=== PATIENT | male | born 1950 | race Caucasian/White ===

== ENCOUNTER 2017-06-21 10:57 | Inpatient (IN) | payer BC, OTHER ==
[2017-05-23 14:23] VITALS: BMI 37.0
--- NOTE | 2017-05-23 15:21 | PAT Medication Instructions ---
Service Date May 23, 2017. Current Home Medication List Acetaminophen Tab (Tylenol), 650 MG PO PRN Atorvastatin (Lipitor), 20 MG PO SatPM Carvedilol (Coreg), 3.125 MG PO BID Coenzyme Q10 (Ubidecarenone) (Coq10), 100 MG PO QPM Doxazosin Mesylate (Cardura), 4 MG PO QAM Escitalopram Oxalate (Lexapro), 20 MG PO QAM Famotidine (Pepcid), 20 MG PO BID Gabapentin (Neurontin), 600 MG PO BID Glyburide-Metformin (Glucovance 5/500 Mg), 1 TAB PO BID Levothyroxine Sodium (Synthroid), 50 MCG PO QAM Liraglutide (Victoza), 1 DOSE INJ QAM Lisinopril (Zestril), 2.5 MG PO QPM Fcshsciukng-Lznnm-Kgawsqdpr Bl (Uribel), 1 CAP PO BID Multivitamin (Multivitamin), 0.5 TAB PO BID Orphenadrine Citrate (Norflex), 100 MG PO BID Oxycodone/Acetaminophen 5MG/325MG (Percocet 5MG/325MG), 1 TABLET PO Q4H PRN for Pain Probiotic Product (Probiotic), 1 TAB PO BID Sitagliptin Phosphate (Januvia), 100 MG PO QAM Trazodone Hcl (Trazodone), 100 MG PO QPM Warfarin Sod (Jantoven), 0.5-1 TAB PO QAM [Vitron C], 1 TAB PO QAM Medication Instructions For Your Scheduled Surgery - Instructions per primary physician: Warfarin Sod (Jantoven), 0.5-1 TAB PO QAM - Hold the following medications 2 weeks prior to surgery: Coenzyme Q10 (Ubidecarenone) (Coq10), 100 MG PO QPM - Hold the following medications 48 hours prior to surgery: Glyburide-Metformin (Glucovance 5/500 Mg), 1 TAB PO BID - Hold the following medications 24 hours prior to surgery: Lisinopril (Zestril), 2.5 MG PO QPM - Hold the following medications the morning of surgery: [Vitron C], 1 TAB PO QAM Multivitamin (Multivitamin), 0.5 TAB PO BID Orphenadrine Citrate (Norflex), 100 MG PO BID Qbrwvfrpojz-Stwld-Tqedwglgx Bl (Uribel), 1 CAP PO BID Sitagliptin Phosphate (Januvia), 100 MG PO QAM Probiotic Product (Probiotic), 1 TAB PO BID - Take the following medications the morning of surgery with a sip of water OTHERWISE NOTHING TO EAT OR DRINK AFTER MIDNIGHT: Famotidine (Pepcid), 20 MG PO BID Gabapentin (Neurontin), 600 MG PO BID Doxazosin Mesylate (Cardura), 4 MG PO QAM Escitalopram Oxalate (Lexapro), 20 MG PO QAM Levothyroxine Sodium (Synthroid), 50 MCG PO QAM Liraglutide (Victoza), 1 DOSE INJ QAM Oxycodone/Acetaminophen 5MG/325MG (Percocet 5MG/325MG), 1 TABLET PO Q4H PRN for Pain (may take if needed up to 4 hours prior to surgery) Carvedilol (Coreg), 3.125 MG PO BID Acetaminophen Tab (Tylenol), 650 MG PO PRN (may take if needed up to 4 hours prior to surgery) - Take the following medications as scheduled the night before surgery: Trazodone Hcl (Trazodone), 100 MG PO QPM Multivitamin (Multivitamin), 0.5 TAB PO BID Orphenadrine Citrate (Norflex), 100 MG PO BID Famotidine (Pepcid), 20 MG PO BID Gabapentin (Neurontin), 600 MG PO BID Rwiljcnozqs-Dcgih-Wuxeiodxi Bl (Uribel), 1 CAP PO BID Probiotic Product (Probiotic), 1 TAB PO BID Oxycodone/Acetaminophen 5MG/325MG (Percocet 5MG/325MG), 1 TABLET PO Q4H PRN for Pain Carvedilol (Coreg), 3.125 MG PO BID Atorvastatin (Lipitor), 20 MG PO MON WED FRIPM Acetaminophen Tab (Tylenol), 650 MG PO PRN If you have any questions please call us at [phone] or [phone] or [phone]
--- NOTE | 2017-05-23 16:14 | DIAGNOSTIC IMAGING REPORT ---
CHEST 2 VIEWS ROUTINE CLINICAL HISTORY: 67 years-old Male presenting with preoperative assessment. TECHNIQUE: PA and lateral views of the chest were obtained. COMPARISON: None. FINDINGS: Median sternotomy wires and mediastinal surgical clip noted. Breakage of the penultimate wire noted. Cardiac silhouette normal in size. Coronary artery calcification versus coronary stent noted. Suggestion of pleural thickening along the right lateral hemithorax, which is asymmetric to the left. Lungs and pleural spaces otherwise clear. Degenerative changes of the thoracic spine. Upper abdomen normal. IMPRESSION: 1. Right pleural thickening suggested. This could represent asymmetric prominent extrapleural fat, loculated fluid, or pleural thickening. Otherwise no acute cardiopulmonary disease. Electronically signed by: Philippe Andrade M.D. 05/23/2017 4:13 PM Dictated Date/Time: 05/23/2017 4:11 PM
[2017-05-23 16:26] LABS: BASO % 0.4 %; BASO ABS # 0.03 K/uL (0-0.2); EOS % 1.7 %; EOS ABS # 0.13 K/uL (0-0.5); HEMOGLOBIN 12.7 g/dL (14.0-18.0); IG# 0.03 K/uL (0.00-0.02); LYMPH % 27.7 %; LYMPH ABS # 2.16 K/uL (1.2-3.4); MEAN CELL VOLUME 93.3 fL (80-100); MEAN CORPUSCULAR HEMOGLOBIN 30.4 pg (25-34); MEAN CORPUSCULAR HGB CONC 32.6 g/dl (32-36); MEAN PLATELET VOLUME 9.8 fL (7.4-10.4); MONO % 11.3 %; MONO ABS # 0.88 K/uL (0.11-0.59); NEUT % 58.5 %; NEUT ABS # 4.57 K/uL (1.4-6.5); PLATELET COUNT 177 K/uL (130-400); RED CELL DISTRIBUTION WIDTH SD 47.5 fL (36.4-46.3)
[2017-05-23 16:35] LABS: CALCIUM 8.6 mg/dl (8.5-10.1); CREATININE 0.93 mg/dl (0.60-1.40); POTASSIUM 4.1 mmol/L (3.5-5.1)
[~2017-06-21] VITALS: Ht 180.3 cm; Wt 121.0 kg
[2017-06-21] VITALS (8 sets, daily range): BP systolic 108–140; BP diastolic 67–83; PULSE 72–93; TEMP 36.2–36.7; O2SAT 93–96; Ht 180.3 cm; Wt 121.0 kg
[~2017-06-21 10:57] MED LIST: ACET325T96 PO; ATOR-22 PO; CARV3.122 PO; CEFAZOLIN 3000MG IV PUSH 15 ML IV SCH; COEN100C7 PO; DOXA4TAB2 PO; ESCI1TAB10 PO; FAMO20TA11 PO; GABA-113 PO; GLYB5TAB3 PO; LACTATED RINGER'S 1000ML 1,000 ML IV SCH; LEVO50TA PO; LIRA18IN INJ; LISI-789 PO; METH118C PO; MISCCAP80 PO; MULT-506 PO; ORPH100T PO; OXYC-57 PO; SITA100T3 PO; TRAZ50TA35 PO; VITRON C PO; WARF7.5T4 PO
[2017-06-21] MEDS ORDERED: WARF7.5T4 PO ×2 (11:25→11:28)
[2017-06-21 11:48] LABS: INR 1.1 (0.9-1.1); PTT PATIENT 23.4 SECONDS (21.0-31.0)
[2017-06-21] MEDS ORDERED: POLY335019 PO (12:04)
[2017-06-21] MEDS ORDERED: ONDANSETRON INJ 2 MG/ML 2 ML VIAL IV PRN ×3 (12:30→17:30)
[2017-06-21] MEDS ORDERED: FENTANYL CITRATE INJ 50 MCG/1 ML 2 ML VIAL IV PRN ×2 (12:30→17:30)
[2017-06-21] MEDS ORDERED: ATROPINE SULFATE 0.1 MG/ML 5ML SYR IV PRN ×2 (12:30→17:30)
[2017-06-21] MEDS ORDERED: EpHEDrine SULFATE INJ 50 MG/ML AMP IV PRN ×2 (12:30→17:30)
[2017-06-21] MEDS ORDERED: HYDROmorphone INJ 1 MG/ML SYR IV PRN (12:30)
--- NOTE | 2017-06-21 14:01 | History & Physical Bridge Note ---
H&P Re-Evaluation Bridge Note: I have examined the patient, reviewed the History & Physical and in the interval since the performance of the History & Physical I have noted the following changes of clinical significance: No changes noted
--- NOTE | 2017-06-21 14:02 | History and Physical ---
History & Physical Date Jun 21, 2017. Chief Complaint Back and leg pain History of Present Illness The patient is a 67 year old male with complaints of chronic back leg pain and weakness Additional History Hepatic Disease: No Endocrine Disorder: No Kidney Disease: No Hypertension: Yes Heart Disease: No Bleeding Tendencies: No Infectious Diseases: No Allergies Coded Allergies: No Known Allergies (Verified , 06/21/17) Home Medications Scheduled Acetaminophen Tab (Tylenol), 650 MG PO PRN Atorvastatin (Lipitor), 20 MG PO Sat Carvedilol (Coreg), 3.125 MG PO BID Coenzyme Q10 (Ubidecarenone) (Coq10), 100 MG PO QPM Doxazosin Mesylate (Cardura), 4 MG PO QAM Escitalopram Oxalate (Lexapro), 20 MG PO QAM Famotidine (Pepcid), 20 MG PO BID Gabapentin (Neurontin), 600 MG PO BID Glyburide-Metformin (Glucovance 5/500 Mg), 1 TAB PO BID Levothyroxine Sodium (Synthroid), 50 MCG PO QAM Liraglutide (Victoza), 1 DOSE INJ QAM Lisinopril (Zestril), 2.5 MG PO QPM Egcdpijbduf-Pibix-Rixmastlj Bl (Uribel), 1 CAP PO BID Multivitamin (Multivitamin), 0.5 TAB PO BID Orphenadrine Citrate (Norflex), 100 MG PO BID Probiotic Product (Probiotic), 1 TAB PO BID Sitagliptin Phosphate (Januvia), 100 MG PO QAM Trazodone Hcl (Trazodone), 100 MG PO QPM Warfarin Sod (Jantoven), 7.5 MG PO 4XWK Warfarin Sod (Jantoven), 3.75 MG PO 3XWK Scheduled PRN Oxycodone/Acetaminophen 5MG/325MG (Percocet 5MG/325MG), 1 TABLET PO Q4H PRN for Pain Polyethylene Glycol 3350 (Miralax), 17 GM PO Q2D PRN for Constipation Physical Examination Skin: warm/dry, no rash Eyes: normal inspection, EOMI, sclerae normal ENT: normal ENT inspection, pharynx normal Head: normocephalic, atraumatic Neck: supple, no adenopathy, trachea midline Respiratory/Chest: lungs clear, normal breath sounds, no respiratory distress Cardiovascular: regular rate, rhythm, no edema, no murmur Abdomen / GI: normal bowel sounds, non tender Back: normal inspection Extremities: normal inspection, normal range of motion Neurologic/Psych: no motor/sensory deficits, alert, normal reflexes, oriented x 3 Diagnosis Thoracic spinal stenosis T10 11 Plan of Treatment T10-T11 decompression fusion
[2017-06-21] MEDS ORDERED: BACITRACIN 50000 UNIT VIAL ONE (14:27)
[2017-06-21] MEDS ORDERED: BUPIVACAINE/EPINEPHRINE 0.5% MPF 1:200,000 30 ML VIAL ONE (14:27)
[2017-06-21] MEDS ORDERED: MIDAZOLAM HCL 1 MG/ML 2ML VIAL ONE (14:28)
[2017-06-21] MEDS ORDERED: FENTANYL CITRATE INJ 50 MCG/1 ML 2 ML VIAL ONE ×4 (14:28→16:34)
[2017-06-21] MEDS ORDERED: PROPOFOL IV EMULSION 10 MG/ML 20 ML VIAL IV ONE (15:41)
[2017-06-21] MEDS ORDERED: LIDOCAINE HCL 2% 2 ML VIAL (20MG/ML) ONE (15:41)
[2017-06-21] MEDS ORDERED: EpHEDrine SULFATE 50MG/5ML SYR ONE (15:41)
[2017-06-21] MEDS ORDERED: PHENYLEPHRINE 100MCG/ML 5ML SYR ONE (15:41)
[2017-06-21] MEDS ORDERED: GLYCOPYRROLATE INJ 0.2 MG/ML VIAL ONE ×2 (15:41→16:22)
[2017-06-21] MEDS ORDERED: DEXAMETHASONE SOD INJ 4 MG/ML VIAL ONE (15:41)
[2017-06-21] MEDS ORDERED: ONDANSETRON INJ 2 MG/ML 2 ML VIAL ONE (15:41)
[2017-06-21] MEDS ORDERED: DURASEAL DURAL SEALANT 5ML TOP ONE (16:19)
[2017-06-21] MEDS ORDERED: ROCURONIUM BROMIDE 10 MG/ML 5 ML VIAL IV ONE (16:21)
[2017-06-21] MEDS ORDERED: NEOSTIGMINE METHYLSULFATE 1 MG/ML 10ML VIAL ONE (16:22)
--- NOTE | 2017-06-21 16:27 | [facility] Operative Report ---
Operative Report Operative Date Jun 21, 2017. Pre-Operative Diagnosis Thoracic spinal stenosis T10 11 Post-Operative Diagnosis Thoracic spinal stenosis T10 11 Procedure(s) Performed #1 decompression T10 11. #2 posterior spinal fusion T10-T11. #3 posterior instrumentation T10-T11. Number for placement of locally harvested morcellized autograft in the posterolateral gutters. #5 history and physical sponge combined with Master graft in the posterior lateral gutters. Surgeon Dr. Yepez Mold Filling Operator Surgeon(s) Ba Cook PA-C Findings Severe spinal stenosis Description of Procedure Patient was met with preoperatively case discussed all questions addressed. After informed consent obtained patient was taken to the operative suite underwent intubation placed in a prone position on the Jose Armando table on top of the Xavier frame. All bony prominences well-padded I suspected to ensure no external pressure placed upon the period this point the femoral interspinous prepped and draped in normal sterile fashion. With assistance of fluoroscopy identified the T10 11 region. Sharp dissection of the assistance of Bovie cautery was performed and then exposing the T 1011 lamina. I then performed a complete laminectomy of T10 addressing severe facet hypertrophy and stenosis. After this was complete pedicle screws were placed in T10 and T11 bilaterally in the processes vince locked into position. The lateral processes and remaining facets were burred to subcortical bleeding bone and infuse sponge sponge past graft and locally harvested morcellized autograft placed in the posterior gutters. I did place a small one 2 mL of DuraSeal over the thinner areas of the dura that was decompressed. Then placed a 15 round MARIANA drain. Incision was then closed 1 Vicryl fascia 2-0 Vicryl substantially 4-0 Monocryl for fossa closure Steri-Strips dressing patient was making stable condition. Please note medical record was present at the entire procedure involvement patient positioning complex portions of the surgery and possible closure. I attest to the content of the Intraoperative Record and any orders documented therein. Any exceptions are noted below.
[2017-06-21] MEDS ORDERED: PROMETHAZINE HCL INJ 12.5 MG in SODIUM CHLORIDE 0.9% 50ML 50 ML IV PRN (16:30)
[2017-06-21] MEDS ORDERED: FAMOTIDINE 20 MG TAB PO PRN (16:30)
[2017-06-21] MEDS ORDERED: ALUMINUM/MAGNESIUM SUSP 30 ML UDC PO PRN (16:30)
[2017-06-21] MEDS ORDERED: ACETAMINOPHEN IV 100 ML IV PRN (16:30)
[2017-06-21] MEDS ORDERED: DC PCA PRN (16:30)
[2017-06-21] MEDS ORDERED: BISACODYL 10 MG SUPP PR PRN (16:30)
[2017-06-21] MEDS ORDERED: LORAZEPAM 0.5 MG TAB PO PRN (16:30)
[2017-06-21] MEDS ORDERED: hydrOXYzine HCL 25 MG TAB PO PRN (16:30)
[2017-06-21] MEDS ORDERED: MAGNESIUM HYDROXIDE SUSP 30 ML UDC PO PRN (16:30)
[2017-06-21] MEDS ORDERED: NALOXONE HCL 0.4 MG/1 ML VIAL/CARP IV PRN ×2 (16:30→17:00)
[2017-06-21] MEDS ORDERED: METOCLOPRAMIDE HCL INJ 5 MG/ML 2 ML VIAL IV PRN (16:30)
[2017-06-21] MEDS ORDERED: DO NOT ADMINISTER PNEUMOCOCCAL VACCINE PRN (16:30)
[2017-06-21] MEDS ORDERED: ACETAMINOPHEN 500 MG TAB PO PRN (16:30)
[2017-06-21] MEDS ORDERED: SOD PHOSPHATE/SOD BIPHOSPHATE ENEMA 132 ML BTL PR PRN (16:30)
[2017-06-21] MEDS ORDERED: DO NOT ADMINISTER FLU VACCINE PRN (16:30)
[2017-06-21] MEDS ORDERED: LORAZEPAM INJ 0.5 MG in SYRINGE 0.75 ML IV PRN (16:30)
--- NOTE | 2017-06-21 16:36 | DIAGNOSTIC IMAGING REPORT ---
INTRAOPERATIVE RADIOGRAPHS CLINICAL HISTORY: T10-T11 spinal fusion. Fluoroscopy time: 18 seconds. FINDINGS: 2 spot fluoroscopic images of the lower thoracic spine are obtained. There has been laminectomy and posterior fusion, reportedly at T10-T11. Interpedicular screws are present at both levels. The orthopedic hardware appears intact. IMPRESSION: Intraoperative images from T10 -T11 spinal fusion as above. Electronically signed by: Roger Trotter M.D. 06/21/2017 4:35 PM Dictated Date/Time: 06/21/2017 4:34 PM
[2017-06-21] MEDS ORDERED: SODIUM CHLORIDE 0.9% 1000ML 1,000 ML IV SCH ×2 (16:59→18:15)
[2017-06-21] MEDS ORDERED: HYDROmorphone HCL 0.5MG/ML 50 ML CASSETTE IV PRN (17:00)
[2017-06-21] MEDS ORDERED: HYDROmorphone HCL 0.5MG/ML 50 ML CASSETTE ONE (17:03)
--- NOTE | 2017-06-21 17:20 | Anesthesiology Progress Note ---
Anesthesia Post Op Note Date & Time Jun 21, 2017 at 17:20 Vital Signs Pain Intensity: 3 Vital Signs Past 12 Hours Date Time Temp Pulse Resp B/P (MAP) Pulse Ox O2 Delivery O2 Flow Rate FiO2 06/21/17 17:05 85 16 128/83 96 Oxymask 10 06/21/17 16:55 84 16 135/92 99 Oxymask 10 06/21/17 16:45 36. 91 16 155/89 95 Oxymask 10 06/21/17 11:40 36.4 74 18 140/83 94 Room Air Notes Mental Status: alert / awake / arousable, participated in evaluation Pt Amnestic to Procedure: Yes Nausea / Vomiting: adequately controlled Pain: adequately controlled Airway Patency, RR, SpO2: stable & adequate BP & HR: stable & adequate Hydration State: stable & adequate Anesthetic Complications: no major complications apparent
[2017-06-21] MEDS ORDERED: LABETALOL HCL IV 5 MG/ML 20ML IV PRN (17:30)
[2017-06-21] MEDS ORDERED: HYDROmorphone INJ 0.5 MG/0.5 ML SYR IV PRN (17:30)
[2017-06-21] MEDS ORDERED: MEPERIDINE HCL 25 MG/ML CARP IV PRN (17:30)
[2017-06-21] MEDS ORDERED: GLUCOSE 10 TABS/TUBE PO PRN (19:30)
[2017-06-21] MEDS ORDERED: DEXTROSE 50% 50 ML SYR IV PRN (19:30)
[2017-06-21] MEDS ORDERED: GLUCAGON FOR INJ 1 MG VIAL SQ PRN (19:30)
[2017-06-21] MEDS ORDERED: GLUCOSE 40% GEL 15 GM TUBE PO PRN (19:30)
[2017-06-21] MEDS: DEXAMETHASONE INJ 6 MG in SYRINGE 0 ML IV SCH (20:43)
[2017-06-21] MEDS ORDERED: LISINOPRIL 2.5 MG TAB PO SCH (21:00)
[2017-06-21] MEDS ORDERED: INSULIN ASPART 100 UNITS/ML 3 ML PEN SC SCH (21:00)
[2017-06-21 21:04] LABS: BASO % 0.1 %; BASO ABS # 0.01 K/uL (0-0.2); EOS % 0.2 %; EOS ABS # 0.02 K/uL (0-0.5); HEMATOCRIT 37.6 % (42-52); HEMOGLOBIN 12.4 g/dL (14.0-18.0); IG# 0.06 K/uL (0.00-0.02); LYMPH % 9.7 %; MEAN CELL VOLUME 92.4 fL (80-100); MEAN CORPUSCULAR HEMOGLOBIN 30.5 pg (25-34); MEAN PLATELET VOLUME 9.6 fL (7.4-10.4); MONO % 2.4 %; NEUT % 86.9 %; NEUT ABS # 7.14 K/uL (1.4-6.5); PLATELET COUNT 148 K/uL (130-400); RED CELL DISTRIBUTION WIDTH CV 13.3 % (11.5-14.5); RED CELL DISTRIBUTION WIDTH SD 44.8 fL (36.4-46.3); WHITE BLOOD COUNT 8.23 K/uL (4.8-10.8)
[2017-06-21 21:25] LABS: ALBUMIN 3.3 gm/dl (3.4-5.0); CALCIUM 8.5 mg/dl (8.5-10.1); POTASSIUM 4.2 mmol/L (3.5-5.1)
[2017-06-21 21:28] LABS: TOTAL PROTEIN 7.1 gm/dl (6.4-8.2)
[2017-06-21] MEDS ORDERED: INSULIN GLARGINE SOLOSTAR 100 UNITS/ML 3 ML PEN SC ONE (21:48)
[2017-06-21] MEDS: ORPHENADRINE CITRATE 100 MG TABCR PO SCH (21:58)
[2017-06-21] MEDS: GABAPENTIN 600 MG TAB PO SCH (21:58)
[2017-06-21] MEDS: CARVEDILOL 3.125 MG TAB PO SCH (21:58)
[2017-06-21] MEDS: TRAZODONE HCL 100 MG TAB PO SCH (21:59)
[2017-06-21] MEDS: FAMOTIDINE 20 MG TAB PO SCH (21:59)
[2017-06-21] MEDS: DOCUSATE SODIUM/SENNA 50/8.6MG TAB PO SCH (22:00)
[2017-06-21] MEDS ORDERED: OPTIRAY 320 IV PRN (22:00)
[2017-06-21] MEDS ORDERED: CEFAZOLIN IV 3,000 MG in DEXTROSE 5% 50ML 50 ML IV SCH (22:00)
[2017-06-21] MEDS: MULTIVITAMIN TAB PO SCH (22:35)
[2017-06-21] MEDS: CEFAZOLIN IV 3,000 MG in SYRINGE 0 ML IV SCH (22:35)
--- NOTE | 2017-06-21 22:37 | DIAGNOSTIC IMAGING REPORT ---
ABDOMEN AND PELVIS CT WITH IV CONTRAST CT DOSE: 1444.25 mGy.cm HISTORY: Acute left sided abdominal pain L abd pain TECHNIQUE: Multiaxial CT images of the abdomen and pelvis were performed following the use of intravenous contrast. A dose lowering technique was utilized adhering to the principles of ALARA. COMPARISON STUDY: Fluoroscopic images 06/21/2017. FINDINGS: Linear subsegmental consolidative opacities of the lung bases suggest areas of atelectasis/scarring. There is no pneumatosis or pneumoperitoneum identified. The imaged inferior cardiac chambers are unremarkable. Low attenuating 7 mm lesion of the posterior right hepatic lobe is too small to characterize and may reflect a hepatic cyst. Layering gallstones are seen within the gallbladder neck without CT evidence of acute cholecystitis. No intrahepatic biliary ductal dilation. Spleen, and adrenal glands are within normal limits. There are a few punctate calcifications of the pancreatic head. Mild nonspecific perinephric stranding noted bilaterally. 6 mm low attenuating lesion of the lateral aspect interpolar left kidney suggests renal cyst. No renal calculi or hydronephrosis. Ureters are unremarkable. Suggested TURP defect of the prostate. Small bilateral fat filled hernias. Moderate atherosclerosis of the aorta. Mildly prominent iliac chain lymph nodes are seen bilaterally measuring up to 7 mm. Duodenum is mildly dilated measuring up to 3.2 cm. This is likely incidental as remainder of the small bowel is normal in caliber without evidence of obstruction. Minimal colonic diverticulosis without evidence of acute diverticulitis. Moderate stool volume throughout the colon is noted. The appendix appears normal. Postoperative changes of the ventral abdominal wall with mild stranding of the subcutaneous tissues of the anterior abdomen. The bones appear to be intact. Prior posterior decompression with posterior vince screw fusion noted at the T10-T11 interspace. There is a large posterior disc osteophyte complex noted at this level. Deep tissue air and soft tissue swelling is noted about this distribution, likely expected postoperative findings. Drainage catheter is also noted within this region. No drainable fluid collections. IMPRESSION: 1. Postoperative findings from recent decompression with posterior interbody vince and screw fusion at T10-T11. Surgical drain is in place along with mild soft tissue swelling and deep tissue air, likely expected postoperative changes. No drainable fluid collections. 2. Cholelithiasis without CT evidence of acute cholecystitis. 3. No acute intra-abdominal or intrapelvic abnormality identified. 4. Minimal colonic diverticulosis without acute diverticulitis. 5. Additional findings as above. Electronically signed by: Daniel Herrera M.D. 06/21/2017 10:36 PM Dictated Date/Time: 06/21/2017 10:24 PM
[2017-06-22] VITALS (7 sets, daily range): BP systolic 106–157; BP diastolic 62–84; PULSE 60–78; TEMP 36.4–36.6; O2SAT 90–96
[2017-06-22] MEDS ORDERED: ACETAMINOPHEN 500 MG TAB PO PRN (00:30)
[2017-06-22] MEDS ORDERED: SODIUM CHLORIDE 0.9% 1000ML 1,000 ML IV ONE ×3 (01:15→20:45)
--- NOTE | 2017-06-22 03:07 | INTERNAL MEDICINE CONSULTATION ---
DATE OF CONSULTATION: 06/21/2017 PRIMARY CARE DOCTOR: Dr. Jones. Patient seen on the request of Dr. Yepez for medical management. HISTORY OF PRESENT ILLNESS: History obtained from patient and records. 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 Patient underwent thoracic spine surgery today. Postop no chest pain, no shortness of breath. Complaining of some achy left lower quadrant pain, has not passed gas. Good bowel movement the day before. No fever, no chills, no nausea, no vomiting. MEDICAL HISTORY: As above. SURGERIES: He has had colostomy/reversal, back surgery, knee surgery, appendectomy, nasal surgery, CABG. HOME MEDICATIONS: Include orphenadrine, MiraLax, probiotic, Januvia, trazodone, Coumadin, Victoza, lisinopril, methenamine, multivitamins, Percocet, Lexapro, Pepcid, glyburide, Neurontin, Synthroid, Lipitor, Tylenol, Coreg, Cardura, aspirin. ALLERGIES: No known drug allergies. FAMILY HISTORY: There is a family history of heart disease and blood clots. PERSONAL AND SOCIAL HISTORY: Nonsmoker, no chronic intake of alcoholic beverages. 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 REVIEW OF SYSTEMS: As per HPI. All 10 systems reviewed. All other ROS negative. PHYSICAL EXAMINATION: VITAL SIGNS: Blood pressure was noted to be 128/67, pulse rate 88, RR 18, temperature 36.7, sats 92 on 4 liters. GENERAL: Noted to be obese, comfortable, pleasant, no respiratory distress, eating dinner. SKIN: Pallor. Warm, HEENT : Pale palpebrae conjunctiva. No ptosis. Dry mucosa. NECK: Short neck. No tenderness. CHEST: Clear to auscultation. No tenderness. Healed sternal scar. HEART: Regular rate and rhythm. No murmur. ABDOMEN: Minimal left lower quadrant tenderness, some distention. EXTREMITIES: Minimal LE edema, no tenderness. No gross deformities. NEUROLOGIC: Coherent. No gross focality. LABORATORY DATA: Hemoglobin was noted to be 12.4, hematocrit 37.6, white cells 8.23, platelets noted to be 148. Sodium 136, potassium 4.2, chloride 102, CO2 26, BUN 13, creatinine 1, glucose was noted to be 277, AST 88, ALT 125, lipase 124. ASSESSMENT: 1. Thoracic spinal stenosis status post surgery Tolerable postop pain 2. LLQ abdominal pain rule out urinary tract infection. Hx recurrent UTIs on suppressive therapy. Patient not septic. 3. Hypertension, stable. 4. Coronary artery disease, status post coronary artery bypass grafting/ hx PVD. 5. Recurrent deep venous thrombosis on anticoagulation Coumadin held prior to procedure. 6. Chronic anemia, hemoglobin at baseline. 7. DM type 2 on oral meds, blood sugars elevated postoperatively secondary to perioperative steroids. Unknown control at home. 8. hx Guillain Luong syndrome as per records 9. abn LFTS possibly from fatty liver disease RECOMMENDATIONS: Follow UA. Resume home ASA and Coumadin for secondary CAD/recurrent clot prevention respectively once bleeding risk is deemed to be minimal and negligible. Basal insulin, ISS BG 140-180. Check hemoglobin A1c. DVT prophylaxis, SCDs as per Orthopedics orders on admission while pharmacologic anticoagulation on hold. Thank you very much for consultation. Dr. Valles will follow patient's progress. [facility]
[2017-06-22] MEDS: DEXAMETHASONE INJ 6 MG in SYRINGE 0 ML IV SCH ×2 (03:47→13:18)
[2017-06-22] MEDS ORDERED: HYDROmorphone INJ 1 MG/ML SYR IV PRN (06:00)
[2017-06-22] MEDS: [UNRECOGNIZED DRUG - REMARK] SCH ×4 (06:00→22:26)
[2017-06-22] MEDS ORDERED: HYDROmorphone INJ 0.5 MG/0.5 ML SYR IV PRN (06:00)
[2017-06-22 06:09] LABS: BASO % 0.1 %; BASO ABS # 0.01 K/uL (0-0.2); HEMOGLOBIN 12.5 g/dL (14.0-18.0); IG# 0.06 K/uL (0.00-0.02); LYMPH ABS # 0.97 K/uL (1.2-3.4); MEAN CELL VOLUME 92.2 fL (80-100); MEAN CORPUSCULAR HEMOGLOBIN 30.3 pg (25-34); MEAN CORPUSCULAR HGB CONC 32.9 g/dl (32-36); MEAN PLATELET VOLUME 9.6 fL (7.4-10.4); MONO % 2.8 %; MONO ABS # 0.39 K/uL (0.11-0.59); NEUT % 89.7 %; NEUT ABS # 12.33 K/uL (1.4-6.5); PLATELET COUNT 169 K/uL (130-400); RED CELL DISTRIBUTION WIDTH CV 13.3 % (11.5-14.5); RED CELL DISTRIBUTION WIDTH SD 44.9 fL (36.4-46.3); WHITE BLOOD COUNT 13.76 K/uL (4.8-10.8)
[2017-06-22] MEDS: LEVOTHYROXINE 50 MCG TAB PO SCH (06:14)
[2017-06-22] MEDS: CEFAZOLIN IV 3,000 MG in SYRINGE 0 ML IV SCH (06:15)
[2017-06-22 06:28] LABS: INR 1.1 (0.9-1.1)
[2017-06-22 06:39] LABS: ALBUMIN 3.4 gm/dl (3.4-5.0); CALCIUM 8.9 mg/dl (8.5-10.1); CREATININE 1.11 mg/dl (0.60-1.40); POTASSIUM 4.7 mmol/L (3.5-5.1)
[2017-06-22 06:42] LABS: TOTAL PROTEIN 7.3 gm/dl (6.4-8.2)
[2017-06-22] MEDS ORDERED: INSULIN GLARGINE SOLOSTAR 100 UNITS/ML 3 ML PEN SC ONE ×2 (07:35→19:35)
[2017-06-22] MEDS ORDERED: INSULIN ASPART 100 UNITS/ML 3 ML PEN SC ONE (07:35)
[2017-06-22 08:26] LABS: HEMOGLOBIN A1C 6.7 % (4.5-5.6)
[2017-06-22] MEDS ORDERED: SITAGLIPTIN 100 MG TAB PO SCH (09:00)
[2017-06-22] MEDS: ESCITALOPRAM OXALATE 20 MG TAB PO SCH (09:10)
[2017-06-22] MEDS: MULTIVITAMIN TAB PO SCH ×2 (09:10→20:54)
[2017-06-22] MEDS: FAMOTIDINE 20 MG TAB PO SCH ×2 (09:10→20:54)
[2017-06-22] MEDS: GABAPENTIN 600 MG TAB PO SCH ×2 (09:11→20:53)
[2017-06-22] MEDS: LISINOPRIL 2.5 MG TAB PO SCH (09:11)
[2017-06-22] MEDS: DOXAZosin MESYLATE TAB 4 MG TAB PO SCH (09:11)
[2017-06-22] MEDS: LACTOBACILLUS ACIDOPHILUS (FLORANEX) TAB PO SCH ×2 (09:12→18:36)
[2017-06-22] MEDS: CARVEDILOL 3.125 MG TAB PO SCH ×2 (09:12→20:54)
[2017-06-22] MEDS ORDERED: KETOROLAC TROMETHAMINE 15 MG/ML VIAL IV. PRN (10:15)
[2017-06-22] MEDS ORDERED: RXC5 PO (10:15)
--- NOTE | 2017-06-22 10:16 | Discharge Instructions ---
Discharge Instructions Date of Service Jun 22, 2017. Admission Reason for Admission: Spinal Stenosis Discharge Discharge Diagnosis / Problem: thoracic stenosis Discharge Goals Goal(s): Improve function Activity Recommendations Activity Limitations: per Instructions/Follow-up section . Instructions / Follow-Up Instructions / Follow-Up ACTIVITY RECOMMENDATIONS: SELF CARE INSTRUCTIONS AFTER THORACIC/LUMBAR FUSIONS 1. You may walk to your tolerance. It is good exercise for your legs and back. Expect some back and intermittent leg aches and pains. 2. You may perform "counter-top" level activities (make a sandwich, rose with a project, etc.). 3. No bending or lifting of more than 10 pounds or back twisting of any nature (roll like a log when turning in bed). 4. You may ride in a car for 20-30 minutes at a time. No driving until after your first visit with your doctor. 5. Frequent changes of position and restricting sitting to 30 minutes at a time will help limit the amount of back spasms and stiffness you may experience. 6. You may discontinue the use of ambulatory aids (cane, crutches, etc.) once your strength and confidence allow. 7. You may scales inspector the shower and let water strike your incision when you arrive home at least once daily. Do not take a tub bath, sit in a hot tub or go into a swimming pool until after your first recheck in the office. SPECIAL CARE INSTRUCTIONS: VERY IMPORTANT TO READ AND REVIEW A. Your surgical incision has been closed with a cosmetic suture under the skin that will dissolve in about 6 weeks. In 14 days, you can use a pair of clean scissors and cut the suture that is left outside of the skin at the ends of your incision. 1. The small skin tapes can be removed 7 days after surgery if they have not fallen off by that point. 2. You may keep the wound open to air as much as possible to promote healing after post-op day number 5 unless told otherwise by your doctor. 3. If you think the wound looks like it is becoming infected (redness or worsening drainage) and/or you are experiencing fever, chill or worsening back pain and muscle spasms, contact the office so that we may evaluate you as soon as possible. B. Complications are uncommon, but please contact us if you have any signs or symptoms of: 1. wound infection (fever higher than 102.5 degrees F, redness, separation of wound, drainage, or increasing pain from the incision) 2. blood clots in legs (pain, swelling, redness and warmth in legs) 3. urinary tract infection (fever higher than 102.5 degrees F, burning upon urination or increased frequency of urination) 4. nerve problems (inability to walk on your toes or heels, numbness, loss of bowel or bladder control) 5. any other symptoms that concern you C. Please call the office at if you have any concerns or questions about your operation or recovery. D. No smoking! Smoking drastically decreases the chance of a solid fusion. E. Do not take any anti-inflammatory medications (Indocin, Advil, Motrin, Aspirin, Naprosyn, etc.) as these may inhibit the chance of a solid fusion. Tylenol is okay to take for pain. MANAGING PAIN AFTER SPINAL SURGERY 1. Narcotic medication is intended for short-term use and will be provided for surgical pain. Surgical pain usually lasts for a period of 4-6 weeks. Narcotic medication includes Percocet, Vicodin, Darvocet, Tylenol #3 or Lortab. 2. Longer-term pain is more appropriately treated with non-narcotic medication such as Tylenol ES. 3. Muscle spasm is not appropriately treated with narcotics. Muscle relaxers such as Soma, Flexeril or Skelaxin can be used along with Tylenol ES. 4. Remember that we all live with some "aches and pains". This is not unusual or uncommon after an injury or as we get older. a. Back pain is expected and may include muscle spasms for 4 to 6 weeks after surgery. The pain should gradually improve. If the pain worsens for no apparent reason, please contact the office. b. Intermittent leg pain may also be experienced and should not be concerned about unless it worsens for no apparent reason. If so, please contact the office. 5. We will provide appropriate medication within the normal guidelines of their prescribed use. We will also be very cautious and aware of potential abuse and extended duration of patients' medication needs. a. Pain medications are for your comfort and to assist with sleep and rest so that the tissue can heal. They are not provided in order to return to normal activity and should not be used through the day. To do so or worsening pain at night can result from ongoing tissue damage and development of tolerance to the prescribed medicine. 6. Please allow 2-3 days to process refills. Prescriptions will not be mailed but must be picked up at the office. FOLLOW UP VISIT: Keep your scheduled follow-up appointment. Any questions, please call the office at . Current Hospital Diet Patient's current hospital diet: Diabetes Type 2 Diet Discharge Diet Recommended Diet: Regular Diet Procedures Procedures Performed: #1 decompression T10 11. #2 posterior spinal fusion T10-T11. #3 posterior instrumentation T10-T11. Number for placement of locally harvested morcellized autograft in the posterolateral gutters. #5 history and physical sponge combined with Master graft in the posterior lateral gutters. Pending Studies Studies pending at discharge: no Laboratory Results Hemoglobin A1c Test 06/22/17 05:54 Range/Units Estimated Average Glucose 146 mg/dl Hemoglobin A1c 6.7 H 4.5-5.6 % Medical Emergencies . Who to Call and When: Medical Emergencies: If at any time you feel your situation is an emergency, please call 911 immediately. . Non-Emergent Contact Non-Emergency issues call your: Primary Care Provider . "Provider Documentation" section prepared by Ramiro Yepez. . VTE Core Measure Inpt VTE Proph given/why not?: Celso Riley, LY's
[2017-06-22] MEDS: ORPHENADRINE CITRATE 100 MG TABCR PO SCH ×2 (10:19→20:53)
--- NOTE | 2017-06-22 10:24 | Progress Note ---
Progress Note Date of Service Jun 22, 2017. Progress Note Patient's back pain is well-controlled. No leg symptoms. Vital signs stable. Exam is good strength testing. Assessment status post thoracic decompression fusion. Plan this time we will initiate physical therapy anticipate discharge home Saturday or Saturday.
[2017-06-22] MEDS: OXYCODONE HCL IR 5 MG TAB (IMMEDIATE RELEASE) PO PRN (12:56)
[2017-06-22] MEDS: INSULIN ASPART 100 UNITS/ML 3 ML PEN SC SCH ×3 (13:22→20:48)
[2017-06-22] MEDS ORDERED: INSULIN HUMAN REGULAR PER UNIT 10 UNITS in SYRINGE 0 ML IV STA (17:55)
[2017-06-22] MEDS ORDERED: INSULIN HUMAN REGULAR PER UNIT 10 UNITS in SYRINGE 9.9 ML IV SCH (18:30)
[2017-06-22 20:35] LABS: CALCIUM 8.8 mg/dl (8.5-10.1); CREATININE 1.11 mg/dl (0.60-1.40); POTASSIUM 4.7 mmol/L (3.5-5.1)
[2017-06-22] MEDS ORDERED: INSULIN GLARGINE SOLOSTAR 100 UNITS/ML 3 ML PEN SC SCH (21:00)
[2017-06-22] MEDS: DOCUSATE SODIUM/SENNA 50/8.6MG TAB PO SCH (21:59)
[2017-06-22] MEDS: TRAZODONE HCL 100 MG TAB PO SCH (21:59)
[2017-06-23] MEDS ORDERED: INSULIN GLARGINE SOLOSTAR 100 UNITS/ML 3 ML PEN SC ONE ×2 (01:55→22:00)
[2017-06-23] MEDS ORDERED: INSULIN ASPART 100 UNITS/ML 3 ML PEN SC ONE (02:38)
[2017-06-23] MEDS: LEVOTHYROXINE 50 MCG TAB PO SCH (05:31)
[2017-06-23] MEDS: POLYETHYLENE (MIRALAX) 17 GM PACK PO SCH ×4 (05:31→23:21)
[2017-06-23 06:33] LABS: CALCIUM 8.6 mg/dl (8.5-10.1); POTASSIUM 4.9 mmol/L (3.5-5.1)
[2017-06-23 07:16] VITALS: BP 130/72; PULSE 50; TEMP 36.6; O2SAT 92
--- NOTE | 2017-06-23 07:41 | Progress Note ---
Subjective Date of Service: Jun 22, 2017. Subjective Pt evaluation today including: conversation w/ patient, physical exam, lab review, review of studies, review of inpatient medication list Note for June 22: Saw/examined the patient in room 324 He's doing well, back pain controlled blood sugars elevated throughout the day Review of Systems Constitutional: No fever, No chills Respiratory: No shortness of breath Cardiac: No chest pain Musculoskeletal: + joint pain (back pain controlle with meds) Heme: No abnormal bleeding/bruising Medications Current Inpatient Medications Medications (Trade) Dose Ordered Sig/Romana Route Start Time Stop Time Status Last Admin Dose Admin Promethazine HCl 12.5 mg/Sodium Chloride 50.5 ml @ 202 mls/hr Q6H PRN IV 06/21/17 16:30 07/21/17 16:29 Ondansetron HCl (Zofran Inj) 4 mg Q6H PRN IV 06/21/17 16:30 07/21/17 16:29 Metoclopramide HCl (Reglan Inj) 10 mg Q6H PRN IV 06/21/17 16:30 07/21/17 16:29 Lorazepam (Ativan Tab) 0.5 mg Q8H PRN PO 06/21/17 16:30 07/21/17 16:29 06/22/17 21:04 0.5 MG Lorazepam 0.5 mg/ Syringe 1 ml @ 1 mls/min Q8H PRN IV 06/21/17 16:30 07/21/17 16:29 Pneumococcal Polysaccharide Vaccine 1 ea PRN PRN N/A 06/21/17 16:30 07/21/17 16:29 Influenza Virus Vacc Triv Types A&B 1 ea PRN PRN N/A 06/21/17 16:30 07/21/17 16:29 Polyethylene (Miralax Powder Packet) 17 gm Q6 PO 06/23/17 06:00 07/23/17 05:59 06/23/17 05:31 17 GM Bisacodyl (Dulcolax Supp) 10 mg DAILY PRN [place] 06/21/17 16:30 07/21/17 16:29 Magnesium Hydroxide (Milk Of Magnesia Susp) 30 ml DAILY PRN PO 06/21/17 16:30 07/21/17 16:29 06/22/17 10:23 30 ML Hydromorphone HCl (Dilaudid Inj) 0.5 mg Q3H PRN IV 06/22/17 06:00 07/06/17 05:59 Oxycodone HCl (Roxicodone Immediate Rel Tab) 5-10mg prn moderate to sev... Q4H PRN PO 06/22/17 06:00 07/06/17 05:59 06/22/17 12:56 10 MG Acetaminophen 100 ml @ 400 mls/hr Q8H PRN IV 06/21/17 16:30 07/21/17 16:29 Naloxone HCl (Narcan Inj) 0.1 mg Q5M PRN IV 06/21/17 16:30 07/21/17 16:29 Senna/Docusate Sodium (Senokot S Tab) 2 tab HS PO 06/21/17 21:00 07/21/17 20:59 06/22/17 21:59 2 TAB Sodium Biphosphate/ Sodium Phosphate (Fleet Enema) 132 ml ONE PRN [place] 06/21/17 16:30 07/21/17 16:29 Hydroxyzine HCl (Vistaril Tab) 25 mg Q8H PRN PO 06/21/17 16:30 07/21/17 16:29 Al Hydroxide/Mg Hydroxide (Maalox Susp) 30 ml Q6H PRN PO 06/21/17 16:30 07/21/17 16:29 Diphenhydramine HCl (Benadryl Cap) 25 mg Q6H PRN PO 06/21/17 16:30 07/21/17 16:29 Carvedilol (Coreg Tab) 3.125 mg BID PO 06/21/17 21:00 07/21/17 20:59 06/22/17 20:54 3.125 MG Doxazosin Mesylate (Cardura Tab) 4 mg QAM PO 06/22/17 09:00 07/22/17 08:59 06/22/17 09:11 4 MG Escitalopram Oxalate (Lexapro Tab) 20 mg QAM PO 06/22/17 09:00 07/22/17 08:59 06/22/17 09:10 20 MG Famotidine (Pepcid Tab) 20 mg BID PO 06/21/17 21:00 07/21/17 20:59 06/22/17 20:54 20 MG Gabapentin (Neurontin Tab) 600 mg BID PO 06/21/17 21:00 07/21/17 20:59 06/22/17 20:53 600 MG Levothyroxine Sodium (Synthroid Tab) 50 mcg DAILYBB PO 06/22/17 06:00 07/22/17 05:59 06/23/17 05:31 50 MCG Orphenadrine Citrate (Norflex Tab) 100 mg BID PO 06/21/17 21:00 07/21/17 20:59 06/22/17 20:53 100 MG Trazodone HCl (Desyrel Tab) 100 mg QPM PO 06/21/17 21:00 07/21/17 20:59 06/22/17 21:59 100 MG Hydromorphone HCl (Dilaudid Inj) 1 mg Q3H PRN IV 06/22/17 06:00 07/06/17 05:59 Atorvastatin Calcium (Lipitor Tab) 20 mg MoWeFr@0900 PO 06/24/17 09:00 07/24/17 08:59 Multivitamins (Multivitamin Tab) 0.5 tab BID PO 06/21/17 21:00 07/21/17 20:59 06/22/17 20:54 0.5 TAB Lactobacillus Acidophilus (Floranex Tab) 4 tab BIDM PO 06/22/17 08:30 07/22/17 08:29 06/22/17 18:36 4 TAB Glucose (Glucose 40% Gel) 15-30 GRAMS 15 GRAMS... UD PRN PO 06/21/17 19:30 07/21/17 19:29 Glucose (Glucose Chew Tab) 4-8 Tablets 4 Tabl... UD PRN PO 06/21/17 19:30 07/21/17 19:29 Dextrose (Dextrose 50% 50ML Syringe) 25-50ML OF 50% DW IV FOR... UD PRN IV 06/21/17 19:30 07/21/17 19:29 Glucagon (Glucagon Inj) 1 mg UD PRN SQ 06/21/17 19:30 07/21/17 19:29 Ioversol (Optiray 320) 111 ml UD PRN IV 06/21/17 22:00 06/25/17 21:59 Acetaminophen (Tylenol Tab) 325 mg Q8H PRN PO 06/22/17 00:30 07/21/17 16:29 Lisinopril (Zestril Tab) 2.5 mg HS PO 06/22/17 21:00 07/22/17 20:59 06/22/17 09:11 2.5 MG Miscellaneous Information (Order Awaiting Action) 1 ea QS N/A 06/22/17 06:00 07/22/17 05:59 Ketorolac Tromethamine (Toradol Inj) 15 mg Q6H PRN IV. 06/22/17 10:15 06/27/17 10:14 06/22/17 21:04 15 MG Sodium Chloride 1,000 ml @ 75 mls/hr [id number] ONCE IV 06/22/17 20:45 06/23/17 10:04 06/22/17 21:03 75 MLS/HR Insulin Glargine (Lantus Solostar Pen) 25 units DAILY SC 06/24/17 09:00 07/22/17 20:59 Insulin Aspart (novoLOG ASPART) SLIDING SCALE If C... ACHS SC 06/23/17 08:00 07/21/17 20:59 Objective Vital Signs Date Time Temp Pulse Resp B/P (MAP) Pulse Ox O2 Delivery O2 Flow Rate FiO2 06/23/17 07:16 36.6 50 16 130/72 (91) 92 CPAP 06/22/17 22:45 36.4 70 18 138/84 (102) 96 Room Air 06/22/17 20:51 60 123/65 (84) 06/22/17 19:15 Room Air 06/22/17 15:19 36.4 65 16 127/70 (89) 90 Room Air 06/22/17 13:14 78 93 06/22/17 11:00 36.6 73 16 124/65 (84) 90 Room Air 06/22/17 07:26 36.5 78 16 157/80 (105) 90 Room Air 06/22/17 07:24 Room Air Physical Exam General Appearance: no apparent distress, + obese Respiratory/Chest: no respiratory distress, no accessory muscle use Cardiovascular: regular rate, rhythm Neurologic/Psychiatric: alert, normal mood/affect Laboratory Results Last 24 Hours Test 06/22/17 07:25 06/22/17 11:43 06/22/17 17:34 06/22/17 19:59 Bedside Glucose 324 mg/dl 290 mg/dl 344 mg/dl Sodium Level 136 mmol/L Potassium Level 4.7 mmol/L Chloride Level 100 mmol/L Carbon Dioxide Level 24 mmol/L Anion Gap 12.0 mmol/L Blood Urea Nitrogen 17 mg/dl Creatinine 1.11 mg/dl Est Creatinine Clear Calc Drug Dose 85.5 ml/min Estimated GFR () 79.2 Estimated GFR (Non- 68.3 BUN/Creatinine Ratio 15.3 Random Glucose 370 mg/dl Calcium Level 8.8 mg/dl Beta-Hydroxybutyric Acid 1.54 mg/dL Test 06/22/17 20:46 06/23/17 01:24 06/23/17 01:36 06/23/17 03:16 Bedside Glucose 331 mg/dl 322 mg/dl 323 mg/dl 306 mg/dl Test 06/23/17 05:14 Sodium Level 136 mmol/L Potassium Level 4.9 mmol/L Chloride Level 104 mmol/L Carbon Dioxide Level 25 mmol/L Anion Gap 7.0 mmol/L Blood Urea Nitrogen 19 mg/dl Creatinine 1.00 mg/dl Est Creatinine Clear Calc Drug Dose 94.9 ml/min Estimated GFR () 89.9 Estimated GFR (Non- 77.5 BUN/Creatinine Ratio 19.4 Random Glucose 298 mg/dl Calcium Level 8.6 mg/dl Assessment and Plan This is a 67 year old male with a PMH of CAD s/p CABG, DM2, HTN, HLD, recurrent UTIs and chronic antibiotic suppression, 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 of DVTs takes Coumadin at home restart when okay with ortho HTN blood pressure stable; continue home medications DVT ppx as per ortho
[2017-06-23] MEDS: [UNRECOGNIZED DRUG - REMARK] SCH ×2 (08:00→10:48)
[2017-06-23] MEDS: LACTOBACILLUS ACIDOPHILUS (FLORANEX) TAB PO SCH ×2 (08:30→18:27)
[2017-06-23] MEDS: OXYCODONE HCL IR 5 MG TAB (IMMEDIATE RELEASE) PO PRN ×2 (08:57→14:04)
[2017-06-23] MEDS: MULTIVITAMIN TAB PO SCH ×2 (09:00→21:17)
[2017-06-23] MEDS ORDERED: INSULIN GLARGINE SOLOSTAR 100 UNITS/ML 3 ML PEN SC SCH (09:00)
[2017-06-23] MEDS: DOXAZosin MESYLATE TAB 4 MG TAB PO SCH (09:03)
[2017-06-23] MEDS: ESCITALOPRAM OXALATE 20 MG TAB PO SCH (09:03)
[2017-06-23] MEDS: INSULIN ASPART 100 UNITS/ML 3 ML PEN SC SCH ×4 (09:06→21:37)
[2017-06-23] MEDS: FAMOTIDINE 20 MG TAB PO SCH ×2 (10:45→21:14)
[2017-06-23] MEDS: GABAPENTIN 600 MG TAB PO SCH ×2 (10:45→21:15)
[2017-06-23] MEDS: CARVEDILOL 3.125 MG TAB PO SCH ×2 (10:45→21:00)
[2017-06-23] MEDS: ORPHENADRINE CITRATE 100 MG TABCR PO SCH ×2 (10:45→21:14)
--- NOTE | 2017-06-23 12:40 | Progress Note ---
Progress Note Date of Service Jun 23, 2017. Progress Note Patient's back pain is controlled. He feels his leg symptoms are improving. He 's having some modest flatus but no bowel movement at this time. On exam he has good strength testing her 70s. He does appear comfortable. This time we' ll continue physical therapy anticipate discharge home tomorrow.
--- NOTE | 2017-06-23 15:33 | Progress Note ---
Subjective Date of Service: Jun 23, 2017. Subjective Pt evaluation today including: conversation w/ patient, physical exam, lab review, review of studies, review of inpatient medication list Saw/examined the patient in room 324 He's doing well ambulating with minimal pain +weak Review of Systems Constitutional: + weakness, No fever, No chills Respiratory: No shortness of breath Cardiac: No chest pain Abdomen: No pain, No nausea, No vomiting, No diarrhea Medications Current Inpatient Medications Medications (Trade) Dose Ordered Sig/Romana Route Start Time Stop Time Status Last Admin Dose Admin Promethazine HCl 12.5 mg/Sodium Chloride 50.5 ml @ 202 mls/hr Q6H PRN IV 06/21/17 16:30 07/21/17 16:29 Ondansetron HCl (Zofran Inj) 4 mg Q6H PRN IV 06/21/17 16:30 07/21/17 16:29 Metoclopramide HCl (Reglan Inj) 10 mg Q6H PRN IV 06/21/17 16:30 07/21/17 16:29 Lorazepam (Ativan Tab) 0.5 mg Q8H PRN PO 06/21/17 16:30 07/21/17 16:29 06/22/17 21:04 0.5 MG Lorazepam 0.5 mg/ Syringe 1 ml @ 1 mls/min Q8H PRN IV 06/21/17 16:30 07/21/17 16:29 Pneumococcal Polysaccharide Vaccine 1 ea PRN PRN N/A 06/21/17 16:30 07/21/17 16:29 Influenza Virus Vacc Triv Types A&B 1 ea PRN PRN N/A 06/21/17 16:30 07/21/17 16:29 Polyethylene (Miralax Powder Packet) 17 gm Q6 PO 06/23/17 06:00 07/23/17 05:59 06/23/17 13:22 17 GM Bisacodyl (Dulcolax Supp) 10 mg DAILY PRN [place] 06/21/17 16:30 07/21/17 16:29 Magnesium Hydroxide (Milk Of Magnesia Susp) 30 ml DAILY PRN PO 06/21/17 16:30 07/21/17 16:29 06/22/17 10:23 30 ML Hydromorphone HCl (Dilaudid Inj) 0.5 mg Q3H PRN IV 06/22/17 06:00 07/06/17 05:59 Oxycodone HCl (Roxicodone Immediate Rel Tab) 5-10mg prn moderate to sev... Q4H PRN PO 06/22/17 06:00 07/06/17 05:59 06/23/17 14:04 10 MG Acetaminophen 100 ml @ 400 mls/hr Q8H PRN IV 06/21/17 16:30 07/21/17 16:29 Naloxone HCl (Narcan Inj) 0.1 mg Q5M PRN IV 06/21/17 16:30 07/21/17 16:29 Senna/Docusate Sodium (Senokot S Tab) 2 tab HS PO 06/21/17 21:00 07/21/17 20:59 06/22/17 21:59 2 TAB Sodium Biphosphate/ Sodium Phosphate (Fleet Enema) 132 ml ONE PRN [place] 06/21/17 16:30 07/21/17 16:29 Hydroxyzine HCl (Vistaril Tab) 25 mg Q8H PRN PO 06/21/17 16:30 07/21/17 16:29 Al Hydroxide/Mg Hydroxide (Maalox Susp) 30 ml Q6H PRN PO 06/21/17 16:30 07/21/17 16:29 Diphenhydramine HCl (Benadryl Cap) 25 mg Q6H PRN PO 06/21/17 16:30 07/21/17 16:29 Carvedilol (Coreg Tab) 3.125 mg BID PO 06/21/17 21:00 07/21/17 20:59 06/23/17 10:45 3.125 MG Doxazosin Mesylate (Cardura Tab) 4 mg QAM PO 06/22/17 09:00 07/22/17 08:59 06/23/17 09:03 4 MG Escitalopram Oxalate (Lexapro Tab) 20 mg QAM PO 06/22/17 09:00 07/22/17 08:59 06/23/17 09:03 20 MG Famotidine (Pepcid Tab) 20 mg BID PO 06/21/17 21:00 07/21/17 20:59 06/23/17 10:45 20 MG Gabapentin (Neurontin Tab) 600 mg BID PO 06/21/17 21:00 07/21/17 20:59 06/23/17 10:45 600 MG Levothyroxine Sodium (Synthroid Tab) 50 mcg DAILYBB PO 06/22/17 06:00 07/22/17 05:59 06/23/17 05:31 50 MCG Orphenadrine Citrate (Norflex Tab) 100 mg BID PO 06/21/17 21:00 07/21/17 20:59 06/23/17 10:45 100 MG Trazodone HCl (Desyrel Tab) 100 mg QPM PO 06/21/17 21:00 07/21/17 20:59 06/22/17 21:59 100 MG Hydromorphone HCl (Dilaudid Inj) 1 mg Q3H PRN IV 06/22/17 06:00 07/06/17 05:59 Atorvastatin Calcium (Lipitor Tab) 20 mg MoWeFr@0900 PO 06/24/17 09:00 07/24/17 08:59 Multivitamins (Multivitamin Tab) 0.5 tab BID PO 06/21/17 21:00 07/21/17 20:59 06/23/17 09:00 0.5 TAB Lactobacillus Acidophilus (Floranex Tab) 4 tab BIDM PO 06/22/17 08:30 07/22/17 08:29 06/23/17 08:30 4 TAB Glucose (Glucose 40% Gel) 15-30 GRAMS 15 GRAMS... UD PRN PO 06/21/17 19:30 07/21/17 19:29 Glucose (Glucose Chew Tab) 4-8 Tablets 4 Tabl... UD PRN PO 06/21/17 19:30 07/21/17 19:29 Dextrose (Dextrose 50% 50ML Syringe) 25-50ML OF 50% DW IV FOR... UD PRN IV 06/21/17 19:30 07/21/17 19:29 Glucagon (Glucagon Inj) 1 mg UD PRN SQ 06/21/17 19:30 07/21/17 19:29 Ioversol (Optiray 320) 111 ml UD PRN IV 06/21/17 22:00 06/25/17 21:59 Acetaminophen (Tylenol Tab) 325 mg Q8H PRN PO 06/22/17 00:30 07/21/17 16:29 Lisinopril (Zestril Tab) 2.5 mg HS PO 06/22/17 21:00 07/22/17 20:59 06/22/17 09:11 2.5 MG Ketorolac Tromethamine (Toradol Inj) 15 mg Q6H PRN IV. 06/22/17 10:15 06/27/17 10:14 06/22/17 21:04 15 MG Insulin Glargine (Lantus Solostar Pen) 25 units DAILY SC 06/24/17 09:00 07/22/17 20:59 Insulin Aspart (novoLOG ASPART) SLIDING SCALE If C... ACHS SC 06/23/17 08:00 07/21/17 20:59 06/23/17 13:26 11 UNITS Methenamine Hippurate (Urex Tab) 1 gm BID PO 06/23/17 21:00 07/23/17 20:59 Objective Vital Signs Date Time Temp Pulse Resp B/P (MAP) Pulse Ox O2 Delivery O2 Flow Rate FiO2 06/23/17 10:21 Room Air 06/23/17 07:16 36.6 50 16 130/72 (91) 92 CPAP 06/22/17 22:45 36.4 70 18 138/84 (102) 96 Room Air 06/22/17 20:51 60 123/65 (84) 06/22/17 19:15 Room Air 06/22/17 15:19 36.4 65 16 127/70 (89) 90 Room Air Physical Exam General Appearance: no apparent distress Respiratory/Chest: no respiratory distress, no accessory muscle use Cardiovascular: regular rate, rhythm, no edema, no murmur Abdomen: normal bowel sounds, non tender, soft Extremities: normal inspection, no pedal edema Neurologic/Psychiatric: no motor/sensory deficits, alert, normal mood/affect Skin: normal color Lymphatic: no adenopathy Laboratory Results Last 24 Hours Test 06/22/17 17:34 06/22/17 19:59 06/22/17 20:46 06/23/17 01:24 Bedside Glucose 344 mg/dl 331 mg/dl 322 mg/dl Sodium Level 136 mmol/L Potassium Level 4.7 mmol/L Chloride Level 100 mmol/L Carbon Dioxide Level 24 mmol/L Anion Gap 12.0 mmol/L Blood Urea Nitrogen 17 mg/dl Creatinine 1.11 mg/dl Est Creatinine Clear Calc Drug Dose 85.5 ml/min Estimated GFR () 79.2 Estimated GFR (Non- 68.3 BUN/Creatinine Ratio 15.3 Random Glucose 370 mg/dl Calcium Level 8.8 mg/dl Beta-Hydroxybutyric Acid 1.54 mg/dL Test 06/23/17 01:36 06/23/17 03:16 06/23/17 05:14 06/23/17 07:58 Bedside Glucose 323 mg/dl 306 mg/dl 279 mg/dl Sodium Level 136 mmol/L Potassium Level 4.9 mmol/L Chloride Level 104 mmol/L Carbon Dioxide Level 25 mmol/L Anion Gap 7.0 mmol/L Blood Urea Nitrogen 19 mg/dl Creatinine 1.00 mg/dl Est Creatinine Clear Calc Drug Dose 94.9 ml/min Estimated GFR () 89.9 Estimated GFR (Non- 77.5 BUN/Creatinine Ratio 19.4 Random Glucose 298 mg/dl Calcium Level 8.6 mg/dl Test 06/23/17 11:55 Bedside Glucose 282 mg/dl Assessment and Plan This is a 67 year old male with a PMH of CAD s/p CABG, DM2, HTN, HLD, recurrent UTIs and chronic antibiotic suppression, 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 of DVTs takes Coumadin at home restart when okay with ortho HTN blood pressure stable; continue home medications DVT ppx as per ortho
[2017-06-23 15:35] VITALS: BP 114/66; PULSE 70; TEMP 36.5; O2SAT 93
[2017-06-23] MEDS ORDERED: INSULIN ASPART 100 UNITS/ML 3 ML PEN SC SCH (17:45)
[2017-06-23] MEDS: METHENAMINE HIPPURATE 1 GM TAB PO SCH (21:14)
[2017-06-23] MEDS: LISINOPRIL 2.5 MG TAB PO SCH (21:14)
[2017-06-23] MEDS: DOCUSATE SODIUM/SENNA 50/8.6MG TAB PO SCH (21:17)
[2017-06-23] MEDS: TRAZODONE HCL 100 MG TAB PO SCH (21:18)
[2017-06-23 21:22] VITALS: BP 119/65; PULSE 53
[2017-06-23] MEDS: INSULIN GLARGINE SOLOSTAR 100 UNITS/ML 3 ML PEN SC SCH (21:38)
[2017-06-23] MEDS ORDERED: SODIUM CHLORIDE 0.9% 1000ML 1,000 ML IV ONE (22:30)
[2017-06-23 23:15] VITALS: BP 147/78; PULSE 51; TEMP 36.4; O2SAT 96
[2017-06-24] MEDS: LEVOTHYROXINE 50 MCG TAB PO SCH (05:37)
[2017-06-24] MEDS: POLYETHYLENE (MIRALAX) 17 GM PACK PO SCH ×2 (05:38→12:00)
[2017-06-24 07:24] VITALS: BP 119/69; PULSE 67; TEMP 36.6; O2SAT 94
--- NOTE | 2017-06-24 07:31 | Anesthesiology Progress Note ---
Anesthesia Post Op Note Date & Time Jun 24, 2017 at 07:31 Vital Signs Pain Intensity: 2.0 Vital Signs Past 12 Hours Date Time Temp Pulse Resp B/P (MAP) Pulse Ox O2 Delivery O2 Flow Rate FiO2 06/24/17 07:24 36.6 67 16 119/69 (86) 94 Room Air 06/23/17 23:25 Room Air BiPAP 06/23/17 23:15 36.4 51 16 147/78 (101) 96 Room Air 06/23/17 21:22 53 119/65 (83) Notes Mental Status: alert / awake / arousable, participated in evaluation Pt Amnestic to Procedure: Yes Nausea / Vomiting: adequately controlled Pain: adequately controlled Airway Patency, RR, SpO2: stable & adequate BP & HR: stable & adequate Hydration State: stable & adequate Anesthetic Complications: no major complications apparent
[2017-06-24 08:06] LABS: CALCIUM 8.6 mg/dl (8.5-10.1); CREATININE 0.85 mg/dl (0.60-1.40); POTASSIUM 4.1 mmol/L (3.5-5.1)
[2017-06-24] MEDS ORDERED: SOD PHOSPHATE/SOD BIPHOSPHATE ENEMA 132 ML BTL PR STA (08:14)
--- NOTE | 2017-06-24 08:35 | Discharge Summary ---
Orthopedic Discharge Summary Admission Date/Reason Jun 21, 2017 at 16:31 Spinal Stenosis. Discharge Date/Disposition Jun 24, 2017 Home Diagnosis Principal Diagnosis: Thoracic spinal stenosis Admission Physical Exam As per Admitting History & Physical. Hospital Course Patient underwent thoracic decompression and fusion tolerated this well was taken to the orthopedic floor postoperatively. Postop day 1 he was up in a mature progressed nicely through postop day #2. Subsequently he was discharged home on postop day #3. Discharge orders and instructions can be found in the chart for further review. Discharge Instructions Please refer to the electronic Patient Visit Report (Discharge Instructions) for additional information.
[2017-06-24] MEDS ORDERED: INSULIN GLARGINE SOLOSTAR 100 UNITS/ML 3 ML PEN SC SCH (09:00)
[2017-06-24] MEDS ORDERED: ATORVASTATIN 20 MG TAB PO SCH (09:00)
[2017-06-24] MEDS: DOXAZosin MESYLATE TAB 4 MG TAB PO SCH (09:18)
[2017-06-24] MEDS: METHENAMINE HIPPURATE 1 GM TAB PO SCH (09:18)
[2017-06-24] MEDS: ORPHENADRINE CITRATE 100 MG TABCR PO SCH (09:18)
[2017-06-24] MEDS: FAMOTIDINE 20 MG TAB PO SCH (09:18)
[2017-06-24] MEDS: CARVEDILOL 3.125 MG TAB PO SCH (09:19)
[2017-06-24] MEDS: LACTOBACILLUS ACIDOPHILUS (FLORANEX) TAB PO SCH (09:19)
[2017-06-24] MEDS: GABAPENTIN 600 MG TAB PO SCH (09:19)
[2017-06-24] MEDS: MULTIVITAMIN TAB PO SCH (09:20)
[2017-06-24] MEDS: ESCITALOPRAM OXALATE 20 MG TAB PO SCH (09:21)
[2017-06-24] MEDS: INSULIN ASPART 100 UNITS/ML 3 ML PEN SC SCH ×2 (09:25→13:43)
[2017-06-24] MEDS: INSULIN GLARGINE SOLOSTAR 100 UNITS/ML 3 ML PEN SC SCH (09:26)
[2017-06-24 11:23] VITALS: BP 119/69; PULSE 67; TEMP 36.6; O2SAT 94
[2017-06-24] MEDS: OXYCODONE HCL IR 5 MG TAB (IMMEDIATE RELEASE) PO PRN (12:22)
--- NOTE | 2017-06-24 13:04 | Progress Note ---
Subjective Date of Service: Jun 24, 2017. Subjective Pt evaluation today including: conversation w/ patient, conversation w/ family , physical exam, lab review, review of studies, review of inpatient medication list Saw/examined the patient in room 324 No problems/issues to note today pain controlled with medications BSGs improving this AM he is ready to go home Review of Systems Abdomen: No pain, No nausea, No vomiting, No diarrhea, No constipation, No GI bleeding Musculoskeletal: + joint pain Male : No dysuria, No urinary frequency, No incontinence, No nocturia more than once/night, No slowing stream, No hematuria Medications Current Inpatient Medications Medications (Trade) Dose Ordered Sig/Romana Route Start Time Stop Time Status Last Admin Dose Admin Promethazine HCl 12.5 mg/Sodium Chloride 50.5 ml @ 202 mls/hr Q6H PRN IV 06/21/17 16:30 07/21/17 16:29 Ondansetron HCl (Zofran Inj) 4 mg Q6H PRN IV 06/21/17 16:30 07/21/17 16:29 Metoclopramide HCl (Reglan Inj) 10 mg Q6H PRN IV 06/21/17 16:30 07/21/17 16:29 Lorazepam (Ativan Tab) 0.5 mg Q8H PRN PO 06/21/17 16:30 07/21/17 16:29 06/22/17 21:04 0.5 MG Lorazepam 0.5 mg/ Syringe 1 ml @ 1 mls/min Q8H PRN IV 06/21/17 16:30 07/21/17 16:29 Pneumococcal Polysaccharide Vaccine 1 ea PRN PRN N/A 06/21/17 16:30 07/21/17 16:29 Influenza Virus Vacc Triv Types A&B 1 ea PRN PRN N/A 06/21/17 16:30 07/21/17 16:29 Polyethylene (Miralax Powder Packet) 17 gm Q6 PO 06/23/17 06:00 07/23/17 05:59 06/24/17 05:38 17 GM Bisacodyl (Dulcolax Supp) 10 mg DAILY PRN [place] 06/21/17 16:30 07/21/17 16:29 Magnesium Hydroxide (Milk Of Magnesia Susp) 30 ml DAILY PRN PO 06/21/17 16:30 07/21/17 16:29 06/22/17 10:23 30 ML Hydromorphone HCl (Dilaudid Inj) 0.5 mg Q3H PRN IV 06/22/17 06:00 07/06/17 05:59 Oxycodone HCl (Roxicodone Immediate Rel Tab) 5-10mg prn moderate to sev... Q4H PRN PO 06/22/17 06:00 07/06/17 05:59 06/24/17 12:22 10 MG Acetaminophen 100 ml @ 400 mls/hr Q8H PRN IV 06/21/17 16:30 07/21/17 16:29 Naloxone HCl (Narcan Inj) 0.1 mg Q5M PRN IV 06/21/17 16:30 07/21/17 16:29 Senna/Docusate Sodium (Senokot S Tab) 2 tab HS PO 06/21/17 21:00 07/21/17 20:59 06/23/17 21:17 2 TAB Sodium Biphosphate/ Sodium Phosphate (Fleet Enema) 132 ml ONE PRN [place] 06/21/17 16:30 07/21/17 16:29 Hydroxyzine HCl (Vistaril Tab) 25 mg Q8H PRN PO 06/21/17 16:30 07/21/17 16:29 Al Hydroxide/Mg Hydroxide (Maalox Susp) 30 ml Q6H PRN PO 06/21/17 16:30 07/21/17 16:29 Diphenhydramine HCl (Benadryl Cap) 25 mg Q6H PRN PO 06/21/17 16:30 07/21/17 16:29 Carvedilol (Coreg Tab) 3.125 mg BID PO 06/21/17 21:00 07/21/17 20:59 06/24/17 09:19 3.125 MG Doxazosin Mesylate (Cardura Tab) 4 mg QAM PO 06/22/17 09:00 07/22/17 08:59 06/24/17 09:18 4 MG Escitalopram Oxalate (Lexapro Tab) 20 mg QAM PO 06/22/17 09:00 07/22/17 08:59 06/24/17 09:21 20 MG Famotidine (Pepcid Tab) 20 mg BID PO 06/21/17 21:00 2/18/18 20:59 06/24/17 09:18 20 MG Gabapentin (Neurontin Tab) 600 mg BID PO 06/21/17 21:00 07/21/17 20:59 06/24/17 09:19 600 MG Levothyroxine Sodium (Synthroid Tab) 50 mcg DAILYBB PO 06/22/17 06:00 07/22/17 05:59 06/24/17 05:37 50 MCG Orphenadrine Citrate (Norflex Tab) 100 mg BID PO 06/21/17 21:00 07/21/17 20:59 06/24/17 09:18 100 MG Trazodone HCl (Desyrel Tab) 100 mg QPM PO 06/21/17 21:00 07/21/17 20:59 06/23/17 21:18 100 MG Hydromorphone HCl (Dilaudid Inj) 1 mg Q3H PRN IV 06/22/17 06:00 07/06/17 05:59 Atorvastatin Calcium (Lipitor Tab) 20 mg MoWeFr@0900 PO 06/24/17 09:00 07/24/17 08:59 06/24/17 09:21 20 MG Multivitamins (Multivitamin Tab) 0.5 tab BID PO 06/21/17 21:00 07/21/17 20:59 06/24/17 09:20 0.5 TAB Lactobacillus Acidophilus (Floranex Tab) 4 tab BIDM PO 06/22/17 08:30 07/22/17 08:29 06/24/17 09:19 4 TAB Glucose (Glucose 40% Gel) 15-30 GRAMS 15 GRAMS... UD PRN PO 06/21/17 19:30 07/21/17 19:29 Glucose (Glucose Chew Tab) 4-8 Tablets 4 Tabl... UD PRN PO 06/21/17 19:30 07/21/17 19:29 Dextrose (Dextrose 50% 50ML Syringe) 25-50ML OF 50% DW IV FOR... UD PRN IV 06/21/17 19:30 07/21/17 19:29 Glucagon (Glucagon Inj) 1 mg UD PRN SQ 06/21/17 19:30 07/21/17 19:29 Ioversol (Optiray 320) 111 ml UD PRN IV 06/21/17 22:00 06/25/17 21:59 Acetaminophen (Tylenol Tab) 325 mg Q8H PRN PO 06/22/17 00:30 07/21/17 16:29 Lisinopril (Zestril Tab) 2.5 mg HS PO 06/22/17 21:00 07/22/17 20:59 06/23/17 21:14 2.5 MG Ketorolac Tromethamine (Toradol Inj) 15 mg Q6H PRN IV. 06/22/17 10:15 06/27/17 10:14 06/22/17 21:04 15 MG Insulin Aspart (novoLOG ASPART) SLIDING SCALE If C... ACHS SC 06/23/17 08:00 07/21/17 20:59 06/24/17 09:25 8 UNITS Methenamine Hippurate (Urex Tab) 1 gm BID PO 06/23/17 21:00 07/23/17 20:59 06/24/17 09:18 1 GM Insulin Glargine (Lantus Solostar Pen) 16 units BID SC 06/23/17 21:00 07/23/17 20:59 06/24/17 09:26 16 UNITS Sodium Chloride 1,000 ml @ 60 mls/hr [id number] ONCE IV 06/23/17 22:30 06/24/17 15:09 06/23/17 23:21 60 MLS/HR Objective Vital Signs Date Time Temp Pulse Resp B/P (MAP) Pulse Ox O2 Delivery O2 Flow Rate FiO2 06/24/17 11:23 36.6 67 16 94 Room Air 06/24/17 08:15 Room Air 06/24/17 07:24 36.6 67 16 119/69 (86) 94 Room Air 06/23/17 23:25 Room Air BiPAP 06/23/17 23:15 36.4 51 16 147/78 (101) 96 Room Air 06/23/17 21:22 53 119/65 (83) 06/23/17 15:35 36.5 70 18 114/66 (82) 93 Room Air 06/23/17 15:17 Room Air Physical Exam General Appearance: no apparent distress Respiratory/Chest: lungs clear, normal breath sounds, no respiratory distress, no accessory muscle use Cardiovascular: regular rate, rhythm, no edema, no murmur Neurologic/Psychiatric: no motor/sensory deficits, alert, normal mood/affect Laboratory Results Last 24 Hours Test 06/23/17 17:09 06/23/17 21:11 06/24/17 07:12 06/24/17 08:21 Bedside Glucose 250 mg/dl 317 mg/dl 160 mg/dl Sodium Level 140 mmol/L Potassium Level 4.1 mmol/L Chloride Level 105 mmol/L Carbon Dioxide Level 30 mmol/L Anion Gap 5.0 mmol/L Blood Urea Nitrogen 18 mg/dl Creatinine 0.85 mg/dl Est Creatinine Clear Calc Drug Dose 111.6 ml/min Estimated GFR () 104.5 Estimated GFR (Non- 90.2 BUN/Creatinine Ratio 21.0 Random Glucose 177 mg/dl Calcium Level 8.6 mg/dl Test 06/24/17 11:51 Bedside Glucose 229 mg/dl Assessment and Plan This is a 67 year old male with a PMH of CAD s/p CABG, DM2, HTN, HLD, recurrent UTIs and chronic antibiotic suppression, 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 presented for thoracic spine decompression/fusion I saw the patient today - he is doing well Plan is to discharge home today with home health UA and urine culture results reviewed with patient and - patient can continue methenamine; outpatient PCP f/u His Ha1c is well controlled as an outpatient and he should go back to his home regimen continue Coumadin on discharge - home health nursing for INR checks Thoracic Decompression/Fusion patient is doing well pain is controlled with medications continue PT/OT further management as per ortho DM2 06/23 tightened sliding scale insulin increase Lantus to 16 units BID 06/22 Ha1c = 6.7%, well controlled on home regimen of Glyburide, Janumet and Victoza received Decadron and steroids gary-operatively blood sugars have been consistently >300 have tried regular insulin 10 units overnight Lantus was increased sliding scale tightened IVFs started Hx. of DVTs takes Coumadin at home restart when okay with ortho HTN blood pressure stable; continue home medications DVT ppx as per ortho
== END 2017-06-24 15:10 | disposition home or self-care (01) | DRG 460 ==
LOC: C.ACU 10:57 → C.3E 16:31 → ENRESERV 17:11
PROVIDERS: ADMIT Orthopaedic Surgery Orthopaedic Surgery of the Spine; ATTEND Orthopaedic Surgery Orthopaedic Surgery of the Spine
PROC: 0RG6071 Fusion of Thoracic Vertebral Joint with Autologous Tissue Substitute, Posterior Approach, Posterior Column, Open Approach (ICD-10-PCS; principal; 2017-06-21 13:15)
DX: M48.04 Spinal stenosis, thoracic region (principal); I11.9 Hypertensive heart disease without heart failure; E11.9 Type 2 diabetes mellitus without complications; I25.10 Atherosclerotic heart disease of native coronary artery without angina pectoris; E78.5 Hyperlipidemia, unspecified; F39 Unspecified mood [affective] disorder; I73.9 Peripheral vascular disease, unspecified; Z79.899 Other long term (current) drug therapy; Z79.01 Long term (current) use of anticoagulants; Z79.84 Long term (current) use of oral hypoglycemic drugs; Z79.2 Long term (current) use of antibiotics; Z86.718 Personal history of other venous thrombosis and embolism; Z95.1 Presence of aortocoronary bypass graft; Z86.73 Personal history of transient ischemic attack (TIA), and cerebral infarction without residual deficits; Z86.69 Personal history of other diseases of the nervous system and sense organs; Z87.440 Personal history of urinary (tract) infections; Z87.19 Personal history of other diseases of the digestive system; Z87.39 Personal history of other diseases of the musculoskeletal system and connective tissue; Z82.49 Family history of ischemic heart disease and other diseases of the circulatory system

== ENCOUNTER 2017-07-01 16:04 | Inpatient (IN) | payer BC, OTHER ==
[~2017-07-01] VITALS: Ht 188 cm; Wt 123.4 kg
[~2017-07-01 16:04] MED LIST changes: +ACET-1693 PO; -ACET325T96 PO; -CEFAZOLIN 3000MG IV PUSH 15 ML IV SCH; -LACTATED RINGER'S 1000ML 1,000 ML IV SCH; +POLY335019 PO; +RXC5 PO; -VITRON C PO
[2017-07-01 16:55] LABS: BASO % 0.4 %; BASO ABS # 0.03 K/uL (0-0.2); EOS % 1.1 %; EOS ABS # 0.09 K/uL (0-0.5); HEMATOCRIT 37.8 % (42-52); HEMOGLOBIN 12.3 g/dL (14.0-18.0); IG# 0.04 K/uL (0.00-0.02); LYMPH % 20.4 %; LYMPH ABS # 1.65 K/uL (1.2-3.4); MEAN CELL VOLUME 92.9 fL (80-100); MEAN CORPUSCULAR HEMOGLOBIN 30.2 pg (25-34); MEAN CORPUSCULAR HGB CONC 32.5 g/dl (32-36); MEAN PLATELET VOLUME 9.4 fL (7.4-10.4); MONO % 9.3 %; MONO ABS # 0.75 K/uL (0.11-0.59); NEUT % 68.3 %; NEUT ABS # 5.53 K/uL (1.4-6.5); PLATELET COUNT 191 K/uL (130-400); RED CELL DISTRIBUTION WIDTH CV 13.3 % (11.5-14.5); RED CELL DISTRIBUTION WIDTH SD 44.9 fL (36.4-46.3); WHITE BLOOD COUNT 8.09 K/uL (4.8-10.8)
[2017-07-01 17:19] LABS: CALCIUM 8.6 mg/dl (8.5-10.1); CREATININE 0.96 mg/dl (0.60-1.40)
[2017-07-01 18:20] LABS: INR 2.4 (0.9-1.1); PTT PATIENT 33.4 SECONDS (21.0-31.0)
[2017-07-01] MEDS ORDERED: GADAVIST IV PRN (20:15)
--- NOTE | 2017-07-01 20:19 | DIAGNOSTIC IMAGING REPORT ---
MRI THE THORACIC SPINE WITHOUT AND WITH GADOLINIUM CLINICAL HISTORY: Recent thoracic spine surgery. Inability to ambulate. Severe pain. Possible spinal hematoma. COMPARISON STUDY: Intraoperative views of the thoracic spine dated 06/21/2017 FINDINGS: Imaging was performed in the sagittal and axial planes before and after the administration of 12 cc of intravenous Gadavist. There are no suspicious areas of marrow replacement. There are postsurgical changes the T10 and T11 levels with pedicle screws. There is a posterior laminectomy defect at the T10-11 level. There is fluid within the posterior soft tissues, consistent with postsurgical change. There is a posterior epidural fluid collection extending from the CT 7 through the T10 level. This measures 7 mm in AP diameter, and results in borderline spinal cord flattening. Given the history this likely represents an epidural hematoma. This report was called to Dr. Shen at 8:18 PM. IMPRESSION: 1. 78 x 11 x 7 mm posterior epidural fluid collection extending from the T7 level to the T10 level. Given the history of recent surgery, this is most consistent with an epidural hematoma. 2. Postlaminectomy and spinal fusion changes at the T10-11 level Electronically signed by: Donnie Gibbs M.D. 07/01/2017 8:18 PM Dictated Date/Time: 07/01/2017 8:06 PM
--- NOTE | 2017-07-01 20:30 | DIAGNOSTIC IMAGING REPORT ---
MRI LUMBAR SPINE COMBINATION CLINICAL HISTORY: Recent spinal surgery. Inability to ambulate. Phalanx. Severe pain. TECHNIQUE: Sagittal and axial T1, T2 and STIR images were obtained. Images were acquired before and after administration of 12 cc of intravenous Gadavist COMPARISON STUDY: 11/19/2011 OBSERVATIONS: The vertebral bodies and posterior elements appear intact. There is no abnormal bony signal present to suggest a marrow replacement process. There are postsurgical changes at the T10-11 level L1-2: There is a mild circumferential disc bulge. There is slight flattening of the anterior thecal sac. There is no significant foraminal narrowing L2-3: There is a minimal circumferential disc bulge. There is no significant spinal or foraminal stenosis L3-4: There is a minimal circumferential disc bulge. There is no significant spinal or foraminal stenosis L4-5: There is a mild circumferential disc bulge. There is facet joint arthropathy. There is slight triangular narrowing of the spinal canal. There is mild right-sided foraminal narrowing and moderate left-sided foraminal narrowing L5-S1: There is a tiny right paracentral disc protrusion. There is no significant spinal stenosis. There is minimal left-sided foraminal narrowing. The conus medullaris and cauda equina appear normal. Postcontrast images reveal no pathologically enhancing masses IMPRESSION: 1. Mild multilevel spondylitic changes. The findings are most severe at the L4-5 level with slight triangular narrowing of the spinal canal, and mild right-sided foraminal narrowing and moderate left-sided foraminal narrowing. Electronically signed by: Donnie Gibbs M.D. 07/01/2017 8:29 PM Dictated Date/Time: 07/01/2017 8:25 PM
[2017-07-01] MEDS ORDERED: PROTHROMBIN COMP CONC- KCENTRA 2,500 UNIT in SYRINGE 0 ML IV STA (20:51)
[2017-07-01] MEDS ORDERED: PHYTONADIONE INJ 10 MG in SODIUM CHLORIDE 0.9% 50ML 50 ML IV ONE (21:00)
[2017-07-01] MEDS ORDERED: PROTHROMBIN COMP CONC- KCENTRA 2,500 UNIT in SYRINGE 0 ML IV ONE (21:10)
--- NOTE | 2017-07-01 21:33 | History and Physical ---
History & Physical Date Jul 01, 2017. Chief Complaint Back pain with bilateral leg weakness History of Present Illness The patient is a 67 year old male with complaints of back pain and bilateral leg weakness. Patient is status post thoracic decompression and fusion June 21. He states late Saturday and Saturday of the past weekend he began experiencing numbness and weakness in the bilateral extremity's. This progressed throughout the day Saturday and he came to the emergency room Saturday afternoon. He has recently undergone an MRI after which I was notified. It demonstrates significant thoracic epidural hematoma extending up to roughly T7. He is on Coumadin and Lovenox. His INR was 2.4. He presents today with his . Again he is unable ambulate secondary to significant lower extremity weakness. Past Medical/Surgical History Medical Problems: (1) Diabetes (2) Hypertension (3) Lumbar stenosis with neurogenic claudication Additional History Hepatic Disease: No Endocrine Disorder: No Kidney Disease: No Hypertension: Yes Heart Disease: No Bleeding Tendencies: No Infectious Diseases: No Allergies Coded Allergies: No Known Allergies (Verified , 06/21/17) Home Medications Scheduled Acetaminophen Tab (Tylenol), 650 MG PO PRN Atorvastatin (Lipitor), 20 MG PO Sat Carvedilol (Coreg), 3.125 MG PO BID Coenzyme Q10 (Ubidecarenone) (Coq10), 100 MG PO QPM Doxazosin Mesylate (Cardura), 4 MG PO QAM Escitalopram Oxalate (Lexapro), 20 MG PO QAM Famotidine (Pepcid), 20 MG PO BID Gabapentin (Neurontin), 600 MG PO BID Glyburide-Metformin (Glucovance 5/500 Mg), 1 TAB PO BID Levothyroxine Sodium (Synthroid), 50 MCG PO QAM Liraglutide (Victoza), 1 DOSE INJ QAM Lisinopril (Zestril), 2.5 MG PO QPM Advkxagotmn-Lxvjn-Mcqblvfhx Bl (Uribel), 1 CAP PO BID Multivitamin (Multivitamin), 0.5 TAB PO BID Orphenadrine Citrate (Norflex), 100 MG PO BID Probiotic Product (Probiotic), 1 TAB PO BID Sitagliptin Phosphate (Januvia), 100 MG PO QAM Trazodone Hcl (Trazodone), 100 MG PO QPM Warfarin Sod (Jantoven), 7.5 MG PO 4XWK Warfarin Sod (Jantoven), 3.75 MG PO 3XWK Scheduled PRN Oxycodone HCl (Oxycodone HCl), 5-10 MG PO Q4H PRN for Moderate - severe pain Oxycodone/Acetaminophen 5MG/325MG (Percocet 5MG/325MG), 1 TABLET PO Q4H PRN for Pain Polyethylene Glycol 3350 (Miralax), 17 GM PO Q2D PRN for Constipation Physical Examination Addiitonal Comments: Patient's incision appears to be healing properly. There is no erythema or drainage. Lower extremity exam however is quite significant nature with sensation appearing to be intact over his significant weakness to hip flexors and quadriceps knee flexors plantarflexion dorsiflexion bilaterally. Deep tendon reflexes are diminished bilaterally. Diagnosis Thoracic epidural hematoma Plan of Treatment Plan long discussion with this patient and his reviewing his MRI findings and clinical presentation. This time I'm recommending an emergent thoracic decompression. We may include laminotomies of T8 and T9. Risks benefits pros cons and alternatives were outlined in detail.
[2017-07-01] MEDS ORDERED: BACITRACIN 50000 UNIT VIAL ONE (21:49)
[2017-07-01] MEDS ORDERED: BUPIVACAINE/EPINEPHRINE 0.5% MPF 1:200,000 30 ML VIAL ONE (21:49)
[2017-07-01] MEDS ORDERED: THROMBIN FOR SOLN 20000 UNIT KIT ONE (21:55)
[2017-07-01] MEDS ORDERED: FENTANYL CITRATE INJ 50 MCG/1 ML 2 ML VIAL ONE (22:02)
[2017-07-01] MEDS ORDERED: FLOSEAL HEMOSTATIC MATRIX 10ML TOP ONE (23:06)
[2017-07-01] MEDS ORDERED: PROPOFOL IV EMULSION 10 MG/ML 20 ML VIAL IV ONE (23:08)
[2017-07-01] MEDS ORDERED: ROCURONIUM BROMIDE 10 MG/ML 5 ML VIAL IV ONE (23:09)
[2017-07-01] MEDS ORDERED: SUCCINYLCHOLINE 100MG/5ML SYR IV ONE (23:09)
[2017-07-01] MEDS ORDERED: DEXAMETHASONE SOD INJ 4 MG/ML VIAL ONE (23:09)
[2017-07-01] MEDS ORDERED: ONDANSETRON INJ 2 MG/ML 2 ML VIAL ONE (23:09)
[2017-07-01] MEDS ORDERED: PHENYLEPHRINE HCL INJ 10 MG/ML VIAL ONE (23:09)
[2017-07-01] MEDS ORDERED: LIDOCAINE HCL 2% 2 ML VIAL (20MG/ML) ONE (23:09)
[2017-07-01] MEDS ORDERED: NEOSTIGMINE METHYLSULFATE 1 MG/ML 10ML VIAL ONE (23:11)
[2017-07-01] MEDS ORDERED: GLYCOPYRROLATE INJ 0.2 MG/ML VIAL ONE (23:11)
--- NOTE | 2017-07-01 23:12 | [facility] Operative Report ---
Operative Report Operative Date Jul 01, 2017. Pre-Operative Diagnosis Thoracic epidural hematoma Post-Operative Diagnosis Thoracic epidural hematoma Procedure(s) Performed #1 decompression laminotomy T7 T8 and T9. #2 evacuation of hematoma T7 to T10. Surgeon Dr. Yepez Early Childhood Educator Aide Surgeon(s) JOLLY Wood Estimated Blood Loss 150 Findings Epidural hematoma Description of Procedure Patient was met with preoperatively case discussed all questions addressed. Patient was then emergently taken to the operative suite underwent intubation and placed in a prone position on the Jose Armando table on top of the Xavier frame. All bony prominences were well-padded eyes inspected to ensure no external pressure placed upon them. This point the thoracic spine was prepped and draped in the normal sterile fashion. Sharp dissection with assistance of Bovie cautery was performed onto an exposing the previous laminotomy site at T10 11 as well as the lamina of T9 and T8 and T10. Then performed a midline decompression laminotomy of T9 T8 T7 to evacuate an epidural hematoma. After this complete several liters of saline were irrigated throughout the incision. 2 15 round MARIANA drains were inserted. The incision was then closed with 1 Vicryl in the fascia 2-0 Vicryl subcutaneously 4-0 Monocryl for final skin closure Steri-Strips sterile dressing was placed. Patient awakened and taken to PACU in a stable condition. Please note Katelyn Denton was present at the entire procedure involved in patient positioning complex portions of the surgery and final skin closure. I attest to the content of the Intraoperative Record and any orders documented therein. Any exceptions are noted below.
[2017-07-01] MEDS ORDERED: LORAZEPAM INJ 0.5 MG in SYRINGE 0 ML IV PRN (23:15)
[2017-07-01] MEDS ORDERED: FAMOTIDINE 20 MG TAB PO PRN (23:15)
[2017-07-01] MEDS ORDERED: SOD PHOSPHATE/SOD BIPHOSPHATE ENEMA 132 ML BTL PR PRN (23:15)
[2017-07-01] MEDS ORDERED: ONDANSETRON INJ 2 MG/ML 2 ML VIAL IV PRN (23:15)
[2017-07-01] MEDS ORDERED: ACETAMINOPHEN IV 100 ML IV PRN (23:15)
[2017-07-01] MEDS ORDERED: CEFAZOLIN IV 3,000 MG in DEXTROSE 5% 50ML 50 ML IV SCH (23:15)
[2017-07-01] MEDS ORDERED: DO NOT ADMINISTER FLU VACCINE PRN (23:15)
[2017-07-01] MEDS ORDERED: PROMETHAZINE HCL INJ 12.5 MG in SODIUM CHLORIDE 0.9% 50ML 50 ML IV PRN (23:15)
[2017-07-01] MEDS ORDERED: hydrOXYzine HCL 25 MG TAB PO PRN (23:15)
[2017-07-01] MEDS ORDERED: METOCLOPRAMIDE HCL INJ 5 MG/ML 2 ML VIAL IV PRN (23:15)
[2017-07-01] MEDS ORDERED: ALUMINUM/MAGNESIUM SUSP 30 ML UDC PO PRN (23:15)
[2017-07-01] MEDS ORDERED: ACETAMINOPHEN 500 MG TAB PO PRN (23:15)
[2017-07-01] MEDS ORDERED: ACETAMINOPHEN 325 MG TAB PO SCH (23:15)
[2017-07-01] MEDS ORDERED: HYDROmorphone INJ 0.5 MG/0.5 ML SYR IV PRN (23:15)
[2017-07-01] MEDS ORDERED: NALOXONE HCL 0.4 MG/1 ML VIAL/CARP IV PRN (23:15)
[2017-07-01] MEDS ORDERED: MAGNESIUM HYDROXIDE SUSP 30 ML UDC PO PRN (23:15)
[2017-07-01] MEDS ORDERED: BISACODYL 10 MG SUPP PR PRN (23:15)
[2017-07-01] MEDS ORDERED: DO NOT ADMINISTER PNEUMOCOCCAL VACCINE PRN (23:15)
[2017-07-01] MEDS ORDERED: OXYCODONE HCL IR 5 MG TAB (IMMEDIATE RELEASE) PO PRN (23:15)
[2017-07-01] MEDS ORDERED: LORAZEPAM 0.5 MG TAB PO PRN (23:15)
[2017-07-01] MEDS ORDERED: ESMOLOL HCL 10 MG/ML 10 ML VIAL ONE (23:30)
--- NOTE | 2017-07-01 23:43 | EMERGENCY ROOM VISIT NOTE ---
History Report prepared by Niko: Jaime Farmer Under the Supervision of: Dr. Pasquale Shen M.D. First contact with patient: 16:14 Stated Complaint: LEG WEAKNESS, UNABLE TO AMBULATE History of Present Illness The patient is a 67 year old male who presents to the Emergency Room with complaints of pain in his lower back that onset this past Saturday, two days prior to arrival. The patient was admitted to the hospital on the by Dr. Yepez for thoracic spine decompression and fusion. He had surgery performed on his T10 and T11 vertebra. The pain in his lower back is new, and he is also experiencing weakness/loss of function of his lower extremities. The patient notes that last night he was unable to move his legs at all. He states that he "could not even move them an inch." At baseline the patient is able to ambulate with a cane. The lower back pain is greater on the right side, and his lower extremity weakness is worse on the left. This morning, the use of his legs seemed to improve slightly but not much. The weakness started Saturday morning. He states he didn't come in yesterday because he wanted to talk to his doctor first. He has a history of urinary urgency and erectile dysfunction. This has been chronic since he had Bacterial Meningitis and Guillain [place] in 1999. During this episode he experienced lower extremity weakness, that resolved spontaneously. He denies any new urinary or bowel movement incontinence since the lower back pain onset. He says he is constipated because of the pain meds he is taking. He denies any saddle anesthesia. The patient also has a history of blood clots and is on Coumadin daily. He is also currently on Lovenox. 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 A total of 10 systems reviewed and were otherwise negative. Past Medical & Surgical Medical Problems: (1) Diabetes (2) Epidural hematoma (3) Hypertension (4) Lumbar stenosis with neurogenic claudication Diabetes Hypertension Family History Hypertension Social History Smoking Status: Never Smoker Marital Status: Housing Status: lives with significant other Current/Historical Medications Scheduled Acetaminophen Tab (Tylenol), 650 MG PO PRN Atorvastatin (Lipitor), 20 MG PO SatPM Carvedilol (Coreg), 3.125 MG PO BID Coenzyme Q10 (Ubidecarenone) (Coq10), 100 MG PO QPM Doxazosin Mesylate (Cardura), 4 MG PO QAM Escitalopram Oxalate (Lexapro), 20 MG PO QAM Famotidine (Pepcid), 20 MG PO BID Gabapentin (Neurontin), 600 MG PO BID Glyburide-Metformin (Glucovance 5/500 Mg), 1 TAB PO BID Levothyroxine Sodium (Synthroid), 50 MCG PO QAM Liraglutide (Victoza), 1 DOSE INJ QAM Lisinopril (Zestril), 2.5 MG PO QPM Wvcxtjbgfrt-Sttak-Iradlqbzh Bl (Uribel), 1 CAP PO BID Multivitamin (Multivitamin), 0.5 TAB PO BID Orphenadrine Citrate (Norflex), 100 MG PO BID Probiotic Product (Probiotic), 1 TAB PO BID Sitagliptin Phosphate (Januvia), 100 MG PO QAM Trazodone Hcl (Trazodone), 100 MG PO QPM Warfarin Sod (Jantoven), 7.5 MG PO 4XWK Warfarin Sod (Jantoven), 3.75 MG PO 3XWK Scheduled PRN Oxycodone HCl (Oxycodone HCl), 5-10 MG PO Q4H PRN for Moderate - severe pain Oxycodone/Acetaminophen 5MG/325MG (Percocet 5MG/325MG), 1 TABLET PO Q4H PRN for Pain Polyethylene Glycol 3350 (Miralax), 17 GM PO Q2D PRN for Constipation Allergies Coded Allergies: No Known Allergies (Verified , 06/21/17) Physical Exam Vital Signs Date Time Temp Pulse Resp B/P (MAP) Pulse Ox O2 Delivery O2 Flow Rate FiO2 07/01/17 21:19 88 16 111/75 93 Room Air 07/01/17 20:59 88 16 105/73 94 Room Air 07/01/17 20:41 90 07/01/17 20:31 86 18 118/63 93 Room Air 07/01/17 17:35 79 18 128/78 94 Room Air 07/01/17 16:42 81 07/01/17 16:25 36.8 73 12 117/79 97 Room Air Physical Exam Constitutional: Vital signs reviewed. Eyes: Pupils are equal round reactive to light. Conjunctiva are noninjected. ENT: Pharynx is clear without erythema or exudate. Mucous membranes are moist. Neck supple without meningeal signs. Respiratory: Clear to auscultation bilaterally. Breath sounds are equal bilaterally. Cardiovascular: Regular rate and rhythm. No rubs or gallops. GI: Soft, nondistended and nontender. Bowel sounds are present. Musculoskeletal: No peripheral edema. No lower extremity tenderness. There is a midline incision to the lower thoracic spine without erythema, discharge, or dehiscence. Integumentary: No cyanosis. Neurological: The patient is awake and alert. Cranial nerves II-XII are intact. Motor strength is 5/5 with flexion and extension at the ankles. 1/5 strength proximally bilaterally in the lower extremities. Unable to assess DTRs. Normal strength in upper extremities. Sensation is intact to light touch all extremities. Normal speech. No pronator drift. Psychiatric: Normal affect. Medical Decision & Procedures ER Provider Diagnostic Interpretation: Radiology results as stated below per my review and the radiologist's interpretation: MRI LUMBAR SPINE COMBINATION CLINICAL HISTORY: Recent spinal surgery. Inability to ambulate. Phalanx. Severe pain. TECHNIQUE: Sagittal and axial T1, T2 and STIR images were obtained. Images were acquired before and after administration of 12 cc of intravenous Gadavist COMPARISON STUDY: 11/19/2011 OBSERVATIONS: The vertebral bodies and posterior elements appear intact. There is no abnormal bony signal present to suggest a marrow replacement process. There are postsurgical changes at the T10-11 level L1-2: There is a mild circumferential disc bulge. There is slight flattening of the anterior thecal sac. There is no significant foraminal narrowing L2-3: There is a minimal circumferential disc bulge. There is no significant spinal or foraminal stenosis L3-4: There is a minimal circumferential disc bulge. There is no significant spinal or foraminal stenosis L4-5: There is a mild circumferential disc bulge. There is facet joint arthropathy. There is slight triangular narrowing of the spinal canal. There is mild right-sided foraminal narrowing and moderate left-sided foraminal narrowing L5-S1: There is a tiny right paracentral disc protrusion. There is no significant spinal stenosis. There is minimal left-sided foraminal narrowing. The conus medullaris and cauda equina appear normal. Postcontrast images reveal no pathologically enhancing masses IMPRESSION: 1. Mild multilevel spondylitic changes. The findings are most severe at the L4-5 level with slight triangular narrowing of the spinal canal, and mild right-sided foraminal narrowing and moderate left-sided foraminal narrowing. Electronically signed by: Donnie Gibbs M.D. 07/01/2017 8:29 PM Dictated Date/Time: 07/01/2017 8:25 PM MRI THE THORACIC SPINE WITHOUT AND WITH GADOLINIUM CLINICAL HISTORY: Recent thoracic spine surgery. Inability to ambulate. Severe pain. Possible spinal hematoma. COMPARISON STUDY: Intraoperative views of the thoracic spine dated 06/21/2017 FINDINGS: Imaging was performed in the sagittal and axial planes before and after the administration of 12 cc of intravenous Gadavist. There are no suspicious areas of marrow replacement. There are postsurgical changes the T10 and T11 levels with pedicle screws. There is a posterior laminectomy defect at the T10-11 level. There is fluid within the posterior soft tissues, consistent with postsurgical change. There is a posterior epidural fluid collection extending from the CT 7 through the T10 level. This measures 7 mm in AP diameter, and results in borderline spinal cord flattening. Given the history this likely represents an epidural hematoma. This report was called to Dr. Shen at 8:18 PM. IMPRESSION: 1. 78 x 11 x 7 mm posterior epidural fluid collection extending from the T7 level to the T10 level. Given the history of recent surgery, this is most consistent with an epidural hematoma. 2. Postlaminectomy and spinal fusion changes at the T10-11 level Electronically signed by: Donnie Gibbs M.D. 07/01/2017 8:18 PM Dictated Date/Time: 07/01/2017 8:06 PM Laboratory Results 07/01/17 16:40 Red Blood Count 4.07, Mean Corpuscular Volume 92.9, Mean Corpuscular Hemoglobin 30.2, Mean Corpuscular Hemoglobin Concent 32.5, Mean Platelet Volume 9.4, Neutrophils (%) (Auto) 68.3, Lymphocytes (%) (Auto) 20.4, Monocytes (%) (Auto) 9.3, Eosinophils (%) (Auto) 1.1, Basophils (%) (Auto) 0.4, Neutrophils # (Auto) 5.53, Lymphocytes # (Auto) 1.65, Monocytes # (Auto) 0.75, Eosinophils # (Auto) 0.09, Basophils # (Auto) 0.03 07/01/17 16:40 Test 07/01/17 16:40 07/01/17 17:42 White Blood Count 8.09 K/uL (4.8-10.8) Red Blood Count 4.07 M/uL (4.7-6.1) Hemoglobin 12.3 g/dL (14.0-18.0) Hematocrit 37.8 % (42-52) Mean Corpuscular Volume 92.9 fL (80-100) Mean Corpuscular Hemoglobin 30.2 pg (25-34) Mean Corpuscular Hemoglobin Concent 32.5 g/dl (32-36) Platelet Count 191 K/uL (130-400) Mean Platelet Volume 9.4 fL (7.4-10.4) Neutrophils (%) (Auto) 68.3 % Lymphocytes (%) (Auto) 20.4 % Monocytes (%) (Auto) 9.3 % Eosinophils (%) (Auto) 1.1 % Basophils (%) (Auto) 0.4 % Neutrophils # (Auto) 5.53 K/uL (1.4-6.5) Lymphocytes # (Auto) 1.65 K/uL (1.2-3.4) Monocytes # (Auto) 0.75 K/uL (0.11-0.59) Eosinophils # (Auto) 0.09 K/uL (0-0.5) Basophils # (Auto) 0.03 K/uL (0-0.2) RDW Standard Deviation 44.9 fL (36.4-46.3) RDW Coefficient of Variation 13.3 % (11.5-14.5) Immature Granulocyte % (Auto) 0.5 % Immature Granulocyte # (Auto) 0.04 K/uL (0.00-0.02) Anion Gap 6.0 mmol/L (3-11) Est Creatinine Clear Calc Drug Dose 104.2 ml/min Estimated GFR () 94.4 Estimated GFR (Non- 81.5 BUN/Creatinine Ratio 13.8 (10-20) Calcium Level 8.6 mg/dl (8.5-10.1) Prothrombin Time 25.1 SECONDS (9.0-12.0) Prothromb Time International Ratio 2.4 (0.9-1.1) Activated Partial Thromboplast Time 33.4 SECONDS (21.0-31.0) Partial Thromboplastin Ratio 1.3 Laboratory results as reviewed by me. Medications Administered Medications (Trade) Dose Ordered Sig/Romana Route Start Time Stop Time Status Last Admin Dose Admin Phytonadione 10 mg/Sodium Chloride 51 ml @ 102 mls/hr ONE ONCE IV 07/01/17 21:00 07/01/17 21:29 DC 07/01/17 21:06 102 MLS/HR Prothrombin Complex Concent (Human) 2500 unit/ Syringe 100 ml @ 10 mls/min NOW ONCE IV 07/01/17 21:10 07/01/17 21:19 DC 07/01/17 21:05 10 MLS/MIN Bupivacaine HCl/ Epinephrine Bitart (Sensorcaine/ Epinephrine 0.5% Mpf 1:200,000) 30 ml STK-MED ONCE .ROUTE 07/01/17 21:49 07/01/17 21:50 DC 07/01/17 22:45 18 ML Bacitracin (Bacitracin Inj) 50,000 units STK-MED ONCE .ROUTE 07/01/17 21:49 07/01/17 21:50 DC 07/01/17 23:00 50,000 UNITS Miscellaneous (Floseal Hemostatic Matrix 10ml) 4 ml ONE ONCE TOP 07/01/17 23:06 07/01/17 23:08 DC 07/01/17 23:06 4 ML ED Course 1617: The patient was evaluated in room C12A. A complete history and physical exam was performed. 1628: I consulted radiology at this time. They recommended a contrast MRI of the back. 2015: Ordered Gadavist 12 mmol IV. 2017: I discussed the case with Dr. Gibbs - Radiology. He informed me that there is a fluid collection in T7-T10. 2033: I discussed the case with Dr. Sarah Eaton/Spine at this time. He stated that he is not currently the correct on-call physician. 2037: I discussed the case with Dr. Salazar -- Uma/Spine she stated that she will contact Dr. Yepez immediately. 2042: I discussed the case with Dr. Marleni Eaton/Spine at this time. He said he will take the patient to the Operating Room immediately. 2046: I discussed the above consult calls with the patient at this time. I informed him on the treatment plan moving forward. He is in agreement. 2051: I spoke with Dr. Mitchell. He suggests 2500 units of Kecentra, 10 units of Vitamin K and holding the Protamine. Medical Decision This is a 67-year-old male who presents with lower extremity weakness. Differential diagnosis includes spinal hematoma, cauda equina syndrome, epidural abscess, vertebral fracture, supratherapeutic INR. I did perform a limited focused review of portions of the patient's old chart on the electronic medical record. The patient was admitted to the hospital on June [address] Yepez who performed thoracic spine surgery for decompression and fusion. I did evaluate the patient as noted above. The patient is presenting with significant motor weakness to his lower extremities. He recently had surgery and is on both Lovenox and Coumadin. He last took Lovenox at 12 PM today 100 mg subcutaneous. I was concerned about an epidural hematoma. IV access was established. I did order and review the patient's blood work as noted in the electronic medical record. His INR is 2.4. Hemoglobin is 12.3. I did order stat MRI of the thoracic and lumbar spine. I did review the images myself as well as the radiology report as described above. The patient does have an epidural hematoma. I did talk to Dr. Yepez of orthopedic spine. He will come in to see the patient and taken immediately to the OR for operative repair. I did also speak to Dr. Wallace and treated the patient with IV Kcentra and IV vitamin K to reverse his Coumadin. She did not feel protamine was indicated. I did discuss the test results with the patient and his . Medication Reconcilliation Current Medication List: was personally reviewed by me Blood Pressure Screening Patient's blood pressure: Normal blood pressure Consults Time Called: 2016 Consulting Physician: Dr. Gibbs - Radiology Returned Call: 2016 I discussed the case with Dr. Gibbs - Radiology. He informed me that there is a fluid collection in T7-T10. Additional Consults: Time Called: 2029 Consulted Physician: Dr. Marleni Eaton/Spine Returned Call: 2042 Additional Comments: I discussed the case with Dr. Marleni - Ortho/Spine at this time. He said he will take the patient to the Operating Room immediately. Time Called: 2048 Consulted Physician: Dr. Mitchell Returned Call: 2051 Additional Comments: I spoke with Dr. Mitchell. He suggests 2500 units of Kcentra, 10 units of Vitamin K and holding the Protamine. Impression Primary Impression: Epidural hematoma Additional Impression: Anticoagulated Critical Care I have personally spent 40 minutes of critical care time in the direct management of this patient. This includes bedside care, interpretation of diagnostic studies, and testing, discussion with consultants, patient, and family members, and other required patient management activities. This 40 minutes is in excess of all separately billable procedures. Scribe Attestation The scribe's documentation has been prepared under my direct and personally reviewed by me in its entirety. I confirm that the note above accurately reflects all work, treatment, procedures, and medical decision making performed by me. Departure Information Dispostion Being Evaluated By Surgeon (Taking directly to OR) Referrals Milan Jones M.D. (PCP) Problem Qualifiers
[2017-07-02] VITALS (10 sets, daily range): BP systolic 110–143; BP diastolic 61–78; PULSE 59–81; TEMP 36.9–37.3; O2SAT 91–97; Ht 188 cm; Wt 123.4 kg
[2017-07-02] MEDS ORDERED: EpHEDrine SULFATE INJ 50 MG/ML AMP IV PRN
[2017-07-02] MEDS ORDERED: FENTANYL CITRATE INJ 50 MCG/1 ML 2 ML VIAL IV PRN
[2017-07-02] MEDS ORDERED: ATROPINE SULFATE 0.1 MG/ML 5ML SYR IV PRN
[2017-07-02] MEDS ORDERED: PROMETHAZINE HCL INJ 6.25 MG in SODIUM CHLORIDE 0.9% 50ML 50 ML IV PRN ×2
[2017-07-02] MEDS ORDERED: ONDANSETRON INJ 2 MG/ML 2 ML VIAL IV PRN
--- NOTE | 2017-07-02 00:29 | Anesthesiology Progress Note ---
Anesthesia Post Op Note Date & Time Jul 02, 2017 at 00:27 Vital Signs Pain Intensity: 0 Vital Signs Past 12 Hours Date Time Temp Pulse Resp B/P (MAP) Pulse Ox O2 Delivery O2 Flow Rate FiO2 07/02/17 00:20 75 18 136/69 99 Oxymask 5 07/02/17 00:10 79 18 125/71 99 Oxymask 5 07/02/17 00:01 80 18 137/84 99 Oxymask 10 07/01/17 23:50 82 18 116/62 96 Oxymask 10 07/01/17 23:40 37.0 76 16 149/110 95 Oxymask 10 07/01/17 21:19 88 16 111/75 93 Room Air 07/01/17 20:59 88 16 105/73 94 Room Air 07/01/17 20:41 90 07/01/17 20:31 86 18 118/63 93 Room Air 07/01/17 17:35 79 18 128/78 94 Room Air 07/01/17 16:42 81 07/01/17 16:25 36.8 73 12 117/79 97 Room Air Notes Mental Status: alert / awake / arousable, participated in evaluation Pt Amnestic to Procedure: Yes Nausea / Vomiting: adequately controlled Pain: adequately controlled Airway Patency, RR, SpO2: stable & adequate BP & HR: stable & adequate Hydration State: stable & adequate Anesthetic Complications: no major complications apparent Patient had frequent ectopy throughout intraoperative and post op course. Appeared to be PACs, but 12 lead ECG was performed in pacu to rule out afib. 12 lead did confirm frequent pacs and patient is asymptomatic. I do not feel that further workup is warranted immediately post op. Regarding neurologic status, it is improved versus preop. The patient is moving both extremities voluntarily. Prior to OR, there was no movement in the LLE and only minimal dorsiflexion of the R foot.
[2017-07-02] MEDS: CEFAZOLIN IV 3,000 MG in SYRINGE 7.5 ML IV SCH ×2 (03:05→10:51)
[2017-07-02] MEDS: SODIUM CHLORIDE 0.9% 1000ML 1,000 ML IV SCH ×3 (03:05→11:53)
[2017-07-02] MEDS ORDERED: OXYCODONE HCL IR 5 MG TAB (IMMEDIATE RELEASE) PO PRN (06:00)
[2017-07-02] MEDS: DEXAMETHASONE INJ 6 MG in SYRINGE 0 ML IV SCH ×3 (06:22→23:02)
[2017-07-02 06:34] LABS: BASO % 0.1 %; BASO ABS # 0.01 K/uL (0-0.2); HEMATOCRIT 34.2 % (42-52); HEMOGLOBIN 11.2 g/dL (14.0-18.0); IG# 0.04 K/uL (0.00-0.02); LYMPH % 6.2 %; LYMPH ABS # 0.63 K/uL (1.2-3.4); MEAN CELL VOLUME 92.7 fL (80-100); MEAN CORPUSCULAR HEMOGLOBIN 30.4 pg (25-34); MEAN CORPUSCULAR HGB CONC 32.7 g/dl (32-36); MEAN PLATELET VOLUME 9.6 fL (7.4-10.4); MONO % 1.5 %; MONO ABS # 0.15 K/uL (0.11-0.59); NEUT % 91.8 %; NEUT ABS # 9.26 K/uL (1.4-6.5); PLATELET COUNT 181 K/uL (130-400); RED CELL DISTRIBUTION WIDTH CV 13.1 % (11.5-14.5); RED CELL DISTRIBUTION WIDTH SD 44.3 fL (36.4-46.3); WHITE BLOOD COUNT 10.09 K/uL (4.8-10.8)
[2017-07-02 07:05] LABS: CALCIUM 8.2 mg/dl (8.5-10.1); CREATININE 1.04 mg/dl (0.60-1.40); POTASSIUM 4.5 mmol/L (3.5-5.1)
--- NOTE | 2017-07-02 08:39 | CONSULTATION REPORT ---
DATE OF CONSULTATION: 07/02/2017 PRIMARY CARE PHYSICIAN: Dr Jones. CONSULT REQUESTED BY: Dr. Ramiro Yepez for medical management following evacuation of thoracic epidural hematoma. HISTORY OF PRESENT COMPLAINT: He is a 67-year-old male with significant past medical history of thoracic and lumbosacral neuritis, history of bacterial meningitis, history of closed fracture of fibula, and also diabetes and hypertension. The patient underwent evacuation of thoracic epidural hematoma by Dr. Yepez this evening. He is status post thoracic decompression and fusion on 06/21/2017. He was experiencing numbness and weakness in the bilateral lower extremities and he was evaluated in the ER last afternoon. MRI was done and it did show significant thoracic epidural hematoma, extending up to T7 level. He underwent evacuation by Dr. Yepez this evening and medical consultation was sought for medical management following that. When asking question after the surgery on the floor, the patient did not have any symptoms, some pain in the back, but no other symptoms reported. No chest pain, shortness breath, or palpitation. No abdominal pain, nausea or vomiting. No numbness or tingling in the lower extremities. PAST MEDICAL HISTORY: Significant for diabetes, hypertension, hyperlipidemia, hypothyroidism, lumbar stenosis with neurogenic claudication, history of bacterial meningitis, and a history of closed fracture of tibia. PAST SURGICAL HISTORY: Significant for right distal tibia and right proximal fibular surgery in 2008, and recent thoracic decompression and fusion on 06/21/2017. FAMILY HISTORY: Nothing significant. No diabetes and/or ischemic heart disease. SOCIAL HISTORY: He is . He does not use any tobacco and/or alcohol. ALLERGIES: NKDA. MEDICATIONS: On the chart Lipitor 20 mg daily, Norflex 100 mg b.i.d., oxycodone 5/325 one tablet p.o. q. 4 hourly p.r.n., warfarin 7.5 as directed, Coenzyme Q10 of 100 mg daily, glyburide-metformin combination 1 tablet b.i.d., Victoza 18 mg as directed, Uribel 1 cap p.o. b.i.d., MiraLax 17 grams as directed, probiotic, Tylenol 325 mg tablet 2 tablets p.o. as directed, Coreg 3.125 mg twice daily, Cardura 4 mg tablet q.a.m., Lexapro 20 mg tablet daily, Pepcid 20 mg b.i.d., Neurontin 300 mg tablet 2 tablets b.i.d., Synthroid 50 mcg daily, lisinopril 2.5 mg daily, multivitamin 1 tablet daily, oxycodone 5 mg q. 4 hourly p.r.n., Januvia 100 mg q.a.m., and trazodone 50 mg tablet 2 tablets q.p.m. REVIEW OF SYSTEMS: Other systemic review unremarkable except those mentioned in the history of present complaint. PHYSICAL EXAMINATION: GENERAL: On examination on the medical floor, he was not having any acute distress. VITAL SIGNS: Temperature 36.9, pulse was 75, blood pressure 116/70, and saturation 97% on 2 liters. HEENT: Unremarkable. NECK: Supple. No JVD and no bruit. CHEST: Clear to auscultate bilaterally. HEART: S1 and S2 regular. ABDOMEN: Soft, benign, and nontender. No organomegaly. Bowel sounds present. EXTREMITIES: Negative for any edema. MUSCULOSKELETAL SYSTEM: No acute arthritis involving any joint. CENTRAL NERVOUS SYSTEM: He is alert, awake, oriented x3. LABORATORY DATA: Noted today. White count was 8.09, H&H 12.3/37.8, and platelet was 191. Sodium 138, potassium pending, chloride 103, carbon dioxide 29, BUN 13, creatinine 0.96, and random glucose 124. INR was 2.4 and PT ratio 1.3. EKG was in sinus rhythm, rate of 73 per minute, normal axis and nonspecific ST-T wave changes. Thoracic spine MRI did show 78 x 11 x 7 mm posterior epidural fluid collection extending from T7 level to the T10 level, post-laminectomy and spinal fusion changes from T10-T11 level. IMPRESSION AND PLAN: 1. Status post thoracic epidural hematoma evacuation. The patient has been doing fine following surgery, does not have any significant symptoms. Management as per ortho. 2. Diabetes. We will put him on sliding scale coverage. Has been on Januvia, we will continue that, but hold off any metformin. 3. Hyperlipidemia. Continue with current medication. 4. Hypertension. Continue with current medication. 5. Hypothyroidism. Continue with replacement therapy. 6. Gastrointestinal prophylaxis with proton pump inhibitor. 7. Deep vein thrombosis prophylaxis as per ortho. 8. Code status. He is a full code. Thank you for this consultation. We will be following with this patient with you during his hospitalization. CHELOD
[2017-07-02] MEDS: LEVOTHYROXINE 50 MCG TAB PO SCH (09:18)
[2017-07-02] MEDS: DOXAZosin MESYLATE TAB 4 MG TAB PO SCH (09:18)
[2017-07-02] MEDS: SITAGLIPTIN 100 MG TAB PO SCH (09:19)
[2017-07-02] MEDS: ESCITALOPRAM OXALATE 20 MG TAB PO SCH (09:19)
[2017-07-02] MEDS: CARVEDILOL 3.125 MG TAB PO SCH ×2 (09:19→21:38)
[2017-07-02] MEDS: GABAPENTIN 600 MG TAB PO SCH ×2 (09:20→21:40)
[2017-07-02] MEDS: MULTIVITAMIN TAB PO SCH ×2 (09:20→21:40)
[2017-07-02] MEDS: FAMOTIDINE 20 MG TAB PO SCH ×2 (09:20→21:39)
[2017-07-02] MEDS: INSULIN ASPART 100 UNITS/ML 3 ML PEN SC SCH ×4 (09:27→21:43)
[2017-07-02] MEDS ORDERED: PHARMACY GLYCEMIC MGMT CONSULT PRN (10:53)
[2017-07-02] MEDS ORDERED: INSULIN HUMAN NPH SC ONE ×2 (11:00→23:00)
[2017-07-02] MEDS ORDERED: INSULIN GLARGINE SOLOSTAR 100 UNITS/ML 3 ML PEN SC ONE (11:00)
[2017-07-02] MEDS ORDERED: INSULIN IV INFUSION PROTOCOL STA (11:08)
[2017-07-02] MEDS ORDERED: SEVERE STRESS LEVEL ONE (11:15)
[2017-07-02] MEDS ORDERED: INSULIN PROTOCOL GOAL RANGE ONE (11:15)
[2017-07-02] MEDS ORDERED: INSULIN HUMAN REGULAR IV BOLUS 4.5 UNIT in SYRINGE 0 ML IV SCH (11:30)
[2017-07-02] MEDS: INSULIN REGULAR 250 UNITS in SODIUM CHLORIDE 0.9% 250ML 250 ML IV SCH ×6 (11:40→16:47)
[2017-07-02] MEDS ORDERED: NURSING VERBAL MED ORDER ONE ×2 (12:00)
[2017-07-02] MEDS ORDERED: INSULIN ASPART 100 UNITS/ML 3 ML PEN SC SCH (13:00)
[2017-07-02] MEDS: DC IV INSULIN INFUSION SCH ×5 (14:00→21:32)
--- NOTE | 2017-07-02 14:29 | Pharmacy Progress Note ---
Glycemic Control Intl Consult Date of Service Jul 02, 2017. Scope Glycemic Pharmacist consulted by Dr Shankar on 07/02/17 for glycemic control and to write orders per [facility] inpatient glycemic control protocol Objective Weight (Kilograms): 123.400 Accuchecks BSG (last 24hrs): Test 07/01/17 16:40 07/02/17 05:58 07/02/17 08:08 07/02/17 10:36 Random Glucose 124 mg/dl (70-99) 289 mg/dl (70-99) Bedside Glucose 289 mg/dl (70-99) 405 mg/dl (70-99) Test 07/02/17 12:44 07/02/17 13:47 Bedside Glucose 298 mg/dl (70-99) 284 mg/dl (70-99) Laboratory Data (last 24hrs) Test 07/01/17 16:40 07/02/17 05:58 Anion Gap 6.0 mmol/L 7.0 mmol/L BUN/Creatinine Ratio 13.8 10.1 Blood Urea Nitrogen 13 mg/dl 11 mg/dl Creatinine 0.96 mg/dl 1.04 mg/dl Potassium Level mmol/L 4.5 mmol/L Sodium Level 138 mmol/L 137 mmol/L White Blood Count 8.09 K/uL 10.09 K/uL Red Blood Count 4.07 M/uL 3.69 M/uL Hemoglobin 12.3 g/dL 11.2 g/dL Hematocrit 37.8 % 34.2 % Mean Corpuscular Volume 92.9 fL 92.7 fL Mean Corpuscular Hemoglobin 30.2 pg 30.4 pg Mean Corpuscular Hemoglobin Concent 32.5 g/dl 32.7 g/dl Platelet Count 191 K/uL 181 K/uL Mean Platelet Volume 9.4 fL 9.6 fL Neutrophils (%) (Auto) 68.3 % 91.8 % Lymphocytes (%) (Auto) 20.4 % 6.2 % Monocytes (%) (Auto) 9.3 % 1.5 % Eosinophils (%) (Auto) 1.1 % 0.0 % Basophils (%) (Auto) 0.4 % 0.1 % Neutrophils # (Auto) 5.53 K/uL 9.26 K/uL Lymphocytes # (Auto) 1.65 K/uL 0.63 K/uL Monocytes # (Auto) 0.75 K/uL 0.15 K/uL Eosinophils # (Auto) 0.09 K/uL 0.00 K/uL Basophils # (Auto) 0.03 K/uL 0.01 K/uL HbA1c 6.7% on 06/22/17 Recent Pertinent Medications Outpatient Anti-diabetic Regimen: * Glyburide/metformin 5/500mg PO BIDM * Januvia 100mg PO daily * Victoza 1.8mg SQ daily The patient is currently receiving: * Basal insulin: None * Correctional Insulin: Novolog Correction per scale ACHS Goal Range: Low 140 mg/dL - High 180 mg/dL Correction Factor: 15 mg/dL/unit * Prandial insulin: Per carb ratio of 1 unit per 4 grams CHO consumed * Oral Agents: Januvia 100mg PO daily Risk Factors for Insulin Resistance: * Steroids * Recent Surgery * Diet Assessment & Plan ASSESSMENT: * 67yo T2DM male with adequate glycemic control as an outpatient on multiple agents now with SEVERE steroid induced hyperglycemia * Pt received dexamethasone 12 mg IV in OR and then dexamethasone 6mg IV Q8hrs x 3 * Pt already received first dose of dexamethasone without long acting insulin coverage which resulted in severe hyperglycemia of 405 mg/dl * Typically ~1 unit/kg insulin needed with this level of high steroid dosing. * Since BSG 405 mg/dl patient will require IV insulin infusion to overcome severe hyperglycemia until SQ insulin doses start to work. * Hyperglycemia post operatively is independently predictive of mortality, infection, and increased length of stay. * Will give weight/stress of 3 dosing and overlap with IV insulin infusion * Will stop IV insulin infusion when BSG <180 mg/dl as this is likely when SQ insulin dosing is taking full effect. PLAN FOR INPATIENT GLYCEMIC CONTROL: * Starting IV insulin infusion per severe stress protocol * Goal Range 140 - 180 mg/dl * Will start IV insulin infusion along with SQ basal bolus insulin regimen below. * To minimize time on the infusion, will stop IV insulin infusion when BSG < 180 mg/dl as this is likely when SQ insulin has taken full effect. Otherwise, will d/c IV insulin infusion at 2300 if it has not stopped prior to this time. * Holding outpatient oral diabetes medications * Basal insulin * NPH 60 units SQ x 1 at the start of the infusion * NPH 25 units SQ x 1 dose with the last dose of dexamethasone at 2300 (this coincides with the stop of the insulin infusion) * Bolus insulin * NovoLog per scale ACHS or Q6hrs while NPO. Additional checks/coverage overnight at 0000 & 0400 * Goal Range: Low 110 mg/dL - High 140 mg/dL * Correction Factor: 15 mg/dL/unit * Nutritional / Prandial insulin per carb ratio of 1 unit per 4 grams CHO consumed * Please note that the plan above was derived based on current level of insulin resistance and hospital stress. These recommendations are appropriate for inpatient admission only. Plan of care upon discharge will need to be reassessed to avoid potential outpatient hypo/hyperglycemia. Thank you.
--- NOTE | 2017-07-02 15:59 | Progress Note ---
Internal Med Progress Note Date of Service: Jul 02, 2017. Provider Documentation: SUBJECTIVE: Seen and examined at bedside Back pain is controlled Passing gas, no BM yet Denies tingling/numbness Also denies chest pain, SOB, dizziness, nausea, abd pain Family at bedside OBJECTIVE: Vital Signs-as noted below Physical Exam: General Appearance:Moderately built and nourished, no apparent distress Head: normocephalic, Atraumatic Eyes: normal inspection, EOMI, PERRL Neck: supple, Trachea midline Respiratory/Chest: Normal breath sounds, CTA Cardiovascular: S1, S2, No murmur Abdomen/GI:Soft, Non tender, Bowel sounds present Extremities/Musculoskelatal:normal inspection, no edema Back:+Drain Neurologic/Psych:AAOX3, LE exam limited secondary to post surgical state Skin: normal color, warm Lab data as noted below. ASSESSMENT & PLAN: S/P thoracic epidural hematoma evacuation and decompression laminotomy T7-T8 and T9 Management as per ortho. Pain control PT/OT DM II: Uncontrolled secondary to Decadron A1C:6.7 Continue ISS, Basal Insulin Continue Junuv Hold metformin for now Appreciate Pharmacy assistance Hyperlipidemia/HTN: Continue current medications Hypothyroidism: Continue levothyroxine TSH: normal DVT Px: as per ortho Code status: full code Disposition: Per Primary Team Vital Signs: Date Time Temp Pulse Resp B/P (MAP) Pulse Ox O2 Delivery O2 Flow Rate FiO2 07/02/17 15:38 36.9 68 16 114/63 (80) 97 Room Air 07/02/17 11:25 37.3 71 18 121/68 (85) 93 Room Air 07/02/17 10:34 Room Air 07/02/17 07:38 37.1 81 16 111/61 (78) 91 Room Air 07/02/17 03:58 37.0 78 18 121/66 (84) 97 Nasal Cannula 2.0 07/02/17 03:00 37.0 81 18 121/71 (88) 96 Nasal Cannula 2.0 07/02/17 02:00 73 18 125/72 (89) 96 Nasal Cannula 2.0 07/02/17 01:30 36.9 75 18 116/70 (85) 97 Nasal Cannula 2.0 07/02/17 01:00 95 Nasal Cannula 2.0 07/02/17 01:00 37.2 78 18 143/78 Nasal Cannula 2.0 07/02/17 00:50 72 16 130/80 96 Nasal Cannula 2 07/02/17 00:40 36.7 79 18 123/78 95 Nasal Cannula 3 07/02/17 00:30 77 18 130/72 95 Room Air 07/02/17 00:20 75 18 136/69 99 Oxymask 5 07/02/17 00:10 79 18 125/71 99 Oxymask 5 07/02/17 00:01 80 18 137/84 99 Oxymask 10 07/01/17 23:50 82 18 116/62 96 Oxymask 10 07/01/17 23:40 37.0 76 16 149/110 95 Oxymask 10 07/01/17 21:19 88 16 111/75 93 Room Air 07/01/17 20:59 88 16 105/73 94 Room Air 07/01/17 20:41 90 07/01/17 20:31 86 18 118/63 93 Room Air 07/01/17 17:35 79 18 128/78 94 Room Air 07/01/17 16:42 81 07/01/17 16:25 36.8 73 12 117/79 97 Room Air Lab Results: Results Past 24 Hours Test 07/01/17 16:40 07/01/17 17:42 07/02/17 05:58 07/02/17 08:08 Range/Units White Blood Count 8.09 10.09 4.8-10.8 K/uL Red Blood Count 4.07 3.69 4.7-6.1 M/uL Hemoglobin 12.3 11.2 14.0-18.0 g/dL Hematocrit 37.8 34.2 42-52 % Mean Corpuscular Volume 92.9 92.7 80-100 fL Mean Corpuscular Hemoglobin 30.2 30.4 25-34 pg Mean Corpuscular Hemoglobin Concent 32.5 32.7 32-36 g/dl Platelet Count 191 181 130-400 K/uL Mean Platelet Volume 9.4 9.6 7.4-10.4 fL Neutrophils (%) (Auto) 68.3 91.8 % Lymphocytes (%) (Auto) 20.4 6.2 % Monocytes (%) (Auto) 9.3 1.5 % Eosinophils (%) (Auto) 1.1 0.0 % Basophils (%) (Auto) 0.4 0.1 % Neutrophils # (Auto) 5.53 9.26 1.4-6.5 K/uL Lymphocytes # (Auto) 1.65 0.63 1.2-3.4 K/uL Monocytes # (Auto) 0.75 0.15 0.11-0.59 K/uL Eosinophils # (Auto) 0.09 0.00 0-0.5 K/uL Basophils # (Auto) 0.03 0.01 0-0.2 K/uL RDW Standard Deviation 44.9 44.3 36.4-46.3 fL RDW Coefficient of Variation 13.3 13.1 11.5-14.5 % Immature Granulocyte % (Auto) 0.5 0.4 % Immature Granulocyte # (Auto) 0.04 0.04 0.00-0.02 K/uL Sodium Level 138 137 136-145 mmol/L Potassium Level 4.5 3.5-5.1 mmol/L Chloride Level 103 104 98-107 mmol/L Carbon Dioxide Level 29 25 21-32 mmol/L Anion Gap 6.0 7.0 3-11 mmol/L Blood Urea Nitrogen 13 11 7-18 mg/dl Creatinine 0.96 1.04 0.60-1.40 mg/dl Est Creatinine Clear Calc Drug Dose 104.2 96.2 ml/min Estimated GFR () 94.4 85.7 Estimated GFR (Non- 81.5 73.9 BUN/Creatinine Ratio 13.8 10.1 10-20 Random Glucose 124 289 70-99 mg/dl Calcium Level 8.6 8.2 8.5-10.1 mg/dl Prothrombin Time 25.1 9.0-12.0 SECONDS Prothromb Time International Ratio 2.4 0.9-1.1 Activated Partial Thromboplast Time 33.4 21.0-31.0 SECONDS Partial Thromboplastin Ratio 1.3 Magnesium Level 2.2 1.8-2.4 mg/dl Thyroid Stimulating Hormone (TSH) 1.470 0.300-4.500 uIu/ml Bedside Glucose 289 70-99 mg/dl Test 07/02/17 10:36 07/02/17 12:44 07/02/17 13:47 Range/Units Bedside Glucose 405 298 284 70-99 mg/dl
--- NOTE | 2017-07-02 16:54 | Progress Note ---
Progress Note Date of Service Jul 02, 2017. Progress Note Patient is status post thoracic decompression for epidural hematoma. This morning his pain is improved. Still significant weakness to the bilateral lower extremities to clinic with hip flexors quadriceps. Vital signs are stable. He has no complaints this time. Assessment status post evacuation of thoracic hematoma with neuro deficits. Plan at this time will continue physical therapy occupational therapy we will consult social media editor for transfer to [facility] when stable.
[2017-07-02] MEDS: LISINOPRIL 2.5 MG TAB PO SCH (21:41)
[2017-07-02] MEDS: TRAZODONE HCL 50 MG TAB PO SCH (21:41)
[2017-07-03] VITALS (8 sets, daily range): BP systolic 114–128; BP diastolic 67–80; PULSE 53–69; TEMP 36.4–37; O2SAT 94–96
[2017-07-03] MEDS: INSULIN ASPART 100 UNITS/ML 3 ML PEN SC SCH ×6 (00:01→21:27)
[2017-07-03] MEDS: LEVOTHYROXINE 50 MCG TAB PO SCH (05:56)
[2017-07-03 06:52] LABS: HEMATOCRIT 32.5 % (42-52); HEMOGLOBIN 10.6 g/dL (14.0-18.0)
[2017-07-03 07:31] LABS: CALCIUM 8.4 mg/dl (8.5-10.1); CREATININE 0.94 mg/dl (0.60-1.40); POTASSIUM 4.4 mmol/L (3.5-5.1)
[2017-07-03] MEDS ORDERED: INSULIN HUMAN NPH SC ONE (07:45)
--- NOTE | 2017-07-03 08:34 | Progress Note ---
Progress Note Date of Service Jul 03, 2017. Progress Note Patient's back pain is controlled. He tolerated therapy reasonably well yesterday. On exam today his quadricep function appears to be markedly improved from yesterday a.m. We'll continue with therapy today. We will hopefully transition to [facility] later this week. I will be requesting that medicine provide us with guidance regarding anti-regulation therapy for the long-term.
[2017-07-03] MEDS: ESCITALOPRAM OXALATE 20 MG TAB PO SCH (09:05)
[2017-07-03] MEDS: DOXAZosin MESYLATE TAB 4 MG TAB PO SCH (09:05)
[2017-07-03] MEDS: GABAPENTIN 600 MG TAB PO SCH ×2 (09:06→21:24)
[2017-07-03] MEDS: MULTIVITAMIN TAB PO SCH ×2 (09:06→21:00)
[2017-07-03] MEDS: SITAGLIPTIN 100 MG TAB PO SCH (09:06)
[2017-07-03] MEDS: FAMOTIDINE 20 MG TAB PO SCH ×2 (09:06→21:25)
[2017-07-03] MEDS: CARVEDILOL 3.125 MG TAB PO SCH ×3 (09:08→21:26)
[2017-07-03] MEDS: POLYETHYLENE (MIRALAX) 17 GM PACK PO SCH (09:09)
--- NOTE | 2017-07-03 09:54 | Clinical Documentation Query ---
WAN Castellon : CLINICAL DOCUMENTATION QUERIES QUERY 1 OF 2 Patient is a 67 year old male admitted for evaluation of back pain and bilateral lower extremity weakness s/p thoracic decompression and fusion on June 21, 2017. MRI demonstrated "significant thoracic epidural hematoma extending up to roughly T7" in the additional setting of Lovenox and Coumadin therapy. He subsequently underwent decompressive laminotomy of T7, T8, an dT9, with evacuation of hematoma spanning T7-T10. As appropriate, consider clarification options as suggested below so as to avoid uncertainty at time of coding and DRG assignment. Thank you. In your clinical opinion is this patient being managed for: ( ) Postprocedural thoracic epidural hematoma, a complication of care ( ) Postprocedural thoracic epidural hematoma due to coagulation defects due to Lovenox and Coumadin therapy ( ) Not Agree ( ) Other explanation of clinical findings (Please Explain) ( ) Unable to determine (Please Define) ( ) Need to Discuss The medical record reflects the following clinical findings, treatment, and risk factors. Clinical Indicators: As above Treatment: As above Risk Factors: As above QUERY 2 OF 2 Consider documentation as suggested below in order to capture the SOI and ROM associated with this important clinical diagnosis. Thank you. In your clinical opinion is this patient being managed for: ( ) Thoracic spinal cord compression ( ) Not Agree ( ) Other explanation of clinical findings (Please Explain) ( ) Unable to determine (Please Define) ( ) Need to Discuss The medical record reflects the following clinical findings, treatment, and risk factors. Clinical Indicators: Bilateral lower extremity pain, weakness Treatment: Decompressive laminotomy, evacuation of hematoma Risk Factors: Surgery, Lovenox, Coumadin Please clarify and document your clinical opinion in the progress notes and discharge summary. Terms such as "probable", "suspected", "likely", "questionable", "possible", or "still to be ruled out" are acceptable. IF IN AGREEMENT, YOU MUST DOCUMENT ABOVE DIAGNOSTIC STATEMENT IN DAILY PROGRESS NOTES AND DISCHARGE SUMMARY. This document is not part of the patient's record. Thank You, Liu Rangel, VICTORIANO [phone]
--- NOTE | 2017-07-03 15:22 | Pharmacy Progress Note ---
Pharmacy Glycemic Short Note 2 Date of Service Jul 03, 2017. OUTPATIENT ANTIDIABETIC REGIMEN: * Glyburide/metformin 5/500mg PO BIDM * Januvia 100mg PO daily * Victoza 1.8mg SQ daily * A1c = 6.7% 06/22/17 ASSESSMENT: * 67yo T2DM with adequate outpatient control - however, patient with SEVERE hyperglycemia post-operatively secondary to stress from surgery and high dose IV dexamethasone. * 07/02/17: Pt with SEVERE hyperglycemia - only correctional/prandial insulin was ordered post operatively (no basal insulin) while outpatient antidiabetic regimen on hold for admission and patient receiving steroids. High dose (weight/ stress = 3) Sq basal bolus insulin regimen initiated along with IV insulin infusion. BSG dropped nicely by dinner time to below 180 mg/dl at which time IV insulin infusion was discontinued. Unfortunately, rebound hyperglycemia occurred once IV insulin infusion was stopped despite aggressive SQ insulin dosing ordered. * Pt received 142 units of SQ insulin + IV insulin infusion * Last dose of Dexamethasone was 07/02 @ 2300, however, hyperglycemic effects can last for up to 48hrs post dxm administration * 07/03/17: Pt with severe hyperglycemia despite aggressive sq insulin dosing ordered. * BSGs 292, 240, 263 * Pt is ordered weight/st = 3 sq basal bolus dosing even though last dose of dxm given last evening. * Unsure of when hyperglycemia will respond - therefore will order a "scale based" Lantus dose to prevent under/over dosage * Maintaining BSG <150 mg/dl is best to prevent complications post-operatively PLAN FOR INPATIENT GLYCEMIC CONTROL: * Hold outpatient oral diabetes medications * OK to continue Januvia since the risk of hypo is low * Basal insulin * NPH 10-30 units SQ BID - dose based on BSG * Bolus insulin * NovoLog per scale ACHS or Q6hrs while NPO * Goal Range: Low 110 mg/dL - High 140 mg/dL * Correction Factor: 10 mg/dL/unit * Nutritional / Prandial insulin per carb ratio of 1 unit per 3 grams CHO consumed
--- NOTE | 2017-07-03 16:43 | Progress Note ---
Internal Med Progress Note Date of Service: Jul 03, 2017. Provider Documentation: SUBJECTIVE: Seen and examined at bedside States back pain is much improved Passing gas, no BM yet Denies chest pain, SOB, dizziness, nausea, abd pain Family at bedside OBJECTIVE: Vital Signs-as noted below Physical Exam: General Appearance:Moderately built and nourished, no apparent distress Head: normocephalic, Atraumatic Eyes: normal inspection, EOMI, PERRL Neck: supple, Trachea midline Respiratory/Chest: Normal breath sounds, CTA Cardiovascular: S1, S2, No murmur Abdomen/GI:Soft, Non tender, Bowel sounds present Extremities/Musculoskelatal:normal inspection, no edema Back:+Drain Neurologic/Psych:AAOX3, LE exam limited secondary to post surgical state Skin: normal color, warm Lab data as noted below. ASSESSMENT & PLAN: S/P thoracic epidural hematoma evacuation and decompression laminotomy T7-T8 and T9 Management as per ortho. Pain control PT/OT Will need rehab placement DM II: Uncontrolled secondary to Steroids A1C:6.7 BG to improve as currently off Decadron Continue Insulin therapy while hospitalized Continue Januvia Hold metformin for now Appreciate Pharmacy assistance Hyperlipidemia/HTN: Continue current medications Hypothyroidism: Continue levothyroxine TSH: normal H/O DVT Warfarin on hold as Post OP DVT Px: SCDs Plan to resume Coumadin when able Code status: full code Disposition: Per Primary Team Vital Signs: Date Time Temp Pulse Resp B/P (MAP) Pulse Ox O2 Delivery O2 Flow Rate FiO2 07/03/17 15:02 37.0 53 16 127/68 (87) 94 Room Air 07/03/17 11:34 36.4 62 18 114/68 (83) 96 Room Air 07/03/17 09:07 69 120/68 (85) 07/03/17 08:04 94 Room Air 07/03/17 07:49 36.9 64 18 124/80 (95) 94 Room Air 07/03/17 07:45 Room Air 07/02/17 23:30 36.9 59 16 110/65 (80) 93 Room Air 07/02/17 23:00 Room Air 07/02/17 21:37 72 126/66 (86) Lab Results: Results Past 24 Hours Test 07/02/17 16:45 07/02/17 17:53 07/02/17 18:48 07/02/17 20:58 Range/Units Bedside Glucose 216 175 237 227 70-99 mg/dl Test 07/02/17 23:56 07/03/17 04:04 07/03/17 06:26 07/03/17 07:57 Range/Units Bedside Glucose 246 292 240 70-99 mg/dl Hemoglobin 10.6 14.0-18.0 g/dL Hematocrit 32.5 42-52 % Sodium Level 138 136-145 mmol/L Potassium Level 4.4 3.5-5.1 mmol/L Chloride Level 106 98-107 mmol/L Carbon Dioxide Level 27 21-32 mmol/L Anion Gap 5.0 3-11 mmol/L Blood Urea Nitrogen 14 7-18 mg/dl Creatinine 0.94 0.60-1.40 mg/dl Est Creatinine Clear Calc Drug Dose 106.5 ml/min Estimated GFR () 96.8 Estimated GFR (Non- 83.6 BUN/Creatinine Ratio 14.6 10-20 Random Glucose 268 70-99 mg/dl Calcium Level 8.4 8.5-10.1 mg/dl Test 07/03/17 11:54 Range/Units Bedside Glucose 263 70-99 mg/dl
[2017-07-03] MEDS: INSULIN HUMAN NPH SC SCH (16:55)
[2017-07-03] MEDS: TRAZODONE HCL 50 MG TAB PO SCH (21:24)
[2017-07-03] MEDS: LISINOPRIL 2.5 MG TAB PO SCH (21:24)
[2017-07-04] MEDS ORDERED: INSULIN ASPART 100 UNITS/ML 3 ML PEN SC SCH (02:00)
[2017-07-04] MEDS: LEVOTHYROXINE 50 MCG TAB PO SCH (05:23)
[2017-07-04 06:10] LABS: HEMATOCRIT 33.4 % (42-52); HEMOGLOBIN 10.7 g/dL (14.0-18.0)
[2017-07-04 06:44] LABS: CALCIUM 8.3 mg/dl (8.5-10.1); CREATININE 0.87 mg/dl (0.60-1.40); INR 1.2 (0.9-1.1); POTASSIUM 4.2 mmol/L (3.5-5.1)
[2017-07-04 07:18] VITALS: BP 109/69; PULSE 56; TEMP 36.4; O2SAT 95
--- NOTE | 2017-07-04 08:12 | Orthopedic Progress Note ---
Orthopedic Progress Note Date of Service Jul 04, 2017. Subjective Post OP Day: 3 Reports: feeling well Additional Notes: Patient denies some numbness in his toes but this seems to be improving. He reports in physical therapy yesterday he did some side shuffling with assistance. MARIANA drain output left shift was 5 mL out of MARIANA #1 and 10 mL of MARIANA # 2. H&H is morning at 10.7 and 33.7 respectively. Objective calves soft nontender, dressing C/D/I, A&O x3, toes mobile Lumbar dressing is clean dry and intact. He is in obvious distress. The nontender bilaterally. Strength is dramatically improved over the past several days. Has a bit of breakaway weakness on the left when compared to right eye including dorsiflexion, quadricep, hamstring. Date Time Temp Pulse Resp B/P (MAP) Pulse Ox O2 Delivery O2 Flow Rate FiO2 07/04/17 07:18 36.4 56 19 109/69 (82) 95 Room Air 07/03/17 23:20 Room Air 07/03/17 23:07 36.5 62 18 128/67 (87) 95 Room Air 07/03/17 21:20 56 07/03/17 16:30 94 Room Air 07/03/17 15:02 37.0 53 16 127/68 (87) 94 Room Air 07/03/17 11:34 36.4 62 18 114/68 (83) 96 Room Air 07/03/17 09:07 69 120/68 (85) Laboratory Results 24 Hours: Test 07/04/17 05:25 Hematocrit 33.4 % Hemoglobin 10.7 g/dL Prothromb Time International Ratio 1.2 Prothrombin Time 12.2 SECONDS Assessment & Plan Assessment: pod 3 thoracic decompression and evacuation of epidural hematoma Plan: We'll continue physical therapy today. Maintain MARIANA drains. He's been accepted to both [facility] in [facility]. Patient will most be discharged to [facility] tomorrow. We are looking for recommendations from the hospitalist service in regards to anticoagulation. ?candidate for an IVC filter. Inhouse Planning DVT Prophylaxis: TEDs, SCDs
[2017-07-04 09:00] VITALS: PULSE 74
[2017-07-04] MEDS: DOXAZosin MESYLATE TAB 4 MG TAB PO SCH (09:09)
[2017-07-04] MEDS: CARVEDILOL 3.125 MG TAB PO SCH ×2 (09:11→20:44)
[2017-07-04] MEDS: GABAPENTIN 600 MG TAB PO SCH ×2 (09:11→20:44)
[2017-07-04] MEDS: ESCITALOPRAM OXALATE 20 MG TAB PO SCH (09:11)
[2017-07-04] MEDS: SITAGLIPTIN 100 MG TAB PO SCH (09:11)
[2017-07-04] MEDS: FAMOTIDINE 20 MG TAB PO SCH ×2 (09:11→20:44)
[2017-07-04] MEDS: MULTIVITAMIN TAB PO SCH ×2 (09:12→20:40)
[2017-07-04] MEDS: POLYETHYLENE (MIRALAX) 17 GM PACK PO SCH (09:13)
[2017-07-04] MEDS: INSULIN ASPART 100 UNITS/ML 3 ML PEN SC SCH ×4 (09:19→21:05)
[2017-07-04] MEDS: INSULIN HUMAN NPH SC SCH ×2 (09:20→21:06)
--- NOTE | 2017-07-04 13:29 | Pharmacy Progress Note ---
Pharmacy Glycemic Short Note 2 Date of Service Jul 04, 2017. OUTPATIENT ANTIDIABETIC REGIMEN: * Glyburide/metformin 5/500mg PO BIDM * Januvia 100mg PO daily * Victoza 1.8mg SQ daily * A1c = 6.7% 06/22/17 ASSESSMENT: * 67yo T2DM with adequate outpatient control - however, patient with SEVERE hyperglycemia post-operatively secondary to stress from surgery and high dose IV dexamethasone. * 07/02/17: Pt with SEVERE hyperglycemia - only correctional/prandial insulin was ordered post operatively (no basal insulin) while outpatient antidiabetic regimen on hold for admission and patient receiving steroids. High dose (weight/ stress = 3) Sq basal bolus insulin regimen initiated along with IV insulin infusion. BSG dropped nicely by dinner time to below 180 mg/dl at which time IV insulin infusion was discontinued. Unfortunately, rebound hyperglycemia occurred once IV insulin infusion was stopped despite aggressive SQ insulin dosing ordered. * Pt received 142 units of SQ insulin + IV insulin infusion * Last dose of Dexamethasone was 07/02 @ 2300, however, hyperglycemic effects can last for up to 48hrs post dxm administration * 07/03/17: Pt with severe hyperglycemia despite aggressive sq insulin dosing ordered. * BSGs 292, 240, 263 * Pt is ordered weight/st = 3 sq basal bolus dosing even though last dose of dxm given last evening. * Unsure of when hyperglycemia will respond - therefore will order a "scale based" Lantus dose to prevent under/over dosage * Maintaining BSG <150 mg/dl is best to prevent complications post-operatively * 07/04/17: BSGs much better controlled today (138-197mg/dl), steroid effects finally wearing off. Will loosen CF and CR slightly to prevent hypoglycemia. PLAN FOR INPATIENT GLYCEMIC CONTROL: * Hold outpatient oral diabetes medications * OK to continue Januvia since the risk of hypo is low * Januvia 100mg po daily * Basal insulin * NPH 10-30 units SQ BID - dose based on BSG * Bolus insulin -LOOSEN * NovoLog per scale ACHS or Q6hrs while NPO * Goal Range: Low 110 mg/dL - High 140 mg/dL * Correction Factor: 12 mg/dL/unit * Nutritional / Prandial insulin per carb ratio of 1 unit per 4 grams CHO consumed
[2017-07-04 15:20] VITALS: BP 123/76; PULSE 60; TEMP 36.5; O2SAT 96
[2017-07-04 16:45] VITALS: O2SAT 96
--- NOTE | 2017-07-04 18:03 | Progress Note ---
Internal Med Progress Note Date of Service: Jul 04, 2017. Provider Documentation: SUBJECTIVE: Seen and examined at bedside States having numbness this morning which later resolved Denies back pain Denies chest pain, SOB, dizziness, nausea, abd pain Family at bedside No other complaints OBJECTIVE: Vital Signs-as noted below Physical Exam: General Appearance:Moderately built and nourished, no apparent distress Head: normocephalic, Atraumatic Eyes: normal inspection, EOMI, PERRL Neck: supple, Trachea midline Respiratory/Chest: Normal breath sounds, CTA Cardiovascular: S1, S2, No murmur Abdomen/GI:Soft, Non tender, Bowel sounds present Extremities/Musculoskelatal:normal inspection, no edema Back:+Drain Neurologic/Psych:AAOX3, LE exam limited secondary to post surgical state Skin: normal color, warm Lab data as noted below. ASSESSMENT & PLAN: S/P thoracic epidural hematoma evacuation and decompression laminotomy T7-T8 and T9 Management as per ortho. Pain control PT/OT Will need rehab placement DM II: Uncontrolled secondary to Steroids A1C:6.7 BG to improve as currently off Decadron Continue Insulin therapy while hospitalized Continue Januvia Hold metformin for now Appreciate Pharmacy assistance Hyperlipidemia/HTN: Continue current medications Hypothyroidism: Continue levothyroxine TSH: normal H/O DVT Warfarin on hold as Post OP Discussed with Patient regarding IVC filter and he doesn't believe he has the need for it Primary team can consider to discuss with Vascular surgery if IVC filter is indicated given Post op complication Patient states having 2 episodes of DVT post OP and never had any bleeding issues other than this admission Advise to resume Coumadin if no contraindications Or Can do a trial of therapeutic Lovenox and then resume Coumadin if no recurrence of bleeding DVT Px: SCDs Plan to resume Coumadin when able Code status: full code Disposition: Per Primary Team Vital Signs: Date Time Temp Pulse Resp B/P (MAP) Pulse Ox O2 Delivery O2 Flow Rate FiO2 07/04/17 16:45 96 Room Air 07/04/17 15:20 36.5 60 16 123/76 (92) 96 Room Air 07/04/17 09:00 74 07/04/17 07:18 36.4 56 19 109/69 (82) 95 Room Air 07/04/17 07:15 Room Air 07/03/17 23:20 Room Air 07/03/17 23:07 36.5 62 18 128/67 (87) 95 Room Air 07/03/17 21:20 56 Lab Results: Results Past 24 Hours Test 07/03/17 20:40 07/03/17 20:43 07/04/17 02:01 07/04/17 05:25 Range/Units Bedside Glucose 249 245 197 70-99 mg/dl Hemoglobin 10.7 14.0-18.0 g/dL Hematocrit 33.4 42-52 % Prothrombin Time 12.2 9.0-12.0 SECONDS Prothromb Time International Ratio 1.2 0.9-1.1 Sodium Level 138 136-145 mmol/L Potassium Level 4.2 3.5-5.1 mmol/L Chloride Level 105 98-107 mmol/L Carbon Dioxide Level 29 21-32 mmol/L Anion Gap 4.0 3-11 mmol/L Blood Urea Nitrogen 20 7-18 mg/dl Creatinine 0.87 0.60-1.40 mg/dl Est Creatinine Clear Calc Drug Dose 115.0 ml/min Estimated GFR () 103.5 Estimated GFR (Non- 89.3 BUN/Creatinine Ratio 23.2 10-20 Random Glucose 155 70-99 mg/dl Calcium Level 8.3 8.5-10.1 mg/dl Test 07/04/17 07:55 07/04/17 11:49 07/04/17 17:24 Range/Units Bedside Glucose 138 147 182 70-99 mg/dl
[2017-07-04 20:42] VITALS: BP 123/66; PULSE 58
[2017-07-04] MEDS: TRAZODONE HCL 50 MG TAB PO SCH (20:44)
[2017-07-04] MEDS: LISINOPRIL 2.5 MG TAB PO SCH (20:45)
[2017-07-04 23:16] VITALS: BP 123/76; PULSE 67; TEMP 36.8; O2SAT 98
[2017-07-05] MEDS: LEVOTHYROXINE 50 MCG TAB PO SCH (05:44)
[2017-07-05 07:01] LABS: HEMATOCRIT 35.5 % (42-52); HEMOGLOBIN 11.6 g/dL (14.0-18.0)
[2017-07-05 07:34] LABS: CALCIUM 8.4 mg/dl (8.5-10.1); CREATININE 0.95 mg/dl (0.60-1.40); POTASSIUM 4.1 mmol/L (3.5-5.1)
[2017-07-05 08:00] VITALS: BP 132/80; PULSE 56; TEMP 36.6; O2SAT 94
[2017-07-05 08:30] VITALS: PULSE 76
[2017-07-05] MEDS: FAMOTIDINE 20 MG TAB PO SCH (08:40)
[2017-07-05] MEDS: GABAPENTIN 600 MG TAB PO SCH (08:40)
[2017-07-05] MEDS: DOXAZosin MESYLATE TAB 4 MG TAB PO SCH (08:41)
[2017-07-05] MEDS: SITAGLIPTIN 100 MG TAB PO SCH (08:41)
[2017-07-05] MEDS: CARVEDILOL 3.125 MG TAB PO SCH (08:42)
[2017-07-05] MEDS: MULTIVITAMIN TAB PO SCH (08:42)
[2017-07-05] MEDS: ESCITALOPRAM OXALATE 20 MG TAB PO SCH (08:44)
[2017-07-05] MEDS: POLYETHYLENE (MIRALAX) 17 GM PACK PO SCH (08:45)
[2017-07-05] MEDS: INSULIN ASPART 100 UNITS/ML 3 ML PEN SC SCH ×2 (08:48→13:07)
[2017-07-05] MEDS: INSULIN HUMAN NPH SC SCH (08:49)
[2017-07-05 09:15] VITALS: O2SAT 94
[2017-07-05] MEDS ORDERED: RXC5 PO (09:49)
--- NOTE | 2017-07-05 09:50 | Discharge Instructions ---
Discharge Instructions Date of Service Jul 05, 2017. Admission Reason for Admission: Epidural Hematoma Discharge Discharge Diagnosis / Problem: thoracic epidural hematoma Discharge Goals Goal(s): Improve function Activity Recommendations Activity Limitations: per Instructions/Follow-up section . Instructions / Follow-Up Instructions / Follow-Up ACTIVITY RECOMMENDATIONS: SELF CARE INSTRUCTIONS AFTER THORACIC/LUMBAR FUSIONS 1. You may walk to your tolerance. It is good exercise for your legs and back. Expect some back and intermittent leg aches and pains. 2. You may perform "counter-top" level activities (make a sandwich, rose with a project, etc.). 3. No bending or lifting of more than 10 pounds or back twisting of any nature (roll like a log when turning in bed). 4. You may ride in a car for 20-30 minutes at a time. No driving until after your first visit with your doctor. 5. Frequent changes of position and restricting sitting to 30 minutes at a time will help limit the amount of back spasms and stiffness you may experience. 6. You may discontinue the use of ambulatory aids (cane, crutches, etc.) once your strength and confidence allow. 7. You may cabin service agent the shower and let water strike your incision when you arrive home at least once daily. Do not take a tub bath, sit in a hot tub or go into a swimming pool until after your first recheck in the office. SPECIAL CARE INSTRUCTIONS: VERY IMPORTANT TO READ AND REVIEW A. Your surgical incision has been closed with a cosmetic suture under the skin that will dissolve in about 6 weeks. In 14 days, you can use a pair of clean scissors and cut the suture that is left outside of the skin at the ends of your incision. 1. The small skin tapes can be removed 7 days after surgery if they have not fallen off by that point. 2. You may keep the wound open to air as much as possible to promote healing after post-op day number 5 unless told otherwise by your doctor. 3. If you think the wound looks like it is becoming infected (redness or worsening drainage) and/or you are experiencing fever, chill or worsening back pain and muscle spasms, contact the office so that we may evaluate you as soon as possible. B. Complications are uncommon, but please contact us if you have any signs or symptoms of: 1. wound infection (fever higher than 102.5 degrees F, redness, separation of wound, drainage, or increasing pain from the incision) 2. blood clots in legs (pain, swelling, redness and warmth in legs) 3. urinary tract infection (fever higher than 102.5 degrees F, burning upon urination or increased frequency of urination) 4. nerve problems (inability to walk on your toes or heels, numbness, loss of bowel or bladder control) 5. any other symptoms that concern you C. Please call the office at if you have any concerns or questions about your operation or recovery. D. No smoking! Smoking drastically decreases the chance of a solid fusion. E. Do not take any anti-inflammatory medications (Indocin, Advil, Motrin, Aspirin, Naprosyn, etc.) as these may inhibit the chance of a solid fusion. Tylenol is okay to take for pain. MANAGING PAIN AFTER SPINAL SURGERY 1. Narcotic medication is intended for short-term use and will be provided for surgical pain. Surgical pain usually lasts for a period of 4-6 weeks. Narcotic medication includes Percocet, Vicodin, Darvocet, Tylenol #3 or Lortab. 2. Longer-term pain is more appropriately treated with non-narcotic medication such as Tylenol ES. 3. Muscle spasm is not appropriately treated with narcotics. Muscle relaxers such as Soma, Flexeril or Skelaxin can be used along with Tylenol ES. 4. Remember that we all live with some "aches and pains". This is not unusual or uncommon after an injury or as we get older. a. Back pain is expected and may include muscle spasms for 4 to 6 weeks after surgery. The pain should gradually improve. If the pain worsens for no apparent reason, please contact the office. b. Intermittent leg pain may also be experienced and should not be concerned about unless it worsens for no apparent reason. If so, please contact the office. 5. We will provide appropriate medication within the normal guidelines of their prescribed use. We will also be very cautious and aware of potential abuse and extended duration of patients' medication needs. a. Pain medications are for your comfort and to assist with sleep and rest so that the tissue can heal. They are not provided in order to return to normal activity and should not be used through the day. To do so or worsening pain at night can result from ongoing tissue damage and development of tolerance to the prescribed medicine. 6. Please allow 2-3 days to process refills. Prescriptions will not be mailed but must be picked up at the office. FOLLOW UP VISIT: Keep your scheduled follow-up appointment. Any questions, please call the office at . Current Hospital Diet Patient's current hospital diet: Diabetes Type 2 Diet Discharge Diet Recommended Diet: Regular Diet Procedures Procedures Performed: T7-T9 Decompression, with evacuation of Thoracic Epidural Hematoma Pending Studies Studies pending at discharge: no Laboratory Results Hemoglobin A1c Test 06/22/17 05:54 Range/Units Estimated Average Glucose 146 mg/dl Hemoglobin A1c 6.7 H 4.5-5.6 % Medical Emergencies . Who to Call and When: Medical Emergencies: If at any time you feel your situation is an emergency, please call 911 immediately. . Non-Emergent Contact Non-Emergency issues call your: Primary Care Provider . "Provider Documentation" section prepared by Ramiro Yepez. . VTE Core Measure Inpt VTE Proph given/why not?: Celso Riley, SCD's
--- NOTE | 2017-07-05 12:13 | Discharge Summary ---
Orthopedic Discharge Summary Admission Date/Reason Jul 01, 2017 at 23:19 Epidural Hematoma. Discharge Date/Disposition Jul 05, 2017 Rehab Diagnosis Principal Diagnosis: Thoracic epidural hematoma Admission Physical Exam As per Admitting History & Physical. Hospital Course Patient underwent emergent thoracic decompression for a hematoma and neurologic decline. This occurred on Saturday evening. Postoperatively he progressed throughout the week with steady improvement of his quadricep function inability to ambulate. MARIANA drains decreased appropriately. Subsequently he was discharged to [facility]. Discharge orders and instructions can been found on the chart for further review. Discharge Instructions Please refer to the electronic Patient Visit Report (Discharge Instructions) for additional information.
[2017-07-05 13:44] VITALS: BP 132/80; PULSE 76; TEMP 36.6; O2SAT 94
--- NOTE | 2017-07-08 10:06 | Discharge Summary ---
Orthopedic Discharge Summary Admission Date/Reason Jul 01, 2017 at 23:19 Epidural Hematoma. Discharge Date/Disposition Jul 05, 2017 Rehab Diagnosis Principal Diagnosis: Thoracic epidural hematoma Procedure(s) Performed posterior thoracic decompression T7-T9, evacuation epidural hematoma Consultations [facility] Medication Reconciliation New Medications: Oxycodone HCl (Oxycodone HCl) 5 Mg Tab 5-10 MG PO Q4H PRN for Moderate - severe pain for 30 Days, #30 TAB Continued Medications: Acetaminophen Tab (Tylenol) 325 Mg Tab 650 MG PO PRN, TAB Atorvastatin (Lipitor) 20 Mg Tab 20 MG PO SatPM, 0 Refills Carvedilol (Coreg) 3.125 Mg Tab 3.125 MG PO BID, TAB Coenzyme Q10 (Ubidecarenone) (Coq10) 100 Mg Cap 100 MG PO QPM Doxazosin Mesylate (Cardura) 4 Mg Tab 4 MG PO QAM, TAB Escitalopram Oxalate (Lexapro) 20 Mg Tab 20 MG PO QAM, 0 Refills Famotidine (Pepcid) 20 Mg Tab 20 MG PO BID, 0 Refills Gabapentin (Neurontin) 300 Mg Cap 600 MG PO BID, CAP Glyburide-Metformin (Glucovance 5/500 Mg) 1 Tab Tab 1 TAB PO BID, TAB Levothyroxine Sodium (Synthroid) 50 Mcg Tab 50 MCG PO QAM, TAB Liraglutide (Victoza) 18 Mg/3 Ml Inj 1 DOSE INJ QAM Lisinopril (Zestril) 2.5 Mg Tab 2.5 MG PO QPM Thstzdxjpda-Kesvn-Ufsqbnfej Bl (Uribel) 1 Cap Cap 1 CAP PO BID for 10 Days, #20 CAP 1 Refill Multivitamin (Multivitamin) Tab 0.5 TAB PO BID, TAB Orphenadrine Citrate (Norflex) 100 Mg Tabcr 100 MG PO BID, 0 Refills Oxycodone HCl (Oxycodone HCl) 5 Mg Tab 5-10 MG PO Q4H PRN for Moderate - severe pain for 30 Days, #60 TAB Oxycodone/Acetaminophen 5MG/325MG (Percocet 5MG/325MG) Tab 1 TABLET PO Q4H PRN for Pain, TAB PAIN Polyethylene Glycol 3350 (Miralax) 1 Pow Pow 17 GM PO Q2D PRN for Constipation, #527 GM Probiotic Product (Probiotic) 1 Cap Cap 1 TAB PO BID Sitagliptin Phosphate (Januvia) 100 Mg Tab 100 MG PO QAM, TAB Trazodone Hcl (Trazodone) 50 Mg Tab 100 MG PO QPM, 0 Refills Warfarin Sod (Jantoven) 7.5 Mg Tab 7.5 MG PO 4XWK, TAB TAKE 7.5MG TABLET TUES, THURS, SAT , SUN Warfarin Sod (Jantoven) 7.5 Mg Tab 3.75 MG PO 3XWK, TAB TAKE 1/2 TABLET - 3.75MG- ON MON, WED, FRI Admission Physical Exam As per Admitting History & Physical. Hospital Course pt regained considerable strength in b/l lower extremities throughout post op course. lab values stable. discharged to rehab Discharge Instructions Please refer to the electronic Patient Visit Report (Discharge Instructions) for additional information.
--- NOTE | 2017-07-11 06:13 | EDITING REQUIRED CODING QUERY ---
CODING QUERY To promote full compliance with coding requirements relating to patient care, provider participation is requested in all cases of outside parts sales uncertainty. Please assist us with the question(s) below: Coding Question(s): It is documented that the patient has an epidural hematoma in the T7-T10 spine. It is also documented that the patient is status post thoracic decompression and fusion on June 21. Is the hematoma a postoperative complication directly resulting from the decompression and fusion? Physician's Response(s): _x__ Epidural hematoma is a postoperative complication ___ Epidural hematoma and postop status are unrelated ___ Other (please specify) Thank you Zehra Mccallum Principal Diagnosis: "_that condition established after study, to be chiefly responsible for occasioning the admission of the patient to the hospital for care." Co-Existing Principal Diagnosis: "_when two or more diagnoses equally meet the criteria for principal diagnosis as determined by the circumstances of admission, diagnostic work up, and/or therapy provided, and the Alphabetic Index, Tabular List, or another coding guideline does not provide sequencing direction, any one of the diagnoses may be sequenced first." "When the physician has documented what appears to be a current diagnosis in the body of the record, but has not included the diagnosis in the final diagnostic statement, the physician should be asked whether the diagnosis should be added." (Source [facility]oding [facility] 2 QTR90. p3-4)
[2017-07-19] MEDS ORDERED: CMD5 PO (15:09)
[2017-07-19] MEDS ORDERED: ACET-1047 PO (15:13)
== END 2017-07-05 14:20 | DRG 29 ==
LOC: EDBD 16:04 → C.EDC 16:08 → C.3E 23:19 → ENRESERV 07-02 00:42
PROVIDERS: ADMIT Orthopaedic Surgery Orthopaedic Surgery of the Spine; ATTEND Orthopaedic Surgery Orthopaedic Surgery of the Spine
PROC: 00CU0ZZ Extirpation of Matter from Spinal Canal, Open Approach (ICD-10-PCS; principal; 2017-07-01 21:37)
DX: S24.103A Unspecified injury at T7-T10 level of thoracic spinal cord, initial encounter (principal); G97.62 Postprocedural hematoma of a nervous system organ or structure following other procedure; Y83.8 Other surgical procedures as the cause of abnormal reaction of the patient, or of later complication, without mention of misadventure at the time of the procedure; Z98.1 Arthrodesis status; I49.1 Atrial premature depolarization; E11.65 Type 2 diabetes mellitus with hyperglycemia; T38.0X5A Adverse effect of glucocorticoids and synthetic analogues, initial encounter; I10 Essential (primary) hypertension; E78.5 Hyperlipidemia, unspecified; E03.9 Hypothyroidism, unspecified; F41.9 Anxiety disorder, unspecified; E66.9 Obesity, unspecified; Z68.34 Body mass index [BMI] 34.0-34.9, adult; Z86.61 Personal history of infections of the central nervous system; Z86.718 Personal history of other venous thrombosis and embolism; Z98.890 Other specified postprocedural states; Z79.01 Long term (current) use of anticoagulants; Z79.84 Long term (current) use of oral hypoglycemic drugs; Z79.899 Other long term (current) drug therapy

== ENCOUNTER 2017-07-09 11:43 | Inpatient (IN) | payer BC, OTHER ==
[~2017-07-09] VITALS: Ht 188 cm; Wt 113.9 kg
[2017-07-09] MEDS ORDERED: ASPIRIN 324 MG CHEW ONE (11:50)
--- NOTE | 2017-07-09 11:54 | EMERGENCY ROOM VISIT NOTE ---
History Report prepared by Niko: Afsaneh Woo Under the Supervision of: Dr. Kal Pugh D.O. First contact with patient: 11:40 Stated Complaint: CARDIAC ASSESSMENT History of Present Illness The patient is a 67 year old male who presents to the Emergency Room with complaints of sudden chest pain beginning this morning. The patient was at PT at [facility] this morning when he started to feel nauseous. He states his vitals were soon taken and his oxygen saturation was 88 on room air. The patient is at [facility] because on June 21 he had surgery for stenosis and a occlusion. He then developed a epidural hematoma which he had surgery on July 01. The patient states he felt relatively well this morning. He notes some shortness of breath but denies any cough or fever. The patient was given an nitroglycerin by EMS which resolved his pain. Presently, he denies any chest pain. The patient has a history of atrial fibrillation, a heart catheterization , and a DVT. The patient was on Lovenox but is currently off of it because of the hematoma. Source of History: patient Onset: this morning Position: chest Quality: other (pain) Timing: other (sudden) Associated Symptoms: + chest pain, + SOB, No fevers, No cough Review of Systems See HPI for pertinent positives & negatives. A total of 10 systems reviewed and were otherwise negative. Past Medical & Surgical Medical Problems: (1) Diabetes (2) Epidural hematoma (3) Hypertension (4) Lumbar stenosis with neurogenic claudication Current/Historical Medications Scheduled Acetaminophen Tab (Tylenol), 650 MG PO PRN Atorvastatin (Lipitor), 20 MG PO SatPM Bisacodyl (Bisacodyl), 1 MG RE DAILY Carvedilol (Coreg), 3.125 MG PO BID Docusate Sodium (Docusate Sodium), 100 MG PO BID Doxazosin Mesylate (Cardura), 4 MG PO QAM Escitalopram Oxalate (Lexapro), 20 MG PO QAM Famotidine (Pepcid), 20 MG PO BID Gabapentin (Neurontin), 600 MG PO BID Glyburide (Micronase), 5 MG PO BIDM Insulin Aspart (Novolog), UNITS SC ACHS Lactobacillus Acidophilus (Lactinex), 1 TAB PO DAILY Levothyroxine Sodium (Synthroid), 50 MCG PO QAM Lisinopril (Zestril), 2.5 MG PO QPM Metformin Hcl (Glucophage), 500 MG PO BIDM Multivitamin (Multivitamin), 0.5 TAB PO BID Sennosides-Docusate Sodium (Docusate Sodium/Senna), 1 TAB PO DAILY Sitagliptin Phosphate (Januvia), 100 MG PO QAM Trazodone Hcl (Trazodone), 100 MG PO QPM Warfarin Sod (Jantoven), 7.5 MG PO 4XWK Warfarin Sod (Jantoven), 3.75 MG PO 3XWK Scheduled PRN Oxycodone HCl (Oxycodone HCl), 5-10 MG PO Q4H PRN for Moderate - severe pain Polyethylene Glycol 3350 (Miralax), 17 GM PO Q2D PRN for Constipation Allergies Coded Allergies: No Known Allergies (Verified , 07/09/17) Physical Exam Vital Signs Date Time Temp Pulse Resp B/P (MAP) Pulse Ox O2 Delivery O2 Flow Rate FiO2 07/09/17 16:18 89 18 104/72 93 Nasal Cannula 2.0 07/09/17 14:40 94 20 109/60 93 Nasal Cannula 2.0 07/09/17 13:45 93 20 110/72 94 Room Air 07/09/17 13:03 94 20 109/90 93 Nasal Cannula 3.0 07/09/17 13:01 93 07/09/17 11:45 95 Nasal Cannula 3.0 07/09/17 11:45 95 Nasal Cannula 3.0 07/09/17 11:45 36.9 106 22 112/69 88 Room Air 07/09/17 11:44 88 Room Air Physical Exam GENERAL: Patient is awake, alert, and in no acute distress. Patient is resting comfortably and is mildly anxious appearing. EYES: The conjunctivae are clear. The pupils are round and reactive. EARS, NOSE, MOUTH AND THROAT: The nose is without any evidence of any deformity. Mucous membranes are moist tongue is midline NECK: The neck is nontender and supple. RESPIRATORY: Normal respiratory effort is noted there is no evidence of wheezing rhonchi or rales CARDIOVASCULAR: Regular rate and rhythm noted there no murmurs rubs or gallops normal S1 normal S2 GASTROINTESTINAL: Mildly distended but soft, no guarding or rigidity. MUSCULOSKELETAL/EXTREMITIES: There is no evidence of gross deformity full range of motion is noted in the hips and shoulders SKIN: Trace pedal edema bilaterally. There is no obvious evidence of any rash. There are no petechiae, pallor or cyanosis noted. NEUROLOGIC: Patient is awake alert and oriented x3 Medical Decision & Procedures ER Provider Diagnostic Interpretation: Radiology results as stated below per my review and radiologist interpretation: (CHEST FOR PE) ANGIO WITH FINDINGS: The thoracic aorta is normal in course and caliber. There are findings of extensive bilateral acute pulmonary emboli. These involve the main central right as well as left pulmonary arterial vessels. There is involvement also of the pulmonary arterial structures of the right and to a lesser extent left lower lobe region. There are findings of a prior median sternotomy. There are no focal infiltrative changes IMPRESSION: 1. Acute extensive bilateral pulmonary emboli. 2. Negative thoracic aorta. 3. Incidental note is made of several small gallstones. The above report was generated using voice recognition software. It may contain grammatical, syntax or spelling errors. Electronically signed by: Vish Bowers M.D. CHEST ONE VIEW PORTABLE FINDINGS: Findings of a prior median sternotomy and thoracolumbar vince stabilization procedure. Diaphragms smooth. Lungs are clear. IMPRESSION: No acute process. The above report was generated using voice recognition software. It may contain grammatical, syntax or spelling errors. Electronically signed by: Vish Bowers M.D. Laboratory Results 07/09/17 12:25 Red Blood Count 4.08, Mean Corpuscular Volume 91.4, Mean Corpuscular Hemoglobin 29.9, Mean Corpuscular Hemoglobin Concent 32.7, Mean Platelet Volume 9.5, Neutrophils (%) (Auto) 69.8, Lymphocytes (%) (Auto) 15.4, Monocytes (%) (Auto) 12.5, Eosinophils (%) (Auto) 1.3, Basophils (%) (Auto) 0.3, Neutrophils # (Auto ) 7.40, Lymphocytes # (Auto) 1.63, Monocytes # (Auto) 1.32, Eosinophils # (Auto ) 0.14, Basophils # (Auto) 0.03 07/09/17 12:25 Test 07/09/17 12:25 07/09/17 13:45 White Blood Count 10.59 K/uL (4.8-10.8) Red Blood Count 4.08 M/uL (4.7-6.1) Hemoglobin 12.2 g/dL (14.0-18.0) Hematocrit 37.3 % (42-52) Mean Corpuscular Volume 91.4 fL (80-100) Mean Corpuscular Hemoglobin 29.9 pg (25-34) Mean Corpuscular Hemoglobin Concent 32.7 g/dl (32-36) Platelet Count 175 K/uL (130-400) Mean Platelet Volume 9.5 fL (7.4-10.4) Neutrophils (%) (Auto) 69.8 % Lymphocytes (%) (Auto) 15.4 % Monocytes (%) (Auto) 12.5 % Eosinophils (%) (Auto) 1.3 % Basophils (%) (Auto) 0.3 % Neutrophils # (Auto) 7.40 K/uL (1.4-6.5) Lymphocytes # (Auto) 1.63 K/uL (1.2-3.4) Monocytes # (Auto) 1.32 K/uL (0.11-0.59) Eosinophils # (Auto) 0.14 K/uL (0-0.5) Basophils # (Auto) 0.03 K/uL (0-0.2) RDW Standard Deviation 44.2 fL (36.4-46.3) RDW Coefficient of Variation 13.4 % (11.5-14.5) Immature Granulocyte % (Auto) 0.7 % Immature Granulocyte # (Auto) 0.07 K/uL (0.00-0.02) Prothrombin Time 12.7 SECONDS (9.0-12.0) Prothromb Time International Ratio 1.2 (0.9-1.1) Activated Partial Thromboplast Time 23.6 SECONDS (21.0-31.0) Partial Thromboplastin Ratio 0.9 Anion Gap 7.0 mmol/L (3-11) Est Creatinine Clear Calc Drug Dose 93.1 ml/min Estimated GFR () 84.7 Estimated GFR (Non- 73.1 BUN/Creatinine Ratio 19.5 (10-20) Calcium Level 8.7 mg/dl (8.5-10.1) Total Bilirubin 0.5 mg/dl (0.2-1) Aspartate Amino Transf (AST/SGOT) 20 U/L (15-37) Alanine Aminotransferase (ALT/SGPT) 43 U/L (12-78) Alkaline Phosphatase 112 U/L (45-117) Total Creatine Kinase 52 U/L (39-308) Creatine Kinase MB 1.6 ng/ml (0.5-3.6) Creatine Kinase MB Ratio 3.1 (0-3.0) Troponin I 0.258 ng/ml (0-0.045) Total Protein 7.6 gm/dl (6.4-8.2) Albumin 3.1 gm/dl (3.4-5.0) Globulin 4.5 gm/dl (2.5-4.0) Albumin/Globulin Ratio 0.7 (0.9-2) Urine Color YELLOW Urine Appearance CLEAR (CLEAR) Urine pH 6.0 (4.5-7.5) Urine Specific Meacham 1.019 (1.000-1.030) Urine Protein NEG (NEG) Urine Glucose (UA) NEG (NEG) Urine Ketones NEG (NEG) Urine Occult Blood NEG (NEG) Urine Nitrite NEG (NEG) Urine Bilirubin NEG (NEG) Urine Urobilinogen NEG (NEG) Urine Leukocyte Esterase MODERATE (NEG) Urine WBC (Auto) >30 /hpf (0-5) Urine RBC (Auto) 0-4 /hpf (0-4) Urine Hyaline Casts (Auto) 10-30 /lpf (0-5) Urine Epithelial Cells (Auto) 5-10 /lpf (0-5) Urine Bacteria (Auto) NEG (NEG) Laboratory results per my review. Medications Administered Medications (Trade) Dose Ordered Sig/Romana Route Start Time Stop Time Status Last Admin Dose Admin Heparin Sodium/ Dextrose (Heparin 25,000 Unit/500ml D5W) 25,000 unit STK-MED ONCE .ROUTE 07/09/17 16:04 07/09/17 16:05 DC 07/09/17 16:18 25,000 UNIT ECG Indication: chest pain Rate (beats per minute): 96 Rhythm: normal sinus Findings: ST depression (Inferior and lateral), no ectopy Comparison ECG Date: 07/02/17 Change: no significant change Change: EKG interpreted by me. ED Course 1144: The patient was evaluated in room B2. A complete history and physical examination were performed. 1205: Dr. Bowers-Radiology called with the patient's test results. 1412: I updated the patient on his test results. 1416: Page out for Dr. Yepez-Surgery. 1528: I discussed the patient's case with Katelyn Pyle PA-C for Dr. Yepez . She said to anticoagulate the patient. 1529: Ordered Heparin Sodium/Dextrose 1 ea. N/A. 1538: I discussed the patient's case with Dr. Lo. The patient will be evaluated for further management. 1604: Ordered Heparin Sodium/Dextrose 54690 unit .ROUTE. Medical Decision Differential diagnosis: Etiologies such as cardiac ischemia, aortic dissection, pulmonary embolism, pneumonia, pneumothorax, musculoskeletal, infections, pericarditis, myocarditis , esophageal rupture, gastrointestinal, as well as others were entertained. Nursing notes reviewed. The patient is a 67-year-old male who presented to the emergency department for an evaluation of chest pain and shortness of breath. The patient had an acute onset of chest discomfort was found have hypoxia. The patient is a history of DVT but his anticoagulation was held recently because he developed an epidural hematoma after his spinal surgery. His anticoagulation was restarted a few days ago but because of his symptoms today he was sent to the emergency department from rehabilitation for further evaluation. The patient had no specific EKG changes were consistent with [place] but was found have signs of bilateral pulmonary emboli on CT the chest. He was started on IV heparin after I discussed his case with the orthopedic spine surgeon. I also discussed his case with the on-call [facility] hospitalist group. They've agreed to evaluate the patient in emergency department for further management and disposition. I discussed the patient's laboratory and radiographic studies with him. Medication Reconcilliation Current Medication List: was personally reviewed by me Blood Pressure Screening Patient's blood pressure: Normal blood pressure Consults Time Called: 1205 Consulting Physician: Dr. Bowers-Radiology Returned Call: 1205 Dr. Bowers-Radiology called with the patient's test results. Additional Consults: Time Called: 1416 Consulted Physician: Katelyn Pyle PA-C for Returned Call: 1528 Additional Comments: I discussed the patient's case with Katelyn Pyle PA-C for Dr. Yepez . She said to anticoagulate the patient. Time Called: 1535 Consulted Physician: Dr. Lo Returned Call: 1538 Additional Comments: I discussed the patient's case with Dr. Lo. The patient will be evaluated for further management. Impression Primary Impression: Chest pain Additional Impressions: Bilateral pulmonary embolism Elevated troponin Hypoxia Critical Care I have personally spent greater than 90 minutes of critical care time in the direct management of this patient. This includes bedside care, interpretation of diagnostic studies, and testing, discussion with consultants, patient, and family members, and other required patient management activities. This 90 minutes is in excess of all separately billable procedures. Scribe Attestation The scribe's documentation has been prepared under my direction and personally reviewed by me in its entirety. I confirm that the note above accurately reflects all work, treatment, procedures, and medical decision making performed by me. Departure Information Dispostion Being Evaluated By Hospitalist Problem Qualifiers Primary Impression: Chest pain Chest pain type: unspecified Qualified Codes: R07.9 - Chest pain, unspecified
[2017-07-09] MEDS ORDERED: GLYB5TAB8 PO (12:08)
[2017-07-09] MEDS ORDERED: DOCU100C31 PO (12:08)
[2017-07-09] MEDS ORDERED: NVLG SC (12:08)
[2017-07-09] MEDS ORDERED: SENN8.6T36 PO (12:08)
[2017-07-09] MEDS ORDERED: GLC/500 PO (12:08)
[2017-07-09] MEDS ORDERED: LCTX PO (12:08)
[2017-07-09] MEDS ORDERED: BISA10SU5 RE (12:08)
--- NOTE | 2017-07-09 12:11 | DIAGNOSTIC IMAGING REPORT ---
CHEST ONE VIEW PORTABLE CLINICAL HISTORY: EVALUATE RESPIRATORY DISTRESS.DYSPNEA COMPARISON STUDY: 05/23/2017 FINDINGS: Findings of a prior median sternotomy and thoracolumbar vince stabilization procedure. Diaphragms smooth. Lungs are clear. IMPRESSION: No acute process. The above report was generated using voice recognition software. It may contain grammatical, syntax or spelling errors. Electronically signed by: Vish Bowers M.D. 07/09/2017 12:09 PM Dictated Date/Time: 07/09/2017 12:09 PM
[2017-07-09 12:46] LABS: BASO % 0.3 %; BASO ABS # 0.03 K/uL (0-0.2); EOS % 1.3 %; EOS ABS # 0.14 K/uL (0-0.5); HEMATOCRIT 37.3 % (42-52); HEMOGLOBIN 12.2 g/dL (14.0-18.0); IG# 0.07 K/uL (0.00-0.02); LYMPH % 15.4 %; LYMPH ABS # 1.63 K/uL (1.2-3.4); MEAN CELL VOLUME 91.4 fL (80-100); MEAN CORPUSCULAR HEMOGLOBIN 29.9 pg (25-34); MEAN CORPUSCULAR HGB CONC 32.7 g/dl (32-36); MEAN PLATELET VOLUME 9.5 fL (7.4-10.4); MONO % 12.5 %; MONO ABS # 1.32 K/uL (0.11-0.59); NEUT % 69.8 %; PLATELET COUNT 175 K/uL (130-400); RED CELL DISTRIBUTION WIDTH CV 13.4 % (11.5-14.5); RED CELL DISTRIBUTION WIDTH SD 44.2 fL (36.4-46.3); WHITE BLOOD COUNT 10.59 K/uL (4.8-10.8)
[2017-07-09 12:57] LABS: INR 1.2 (0.9-1.1); PTT PATIENT 23.6 SECONDS (21.0-31.0)
[2017-07-09 13:04] LABS: ALBUMIN 3.1 gm/dl (3.4-5.0); CALCIUM 8.7 mg/dl (8.5-10.1); CREATININE 1.05 mg/dl (0.60-1.40); POTASSIUM 4.3 mmol/L (3.5-5.1)
[2017-07-09 13:12] LABS: CKMB 1.6 ng/ml (0.5-3.6); TOTAL PROTEIN 7.6 gm/dl (6.4-8.2)
[2017-07-09] MEDS ORDERED: OPTIRAY 320 IV PRN (13:30)
--- NOTE | 2017-07-09 14:23 | DIAGNOSTIC IMAGING REPORT ---
(CHEST FOR PE) ANGIO WITH CT DOSE: 571.99 mGy.cm HISTORY: Chest pain dyspnea TECHNIQUE: Multiaxial CT images of the chest were performed following the intravenous administration of contrast to evaluate the pulmonary arteries. Maximal intensity projection images were also obtained. A dose lowering technique was utilized adhering to the principles of ALARA. COMPARISON STUDY: None. FINDINGS: The thoracic aorta is normal in course and caliber. There are findings of extensive bilateral acute pulmonary emboli. These involve the main central right as well as left pulmonary arterial vessels. There is involvement also of the pulmonary arterial structures of the right and to a lesser extent left lower lobe region. There are findings of a prior median sternotomy. There are no focal infiltrative changes IMPRESSION: 1. Acute extensive bilateral pulmonary emboli. 2. Negative thoracic aorta. 3. Incidental note is made of several small gallstones. The above report was generated using voice recognition software. It may contain grammatical, syntax or spelling errors. Electronically signed by: Vish Bowers M.D. 07/09/2017 2:22 PM Dictated Date/Time: 07/09/2017 2:04 PM
[2017-07-09] MEDS ORDERED: HEPARIN 25000 UNIT/500 ML D5W ONE (16:04)
[2017-07-09] MEDS ORDERED: ACETAMINOPHEN 325 MG TAB PO PRN (17:00)
--- NOTE | 2017-07-09 17:54 | History and Physical ---
History & Physical Date & Time of Service: Jul 09, 2017 at 17:54 . Chief Complaint: chest pain . Primary Care Physician: Milan Jones M.D. . History of Present Illness Source: patient, family, hospital records 67 YO male followed by Dr. Jones in [place]. History of Guillain-Broadalbin syndrome, recurrent DVT's, coronary artery disease, hypertension, DM type 2, and other problems noted below. First DVT associated with Guillain-Broadalbin illness several years ago. Treated with warfarin for 6 months. Recurrent DVT after warfarin was discontinued. Remained on warfarin since then. Brother had DVT associated with lower extremity fracture. Mother of sudden in her 30's, possibly due to PE. Patient reports that he was evaluated for hypercoagulable conditions, but there were no abnormalities identified. Developed back pain and leg weakness due to thoracic spinal stenosis. Scheduled for thoracic decompression / fusion. Warfarin was held for several days prior to the procedure. Thoracic decompression / fusion performed on 06/21/17. Discharged to home on 06/24/17. Resumed warfarin at the time of discharge. Subsequently started on enoxaparin due to subtherapeutic INR. Developed thoracic back pain and worsening lower extremity weakness L > R. Came to ED 07/01/17 and found to have thoracic epidural hematoma. Epidural hematoma evacuated emergently. Lower extremity weakness improved. Transferred to [facility] for rehab on 07/05/17. Warfarin continued to be held. Today patient experienced nausea, mild left parasternal chest pressure, SOB. O2 sats were reportedly 88%. No pain or swelling of legs. Transferred to ED for evaluation. Received [facility] NTG en route with improvement of chest pain. CTA chest demonstrated bilateral pulmonary emboli. Case discussed with Ortho- OK to anticoagulate with heparin. Started on IV heparin without bolus. Comfortable at time of my assessment. . Past Medical/Surgical History Chronic and Resolved Medical Problems: (1) Anemia Status: Chronic (2) Coronary artery disease Status: Chronic (3) Dyslipidemia Status: Chronic (4) Epidural hematoma Status: Resolved (5) History of diverticulitis of colon Status: Chronic (6) History of DVT (deep vein thrombosis) Status: Chronic (7) History of Guillain-Broadalbin syndrome Status: Chronic (8) Hypertension Status: Chronic (9) Hypothyroidism Status: Chronic (10) Sleep apnea Status: Chronic Surgical Problems: (1) Status post appendectomy Status: Chronic (2) Status post coronary artery bypass grafting Status: Chronic (3) Status post evacuation thoracic epidural abscess Permanent Comment: 07/01/17 Status: Chronic (4) Status post exploratory laparotomy Permanent Comment: diverticulitis Status: Chronic (5) Status post thoracic decompression / fusion Permanent Comment: 06/21/17 Status: Chronic . Family History FATHER Hypertension Coronary artery disease MOTHER Sudden , possible PE GRANDMOTHER Diabetes mellitus BROTHER Deep vein thrombosis Social History Smoking Status: Never Smoker Alcohol Use: occasionally Marital Status: Immunizations History of Influenza Vaccine: No History of Tetanus Vaccine?: No History of Pneumococcal: Yes Pneumococcal Date: Nov 07, 2007 History of Hepatitis B Vaccine: No Multi-Drug Resistant Organisms History of MDRO: No Allergies Coded Allergies: No Known Allergies (Verified , 07/09/17) Home Medications Scheduled Acetaminophen Tab (Tylenol), 650 MG PO PRN Atorvastatin (Lipitor), 20 MG PO SatPM Bisacodyl (Bisacodyl), 1 MG RE DAILY Carvedilol (Coreg), 3.125 MG PO BID Docusate Sodium (Docusate Sodium), 100 MG PO BID Doxazosin Mesylate (Cardura), 4 MG PO QAM Escitalopram Oxalate (Lexapro), 20 MG PO QAM Famotidine (Pepcid), 20 MG PO BID Gabapentin (Neurontin), 600 MG PO BID Glyburide (Micronase), 5 MG PO BIDM Insulin Aspart (Novolog), UNITS SC ACHS Lactobacillus Acidophilus (Lactinex), 1 TAB PO DAILY Levothyroxine Sodium (Synthroid), 50 MCG PO QAM Lisinopril (Zestril), 2.5 MG PO QPM Metformin Hcl (Glucophage), 500 MG PO BIDM Multivitamin (Multivitamin), 0.5 TAB PO BID Sennosides-Docusate Sodium (Docusate Sodium/Senna), 1 TAB PO DAILY Sitagliptin Phosphate (Januvia), 100 MG PO QAM Trazodone Hcl (Trazodone), 100 MG PO QPM Scheduled PRN Oxycodone HCl (Oxycodone HCl), 5-10 MG PO Q4H PRN for Moderate - severe pain Polyethylene Glycol 3350 (Miralax), 17 GM PO Q2D PRN for Constipation Review of Systems Constitutional: + sweats, No fever Eyes: No worsening of vision, No diplopia ENT: No nasal symptoms, No sore throat Respiratory: + shortness of breath, No cough, No wheezing Cardiovascular: + chest pain Abdomen: + nausea, + constipation, No pain, No vomiting, No diarrhea, No GI bleeding Musculoskeletal: + problem reported (back pain), No muscle pain, No calf pain Genitourinary - Male: + urinary incontinence, No hematuria, No dysuria Neurologic: + weakness (lower extremites L > R) Endocrine: + problem reported (blood sugars recently high after receiving steroids) Hematologic / Lymphatic: + abnormal bleeding/bruising (recent epidural hematoma ) Integumentary: No rash, No new/changing skin lesions Physical Exam Vital Signs Date Time Temp Pulse Resp B/P (MAP) Pulse Ox O2 Delivery O2 Flow Rate FiO2 07/09/17 17:05 92 07/09/17 16:18 89 18 104/72 93 Nasal Cannula 2.0 07/09/17 14:40 94 20 109/60 93 Nasal Cannula 2.0 07/09/17 13:45 93 20 110/72 94 Room Air 07/09/17 13:03 94 20 109/90 93 Nasal Cannula 3.0 07/09/17 13:01 93 07/09/17 11:45 95 Nasal Cannula 3.0 07/09/17 11:45 95 Nasal Cannula 3.0 07/09/17 11:45 36.9 106 22 112/69 88 Room Air 07/09/17 11:44 88 Room Air General Appearance: no apparent distress, + obese Head: normocephalic, atraumatic Eyes: normal inspection, PERRL, EOMI, sclerae normal ENT: normal ENT inspection, hearing grossly normal, pharynx normal Neck: supple, no adenopathy, thyroid normal, no JVD, trachea midline Respiratory/Chest: lungs clear, no respiratory distress, no accessory muscle use Cardiovascular: regular rate, rhythm, no gallop, no JVD, no murmur, + abnormal peripheral pulses (diminished pedal pulses), + pertinent finding (trace pretibial edema) Abdomen/GI: normal bowel sounds, non tender, soft, no organomegaly, no pulsatile mass Extremities/Musculoskelatal: normal inspection, no calf tenderness, normal capillary refill Neurologic/Psych: steam tunnel feeder II-XII nml as tested (PERRL, EOMI, no facial palsy, no dysarthria), + pertinent finding (mild weakness flexion LLE; plantar reflexes upgoing bilaterally) Skin: normal color, warm/dry, no rash Lymphatic: no adenopathy (cervical) Diagnostics Laboratory Results Results Past 24 Hours Test 07/09/17 12:25 07/09/17 13:45 Range/Units White Blood Count 10.59 4.8-10.8 K/uL Red Blood Count 4.08 4.7-6.1 M/uL Hemoglobin 12.2 14.0-18.0 g/dL Hematocrit 37.3 42-52 % Mean Corpuscular Volume 91.4 80-100 fL Mean Corpuscular Hemoglobin 29.9 25-34 pg Mean Corpuscular Hemoglobin Concent 32.7 32-36 g/dl Platelet Count 175 130-400 K/uL Mean Platelet Volume 9.5 7.4-10.4 fL Neutrophils (%) (Auto) 69.8 % Lymphocytes (%) (Auto) 15.4 % Monocytes (%) (Auto) 12.5 % Eosinophils (%) (Auto) 1.3 % Basophils (%) (Auto) 0.3 % Neutrophils # (Auto) 7.40 1.4-6.5 K/uL Lymphocytes # (Auto) 1.63 1.2-3.4 K/uL Monocytes # (Auto) 1.32 0.11-0.59 K/uL Eosinophils # (Auto) 0.14 0-0.5 K/uL Basophils # (Auto) 0.03 0-0.2 K/uL RDW Standard Deviation 44.2 36.4-46.3 fL RDW Coefficient of Variation 13.4 11.5-14.5 % Immature Granulocyte % (Auto) 0.7 % Immature Granulocyte # (Auto) 0.07 0.00-0.02 K/uL Prothrombin Time 12.7 9.0-12.0 SECONDS Prothromb Time International Ratio 1.2 0.9-1.1 Activated Partial Thromboplast Time 23.6 21.0-31.0 SECONDS Partial Thromboplastin Ratio 0.9 Sodium Level 134 136-145 mmol/L Potassium Level 4.3 3.5-5.1 mmol/L Chloride Level 100 98-107 mmol/L Carbon Dioxide Level 27 21-32 mmol/L Anion Gap 7.0 3-11 mmol/L Blood Urea Nitrogen 20 7-18 mg/dl Creatinine 1.05 0.60-1.40 mg/dl Est Creatinine Clear Calc Drug Dose 93.1 ml/min Estimated GFR () 84.7 Estimated GFR (Non- 73.1 BUN/Creatinine Ratio 19.5 10-20 Random Glucose 215 70-99 mg/dl Calcium Level 8.7 8.5-10.1 mg/dl Total Bilirubin 0.5 0.2-1 mg/dl Aspartate Amino Transf (AST/SGOT) 20 15-37 U/L Alanine Aminotransferase (ALT/SGPT) 43 12-78 U/L Alkaline Phosphatase 112 45-117 U/L Total Creatine Kinase 52 39-308 U/L Creatine Kinase MB 1.6 0.5-3.6 ng/ml Creatine Kinase MB Ratio 3.1 0-3.0 Troponin I 0.258 0-0.045 ng/ml Total Protein 7.6 6.4-8.2 gm/dl Albumin 3.1 3.4-5.0 gm/dl Globulin 4.5 2.5-4.0 gm/dl Albumin/Globulin Ratio 0.7 0.9-2 Urine Color YELLOW Urine Appearance CLEAR CLEAR Urine pH 6.0 4.5-7.5 Urine Specific [place] 1.019 1.000-1.030 Urine Protein NEG NEG Urine Glucose (UA) NEG NEG Urine Ketones NEG NEG Urine Occult Blood NEG NEG Urine Nitrite NEG NEG Urine Bilirubin NEG NEG Urine Urobilinogen NEG NEG Urine Leukocyte Esterase MODERATE NEG Urine WBC (Auto) >30 0-5 /hpf Urine RBC (Auto) 0-4 0-4 /hpf Urine Hyaline Casts (Auto) 10-30 0-5 /lpf Urine Epithelial Cells (Auto) 5-10 0-5 /lpf Urine Bacteria (Auto) NEG NEG Diagnostic Radiology CHEST ONE VIEW PORTABLE FINDINGS: Findings of a prior median sternotomy and thoracolumbar vince stabilization procedure. Diaphragms smooth. Lungs are clear. IMPRESSION: No acute process. The above report was generated using voice recognition software. It may contain grammatical, syntax or spelling errors. Electronically signed by: Vish Bowers M.D. 07/09/2017 12:09 PM Dictated Date/Time: 07/09/2017 12:09 PM (CHEST FOR PE) ANGIO WITH FINDINGS: The thoracic aorta is normal in course and caliber. There are findings of extensive bilateral acute pulmonary emboli. These involve the main central right as well as left pulmonary arterial vessels. There is involvement also of the pulmonary arterial structures of the right and to a lesser extent left lower lobe region. There are findings of a prior median sternotomy. There are no focal infiltrative changes IMPRESSION: 1. Acute extensive bilateral pulmonary emboli. 2. Negative thoracic aorta. 3. Incidental note is made of several small gallstones. The above report was generated using voice recognition software. It may contain grammatical, syntax or spelling errors. Electronically signed by: Vish Bowers M.D. 07/09/2017 2:22 PM Dictated Date/Time: 07/09/2017 2:04 PM . EKG EKG performed at 12:05 reviewed and demonstrated NSR with PAC's at 96 / minute, intraventricular conduction delay, flattened T-waves I, aVL. . Impression Assessment and Plan PULMONARY EMBOLI (present on admission) History of recurrent DVT's on chronic warfarin therapy. Warfarin held for thoracic surgery and resumed postop. Developed epidural hematoma requiring emergent evacuation. Now with bilateral pulmonary emboli. Mild hypoxia. Hemodynamically stable. Serum troponin elevated. Started on IV heparin without bolus in ED after discussion with Ortho. Check echo to assess for RV strain. Check venous duplex lower extremities. May need IVC filter if extensive residual clot burden in lower extremities or any concern of recurrent epidural hematoma or other bleeding complications. Consult Pulmonary Medicine. S/P RECENT THORACIC DECOMPRESSION AND FUSION, S/P RECENT THORACIC EPIDURAL HEMATOMA Neurochecks q 4 hours. Consult Orthopedic Surgery. CORONARY ARTERY DISEASE Chest pain and elevated troponin most likely secondary to pulmonary emboli. Aspirin on hold due to recent epidural hematoma. Continue carvedilol and statin. Check echo to assess for RV strain and wall motion abnormalities. HYPERTENSION Hemodynamically stable. Continue carvedilol, lisinopril, doxazosin. SLEEP APNEA Continue BiPAP. DM TYPE 2 Usually well-controlled. Hgb A1C 6.7 06/22/17. Blood sugars recently elevated while receiving steroids. Random blood sugar in ED was 215. Hold oral agents while acutely ill. BSG's ACHS. Lantus / NovoLog per protocol. HYPOTHYROIDISM Continue levothyroxine. DYSLIPIDEMIA Continue atorvastatin. VTE PROPHYLAXIS Not indicated due to acute pulmonary emboli. DISPOSITION Anticipated return to [facility] for inpatient rehab. Medical follow-up with Dr. Jones. . VTE Prophylaxis VTE Risk Assessment Done? Y/N: Yes Risk Level: High Given or contraindicated: Treatment not indicated
[2017-07-09 18:02] VITALS: BP 113/72; PULSE 90; TEMP 36.8; O2SAT 93
[2017-07-09 18:59] VITALS: BP 104/72; PULSE 90; TEMP 36.8; Ht 188 cm; Wt 113.9 kg
[2017-07-09 20:02] VITALS: BP 115/70; PULSE 96; TEMP 36.9; O2SAT 96
[2017-07-09] MEDS: LISINOPRIL 2.5 MG TAB PO SCH (21:26)
[2017-07-09] MEDS: MULTIVITAMIN TAB PO SCH (21:27)
[2017-07-09] MEDS: TRAZODONE HCL 100 MG TAB PO SCH (21:27)
[2017-07-09] MEDS: CARVEDILOL 3.125 MG TAB PO SCH (21:27)
[2017-07-09] MEDS: DOCUSATE SODIUM 100 MG CAP PO SCH (21:27)
[2017-07-09] MEDS: FAMOTIDINE 20 MG TAB PO SCH (21:28)
[2017-07-09] MEDS: GABAPENTIN 600 MG TAB PO SCH (21:28)
[2017-07-09] MEDS ORDERED: INSULIN ASPART 100 UNITS/ML 3 ML PEN SC ONE (22:15)
[2017-07-09] MEDS ORDERED: INSULIN GLARGINE SOLOSTAR 100 UNITS/ML 3 ML PEN SC ONE (22:15)
[2017-07-09 22:34] LABS: PTT PATIENT 38.8 SECONDS (21.0-31.0)
--- NOTE | 2017-07-09 22:56 | DIAGNOSTIC IMAGING REPORT ---
BILATERAL LOWER EXTREMITY VENOUS DOPPLER HISTORY: Acute pulmonary emboli pulmonary emboli COMPARISON STUDY: CTA of the chest of same day. FINDINGS: RIGHT: Occlusive thrombus involves the popliteal, and posterior tibial veins. The remaining deep veins of the right lower extremity are patent and within normal limits. LEFT: Occlusive deep venous thrombosis involves the common femoral, superficial femoral, popliteal and posterior tibial veins. The remaining deep veins of the left lower extremity are patent and within normal limits. IMPRESSION: Extensive deep venous thrombosis of the bilateral lower extremities as above. Electronically signed by: Daniel Herrera M.D. 07/09/2017 10:55 PM Dictated Date/Time: 07/09/2017 10:52 PM
[2017-07-09] MEDS ORDERED: HEPARIN IV BOLUS 8,000 UNIT in SYRINGE 0 ML IV ONE (23:00)
[2017-07-09] MEDS: HEPARIN 25,000 UNIT/500ML D5W 500 ML IV PRN (23:09)
[2017-07-09 23:43] VITALS: BP 121/75; PULSE 98; TEMP 37.4; O2SAT 96
[2017-07-10] VITALS (10 sets, daily range): BP systolic 101–138; BP diastolic 63–93; PULSE 72–92; TEMP 36.5–37.4; O2SAT 91–99
[2017-07-10 04:54] LABS: HEMATOCRIT 36.2 % (42-52); MEAN CELL VOLUME 90.7 fL (80-100); MEAN CORPUSCULAR HEMOGLOBIN 30.1 pg (25-34); MEAN CORPUSCULAR HGB CONC 33.1 g/dl (32-36); MEAN PLATELET VOLUME 9.6 fL (7.4-10.4); PLATELET COUNT 194 K/uL (130-400); RED CELL DISTRIBUTION WIDTH CV 13.1 % (11.5-14.5); RED CELL DISTRIBUTION WIDTH SD 43.4 fL (36.4-46.3); WHITE BLOOD COUNT 10.37 K/uL (4.8-10.8)
[2017-07-10 05:16] LABS: INR 1.2 (0.9-1.1)
[2017-07-10 05:17] LABS: CALCIUM 8.5 mg/dl (8.5-10.1); CREATININE 1.09 mg/dl (0.60-1.40); POTASSIUM 4.1 mmol/L (3.5-5.1)
[2017-07-10] MEDS: LEVOTHYROXINE 50 MCG TAB PO SCH (05:19)
[2017-07-10 05:28] LABS: PTT PATIENT 109.4 SECONDS (21.0-31.0)
[2017-07-10] MEDS: HEPARIN 25,000 UNIT/500ML D5W 500 ML IV PRN ×2 (06:32→20:26)
[2017-07-10] MEDS: INSULIN ASPART 100 UNITS/ML 3 ML PEN SC SCH ×4 (07:00→20:41)
[2017-07-10] MEDS ORDERED: PERFLUTREN LIPID MICROSPHERE (DEFINITY) IV ONE (08:11)
[2017-07-10] MEDS: LACTOBACILLUS ACIDOPHILUS (FLORANEX) TAB PO SCH (08:13)
[2017-07-10] MEDS: MULTIVITAMIN TAB PO SCH ×2 (08:14→20:35)
[2017-07-10] MEDS: DOXAZosin MESYLATE TAB 4 MG TAB PO SCH (08:14)
[2017-07-10] MEDS: CARVEDILOL 3.125 MG TAB PO SCH ×2 (08:14→20:36)
[2017-07-10] MEDS: ESCITALOPRAM OXALATE 20 MG TAB PO SCH (08:14)
[2017-07-10] MEDS: ATORVASTATIN 20 MG TAB PO SCH (08:15)
[2017-07-10] MEDS: GABAPENTIN 600 MG TAB PO SCH ×2 (08:15→20:35)
[2017-07-10] MEDS: FAMOTIDINE 20 MG TAB PO SCH ×2 (08:15→20:35)
[2017-07-10] MEDS: DOCUSATE SODIUM 100 MG CAP PO SCH ×2 (08:15→20:34)
[2017-07-10] MEDS: INSULIN GLARGINE SOLOSTAR 100 UNITS/ML 3 ML PEN SC SCH ×2 (08:20→20:42)
--- NOTE | 2017-07-10 11:39 | Surgery Consultation ---
Consultation Date of Service Jul 10, 2017. Chief Complaint DVT, PE History of Present Illness The patient is a 67 year old male who has a history of DVT when he had Guillain- [place] syndrome several years ago. He had a spinal decompression on 06/21/17 and d/c on 06/24. Coumadin was held for the surgery. Was started on Lovenox due to subtherapeutic INR. On 07/01 he had a epidural hematoma which was evacuated. Coumadin was held. Came to ED with chest pain and found to have bilateral PE and DVT. Vitals Vital Signs Past 12 Hours Date Time Temp Pulse Resp B/P (MAP) Pulse Ox O2 Delivery O2 Flow Rate FiO2 07/10/17 08:25 37.1 89 20 101/66 (78) 92 Nasal Cannula 2.0 07/10/17 08:00 91 BiPAP 3.0 07/10/17 08:00 87 18 94 Nasal Cannula 2.0 07/10/17 04:00 BiPAP 3.0 07/10/17 03:50 37.4 89 18 108/63 (78) 91 Nasal Cannula 4.0 07/09/17 23:59 Nasal Cannula 3.0 07/09/17 23:43 37.4 98 23 121/75 (90) 96 BiPAP Allergies Coded Allergies: No Known Allergies (Verified , 07/09/17) Home Medications Scheduled Acetaminophen Tab (Tylenol), 650 MG PO PRN Atorvastatin (Lipitor), 20 MG PO Sat FRIPM Bisacodyl (Bisacodyl), 1 MG RE DAILY Carvedilol (Coreg), 3.125 MG PO BID Docusate Sodium (Docusate Sodium), 100 MG PO BID Doxazosin Mesylate (Cardura), 4 MG PO QAM Escitalopram Oxalate (Lexapro), 20 MG PO QAM Famotidine (Pepcid), 20 MG PO BID Gabapentin (Neurontin), 600 MG PO BID Glyburide (Micronase), 5 MG PO BIDM Insulin Aspart (Novolog), UNITS SC ACHS Lactobacillus Acidophilus (Lactinex), 1 TAB PO DAILY Levothyroxine Sodium (Synthroid), 50 MCG PO QAM Lisinopril (Zestril), 2.5 MG PO QPM Metformin Hcl (Glucophage), 500 MG PO BIDM Multivitamin (Multivitamin), 0.5 TAB PO BID Sennosides-Docusate Sodium (Docusate Sodium/Senna), 1 TAB PO DAILY Sitagliptin Phosphate (Januvia), 100 MG PO QAM Trazodone Hcl (Trazodone), 100 MG PO QPM Scheduled PRN Oxycodone HCl (Oxycodone HCl), 5-10 MG PO Q4H PRN for Moderate - severe pain Polyethylene Glycol 3350 (Miralax), 17 GM PO Q2D PRN for Constipation Problem List Medical Problems: (1) Anemia (2) Coronary artery disease (3) Dyslipidemia (4) Epidural hematoma (5) History of diverticulitis of colon (6) History of DVT (deep vein thrombosis) (7) History of Guillain-[place] syndrome (8) Hypertension (9) Hypothyroidism (10) Sleep apnea Surgical Problems: (1) Status post appendectomy (2) Status post coronary artery bypass grafting (3) Status post evacuation thoracic epidural abscess (4) Status post exploratory laparotomy (5) Status post thoracic decompression / fusion Surgical / Medical History Hx Cardiac Surgery: Yes (HEART CATH) Hx Abdominal Surgery: Yes (bowel resection) Hx Cancer Surgery: No Hx Thoracic Surgery: No Hx Orthopedic: Yes (THORACIC SPINE SURGERY) Hx Urinary Tract Surgery: No Family History Coronary artery disease FATHER Deep vein thrombosis BROTHER Diabetes mellitus GRANDMOTHER Hypertension FATHER Sudden , possible PE MOTHER Social History Smoking Status: Former Smoker Hx Tobacco Use In Past Year?: No Hx Alcohol Use - Type & Amnt: No Hx Substance Use -Type & Amnt: No Review of Systems Constitutional: No chills, No diaphoresis, No fever, No malaise, No weakness, No weight gain, No weight loss, No sweats, No fatigue, No problem reported Respiratory: No cough, No cyanosis, No LA, No hemoptysis, No orthopnea, No PND , No short of breath, No sputum production, No stridor, No wheezing, No dyspnea , No problem reported Cardiovascular: + chest pain Gastrointestinal: No abdominal pain, No constipation, No diarrhea, No nausea, No vomiting, No anorexia, No appetite changes, No belching, No flatulence, No food intolerance, No hematemesis, No hemorrhoids, No hematochezia, No stool changes, No heartburn, No indigestion, No dysphagia, No rectal bleeding, No problem reported Genitourinary - Male: No impotence, No penile discharge, No penile itching, No rash, No testicular pain, No testicular swelling, No hematuria, No difficulty urinating, No problem reported Neurologic: No dizziness, No weakness, No headache, No lethargy, No numbness, No paresthesia, No pre-existing deficit, No seizures, No tics, No tingling, No tremors, No vertigo, No memory loss, No LOC, No problem reported Physical Exam Constitutional: General Apperance: heathly-appearing, well-nourished, well-developed Level of Distress: NAD Ambulation: ambulating normally Psychiatric: Mental Status: active & alert, normal mood, normal affect Orientation: oriented except where noted, to time, to place, to person Memory: recent memory normal, remote memory normal Lungs: Auscultation: breath sounds normal Cardiovascular: Heart Auscultation: RRR Peripheral Pulses: Radial Pulse: normal on the left, normal on the right Femoral Pulse: normal on the left, normal on the right Abdomen: Inspection & Palpation: soft, non-distended Musculoskeletal: normal Extremities: Upper Right: no cyanosis, no edema, no varicosities, no palpable cord, no clubbing, no ulcers, no mottling Upper Left: no cyanosis, no edema, no palpable cord, no clubbing, no ulcers , no mottling Lower Right: no cyanosis, no edema, no varicosities, no palpable cord, no clubbing, no ulcers, no mottling Lower Left: no cyanosis, no edema, no varicosities, no palpable cord, no clubbing, no ulcers, no mottling Neurologic: Cranial Nerves: grossly intact Sensation: grossly intact Assessment and Plan Imp: DVT and PE Plan: Due to recent surgeries and difficulty with post op bleeding would recommend a removable filter. Would plan on removing it in 3-4 months. I have discussed the risks options and benefits of the procedure with the patient. The patient understands the risks options and benefits and agrees to the procedure. Thank you very much for letting me participate in the care of this patient.
[2017-07-10 12:50] LABS: PTT PATIENT 72.3 SECONDS (21.0-31.0)
[2017-07-10] MEDS ORDERED: CEFAZOLIN SOD 2000MG/15 ML IV PUSH IV ONE (13:00)
--- NOTE | 2017-07-10 13:04 | Pre Sedation Assessment ---
Pre Sedation Assessment General Date of Sedation: Jul 10, 2017. Vital Signs Past 12 Hours Date Time Temp Pulse Resp B/P (MAP) Pulse Ox O2 Delivery O2 Flow Rate FiO2 07/10/17 12:00 93 Nasal Cannula 2.0 07/10/17 12:00 36.9 92 18 103/69 (80) 92 Nasal Cannula 2.0 07/10/17 08:25 37.1 89 20 101/66 (78) 92 Nasal Cannula 2.0 07/10/17 08:00 91 BiPAP 3.0 07/10/17 08:00 87 18 94 Nasal Cannula 2.0 07/10/17 04:00 BiPAP 3.0 07/10/17 03:50 37.4 89 18 108/63 (78) 91 Nasal Cannula 4.0 Review Cardiovascular: regular rate, rhythm Lungs: lungs clear Pre-Sedation Airway Assessment Smoking Status: Former Smoker Hx of Sleep Apnea: Yes Short Thick Neck: Yes Thyro-mental Distance: > 3 Finger Breadths Oral Cavity: Chipped Teeth Mallampati Classification: Class II ASA Classification: Class III NPO Status Date of Last Intake of Fluids: Jul 10, 2017 Time of Last Intake of Fluids: 0000 Date of Last Intake of Solids: Jul 09, 2017 Time of Last Intake of Solids: 1800 Procedure Planning Contraindications for Sedation: None Current Medications Reviewed: Yes Notes The planned sedation has been discussed with the patient. Informed Consent was obtained. I have identified the patient, determined the appropriateness of sedation and have assessed the patient immediately prior to the procedure. All medicine(s) and interventions are by my order.
[2017-07-10] MEDS ORDERED: FENTANYL CITRATE INJ 50 MCG/1 ML 2 ML VIAL ONE (13:28)
[2017-07-10] MEDS ORDERED: MIDAZOLAM HCL 1 MG/ML 2ML VIAL ONE (13:28)
[2017-07-10] MEDS ORDERED: MIDAZOLAM HCL 1 MG/ML 2ML VIAL IV ONE (13:58)
[2017-07-10] MEDS ORDERED: FENTANYL CITRATE INJ 50 MCG/1 ML 2 ML VIAL IV ONE (13:58)
[2017-07-10] MEDS ORDERED: LIDOCAINE HCL 1% 20 ML VIAL INJ ONE (14:02)
[2017-07-10] MEDS ORDERED: IODIXANOL (VISIPAQUE) 270 MG/ML 50ML IV ONE (14:05)
--- NOTE | 2017-07-10 14:17 | [facility] Post Operative Brief Note ---
Immediate Operative Summary Operative Date Jul 10, 2017. Pre-Operative Diagnosis pulmonary emboli, deep vein thrombosis Post-Operative Diagnosis pulmonary emboli, deep vein thrombosis Procedure(s) Performed Insertion Of Inferior Vena Cava Filter, Right Jugular Approach, Ultrasound Localization Of Right Internal Jugular Vein, Fluoroscopy For Positioning, Moderate Concious Sedation [address] [place] Assistant Merchandise Manager Surgeon(s) Rhina Chauhan MD Estimated Blood Loss 2 ml Findings Consistent with Post-Op Diagnosis Specimens none Drains None Anesthesia Type IV Sedat Cons RN Only Complication(s) none Disposition Accompanied Pt To Recover: no Disposition:
--- NOTE | 2017-07-10 14:40 | Orthopedic Consultation ---
Orthopedic Consultation Date of Consultation: Jul 10, 2017. Attending Physician: James Cody M.D. Reason for Consultation: Status post thoracic decompression History of Present Illness Patient is well-known to me and and underwent a thoracic decompression for epidural hematoma last week. He was doing well and progressing at [facility] but had the onset of shortness of breath yesterday was taken ER was diagnosed with bilateral pulmonary embolism. Overall he feels relatively comfortable. He feels that his leg symptoms and strength is steadily improved throughout his rehabilitation. Past Medical/Surgical History Medical Problems: (1) Anticoagulated Status: Acute (2) Bilateral pulmonary embolism Status: Acute (3) Chest pain Status: Acute (4) Elevated troponin Status: Acute (5) Hypoxia Status: Acute Surgical Problems: (1) Status post evacuation thoracic epidural abscess Permanent Comment: 07/01/17 Status: Chronic (2) Status post thoracic decompression / fusion Permanent Comment: 06/21/17 Status: Chronic Family History Coronary artery disease FATHER Deep vein thrombosis BROTHER Diabetes mellitus GRANDMOTHER Hypertension FATHER Sudden , possible PE MOTHER Social History Smoking Status: Former Smoker Alcohol Use: occasionally Marital Status: Housing Status: lives with significant other Allergies Coded Allergies: No Known Allergies (Verified , 07/09/17) Home Medications Scheduled Acetaminophen Tab (Tylenol), 650 MG PO PRN Atorvastatin (Lipitor), 20 MG PO SatPM Bisacodyl (Bisacodyl), 1 MG RE DAILY Carvedilol (Coreg), 3.125 MG PO BID Docusate Sodium (Docusate Sodium), 100 MG PO BID Doxazosin Mesylate (Cardura), 4 MG PO QAM Escitalopram Oxalate (Lexapro), 20 MG PO QAM Famotidine (Pepcid), 20 MG PO BID Gabapentin (Neurontin), 600 MG PO BID Glyburide (Micronase), 5 MG PO BIDM Insulin Aspart (Novolog), UNITS SC ACHS Lactobacillus Acidophilus (Lactinex), 1 TAB PO DAILY Levothyroxine Sodium (Synthroid), 50 MCG PO QAM Lisinopril (Zestril), 2.5 MG PO QPM Metformin Hcl (Glucophage), 500 MG PO BIDM Multivitamin (Multivitamin), 0.5 TAB PO BID Sennosides-Docusate Sodium (Docusate Sodium/Senna), 1 TAB PO DAILY Sitagliptin Phosphate (Januvia), 100 MG PO QAM Trazodone Hcl (Trazodone), 100 MG PO QPM Scheduled PRN Oxycodone HCl (Oxycodone HCl), 5-10 MG PO Q4H PRN for Moderate - severe pain Polyethylene Glycol 3350 (Miralax), 17 GM PO Q2D PRN for Constipation Current Inpatient Medications Current Inpatient Medications Medications (Trade) Dose Ordered Sig/Romana Route Start Time Stop Time Status Last Admin Dose Admin Ioversol (Optiray 320) 100 ml UD PRN IV 07/09/17 13:30 07/13/17 13:29 Acetaminophen (Tylenol Tab) 650 mg Q4H PRN PO 07/09/17 17:00 08/08/17 16:59 Atorvastatin Calcium (Lipitor Tab) 20 mg MoWeFr@0900 PO 07/10/17 09:00 08/09/17 08:59 07/10/17 08:15 20 MG Carvedilol (Coreg Tab) 3.125 mg BID PO 07/09/17 21:00 08/08/17 20:59 07/10/17 08:14 3.125 MG Docusate Sodium (coLACE CAP) 100 mg BID PO 07/09/17 21:00 08/08/17 20:59 07/09/17 21:27 100 MG Doxazosin Mesylate (Cardura Tab) 4 mg QAM PO 07/10/17 09:00 08/09/17 08:59 07/10/17 08:14 4 MG Escitalopram Oxalate (Lexapro Tab) 20 mg QAM PO 07/10/17 09:00 08/09/17 08:59 07/10/17 08:14 20 MG Famotidine (Pepcid Tab) 20 mg BID PO 07/09/17 21:00 08/08/17 20:59 07/10/17 08:15 20 MG Gabapentin (Neurontin Tab) 600 mg BID PO 07/09/17 21:00 08/08/17 20:59 07/10/17 08:15 600 MG Lactobacillus Acidophilus (Floranex Tab) 1 tab DAILY PO 07/10/17 09:00 08/09/17 08:59 07/10/17 08:13 1 TAB Levothyroxine Sodium (Synthroid Tab) 50 mcg DAILYBB PO 07/10/17 06:00 08/09/17 05:59 Lisinopril (Zestril Tab) 2.5 mg QPM PO 07/09/17 21:00 08/08/17 20:59 07/09/17 21:26 2.5 MG Multivitamins (Multivitamin Tab) 0.5 tab BID PO 07/09/17 21:00 08/08/17 20:59 07/10/17 08:14 0.5 TAB Trazodone HCl (Desyrel Tab) 100 mg QPM PO 07/09/17 21:00 08/08/17 20:59 07/09/17 21:27 100 MG Heparin Sodium/ Dextrose 500 ml @ 39 mls/hr [id number] PRN IV 07/09/17 18:30 08/08/17 18:29 07/10/17 06:32 39 MLS/HR Insulin Glargine (Lantus Solostar Pen) 10 units BID SC 07/10/17 09:00 08/09/17 08:59 07/10/17 08:20 10 UNITS Insulin Aspart (novoLOG ASPART) SLIDING SCALE G... ACHS SC 07/10/17 07:00 08/09/17 06:59 Physical Exam Date Time Temp Pulse Resp B/P (MAP) Pulse Ox O2 Delivery O2 Flow Rate FiO2 07/10/17 14:25 83 18 101/62 96 Nasal Cannula 4 07/10/17 14:20 87 18 106/57 96 Mask 4 07/10/17 14:15 76 18 101/66 96 Mask 4 07/10/17 14:10 78 18 102/72 Mask 4 07/10/17 14:05 Mask 4 07/10/17 14:00 Mask 4 07/10/17 13:55 Mask 4 07/10/17 12:00 93 Nasal Cannula 2.0 07/10/17 12:00 36.9 92 18 103/69 (80) 92 Nasal Cannula 2.0 07/10/17 11:45 36.7 88 20 104/66 (79) 92 2.0 07/10/17 08:25 37.1 89 20 101/66 (78) 92 Nasal Cannula 2.0 07/10/17 08:00 91 BiPAP 3.0 07/10/17 08:00 87 18 94 Nasal Cannula 2.0 07/10/17 04:00 BiPAP 3.0 07/10/17 03:50 37.4 89 18 108/63 (78) 91 Nasal Cannula 4.0 07/09/17 23:59 Nasal Cannula 3.0 07/09/17 23:43 37.4 98 23 121/75 (90) 96 BiPAP 07/09/17 20:02 36.9 96 20 115/70 (85) 96 Nasal Cannula 3.5 07/09/17 20:00 Nasal Cannula 3.0 07/09/17 18:59 36.8 90 18 104/72 Nasal Cannula 3.5 07/09/17 18:07 92 18 104/72 93 07/09/17 18:02 36.8 90 21 113/72 (86) 93 Nasal Cannula 3.5 07/09/17 17:05 92 07/09/17 16:18 89 18 104/72 93 Nasal Cannula 2.0 07/09/17 14:40 94 20 109/60 93 Nasal Cannula 2.0 On exam he is marked improvement of strength to detail testing bilateral x- rays. Certainly compared his exam last week. Sensory is intact. Did not appreciate any significant swelling or erythema in the bilateral lower extremities. Laboratory Results Last 24 Hours Test 07/09/17 20:35 07/09/17 22:01 07/09/17 22:50 07/10/17 04:40 Bedside Glucose 244 mg/dl 253 mg/dl Activated Partial Thromboplast Time 38.8 SECONDS 109.4 SECONDS Partial Thromboplastin Ratio 1.5 4.2 Troponin I 0.253 ng/ml Pro-B-Type Natriuretic Peptide 448 pg/ml White Blood Count 10.37 K/uL Red Blood Count 3.99 M/uL Hemoglobin 12.0 g/dL Hematocrit 36.2 % Mean Corpuscular Volume 90.7 fL Mean Corpuscular Hemoglobin 30.1 pg Mean Corpuscular Hemoglobin Concent 33.1 g/dl RDW Standard Deviation 43.4 fL RDW Coefficient of Variation 13.1 % Platelet Count 194 K/uL Mean Platelet Volume 9.6 fL Prothrombin Time 12.7 SECONDS Prothromb Time International Ratio 1.2 Sodium Level 133 mmol/L Potassium Level 4.1 mmol/L Chloride Level 100 mmol/L Carbon Dioxide Level 29 mmol/L Anion Gap 4.0 mmol/L Blood Urea Nitrogen 18 mg/dl Creatinine 1.09 mg/dl Est Creatinine Clear Calc Drug Dose 87.9 ml/min Estimated GFR () 81.0 Estimated GFR (Non- 69.9 BUN/Creatinine Ratio 16.7 Random Glucose 205 mg/dl Calcium Level 8.5 mg/dl Test 07/10/17 06:45 07/10/17 08:18 07/10/17 11:43 07/10/17 12:13 Bedside Glucose 203 mg/dl 205 mg/dl 210 mg/dl Activated Partial Thromboplast Time 72.3 SECONDS Partial Thromboplastin Ratio 2.8 Test 07/10/17 12:31 Bedside Glucose 198 mg/dl Assessment & Plan Assessment status post evacuation of thoracic hematoma. Plan at this time it is safe to anticoagulate him. He is scheduled for a filter placement today. I recommend transfer to [facility] once stable.
--- NOTE | 2017-07-10 14:52 | DIAGNOSTIC IMAGING REPORT ---
DATE OF PROCEDURE: 07/10/2017 PREOPERATIVE DIAGNOSES: Pulmonary embolism and deep vein thrombosis. POSTOPERATIVE DIAGNOSES: Pulmonary embolism and deep vein thrombosis. PROCEDURE: Ultrasound guided IJ access, insertion of inferior vena cava filter, fluoroscopy for positioning, moderate conscious sedation for 17 minutes. SURGEON: Dr. Félix Reno. PROGRAM AIDE GROUP WORK: Dr. Rhina Chauhan. ESTIMATED BLOOD LOSS: 2 mL ANESTHESIA: Sedation plus local. SPECIMEN: None. COMPLICATIONS: None. INDICATIONS: Mr. James Balderas is a 67-year-old gentleman with history of Guillain-Springfield syndrome, recurrent DVT, PE, coronary artery disease, hypertension, type 2 diabetes, whose anticoagulation was held for thoracic surgery. He unfortunately developed an epidural hematoma requiring emergent evacuation. His anticoagulation was held and he developed bilateral pulmonary emboli. He was recommended to undergo IVC filter placement. Risks, benefits and alternatives were discussed with the patient and he consented to the procedure. DESCRIPTION OF PROCEDURE: The patient was taken to the operating room and placed in supine position. The right neck was assessed with ultrasound and the right IJ appeared to be wide and patent. The right neck and chest were then prepped and draped in the usual sterile fashion. Safety timeout was performed, and the patient, procedure and sidedness were correctly identified. Ultrasound was again used to identify the right internal jugular vein. Local anesthesia was used to anesthetize the skin overlying the internal jugular vein. The internal jugular vein was accessed with an 18-gauge access needle under ultrasound guidance. Angled Glidewire was then passed through the needle and down into the IVC. A small skin eris was made at the needle insertion site. The wire was removed and dilator placed over the wire. This was inserted and quickly removed. The IVC filter sheath was then placed over the guidewire and into the vena cava under fluoroscopy. Sheath was flushed. A cavogram was obtained which showed location of the renal veins. The filter was then placed within the sheath and the sheath withdrawn to expose the filter. Filter was deployed in infrarenal vena cava. The sheath was removed and manual pressure was held over the access site for approximately 5-10 minutes with good hemostasis. A sterile dressing was applied. The patient tolerated the procedure well and there were no complications. He was transferred to the recovery area in stable condition. Dr. Félix Reno was present for the entire procedure. [facility]ERNak[facility]
[2017-07-10 15:44] LABS: PTT PATIENT 59.2 SECONDS (21.0-31.0)
--- NOTE | 2017-07-10 18:46 | ECHOCARDIOGRAM REPORT ---
*NOTICE TO RECEIVING [employer] This information is strictly Confidential and protected under [place] law. [place] law prohibits you from making any further disclosure of this information unless further disclosure is expressly permitted by the written consent of the person to whom it pertains or is authorized by law. A general authorization for the release of medical or other information is not sufficient for this purpose. Hospital accepts no responsibility if the information is made available to any other person, INCLUDING THE PATIENT. Interpretation Summary * Name: YOGESH GLEN JR Kimberley Study Date: 07/10/2017 07:28 AM BP: 108/63 mmHg * Patient Location: [facility] HR: 95 * : 1950 (M/d/yyyy) Gender: Male Height: 74 in * Age: 67 yrs Ethnicity: [place] Weight: 259 lb * Ordering Physician: GLEN CAMARILLO MD * Performed By: Ewelina Shepherd RCS * * Reason For Study: VTE * BSA: 2.4 m2 * The study was technically limited. * -- Conclusions -- * There is moderate concentric left ventricular hypertrophy. * The left ventricular wall motion is normal. * The left ventricle is hyperdynamic. * The LV Ejection Fraction = >70 %. * There is mild to moderate tricuspid regurgitation. * Top normal to mild pulmonary pressures are suspected. * The right ventricle is mildly dilated on limited visualization with normal qualitative right ventricualar systolic function. * The right ventricular systolic pressure is calculated to be 37 mm Hg. * The inferior vena cava was not well visualized and therefore the right atrial pressure cannot be estimated. Procedure Details * A complete two-dimensional transthoracic echocardiogram was performed (2D, M-mode, Doppler and color flow Doppler). * The study was technically difficult. * A contrast injection of Definity was performed to improve assessment of LV function. * Contrast was injected into an intravenous site in the right arm. * One vial of Definity ultrasound contrast was diluted in normal saline to a total volume of 10 ml. A total of '2' ml of solution was administered during imaging. * Lot # [id number] of Definity utilized for procedure. * Expiration date 1 JUL 22. * The attending nurse who injected the contrast agent was GALILEO ORR, RN. Left Ventricle * The left ventricle is normal in size. * There is moderate concentric left ventricular hypertrophy. * The left ventricle is hyperdynamic. * Ejection Fraction = >70 %. * The left ventricular wall motion is normal. Right Ventricle * The right ventricle is mildly dilated on limited visualization. * The right ventricular systolic function is normal. Atria * The left atrial size is normal. * Right atrial size is normal. * There is no evidence of atrial septal defect, but resolution does not allow assessment for a patent foramen ovale. Mitral Valve * The mitral valve is normal. * There is no mitral valve stenosis. * Significant mitral regurgitation is absent. Tricuspid Valve * The tricuspid valve is normal. * There is no tricuspid stenosis. * There is mild to moderate tricuspid regurgitation. * Top normal to mild pulmonary pressures are suspected. The right ventricular systolic pressure is calculated to be 37 mm Hg. Aortic Valve * The aortic valve is trileaflet. * Aortic stenosis is absent. * There is no significant aortic regurgitation. Pulmonic Valve * The pulmonary valve is not well seen, but the Doppler examination is normal without significant regurgitation or stenosis. Great Vessels * The aortic root and proximal ascending aorta are normal sized. Pericardium/Pleural * There is no pericardial effusion. Great Vessels * The inferior vena caval was not well visualized and therefore the right atrial pressure cannot be estimated. Left Ventricular Diastolic Function * Grade I diastolic dysfunction, (abnormal relaxation pattern). MMode 2D Measurements and Calculations IVSd 1.9 cm IVSs 1.9 cm LVIDd 2.9 cm LVIDs 1.3 cm LVPWd 1.5 cm LVPWs 1.8 cm IVS/LVPW 1.2 FS 53.5 % EDV(Teich) 32.0 ml ESV(Teich) 4.6 ml EF(Teich) 85.8 % EDV(cubed) 24.2 ml ESV(cubed) 2.4 ml EF(cubed) 89.9 % % IVS thick 0.77 % % LVPW thick 20.9 % LV mass(C)d 184.3 grams LV mass(C)dI 76.0 grams/m\S\2 LV mass(C)s 105.0 grams LV mass(C)sI 43.3 grams/m\S\2 SV(Teich) 27.5 ml SI(Teich) 11.3 ml/m\S\2 SV(cubed) 21.8 ml SI(cubed) 9.0 ml/m\S\2 Ao root diam 3.4 cm Ao root area 9.3 cm\S\2 ACS 2.3 cm LA dimension 3.8 cm LA/Ao 1.1 LVOT diam 2.0 cm LVOT area 3.2 cm\S\2 Doppler Measurements and Calculations MV E max román 50.7 cm/sec MV A max román 71.2 cm/sec MV E/A 0.71 MV P1/2t max román 68.1 cm/sec MV P1/2t 74.6 msec MVA(P1/2t) 2.9 cm\S\2 MV dec slope 267.1 cm/sec\S\2 MV dec time 0.30 sec Ao V2 max 115.6 cm/sec Ao max PG 5.3 mmHg Ao max PG (full) 2.2 mmHg LAURA(V,A) 2.5 cm\S\2 LAURA(V,D) 2.5 cm\S\2 LV V1 max PG 3.2 mmHg LV V1 max 88.8 cm/sec PA V2 max 92.5 cm/sec PA max PG 3.4 mmHg TR max román 309.0 cm/sec
[2017-07-10] MEDS: TRAZODONE HCL 100 MG TAB PO SCH (20:35)
--- NOTE | 2017-07-10 20:36 | Progress Note ---
Medicine Progress Note Date & Time of Visit: Jul 10, 2017 at 10:00 . Subjective CC: Follow-up visit for acute pulmonary emboli and other problems. HPI: No new problems last night. No chest pain. No cough or SOB. Back pain no worse. Lower extremity weakness no worse. No melena, hematochezia, hematuria. ROS: General- no fever, no chills Resp- as noted above in HPI Cardiac- as noted above in HPI GI- no nausea, no vomiting, no diarrhea . Objective Last 8 Hrs Date Time Temp Pulse Resp B/P (MAP) Pulse Ox O2 Delivery O2 Flow Rate FiO2 07/10/17 19:27 36.5 88 18 119/72 (88) 91 Room Air 07/10/17 16:00 98 Nasal Cannula 2.0 07/10/17 15:20 36.9 72 18 138/93 (108) 96 Nasal Cannula 2.0 07/10/17 14:45 36.6 82 15 111/67 (82) 96 Nasal Cannula 2.0 07/10/17 14:25 83 18 101/62 96 Nasal Cannula 4 07/10/17 14:20 87 18 106/57 96 Mask 4 07/10/17 14:15 76 18 101/66 96 Mask 4 07/10/17 14:10 78 18 102/72 Mask 4 07/10/17 14:05 Mask 4 07/10/17 14:00 Mask 4 07/10/17 13:55 Mask 4 Physical Exam: General- lying in bed; no distress Lungs- clear to auscultation; no respiratory distress Cardiovascular- RRR; no murmur; no gallop; no JVD; no pretibial edema Abdomen- + bowel sounds, soft, nontender Back- thoracic incision with steri-strips, no erythema or drainage Extremities- no cyanosis; no calf tenderness Neuro- alert, oriented; mild weakness left hip flexion Skin- warm & dry . Laboratory Results: Last 24 Hours Test 07/09/17 20:35 07/09/17 22:01 07/09/17 22:50 07/10/17 04:40 Bedside Glucose 244 mg/dl 253 mg/dl Activated Partial Thromboplast Time 38.8 SECONDS 109.4 SECONDS Partial Thromboplastin Ratio 1.5 4.2 Troponin I 0.253 ng/ml Pro-B-Type Natriuretic Peptide 448 pg/ml White Blood Count 10.37 K/uL Red Blood Count 3.99 M/uL Hemoglobin 12.0 g/dL Hematocrit 36.2 % Mean Corpuscular Volume 90.7 fL Mean Corpuscular Hemoglobin 30.1 pg Mean Corpuscular Hemoglobin Concent 33.1 g/dl RDW Standard Deviation 43.4 fL RDW Coefficient of Variation 13.1 % Platelet Count 194 K/uL Mean Platelet Volume 9.6 fL Prothrombin Time 12.7 SECONDS Prothromb Time International Ratio 1.2 Sodium Level 133 mmol/L Potassium Level 4.1 mmol/L Chloride Level 100 mmol/L Carbon Dioxide Level 29 mmol/L Anion Gap 4.0 mmol/L Blood Urea Nitrogen 18 mg/dl Creatinine 1.09 mg/dl Est Creatinine Clear Calc Drug Dose 87.9 ml/min Estimated GFR () 81.0 Estimated GFR (Non- 69.9 BUN/Creatinine Ratio 16.7 Random Glucose 205 mg/dl Calcium Level 8.5 mg/dl Test 07/10/17 06:45 07/10/17 08:18 07/10/17 11:43 07/10/17 12:13 Bedside Glucose 203 mg/dl 205 mg/dl 210 mg/dl Activated Partial Thromboplast Time 72.3 SECONDS Partial Thromboplastin Ratio 2.8 Test 07/10/17 12:31 07/10/17 15:14 07/10/17 16:26 Bedside Glucose 198 mg/dl 188 mg/dl Activated Partial Thromboplast Time 59.2 SECONDS Partial Thromboplastin Ratio 2.3 Date/Time Source Procedure Growth Status 07/10/17 00:00 Nasal MRSA DNA Surveillance Screen - Final Specimen Negative for MRSA by DNA Probe Complete Assessment & Plan PULMONARY EMBOLI (present on admission) History of recurrent DVT's on chronic warfarin therapy. Warfarin held for thoracic surgery and resumed postop. Developed epidural hematoma requiring emergent evacuation. Presented to ED with bilateral pulmonary emboli demonstrated on CTA. Mild hypoxia. Hemodynamically stable. Serum troponin elevated. Started on IV heparin without bolus in ED after discussion with Ortho. Venous duplex lower extremities demonstrated proximal and distal clots LLE, popliteal and calf clots RLE. May need IVC filter if extensive residual clot burden in lower extremities or any concern of recurrent epidural hematoma or other bleeding complications. Consult Pulmonary Medicine and Vascular Surgery consulted. Check echo to assess for RV strain. S/P RECENT THORACIC DECOMPRESSION AND FUSION, S/P RECENT THORACIC EPIDURAL HEMATOMA Neurochecks q 4 hours. Consult Orthopedic Surgery. CORONARY ARTERY DISEASE Chest pain and elevated troponin most likely secondary to pulmonary emboli. Aspirin on hold due to recent epidural hematoma. Continue carvedilol and statin. Check echo to assess for RV strain and wall motion abnormalities. HYPERTENSION Hemodynamically stable. Continue carvedilol, lisinopril, doxazosin. SLEEP APNEA Continue BiPAP. DM TYPE 2 Usually well-controlled. Hgb A1C 6.7 06/22/17. Blood sugars recently elevated while receiving steroids. Random blood sugar in ED was 215. Hold oral agents while acutely ill. BSG's ACHS. Lantus / NovoLog per protocol. FBS this morning = 205. HYPOTHYROIDISM Continue levothyroxine. DYSLIPIDEMIA Continue atorvastatin. VTE PROPHYLAXIS Not indicated due to acute pulmonary emboli. DISPOSITION Anticipated return to [facility] for inpatient rehab. Medical follow-up with Dr. Jones. . Current Inpatient Medications: Current Inpatient Medications Medications (Trade) Dose Ordered Sig/Romana Route Start Time Stop Time Status Last Admin Dose Admin Ioversol (Optiray 320) 100 ml UD PRN IV 07/09/17 13:30 07/13/17 13:29 Acetaminophen (Tylenol Tab) 650 mg Q4H PRN PO 07/09/17 17:00 08/08/17 16:59 Atorvastatin Calcium (Lipitor Tab) 20 mg MoWeFr@0900 PO 07/10/17 09:00 08/09/17 08:59 07/10/17 08:15 20 MG Carvedilol (Coreg Tab) 3.125 mg BID PO 07/09/17 21:00 08/08/17 20:59 07/10/17 08:14 3.125 MG Docusate Sodium (coLACE CAP) 100 mg BID PO 07/09/17 21:00 08/08/17 20:59 07/09/17 21:27 100 MG Doxazosin Mesylate (Cardura Tab) 4 mg QAM PO 07/10/17 09:00 08/09/17 08:59 07/10/17 08:14 4 MG Escitalopram Oxalate (Lexapro Tab) 20 mg QAM PO 07/10/17 09:00 08/09/17 08:59 07/10/17 08:14 20 MG Famotidine (Pepcid Tab) 20 mg BID PO 07/09/17 21:00 08/08/17 20:59 07/10/17 08:15 20 MG Gabapentin (Neurontin Tab) 600 mg BID PO 07/09/17 21:00 08/08/17 20:59 07/10/17 08:15 600 MG Lactobacillus Acidophilus (Floranex Tab) 1 tab DAILY PO 07/10/17 09:00 08/09/17 08:59 07/10/17 08:13 1 TAB Levothyroxine Sodium (Synthroid Tab) 50 mcg DAILYBB PO 07/10/17 06:00 08/09/17 05:59 Lisinopril (Zestril Tab) 2.5 mg QPM PO 07/09/17 21:00 08/08/17 20:59 07/09/17 21:26 2.5 MG Multivitamins (Multivitamin Tab) 0.5 tab BID PO 07/09/17 21:00 08/08/17 20:59 07/10/17 08:14 0.5 TAB Trazodone HCl (Desyrel Tab) 100 mg QPM PO 07/09/17 21:00 08/08/17 20:59 07/09/17 21:27 100 MG Heparin Sodium/ Dextrose 500 ml @ 39 mls/hr [id number] PRN IV 07/09/17 18:30 08/08/17 18:29 07/10/17 06:32 39 MLS/HR Insulin Glargine (Lantus Solostar Pen) 10 units BID SC 07/10/17 09:00 08/09/17 08:59 07/10/17 08:20 10 UNITS Insulin Aspart (novoLOG ASPART) SLIDING SCALE G... ACHS SC 07/10/17 07:00 08/09/17 06:59 07/10/17 17:04 6 UNITS Warfarin Sodium (Coumadin Tab) 5 mg DAILY@16 PO 07/11/17 16:00 08/10/17 15:59 UNV
[2017-07-10] MEDS: LISINOPRIL 2.5 MG TAB PO SCH (20:37)
[2017-07-11] VITALS (9 sets, daily range): BP systolic 111–129; BP diastolic 66–77; PULSE 72–89; TEMP 36.6–37.7; O2SAT 91–98
[2017-07-11] MEDS: LEVOTHYROXINE 50 MCG TAB PO SCH (06:29)
[2017-07-11 07:27] LABS: INR 1.2 (0.9-1.1)
[2017-07-11 07:28] LABS: PTT PATIENT 64.1 SECONDS (21.0-31.0)
[2017-07-11] MEDS: DOCUSATE SODIUM 100 MG CAP PO SCH ×2 (07:46→21:11)
[2017-07-11] MEDS: LACTOBACILLUS ACIDOPHILUS (FLORANEX) TAB PO SCH (07:46)
[2017-07-11] MEDS: GABAPENTIN 600 MG TAB PO SCH ×2 (07:46→21:11)
[2017-07-11] MEDS: ESCITALOPRAM OXALATE 20 MG TAB PO SCH (07:46)
[2017-07-11] MEDS: CARVEDILOL 3.125 MG TAB PO SCH ×2 (07:47→21:12)
[2017-07-11] MEDS: DOXAZosin MESYLATE TAB 4 MG TAB PO SCH (07:47)
[2017-07-11] MEDS: FAMOTIDINE 20 MG TAB PO SCH ×2 (07:47→21:12)
[2017-07-11] MEDS: MULTIVITAMIN TAB PO SCH ×2 (07:47→21:11)
[2017-07-11] MEDS: INSULIN ASPART 100 UNITS/ML 3 ML PEN SC SCH ×4 (07:50→21:10)
[2017-07-11] MEDS: INSULIN GLARGINE SOLOSTAR 100 UNITS/ML 3 ML PEN SC SCH (07:51)
--- NOTE | 2017-07-11 10:48 | Pulmonary Consultation ---
History General Date of Service: Jul 11, 2017. Stated Complaint: Bilateral Pulmonary Embolism HPI The patient is a 67 year old male who presents to [facility] with complaints of Bilateral Pulmonary Embolism. The patient's primary care provider is Milan Jones M.D.. Patient seen and examined at bedside. Recurrent DVT. This is his 3rd episode of DVT and his first episode of PE. All three cases of DVT were associated with acute illness resultant ion sedentary activity. He was genetically tested in the past and thinks someone may have mentioned Factor V Leiden but he is unsure. His mother at age 38. Family learned at a later time that she may have had an acute and fatal PE. This occurred in 1966 when the patient was 17 yoa. Regarding this admission, patient denies hemoptysis. Chest pain is resolved. Echo showed slight RV dilatation and slight pulmonary hypertension. He has no SOB and no hypoxia. He is "stiff" from previous back surgery. Able to wiggle toes and dorsiflex and extend feet/ankles. Good sensation and no calf pain. 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 (8) Hypertension (9) Hypothyroidism (10) Sleep apnea Past Surgical History: Surgical Problems: (1) Status post appendectomy (2) Status post coronary artery bypass grafting (3) Status post evacuation thoracic epidural abscess (4) Status post exploratory laparotomy (5) Status post thoracic decompression / fusion Family History Coronary artery disease FATHER Deep vein thrombosis BROTHER Diabetes mellitus GRANDMOTHER Hypertension FATHER Sudden , possible PE MOTHER Social History Hx Tobacco Use In Past Year?: No Smoking Status: Former Smoker Marital status: Immunizations History of Influenza Vaccine: No History of Tetanus Vaccine?: No History of Pneumococcal: Yes Pneumococcal Date: Nov 07, 2007 History of Hepatitis B Vaccine: No History of MDRO History of MDRO: No Allergies Coded Allergies: No Known Allergies (Verified , 07/09/17) Current Medications Reported Home Medications Medications Dose Route/Sig Max Daily Dose Days Date Category Docusate Sodium 100 Mg Cap 100 Mg PO BID 07/09/17 Reported Bisacodyl 10 Mg Sup 1 Mg RE DAILY 07/09/17 Reported Glucophage (Metformin Hcl) 500 Mg Tab 500 Mg PO BIDM 07/09/17 Reported Lactinex (Lactobacillus Acidophilus) Tab 1 Tab PO DAILY 07/09/17 Reported Novolog (Insulin Aspart) 100 Units/Ml Inj Units SC ACHS 07/09/17 Reported Micronase (Glyburide) 5 Mg Tab 5 Mg PO BIDM 07/09/17 Reported Docusate Sodium/Senna (Sennosides-Docusate Sodium) 1 Tab Tab 1 Tab PO DAILY 07/09/17 Reported Oxycodone HCl 5 Mg Tab 5-10 Mg PO Q4H PRN 30 07/05/17 Rx Miralax (Polyethylene Glycol 3350) 1 Pow 17 Gm PO Q2D PRN 06/21/17 Reported Tylenol (Acetaminophen) 325 Mg Tab 650 Mg PO PRN 05/23/17 Reported Multivitamin (Multivitamins) Tab 0.5 Tab PO BID 05/23/17 Reported Neurontin (Gabapentin) 300 Mg Cap 600 Mg PO BID 05/23/17 Reported Januvia (Sitagliptin Phosphate) 100 Mg Tab 100 Mg PO QAM 05/23/17 Reported Coreg (Carvedilol) 3.125 Mg Tab 3.125 Mg PO BID 05/23/17 Reported Synthroid (Levothyroxine Sodium) 50 Mcg Tab 50 Mcg PO QAM 05/23/17 Reported Zestril (Lisinopril) 2.5 Mg Tab 2.5 Mg PO QPM 05/23/17 Reported Cardura (Doxazosin Mesylate) 4 Mg Tab 4 Mg PO QAM 05/23/17 Reported Trazodone (Trazodone HCl) 50 Mg Tab 100 Mg PO QPM 11/06/07 Reported Lexapro (Escitalopram Oxalate) 20 Mg Tab 20 Mg PO QAM 11/06/07 Reported Pepcid (Famotidine) 20 Mg Tab 20 Mg PO BID 11/06/07 Reported Lipitor (Atorvastatin Calcium) 20 Mg Tab 20 Mg PO MON SAT FRIPM 11/06/07 Reported Physical Physical Exam Vital Signs: Date Time Temp Pulse Resp B/P (MAP) Pulse Ox O2 Delivery O2 Flow Rate FiO2 07/11/17 08:00 91 BiPAP 3.0 07/11/17 07:44 37.7 81 20 111/70 (84) 93 Room Air 07/11/17 04:00 Room Air 07/11/17 03:43 36.6 72 20 129/72 (91) 95 Room Air 07/10/17 23:59 Room Air 07/10/17 23:40 36.8 85 17 110/70 (83) 99 BiPAP 07/10/17 20:00 Room Air 07/10/17 19:27 36.5 88 18 119/72 (88) 91 Room Air 07/10/17 16:00 98 Nasal Cannula 2.0 07/10/17 15:20 36.9 72 18 138/93 (108) 96 Nasal Cannula 2.0 07/10/17 14:45 36.6 82 15 111/67 (82) 96 Nasal Cannula 2.0 07/10/17 14:25 83 18 101/62 96 Nasal Cannula 4 07/10/17 14:20 87 18 106/57 96 Mask 4 07/10/17 14:15 76 18 101/66 96 Mask 4 07/10/17 14:10 78 18 102/72 Mask 4 07/10/17 14:05 Mask 4 07/10/17 14:00 Mask 4 07/10/17 13:55 Mask 4 07/10/17 12:00 93 Nasal Cannula 2.0 07/10/17 12:00 36.9 92 18 103/69 (80) 92 Nasal Cannula 2.0 07/10/17 11:45 36.7 88 20 104/66 (79) 92 2.0 Diagnostics Labs Results Past 24 Hours Test 07/10/17 11:43 07/10/17 12:13 07/10/17 12:31 07/10/17 15:14 Range/Units Bedside Glucose 210 198 70-99 mg/dl Activated Partial Thromboplast Time 72.3 59.2 21.0-31.0 SECONDS Partial Thromboplastin Ratio 2.8 2.3 Test 07/10/17 16:26 07/10/17 20:38 07/11/17 06:54 07/11/17 07:02 Range/Units Bedside Glucose 188 256 183 70-99 mg/dl Prothrombin Time 12.4 9.0-12.0 SECONDS Prothromb Time International Ratio 1.2 0.9-1.1 Activated Partial Thromboplast Time 64.1 21.0-31.0 SECONDS Partial Thromboplastin Ratio 2.5 Impression Assessment and Plan BILATERAL DVT * Heparin drip initiated * IVC filter placed by Dr. Reno 07/10/2017 * Continue with heparin drip * Okay to start warfarin per Dr. Yepez BILATERAL PULMONARY EMBOLI * Heparin drip initiated * Etiology is sedentary patient secondary to rehab * Suggest that patient take CD and radiological reports in the event of further recurrence * Oxygenating well on room air * No hemoptysis DVT PROPHYLAXIS * Heparin gtt Thank you for including us in the care of this patient. We will sign off at this time. Please refer to Dr. Montano's addendum for further recommendations Physician Supervision Note: I was present with Dr. Roger Herring PAC during the history and exam. I discussed the case with him and agree with the findings and plan as documented in the note. Any exceptions or clarifications are listed here: Recurrent DVT/PE while off Coumadin S/p IVC filter On heparin drip now, to be converted to Coumadin IVC filter should be removed in the future if no contraindication Doing well, will sign off Documented By: Jose Montano MD
[2017-07-11] MEDS: WARFARIN SOD 5 MG TAB PO SCH (16:37)
--- NOTE | 2017-07-11 19:41 | Progress Note ---
Medicine Progress Note Date & Time of Visit: Jul 11, 2017 . Subjective CC: Follow-up visit for acute pulmonary emboli and other problems. HPI: Feels better. No chest pain. No cough or SOB. Back pain stable. Lower extremity weakness stable. No melena, hematochezia, hematuria. ROS: General- no fever, no chills Resp- as noted above in HPI Cardiac- as noted above in HPI GI- no nausea, no vomiting, no diarrhea . Objective Last 8 Hrs Date Time Temp Pulse Resp B/P (MAP) Pulse Ox O2 Delivery O2 Flow Rate FiO2 07/11/17 16:00 94 Nasal Cannula 2.0 07/11/17 15:13 36.7 73 19 124/74 (91) 91 Room Air 07/11/17 12:00 91 BiPAP 3.0 Physical Exam: General- lying in bed; no distress Neck- right IJ site bandaged Lungs- clear to auscultation; no respiratory distress Cardiovascular- RRR; no murmur; no gallop; no JVD; no pretibial edema Abdomen- + bowel sounds, soft, nontender Back- thoracic incision bandaged Extremities- no cyanosis; no calf tenderness Neuro- alert, oriented; mild weakness left hip flexion Skin- warm & dry . Laboratory Results: Last 24 Hours Test 07/10/17 20:38 07/11/17 06:54 07/11/17 07:02 07/11/17 11:34 Bedside Glucose 256 mg/dl 183 mg/dl 247 mg/dl Prothrombin Time 12.4 SECONDS Prothromb Time International Ratio 1.2 Activated Partial Thromboplast Time 64.1 SECONDS Partial Thromboplastin Ratio 2.5 Test 07/11/17 16:18 Bedside Glucose 299 mg/dl Assessment & Plan PULMONARY EMBOLI (present on admission) Presented to ED with bilateral pulmonary emboli demonstrated on CTA. Mild hypoxia. Hemodynamically stable. Serum troponin elevated. Started on IV heparin without bolus in ED after discussion with Ortho. Venous duplex lower extremities demonstrated proximal and distal clots LLE, popliteal and calf clots RLE. Echo demonstrated suspected mild elevation of pulmonary artery pressure. IVC filter recommended given extensive residual clot burden in lower extremities and potential for recurrent epidural hematoma or other bleeding complications. Pulmonary Medicine and Vascular Surgery consulted. IVC filter placed 07/10. Tolerating IV heparin- continue until INR therapeutic at least 2 days. Warfarin initiated. S/P RECENT THORACIC DECOMPRESSION AND FUSION, S/P RECENT THORACIC EPIDURAL HEMATOMA Neuro checks q 4 hours. Orthopedic Surgery consulted. CORONARY ARTERY DISEASE Chest pain and elevated troponin most likely secondary to pulmonary emboli. Aspirin on hold due to recent epidural hematoma. Echo did not show any left ventricular wall motion abnormalities. Continue carvedilol and statin. HYPERTENSION Hemodynamically stable. Continue carvedilol, lisinopril, doxazosin. SLEEP APNEA Continue BiPAP. DM TYPE 2 Usually well-controlled. Hgb A1C 6.7 06/22/17. Blood sugars recently elevated while receiving steroids. Random blood sugar in ED was 215. Hold oral agents while acutely ill. BSG's ACHS. Lantus / NovoLog per protocol. FBS this morning = 183. HYPOTHYROIDISM Continue levothyroxine. DYSLIPIDEMIA Continue atorvastatin. VTE PROPHYLAXIS Not indicated due to acute pulmonary emboli. DISPOSITION Anticipated return to [facility] for inpatient rehab. Medical follow-up with Dr. Jones. . Current Inpatient Medications: Current Inpatient Medications Medications (Trade) Dose Ordered Sig/Romana Route Start Time Stop Time Status Last Admin Dose Admin Ioversol (Optiray 320) 100 ml UD PRN IV 07/09/17 13:30 07/13/17 13:29 Acetaminophen (Tylenol Tab) 650 mg Q4H PRN PO 07/09/17 17:00 08/08/17 16:59 Atorvastatin Calcium (Lipitor Tab) 20 mg MoWeFr@0900 PO 07/10/17 09:00 08/09/17 08:59 07/10/17 08:15 20 MG Carvedilol (Coreg Tab) 3.125 mg BID PO 07/09/17 21:00 08/08/17 20:59 07/11/17 07:47 3.125 MG Docusate Sodium (coLACE CAP) 100 mg BID PO 07/09/17 21:00 08/08/17 20:59 07/10/17 20:34 100 MG Doxazosin Mesylate (Cardura Tab) 4 mg QAM PO 07/10/17 09:00 08/09/17 08:59 07/11/17 07:47 4 MG Escitalopram Oxalate (Lexapro Tab) 20 mg QAM PO 07/10/17 09:00 08/09/17 08:59 07/11/17 07:46 20 MG Famotidine (Pepcid Tab) 20 mg BID PO 07/09/17 21:00 08/08/17 20:59 07/11/17 07:47 20 MG Gabapentin (Neurontin Tab) 600 mg BID PO 07/09/17 21:00 08/08/17 20:59 07/11/17 07:46 600 MG Lactobacillus Acidophilus (Floranex Tab) 1 tab DAILY PO 07/10/17 09:00 08/09/17 08:59 07/11/17 07:46 1 TAB Levothyroxine Sodium (Synthroid Tab) 50 mcg DAILYBB PO 07/10/17 06:00 08/09/17 05:59 07/11/17 06:29 50 MCG Lisinopril (Zestril Tab) 2.5 mg QPM PO 07/09/17 21:00 08/08/17 20:59 07/10/17 20:37 2.5 MG Multivitamins (Multivitamin Tab) 0.5 tab BID PO 07/09/17 21:00 08/08/17 20:59 07/11/17 07:47 0.5 TAB Trazodone HCl (Desyrel Tab) 100 mg QPM PO 07/09/17 21:00 08/08/17 20:59 07/10/17 20:35 100 MG Heparin Sodium/ Dextrose 500 ml @ 39 mls/hr [id number] PRN IV 07/09/17 18:30 08/08/17 18:29 07/10/17 20:26 39 MLS/HR Insulin Aspart (novoLOG ASPART) SLIDING SCALE G... ACHS SC 07/10/17 07:00 08/09/17 06:59 07/11/17 17:49 10 UNITS Warfarin Sodium (Coumadin Tab) 5 mg DAILY@16 PO 07/11/17 16:00 08/10/17 15:59 07/11/17 16:37 5 MG Insulin Glargine (Lantus Solostar Pen) 15 units BID SC 07/11/17 21:00 08/09/17 08:59
[2017-07-11] MEDS ORDERED: INSULIN GLARGINE SOLOSTAR 100 UNITS/ML 3 ML PEN SC SCH (21:00)
[2017-07-11] MEDS: TRAZODONE HCL 100 MG TAB PO SCH (21:11)
[2017-07-11] MEDS: LISINOPRIL 2.5 MG TAB PO SCH (21:11)
[2017-07-11] MEDS: HEPARIN 25,000 UNIT/500ML D5W 500 ML IV PRN (23:45)
[2017-07-12] VITALS (8 sets, daily range): BP systolic 104–147; BP diastolic 65–77; PULSE 72–94; TEMP 36.5–37; O2SAT 93–96
[2017-07-12] MEDS: LEVOTHYROXINE 50 MCG TAB PO SCH (05:38)
[2017-07-12 07:42] LABS: HEMATOCRIT 34.7 % (42-52); HEMOGLOBIN 11.4 g/dL (14.0-18.0); MEAN CELL VOLUME 89.9 fL (80-100); MEAN CORPUSCULAR HEMOGLOBIN 29.5 pg (25-34); MEAN CORPUSCULAR HGB CONC 32.9 g/dl (32-36); PLATELET COUNT 188 K/uL (130-400); RED CELL DISTRIBUTION WIDTH CV 13.1 % (11.5-14.5); RED CELL DISTRIBUTION WIDTH SD 42.5 fL (36.4-46.3); WHITE BLOOD COUNT 7.54 K/uL (4.8-10.8)
[2017-07-12] MEDS: ESCITALOPRAM OXALATE 20 MG TAB PO SCH (07:57)
[2017-07-12] MEDS: DOXAZosin MESYLATE TAB 4 MG TAB PO SCH (07:57)
[2017-07-12] MEDS: LACTOBACILLUS ACIDOPHILUS (FLORANEX) TAB PO SCH (07:57)
[2017-07-12] MEDS: MULTIVITAMIN TAB PO SCH ×2 (07:57→21:18)
[2017-07-12] MEDS: CARVEDILOL 3.125 MG TAB PO SCH ×2 (07:57→21:16)
[2017-07-12] MEDS: DOCUSATE SODIUM 100 MG CAP PO SCH ×2 (07:57→21:17)
[2017-07-12] MEDS: GABAPENTIN 600 MG TAB PO SCH ×2 (07:57→21:17)
[2017-07-12] MEDS: FAMOTIDINE 20 MG TAB PO SCH ×2 (07:57→21:17)
[2017-07-12] MEDS: ATORVASTATIN 20 MG TAB PO SCH (07:57)
[2017-07-12] MEDS: INSULIN ASPART 100 UNITS/ML 3 ML PEN SC SCH ×4 (07:59→21:25)
[2017-07-12 08:01] LABS: INR 1.2 (0.9-1.1)
[2017-07-12 08:03] LABS: PTT PATIENT 73.1 SECONDS (21.0-31.0)
[2017-07-12] MEDS ORDERED: INSULIN GLARGINE SOLOSTAR 100 UNITS/ML 3 ML PEN SC SCH ×2 (09:00→21:30)
[2017-07-12] MEDS: HEPARIN 25,000 UNIT/500ML D5W 500 ML IV PRN ×2 (09:38→14:16)
[2017-07-12 14:26] LABS: PTT PATIENT 47.6 SECONDS (21.0-31.0)
[2017-07-12] MEDS ORDERED: LACTULOSE SYRUP 30 GM/45 ML UDP PO STA (15:37)
[2017-07-12] MEDS: WARFARIN SOD 5 MG TAB PO SCH (17:10)
--- NOTE | 2017-07-12 20:47 | Progress Note ---
Internal Med Progress Note Date of Service: Jul 12, 2017. Provider Documentation: SUBJECTIVE: resting comfortably no chest pain or sob no sob on ambulation no cough 'afebrile eating ok complains of constipation OBJECTIVE: Vital Signs-as noted below Exam: General-alert and oriented. Not in distress ENT-Normal hearing Neck-no neck masses Lungs-cta b/l no wheezing or crackles Heart-S 1 and S 2heard regular rate and rhythm no murmurs Abdomen-soft bowel sounds present non tender no distension Extremities-no edema no erythema Neuro-alert and awake moves extremities Lab data as noted below. ASSESSMENT & PLAN: PULMONARY EMBOLI (present on admission) Presented to ED with bilateral pulmonary emboli demonstrated on CTA. Venous duplex lower extremities - proximal and distal clots LLE, popliteal and calf clots RLE. Echo - suspected mild elevation of pulmonary artery pressure. IVC filter recommended given extensive residual clot burden in lower extremities and potential for recurrent epidural hematoma or other bleeding complications. Pulmonary Medicine and Vascular Surgery consulted and appreciate inputs Reversible IVC filter placed 07/10. Tolerating IV heparin- continue until INR therapeutic at least 2 days. Warfarin started inr 1.2 today S/P RECENT THORACIC DECOMPRESSION AND FUSION, S/P RECENT THORACIC EPIDURAL HEMATOMA Neuro checks q 4 hours. Orthopedic Surgery consulted and ok for anticoagulation CORONARY ARTERY DISEASE Chest pain and elevated troponin most likely secondary to pulmonary emboli. Aspirin on hold due to recent epidural hematoma. Echo unremarkable. on carvedilol and statin. Currently asymptomatic HYPERTENSION on carvedilol, lisinopril, doxazosin. will monitor SLEEP APNEA on BiPAP. DM TYPE 2 well-controlled. Hgb A1C 6.7 06/22/17. Holding po meds BSG's ACHS. on iss added Lantus as sugars running high FBS this morning = 185. will monitor HYPOTHYROIDISM on levothyroxine. DYSLIPIDEMIA on atorvastatin. VTE PROPHYLAXIS on iv heparin DISPOSITION Anticipated return to [facility] for inpatient rehab. Medical follow-up with Dr. Jones. Vital Signs: Date Time Temp Pulse Resp B/P (MAP) Pulse Ox O2 Delivery O2 Flow Rate FiO2 07/12/17 18:50 36.7 94 20 129/77 (94) 94 Room Air 07/12/17 16:03 93 Room Air 07/12/17 15:13 37.0 74 18 106/67 (80) 93 Room Air 07/12/17 12:25 36.7 77 18 104/65 (78) 93 Room Air 07/12/17 11:50 Room Air 07/12/17 07:45 Room Air 07/12/17 07:45 36.7 74 18 104/65 (78) 95 Room Air 07/12/17 04:00 Room Air 07/12/17 03:35 36.5 72 23 121/75 (90) 96 Room Air 07/11/17 23:59 Room Air 07/11/17 23:38 36.7 84 20 113/70 (84) 98 Room Air Lab Results: Results Past 24 Hours Test 07/12/17 06:44 07/12/17 11:42 07/12/17 13:57 07/12/17 16:21 Range/Units White Blood Count 7.54 4.8-10.8 K/uL Red Blood Count 3.86 4.7-6.1 M/uL Hemoglobin 11.4 14.0-18.0 g/dL Hematocrit 34.7 42-52 % Mean Corpuscular Volume 89.9 80-100 fL Mean Corpuscular Hemoglobin 29.5 25-34 pg Mean Corpuscular Hemoglobin Concent 32.9 32-36 g/dl RDW Standard Deviation 42.5 36.4-46.3 fL RDW Coefficient of Variation 13.1 11.5-14.5 % Platelet Count 188 130-400 K/uL Mean Platelet Volume 10.0 7.4-10.4 fL Prothrombin Time 12.6 9.0-12.0 SECONDS Prothromb Time International Ratio 1.2 0.9-1.1 Activated Partial Thromboplast Time 73.1 47.6 21.0-31.0 SECONDS Partial Thromboplastin Ratio 2.8 1.8 Bedside Glucose 185 242 303 70-99 mg/dl Test 07/12/17 20:24 Range/Units Bedside Glucose 306 70-99 mg/dl
[2017-07-12] MEDS ORDERED: INSULIN GLARGINE SOLOSTAR 100 UNITS/ML 3 ML PEN SQ ONE (21:00)
[2017-07-12] MEDS: TRAZODONE HCL 100 MG TAB PO SCH (21:17)
[2017-07-12] MEDS: LISINOPRIL 2.5 MG TAB PO SCH (22:12)
[2017-07-13] MEDS ORDERED: INSULIN ASPART 100 UNITS/ML 3 ML PEN SC ONE (01:00)
[2017-07-13 03:22] VITALS: BP 92/55; PULSE 79; TEMP 36.7; O2SAT 91
[2017-07-13] MEDS: HEPARIN 25,000 UNIT/500ML D5W 500 ML IV PRN ×4 (04:27→20:05)
[2017-07-13] MEDS: GABAPENTIN 600 MG TAB PO SCH ×2 (07:41→21:37)
[2017-07-13] MEDS: MULTIVITAMIN TAB PO SCH ×2 (07:42→21:42)
[2017-07-13] MEDS: LEVOTHYROXINE 50 MCG TAB PO SCH (07:42)
[2017-07-13] MEDS: DOCUSATE SODIUM 100 MG CAP PO SCH ×2 (07:42→21:40)
[2017-07-13] MEDS: ESCITALOPRAM OXALATE 20 MG TAB PO SCH (07:42)
[2017-07-13] MEDS: CARVEDILOL 3.125 MG TAB PO SCH ×2 (07:43→21:41)
[2017-07-13] MEDS: FAMOTIDINE 20 MG TAB PO SCH ×2 (07:44→21:40)
[2017-07-13] MEDS: LACTOBACILLUS ACIDOPHILUS (FLORANEX) TAB PO SCH (07:44)
[2017-07-13] MEDS: DOXAZosin MESYLATE TAB 4 MG TAB PO SCH (07:45)
[2017-07-13 08:04] LABS: INR 1.2 (0.9-1.1); PTT PATIENT 40.1 SECONDS (21.0-31.0)
[2017-07-13 08:05] VITALS: BP 127/80; PULSE 83; TEMP 36.6; O2SAT 91
[2017-07-13] MEDS: INSULIN ASPART 100 UNITS/ML 3 ML PEN SC SCH ×4 (08:18→21:46)
[2017-07-13] MEDS ORDERED: HEPARIN IV BOLUS 8,000 UNIT in SYRINGE 0 ML IV STA (08:36)
[2017-07-13] MEDS: INSULIN GLARGINE SOLOSTAR 100 UNITS/ML 3 ML PEN SC SCH ×2 (09:02→21:47)
--- NOTE | 2017-07-13 09:59 | Progress Note ---
Medicine Progress Note Date & Time of Visit: Jul 13, 2017 at 09:35 . Subjective CC: Follow-up visit for acute pulmonary emboli and other problems. HPI: Doing well. Has some burning on the bottom of his feet. History of diabetic neuropathy, but this seems different. No chest pain. No cough or SOB. Back pain stable. Lower extremity weakness stable. No melena, hematochezia. No hematuria. ROS: General- no fever, no chills Resp- as noted above in HPI Cardiac- as noted above in HPI GI- no nausea, no vomiting, no diarrhea . Objective Last 8 Hrs Date Time Temp Pulse Resp B/P (MAP) Pulse Ox O2 Delivery O2 Flow Rate FiO2 07/13/17 08:05 36.6 83 22 127/80 (96) 91 07/13/17 08:00 Room Air BiPAP 07/13/17 04:00 Room Air BiPAP 07/13/17 03:22 36.7 79 20 92/55 (67) 91 Room Air Physical Exam: General- lying in bed; no distress Lungs- clear to auscultation; no respiratory distress Cardiovascular- RRR; no murmur; no gallop; no JVD; no pretibial edema; left pedal pulses intact; left DP diminished; left PT intact; capillary refill toes < 2 sec Abdomen- + bowel sounds, soft, nontender Back- thoracic incision bandaged Extremities- no cyanosis; no calf tenderness; no rash plantar surfaces of feet Neuro- alert, oriented; mild weakness left hip flexion Skin- warm & dry . Laboratory Results: Last 24 Hours Test 07/12/17 11:42 07/12/17 13:57 07/12/17 16:21 07/12/17 20:24 Bedside Glucose 242 mg/dl 303 mg/dl 306 mg/dl Activated Partial Thromboplast Time 47.6 SECONDS Partial Thromboplastin Ratio 1.8 Test 07/13/17 01:11 07/13/17 07:34 07/13/17 07:41 Bedside Glucose 260 mg/dl 172 mg/dl Prothrombin Time 12.5 SECONDS Prothromb Time International Ratio 1.2 Activated Partial Thromboplast Time 40.1 SECONDS Partial Thromboplastin Ratio 1.5 Assessment & Plan PULMONARY EMBOLI (present on admission) Presented to ED with bilateral pulmonary emboli demonstrated on CTA. Mild hypoxia. Hemodynamically stable. Serum troponin elevated. Started on IV heparin without bolus in ED after discussion with Ortho. Venous duplex lower extremities demonstrated proximal and distal clots LLE, popliteal and calf clots RLE. Echo demonstrated suspected mild elevation of pulmonary artery pressure. IVC filter recommended given extensive residual clot burden in lower extremities and potential for recurrent epidural hematoma or other bleeding complications. Pulmonary Medicine and Vascular Surgery consulted. IVC filter placed 07/10. Tolerating IV heparin- continue until INR therapeutic at least 2 days. Warfarin initiated. S/P RECENT THORACIC DECOMPRESSION AND FUSION, S/P RECENT THORACIC EPIDURAL HEMATOMA Neuro checks q 4 hours. Orthopedic Surgery consulted. CORONARY ARTERY DISEASE Chest pain and elevated troponin most likely secondary to pulmonary emboli. Aspirin on hold due to recent epidural hematoma. Echo did not show any left ventricular wall motion abnormalities. Continue carvedilol and statin. HYPERTENSION Hemodynamically stable. Continue carvedilol, lisinopril, doxazosin. SLEEP APNEA Continue BiPAP. DM TYPE 2 Usually well-controlled. Hgb A1C 6.7 06/22/17. Blood sugars recently elevated while receiving steroids. Random blood sugar in ED was 215. BSG's ACHS. Lantus / NovoLog per protocol. FBS this morning = 172. Try to transition to usual outpatient regimen. Should be OK if hemodynamically stable and no concerns about volume status, infection, etc. Patient will ask his to bring in meds for review. HYPOTHYROIDISM Continue levothyroxine. DYSLIPIDEMIA Continue atorvastatin. VTE PROPHYLAXIS Not indicated due to acute pulmonary emboli. DISPOSITION Anticipated return to [facility] for inpatient rehab. Medical follow-up with Dr. Jones. . Current Inpatient Medications: Current Inpatient Medications Medications (Trade) Dose Ordered Sig/Romana Route Start Time Stop Time Status Last Admin Dose Admin Ioversol (Optiray 320) 100 ml UD PRN IV 07/09/17 13:30 07/13/17 13:29 Acetaminophen (Tylenol Tab) 650 mg Q4H PRN PO 07/09/17 17:00 08/08/17 16:59 Atorvastatin Calcium (Lipitor Tab) 20 mg MoWeFr@0900 PO 07/10/17 09:00 08/09/17 08:59 07/12/17 07:57 20 MG Carvedilol (Coreg Tab) 3.125 mg BID PO 07/09/17 21:00 08/08/17 20:59 07/12/17 21:16 3.125 MG Docusate Sodium (coLACE CAP) 100 mg BID PO 07/09/17 21:00 08/08/17 20:59 07/13/17 07:42 100 MG Doxazosin Mesylate (Cardura Tab) 4 mg QAM PO 07/10/17 09:00 08/09/17 08:59 07/11/17 07:47 4 MG Escitalopram Oxalate (Lexapro Tab) 20 mg QAM PO 07/10/17 09:00 08/09/17 08:59 07/13/17 07:42 20 MG Famotidine (Pepcid Tab) 20 mg BID PO 07/09/17 21:00 08/08/17 20:59 07/13/17 07:44 20 MG Gabapentin (Neurontin Tab) 600 mg BID PO 07/09/17 21:00 08/08/17 20:59 07/13/17 07:41 600 MG Lactobacillus Acidophilus (Floranex Tab) 1 tab DAILY PO 07/10/17 09:00 08/09/17 08:59 07/13/17 07:44 1 TAB Levothyroxine Sodium (Synthroid Tab) 50 mcg DAILYBB PO 07/10/17 06:00 08/09/17 05:59 07/13/17 07:42 50 MCG Lisinopril (Zestril Tab) 2.5 mg QPM PO 07/09/17 21:00 08/08/17 20:59 07/12/17 22:12 2.5 MG Multivitamins (Multivitamin Tab) 0.5 tab BID PO 07/09/17 21:00 08/08/17 20:59 07/13/17 07:42 0.5 TAB Trazodone HCl (Desyrel Tab) 100 mg QPM PO 07/09/17 21:00 08/08/17 20:59 07/12/17 21:17 100 MG Heparin Sodium/ Dextrose 500 ml @ 45 mls/hr Q11H7M PRN IV 07/09/17 18:30 08/08/17 18:29 07/13/17 08:50 45 MLS/HR Insulin Aspart (novoLOG ASPART) SLIDING SCALE G... ACHS SC 07/10/17 07:00 08/09/17 06:59 07/13/17 08:18 7 UNITS Warfarin Sodium (Coumadin Tab) 5 mg DAILY@16 PO 07/11/17 16:00 08/10/17 15:59 07/12/17 17:10 5 MG Insulin Glargine (Lantus Solostar Pen) BSG LANTUS < ... BID SC 07/13/17 09:00 08/11/17 21:29 07/13/17 09:02 20 UNITS
[2017-07-13 12:07] VITALS: BP 121/76; PULSE 84; TEMP 37; O2SAT 91
[2017-07-13 15:57] LABS: PTT PATIENT 113.7 SECONDS (21.0-31.0)
[2017-07-13] MEDS ORDERED: WARFARIN SOD 10 MG TAB PO ONE (16:00)
[2017-07-13 16:39] VITALS: BP 128/83; PULSE 94; TEMP 36.8; O2SAT 94
[2017-07-13 19:45] VITALS: BP 119/81; PULSE 72; TEMP 36.7; O2SAT 93
[2017-07-13] MEDS: TRAZODONE HCL 100 MG TAB PO SCH (21:39)
[2017-07-13] MEDS: LISINOPRIL 2.5 MG TAB PO SCH (21:40)
[2017-07-13 21:48] VITALS: BP 144/71; PULSE 62
[2017-07-13 22:36] LABS: PTT PATIENT 54.9 SECONDS (21.0-31.0)
[2017-07-14] VITALS (8 sets, daily range): BP systolic 104–132; BP diastolic 64–81; PULSE 70–79; TEMP 36.5–37; O2SAT 91–95
[2017-07-14] MEDS: LEVOTHYROXINE 50 MCG TAB PO SCH (08:32)
[2017-07-14] MEDS: LACTOBACILLUS ACIDOPHILUS (FLORANEX) TAB PO SCH (08:32)
[2017-07-14] MEDS: DOXAZosin MESYLATE TAB 4 MG TAB PO SCH (08:33)
[2017-07-14] MEDS: MULTIVITAMIN TAB PO SCH ×2 (08:33→21:35)
[2017-07-14] MEDS: DOCUSATE SODIUM 100 MG CAP PO SCH ×2 (08:33→21:33)
[2017-07-14] MEDS: ESCITALOPRAM OXALATE 20 MG TAB PO SCH (08:34)
[2017-07-14] MEDS: GABAPENTIN 600 MG TAB PO SCH ×2 (08:34→21:34)
[2017-07-14] MEDS: CARVEDILOL 3.125 MG TAB PO SCH ×2 (08:34→21:33)
[2017-07-14] MEDS: FAMOTIDINE 20 MG TAB PO SCH ×2 (08:34→21:35)
[2017-07-14] MEDS: INSULIN ASPART 100 UNITS/ML 3 ML PEN SC SCH ×4 (08:37→21:37)
[2017-07-14] MEDS: INSULIN GLARGINE SOLOSTAR 100 UNITS/ML 3 ML PEN SC SCH ×2 (08:38→21:38)
[2017-07-14 09:20] LABS: HEMATOCRIT 36.5 % (42-52); HEMOGLOBIN 11.9 g/dL (14.0-18.0); MEAN CORPUSCULAR HEMOGLOBIN 29.7 pg (25-34); MEAN CORPUSCULAR HGB CONC 32.6 g/dl (32-36); MEAN PLATELET VOLUME 9.5 fL (7.4-10.4); PLATELET COUNT 212 K/uL (130-400); RED CELL DISTRIBUTION WIDTH CV 13.3 % (11.5-14.5); RED CELL DISTRIBUTION WIDTH SD 44.2 fL (36.4-46.3); WHITE BLOOD COUNT 9.11 K/uL (4.8-10.8)
[2017-07-14] MEDS: HEPARIN 25,000 UNIT/500ML D5W 500 ML IV PRN (09:23)
[2017-07-14 09:38] LABS: INR 1.4 (0.9-1.1)
[2017-07-14 09:41] LABS: PTT PATIENT 66.8 SECONDS (21.0-31.0)
[2017-07-14] MEDS ORDERED: LIRA18IN SQ (11:29)
[2017-07-14] MEDS ORDERED: GLYB5TAB3 PO (11:31)
[2017-07-14] MEDS: WARFARIN SOD 7.5 MG TAB PO SCH (16:39)
[2017-07-14] MEDS: GLUCOVANCE PO SCH (16:40)
--- NOTE | 2017-07-14 20:27 | Progress Note ---
Medicine Progress Note Date & Time of Visit: Jul 14, 2017 at 11:00 . Subjective CC: Follow-up visit for acute pulmonary emboli and other problems. HPI: Doing well. No chest pain. No cough or SOB. Back pain stable. Lower extremity weakness stable. No melena, hematochezia. No hematuria. ROS: General- no fever, no chills Resp- as noted above in HPI Cardiac- as noted above in HPI GI- no nausea, no vomiting, no diarrhea . Objective Last 8 Hrs Date Time Temp Pulse Resp B/P (MAP) Pulse Ox O2 Delivery O2 Flow Rate FiO2 07/14/17 20:05 36.9 75 18 115/71 (86) 95 Room Air 07/14/17 20:04 Room Air 07/14/17 16:00 Room Air 07/14/17 15:22 36.5 77 18 104/64 (77) 91 Room Air Physical Exam: General- lying in bed; no distress Lungs- clear to auscultation; no respiratory distress Cardiovascular- RRR; no murmur; no gallop; no JVD; no pretibial edema Abdomen- + bowel sounds, soft, nontender Back- thoracic incision bandaged Extremities- no cyanosis; no calf tenderness Neuro- alert, oriented; mild weakness left hip flexion Skin- warm & dry . Laboratory Results: Last 24 Hours Test 07/13/17 22:03 07/14/17 07:22 07/14/17 09:02 07/14/17 11:25 Activated Partial Thromboplast Time 54.9 SECONDS 66.8 SECONDS Partial Thromboplastin Ratio 2.1 2.6 Bedside Glucose 242 mg/dl 309 mg/dl White Blood Count 9.11 K/uL Red Blood Count 4.01 M/uL Hemoglobin 11.9 g/dL Hematocrit 36.5 % Mean Corpuscular Volume 91.0 fL Mean Corpuscular Hemoglobin 29.7 pg Mean Corpuscular Hemoglobin Concent 32.6 g/dl RDW Standard Deviation 44.2 fL RDW Coefficient of Variation 13.3 % Platelet Count 212 K/uL Mean Platelet Volume 9.5 fL Prothrombin Time 14.4 SECONDS Prothromb Time International Ratio 1.4 Test 07/14/17 16:36 Bedside Glucose 268 mg/dl Assessment & Plan PULMONARY EMBOLI (present on admission) Presented to ED with bilateral pulmonary emboli demonstrated on CTA. Mild hypoxia. Hemodynamically stable. Serum troponin elevated. Started on IV heparin without bolus in ED after discussion with Ortho. Venous duplex lower extremities demonstrated proximal and distal clots LLE, popliteal and calf clots RLE. Echo demonstrated suspected mild elevation of pulmonary artery pressure. IVC filter recommended given extensive residual clot burden in lower extremities and potential for recurrent epidural hematoma or other bleeding complications. Pulmonary Medicine and Vascular Surgery consulted. IVC filter placed 07/10. Tolerating IV heparin- continue until INR therapeutic at least 2 days. Warfarin initiated. INR today = 1.4. S/P RECENT THORACIC DECOMPRESSION AND FUSION, S/P RECENT THORACIC EPIDURAL HEMATOMA Neuro status stable. Continue neuro checks. Orthopedic Surgery consulted. CORONARY ARTERY DISEASE Chest pain and elevated troponin most likely secondary to pulmonary emboli. Aspirin on hold due to recent epidural hematoma. Echo did not show any left ventricular wall motion abnormalities. Continue carvedilol and statin. SUSPECTED PULMONARY HYPERTENSION Echo demonstrated mild to moderate tricuspid regurgitation, top-normal to slightly elevated pulmonary artery pressures, mildly dilated RV. Findings could be chronic (related to sleep apnea) or acute (related to pulmonary emboli). Follow. HYPERTENSION Hemodynamically stable. Continue carvedilol, lisinopril, doxazosin. SLEEP APNEA Continue BiPAP. DM TYPE 2 Usually well-controlled. Hgb A1C 6.7 06/22/17. Blood sugars recently elevated while receiving steroids. Random blood sugar in ED was 215. BSG's ACHS. Lantus / NovoLog per protocol. FBS this morning = 242. Transition to usual outpatient regimen with metformin / glyburide, sitagliptin, liraglutide. HYPOTHYROIDISM Continue levothyroxine. DYSLIPIDEMIA Continue atorvastatin. VTE PROPHYLAXIS Not indicated due to acute pulmonary emboli. DISPOSITION Anticipated return to [facility] for inpatient rehab once INR's therapeutic. Medical follow-up with Dr. Jones. Ortho Spine follow-up with Dr. eYpez. . Current Inpatient Medications: Current Inpatient Medications Medications (Trade) Dose Ordered Sig/Romana Route Start Time Stop Time Status Last Admin Dose Admin Acetaminophen (Tylenol Tab) 650 mg Q4H PRN PO 07/09/17 17:00 08/08/17 16:59 Atorvastatin Calcium (Lipitor Tab) 20 mg MoWeFr@0900 PO 07/10/17 09:00 08/09/17 08:59 07/12/17 07:57 20 MG Carvedilol (Coreg Tab) 3.125 mg BID PO 07/09/17 21:00 08/08/17 20:59 07/14/17 08:34 3.125 MG Docusate Sodium (coLACE CAP) 100 mg BID PO 07/09/17 21:00 08/08/17 20:59 07/14/17 08:33 100 MG Doxazosin Mesylate (Cardura Tab) 4 mg QAM PO 07/10/17 09:00 08/09/17 08:59 07/14/17 08:33 4 MG Escitalopram Oxalate (Lexapro Tab) 20 mg QAM PO 07/10/17 09:00 08/09/17 08:59 07/14/17 08:34 20 MG Famotidine (Pepcid Tab) 20 mg BID PO 07/09/17 21:00 08/08/17 20:59 07/14/17 08:34 20 MG Gabapentin (Neurontin Tab) 600 mg BID PO 07/09/17 21:00 08/08/17 20:59 07/14/17 08:34 600 MG Lactobacillus Acidophilus (Floranex Tab) 1 tab DAILY PO 07/10/17 09:00 08/09/17 08:59 07/14/17 08:32 1 TAB Levothyroxine Sodium (Synthroid Tab) 50 mcg DAILYBB PO 07/10/17 06:00 08/09/17 05:59 07/14/17 08:32 50 MCG Lisinopril (Zestril Tab) 2.5 mg QPM PO 07/09/17 21:00 08/08/17 20:59 07/13/17 21:40 2.5 MG Multivitamins (Multivitamin Tab) 0.5 tab BID PO 07/09/17 21:00 08/08/17 20:59 07/14/17 08:33 0.5 TAB Trazodone HCl (Desyrel Tab) 100 mg QPM PO 07/09/17 21:00 08/08/17 20:59 07/13/17 21:39 100 MG Heparin Sodium/ Dextrose 500 ml @ 39 mls/hr [id number] PRN IV 07/09/17 18:30 08/08/17 18:29 07/14/17 09:23 39 MLS/HR Insulin Aspart (novoLOG ASPART) SLIDING SCALE G... ACHS SC 07/10/17 07:00 08/09/17 06:59 07/14/17 17:52 26 UNITS Insulin Glargine (Lantus Solostar Pen) BSG LANTUS < ... BID SC 07/13/17 09:00 08/11/17 21:29 07/14/17 08:38 25 UNITS Warfarin Sodium (Coumadin Tab) 7.5 mg DAILY@16 PO 07/14/17 16:00 08/13/17 15:59 07/14/17 16:39 7.5 MG Sitagliptin Phosphate (Januvia Tab) 100 mg QAM PO 07/15/17 09:00 08/14/17 08:59 Liraglutide (Victoza) 18 mg DAILY SC 07/15/17 09:00 08/14/17 08:59 Non-Formulary Medication (Non-Formulary Patient'S Own Med) 1 ea BIDM PO 07/14/17 17:00 08/13/17 16:59 07/14/17 16:40 1 EA
[2017-07-14] MEDS: LISINOPRIL 2.5 MG TAB PO SCH (21:33)
[2017-07-14] MEDS: TRAZODONE HCL 100 MG TAB PO SCH (21:34)
[2017-07-15] VITALS (7 sets, daily range): BP systolic 110–130; BP diastolic 64–81; PULSE 76–85; TEMP 36.5–36.6; O2SAT 92–96
[2017-07-15] MEDS: HEPARIN 25,000 UNIT/500ML D5W 500 ML IV PRN ×2 (03:24→13:00)
[2017-07-15] MEDS: LEVOTHYROXINE 50 MCG TAB PO SCH (06:18)
[2017-07-15 08:10] LABS: INR 1.6 (0.9-1.1)
[2017-07-15] MEDS: DOCUSATE SODIUM 100 MG CAP PO SCH ×2 (08:12→21:49)
[2017-07-15] MEDS: ESCITALOPRAM OXALATE 20 MG TAB PO SCH (08:12)
[2017-07-15] MEDS: GABAPENTIN 600 MG TAB PO SCH ×2 (08:12→21:48)
[2017-07-15] MEDS: LACTOBACILLUS ACIDOPHILUS (FLORANEX) TAB PO SCH (08:12)
[2017-07-15] MEDS: ATORVASTATIN 20 MG TAB PO SCH (08:13)
[2017-07-15] MEDS: DOXAZosin MESYLATE TAB 4 MG TAB PO SCH (08:13)
[2017-07-15] MEDS: CARVEDILOL 3.125 MG TAB PO SCH ×2 (08:13→21:51)
[2017-07-15] MEDS: FAMOTIDINE 20 MG TAB PO SCH ×2 (08:15→21:47)
[2017-07-15] MEDS: MULTIVITAMIN TAB PO SCH ×2 (08:16→21:48)
[2017-07-15 08:17] LABS: PTT PATIENT 67.2 SECONDS (21.0-31.0)
[2017-07-15] MEDS: SITAGLIPTIN 100 MG TAB PO SCH (08:17)
[2017-07-15] MEDS: LIRAGLUTIDE 18 MG/3 ML INJ SC SCH (08:20)
[2017-07-15] MEDS: GLUCOVANCE PO SCH ×2 (08:23→16:46)
[2017-07-15] MEDS: INSULIN ASPART 100 UNITS/ML 3 ML PEN SC SCH ×4 (08:27→21:55)
[2017-07-15] MEDS: INSULIN GLARGINE SOLOSTAR 100 UNITS/ML 3 ML PEN SC SCH ×2 (08:28→21:55)
[2017-07-15 08:36] LABS: CALCIUM 9.3 mg/dl (8.5-10.1); CREATININE 0.97 mg/dl (0.60-1.40); POTASSIUM 4.2 mmol/L (3.5-5.1)
[2017-07-15] MEDS ORDERED: POLYETHYLENE (MIRALAX) 17 GM PACK PO ONE (13:45)
[2017-07-15] MEDS: WARFARIN SOD 7.5 MG TAB PO SCH (16:46)
--- NOTE | 2017-07-15 18:23 | Pulmonology Progress Note ---
Pulmonary Progress Note Date of Service Jul 15, 2017. Attending Dr. Arevalo Subjective Patient doing well today currently accompanied by his family and friends in the all note he is recovering nicely. 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 Patient recently started developed back pain with associated leg weakness and was noted to have spinal stenosis and underwent decompression fusion on 06/21/2017 with discharge on 06/24/2017. His warfarin was held for the procedure but re-initiated at the time of his discharge with initiation of enoxaparin at that time. Patient presented to the emergency room on 07/01/2017 was found to have thoracic epidural hematoma with back pain and worsening lower extremity weakness left greater than right at that time. Due to this his warfarin was held and he was transferred to [facility] on 07/05/2017. Patient then presented to [facility] once again on 07/09/2017 with chest pain and shortness of Breath initial SaO2 is a at 88% on room air. CTA demonstrated bilateral pulmonary embolism with bilateral lower extremity DVT seen on ultrasound the patient was initiated on heparin therapy. At that time an echocardiogram did show signs of elevated right ventricular pressures into to his recent history patient had IVC catheter placed on 07/09/2017. Patient has been doing well and has recently re-initiated on warfarin therapy. At this time I spoke to the patient and his family at length and asked him to follow-up with his pulmonary physician to make sure the IVC catheter is removed in the future. At this time the patient has asked for my card and would like to follow-up at the [facility]. 2. Discharge: At this time I do not believe the Pulmonary service can be of any further help during this hospitalization but I would like the patient to follow-up with the [facility] to verify that is IVC catheter is removed in the future. Data Medications: Current Inpatient Medications Medications (Trade) Dose Ordered Sig/Romana Route Start Time Stop Time Status Last Admin Dose Admin Acetaminophen (Tylenol Tab) 650 mg Q4H PRN PO 07/09/17 17:00 08/08/17 16:59 Atorvastatin Calcium (Lipitor Tab) 20 mg MoWeFr@0900 PO 07/10/17 09:00 08/09/17 08:59 07/15/17 08:13 20 MG Carvedilol (Coreg Tab) 3.125 mg BID PO 07/09/17 21:00 08/08/17 20:59 07/15/17 08:13 3.125 MG Docusate Sodium (coLACE CAP) 100 mg BID PO 07/09/17 21:00 08/08/17 20:59 07/15/17 08:12 100 MG Doxazosin Mesylate (Cardura Tab) 4 mg QAM PO 07/10/17 09:00 08/09/17 08:59 07/15/17 08:13 4 MG Escitalopram Oxalate (Lexapro Tab) 20 mg QAM PO 07/10/17 09:00 08/09/17 08:59 07/15/17 08:12 20 MG Famotidine (Pepcid Tab) 20 mg BID PO 07/09/17 21:00 08/08/17 20:59 07/15/17 08:15 20 MG Gabapentin (Neurontin Tab) 600 mg BID PO 07/09/17 21:00 08/08/17 20:59 07/15/17 08:12 600 MG Lactobacillus Acidophilus (Floranex Tab) 1 tab DAILY PO 07/10/17 09:00 08/09/17 08:59 07/15/17 08:12 1 TAB Levothyroxine Sodium (Synthroid Tab) 50 mcg DAILYBB PO 07/10/17 06:00 08/09/17 05:59 07/15/17 06:18 50 MCG Lisinopril (Zestril Tab) 2.5 mg QPM PO 07/09/17 21:00 08/08/17 20:59 07/14/17 21:33 2.5 MG Multivitamins (Multivitamin Tab) 0.5 tab BID PO 07/09/17 21:00 08/08/17 20:59 07/15/17 08:16 0.5 TAB Trazodone HCl (Desyrel Tab) 100 mg QPM PO 07/09/17 21:00 08/08/17 20:59 07/14/17 21:34 100 MG Heparin Sodium/ Dextrose 500 ml @ 39 mls/hr [id number] PRN IV 07/09/17 18:30 08/08/17 18:29 07/15/17 13:00 39 MLS/HR Insulin Aspart (novoLOG ASPART) SLIDING SCALE G... ACHS SC 07/10/17 07:00 08/09/17 06:59 07/15/17 18:04 11 UNITS Insulin Glargine (Lantus Solostar Pen) BSG LANTUS < ... BID SC 07/13/17 09:00 08/11/17 21:29 07/15/17 08:28 20 UNITS Warfarin Sodium (Coumadin Tab) 7.5 mg DAILY@16 PO 07/14/17 16:00 08/13/17 15:59 07/15/17 16:46 7.5 MG Sitagliptin Phosphate (Januvia Tab) 100 mg QAM PO 07/15/17 09:00 08/14/17 08:59 07/15/17 08:17 100 MG Liraglutide (Victoza) 18 mg DAILY SC 07/15/17 09:00 08/14/17 08:59 07/15/17 08:20 18 MG Non-Formulary Medication (Non-Formulary Patient'S Own Med) 1 ea BIDM PO 07/14/17 17:00 08/13/17 16:59 07/15/17 16:46 1 EA Polyethylene (Miralax Powder Packet) 17 gm DAILY PO 07/16/17 09:00 08/15/17 08:59 I & O: 24-Hour Column 07/16/17 08:00 Intake Total 700 ml Output Total 700 ml Balance 0 ml Vital Signs: Date Time Temp Pulse Resp B/P (MAP) Pulse Ox O2 Delivery O2 Flow Rate FiO2 07/15/17 16:00 Room Air 07/15/17 15:42 36.6 79 18 111/70 (84) 93 Nasal Cannula 07/15/17 14:00 83 18 124/69 (87) 94 Room Air 07/15/17 12:00 80 16 94 07/15/17 12:00 Room Air 07/15/17 08:00 Room Air 07/15/17 07:40 36.6 76 16 110/64 (79) 92 Room Air 07/15/17 04:53 96 Room Air 07/15/17 03:49 36.6 85 14 119/ (39) 96 Room Air 07/14/17 23:55 94 Room Air 07/14/17 23:18 37.0 75 18 124/74 (91) 94 Room Air 07/14/17 20:05 36.9 75 18 115/71 (86) 95 Room Air 07/14/17 20:04 Room Air Laboratory Results: Last 24 Hours Test 07/14/17 20:26 07/15/17 07:12 07/15/17 07:22 07/15/17 07:23 Bedside Glucose 235 mg/dl 175 mg/dl Prothrombin Time 16.7 SECONDS Prothromb Time International Ratio 1.6 Activated Partial Thromboplast Time 67.2 SECONDS Partial Thromboplastin Ratio 2.6 Sodium Level 137 mmol/L Potassium Level 4.2 mmol/L Chloride Level 102 mmol/L Carbon Dioxide Level 27 mmol/L Anion Gap 8.0 mmol/L Blood Urea Nitrogen 14 mg/dl Creatinine 0.97 mg/dl Est Creatinine Clear Calc Drug Dose 100.0 ml/min Estimated GFR () 93.2 Estimated GFR (Non- 80.5 BUN/Creatinine Ratio 14.0 Random Glucose 166 mg/dl Calcium Level 9.3 mg/dl Magnesium Level 2.0 mg/dl Test 07/15/17 11:00 07/15/17 16:46 Bedside Glucose 225 mg/dl 155 mg/dl
--- NOTE | 2017-07-15 19:35 | Progress Note ---
Medicine Progress Note Date & Time of Visit: Jul 15, 2017 at 13:30 . Subjective CC: Follow-up visit for acute pulmonary emboli and other problems. HPI: Doing well. No chest pain. No cough or SOB. No worsening of back pain. Lower extremity weakness stable. No melena, hematochezia. No hematuria. Ambulated with walker in PT. ROS: General- no fever, no chills Resp- as noted above in HPI Cardiac- as noted above in HPI GI- constipated; no nausea, no vomiting - no difficulty voiding . Objective Last 8 Hrs Date Time Temp Pulse Resp B/P (MAP) Pulse Ox O2 Delivery O2 Flow Rate FiO2 07/15/17 16:00 Room Air 07/15/17 15:42 36.6 79 18 111/70 (84) 93 Nasal Cannula 07/15/17 14:00 83 18 124/69 (87) 94 Room Air 07/15/17 12:00 80 16 94 07/15/17 12:00 Room Air Physical Exam: General- lying in bed; no distress Lungs- clear to auscultation; no respiratory distress Cardiovascular- RRR; no murmur; no gallop; no JVD; no pretibial edema Abdomen- + bowel sounds, soft, nontender Back- thoracic incision bandaged Extremities- no cyanosis; no calf tenderness Neuro- alert, oriented; minimal weakness left hip flexion Skin- warm & dry . Laboratory Results: Last 24 Hours Test 07/14/17 20:26 07/15/17 07:12 07/15/17 07:22 07/15/17 07:23 Bedside Glucose 235 mg/dl 175 mg/dl Prothrombin Time 16.7 SECONDS Prothromb Time International Ratio 1.6 Activated Partial Thromboplast Time 67.2 SECONDS Partial Thromboplastin Ratio 2.6 Sodium Level 137 mmol/L Potassium Level 4.2 mmol/L Chloride Level 102 mmol/L Carbon Dioxide Level 27 mmol/L Anion Gap 8.0 mmol/L Blood Urea Nitrogen 14 mg/dl Creatinine 0.97 mg/dl Est Creatinine Clear Calc Drug Dose 100.0 ml/min Estimated GFR () 93.2 Estimated GFR (Non- 80.5 BUN/Creatinine Ratio 14.0 Random Glucose 166 mg/dl Calcium Level 9.3 mg/dl Magnesium Level 2.0 mg/dl Test 07/15/17 11:00 07/15/17 16:46 Bedside Glucose 225 mg/dl 155 mg/dl Assessment & Plan PULMONARY EMBOLI (present on admission) Presented to ED with bilateral pulmonary emboli demonstrated on CTA. Mild hypoxia. Hemodynamically stable. Serum troponin elevated. Started on IV heparin without bolus in ED after discussion with Ortho. Venous duplex lower extremities demonstrated proximal and distal thrombi LLE, popliteal and calf thrombi RLE. Echo demonstrated suspected mild elevation of pulmonary artery pressure. IVC filter recommended given extensive residual clot burden in lower extremities and potential for recurrent epidural hematoma or other bleeding complications. Pulmonary Medicine and Vascular Surgery consulted. IVC filter placed 07/10. Tolerating IV heparin. Warfarin initiated. INR today = 1.6. Continue IV heparin until INR therapeutic for at least 2 days in a row. S/P RECENT THORACIC DECOMPRESSION AND FUSION, S/P RECENT THORACIC EPIDURAL HEMATOMA Neuro status stable. Continue neuro checks. Orthopedic Surgery consulted. CORONARY ARTERY DISEASE Chest pain and elevated troponin most likely secondary to pulmonary emboli. Aspirin on hold due to recent epidural hematoma. Echo did not show any left ventricular wall motion abnormalities. Continue carvedilol and statin. SUSPECTED PULMONARY HYPERTENSION Echo demonstrated mild to moderate tricuspid regurgitation, top-normal to slightly elevated pulmonary artery pressures, mildly dilated RV. Findings could be chronic (related to sleep apnea) or acute (related to pulmonary emboli). Follow. HYPERTENSION Hemodynamically stable. Continue carvedilol, lisinopril, doxazosin. SLEEP APNEA Continue BiPAP. DM TYPE 2 Usually well-controlled. Hgb A1C 6.7 06/22/17. Blood sugars recently elevated while receiving steroids. Random blood sugar in ED was 215. BSG's ACHS. Lantus / NovoLog per protocol. FBS this morning = 175. Transitioning to usual outpatient regimen with metformin / glyburide, sitagliptin, liraglutide. HYPOTHYROIDISM Continue levothyroxine. DYSLIPIDEMIA Continue atorvastatin. VTE PROPHYLAXIS Not indicated due to acute pulmonary emboli. DISPOSITION Anticipated return to [facility] for inpatient rehab once INR's therapeutic. Medical follow-up with Dr. Jones. Ortho Spine follow-up with Dr. Yepez. . Current Inpatient Medications: Current Inpatient Medications Medications (Trade) Dose Ordered Sig/Romana Route Start Time Stop Time Status Last Admin Dose Admin Acetaminophen (Tylenol Tab) 650 mg Q4H PRN PO 07/09/17 17:00 08/08/17 16:59 Atorvastatin Calcium (Lipitor Tab) 20 mg MoWeFr@0900 PO 07/10/17 09:00 08/09/17 08:59 07/15/17 08:13 20 MG Carvedilol (Coreg Tab) 3.125 mg BID PO 07/09/17 21:00 08/08/17 20:59 07/15/17 08:13 3.125 MG Docusate Sodium (coLACE CAP) 100 mg BID PO 07/09/17 21:00 08/08/17 20:59 07/15/17 08:12 100 MG Doxazosin Mesylate (Cardura Tab) 4 mg QAM PO 07/10/17 09:00 08/09/17 08:59 07/15/17 08:13 4 MG Escitalopram Oxalate (Lexapro Tab) 20 mg QAM PO 07/10/17 09:00 08/09/17 08:59 07/15/17 08:12 20 MG Famotidine (Pepcid Tab) 20 mg BID PO 07/09/17 21:00 08/08/17 20:59 07/15/17 08:15 20 MG Gabapentin (Neurontin Tab) 600 mg BID PO 07/09/17 21:00 08/08/17 20:59 07/15/17 08:12 600 MG Lactobacillus Acidophilus (Floranex Tab) 1 tab DAILY PO 07/10/17 09:00 08/09/17 08:59 07/15/17 08:12 1 TAB Levothyroxine Sodium (Synthroid Tab) 50 mcg DAILYBB PO 07/10/17 06:00 08/09/17 05:59 07/15/17 06:18 50 MCG Lisinopril (Zestril Tab) 2.5 mg QPM PO 07/09/17 21:00 08/08/17 20:59 07/14/17 21:33 2.5 MG Multivitamins (Multivitamin Tab) 0.5 tab BID PO 07/09/17 21:00 08/08/17 20:59 07/15/17 08:16 0.5 TAB Trazodone HCl (Desyrel Tab) 100 mg QPM PO 07/09/17 21:00 08/08/17 20:59 07/14/17 21:34 100 MG Heparin Sodium/ Dextrose 500 ml @ 39 mls/hr [id number] PRN IV 07/09/17 18:30 08/08/17 18:29 07/15/17 13:00 39 MLS/HR Insulin Aspart (novoLOG ASPART) SLIDING SCALE G... ACHS SC 07/10/17 07:00 08/09/17 06:59 07/15/17 18:04 11 UNITS Insulin Glargine (Lantus Solostar Pen) BSG LANTUS < ... BID SC 07/13/17 09:00 08/11/17 21:29 07/15/17 08:28 20 UNITS Warfarin Sodium (Coumadin Tab) 7.5 mg DAILY@16 PO 07/14/17 16:00 08/13/17 15:59 07/15/17 16:46 7.5 MG Sitagliptin Phosphate (Januvia Tab) 100 mg QAM PO 07/15/17 09:00 08/14/17 08:59 07/15/17 08:17 100 MG Liraglutide (Victoza) 18 mg DAILY SC 07/15/17 09:00 08/14/17 08:59 07/15/17 08:20 18 MG Non-Formulary Medication (Non-Formulary Patient'S Own Med) 1 ea BIDM PO 07/14/17 17:00 08/13/17 16:59 07/15/17 16:46 1 EA Polyethylene (Miralax Powder Packet) 17 gm DAILY PO 07/16/17 09:00 08/15/17 08:59
[2017-07-15] MEDS: TRAZODONE HCL 100 MG TAB PO SCH (21:47)
[2017-07-15] MEDS: LISINOPRIL 2.5 MG TAB PO SCH (21:48)
[2017-07-16] VITALS: BP 120/74; PULSE 76; TEMP 36.7; O2SAT 95
[2017-07-16] MEDS: HEPARIN 25,000 UNIT/500ML D5W 500 ML IV PRN ×3 (02:15→17:17)
[2017-07-16 04:00] VITALS: O2SAT 95
[2017-07-16] MEDS: LEVOTHYROXINE 50 MCG TAB PO SCH (06:29)
[2017-07-16 07:31] LABS: HEMATOCRIT 34.5 % (42-52); HEMOGLOBIN 11.4 g/dL (14.0-18.0); MEAN CELL VOLUME 89.1 fL (80-100); MEAN CORPUSCULAR HEMOGLOBIN 29.5 pg (25-34); MEAN PLATELET VOLUME 9.2 fL (7.4-10.4); PLATELET COUNT 223 K/uL (130-400); RED CELL DISTRIBUTION WIDTH CV 13.4 % (11.5-14.5); RED CELL DISTRIBUTION WIDTH SD 43.4 fL (36.4-46.3); WHITE BLOOD COUNT 8.35 K/uL (4.8-10.8)
[2017-07-16 07:39] VITALS: BP 101/61; PULSE 72; TEMP 36.6; O2SAT 93
[2017-07-16] MEDS: DOXAZosin MESYLATE TAB 4 MG TAB PO SCH (07:40)
[2017-07-16] MEDS: GLUCOVANCE PO SCH ×2 (07:41→15:29)
[2017-07-16] MEDS: POLYETHYLENE (MIRALAX) 17 GM PACK PO SCH (07:41)
[2017-07-16] MEDS: ESCITALOPRAM OXALATE 20 MG TAB PO SCH (07:41)
[2017-07-16] MEDS: FAMOTIDINE 20 MG TAB PO SCH ×2 (07:41→21:05)
[2017-07-16] MEDS: MULTIVITAMIN TAB PO SCH ×2 (07:42→21:06)
[2017-07-16] MEDS: LACTOBACILLUS ACIDOPHILUS (FLORANEX) TAB PO SCH (07:42)
[2017-07-16] MEDS: GABAPENTIN 600 MG TAB PO SCH ×2 (07:42→21:05)
[2017-07-16] MEDS: DOCUSATE SODIUM 100 MG CAP PO SCH ×2 (07:43→21:05)
[2017-07-16] MEDS: SITAGLIPTIN 100 MG TAB PO SCH (07:43)
[2017-07-16] MEDS: CARVEDILOL 3.125 MG TAB PO SCH ×2 (07:43→21:05)
[2017-07-16 07:50] LABS: INR 1.8 (0.9-1.1)
[2017-07-16] MEDS: LIRAGLUTIDE 18 MG/3 ML INJ SC SCH (07:50)
[2017-07-16 07:52] LABS: PTT PATIENT 86.7 SECONDS (21.0-31.0)
[2017-07-16] MEDS: INSULIN GLARGINE SOLOSTAR 100 UNITS/ML 3 ML PEN SC SCH ×2 (08:04→21:10)
[2017-07-16] MEDS: INSULIN ASPART 100 UNITS/ML 3 ML PEN SC SCH ×4 (08:05→21:05)
[2017-07-16 12:03] VITALS: BP 116/66; PULSE 81; TEMP 36.4; O2SAT 95
[2017-07-16 15:23] LABS: PTT PATIENT 69.3 SECONDS (21.0-31.0)
[2017-07-16] MEDS: WARFARIN SOD 7.5 MG TAB PO SCH (15:29)
[2017-07-16 15:39] VITALS: BP 107/67; PULSE 76; TEMP 36.7; O2SAT 93
--- NOTE | 2017-07-16 17:50 | Progress Note ---
Medicine Progress Note Date & Time of Visit: Jul 16, 2017 at 14:01. Subjective Pt was seen and examined Lying in bed with no distress Pt said that he feels fine He denies any chest pain, palpitation, dizziness and SOB Objective Last 8 Hrs Date Time Temp Pulse Resp B/P (MAP) Pulse Ox O2 Delivery O2 Flow Rate FiO2 07/16/17 12:03 36.4 81 18 116/66 (83) 95 Room Air 07/16/17 12:00 Room Air 07/16/17 08:00 Room Air 07/16/17 07:39 36.6 72 18 101/61 (74) 93 Room Air Physical Exam: General- No acute distress Head- atraumatic Eyes- PERRL, EOMI ENT- oropharynx clear Neck- supple, no JVD Lungs- No wheezing Heart- regular rhythm Abdomen- normal bowel sounds, soft Extremities- no calf tenderness Neuro- alert, oriented x 3; PERRL Skin- warm & dry Laboratory Results: Last 24 Hours Test 07/15/17 16:46 07/15/17 21:00 07/16/17 07:08 07/16/17 07:25 Bedside Glucose 155 mg/dl 216 mg/dl 159 mg/dl White Blood Count 8.35 K/uL Red Blood Count 3.87 M/uL Hemoglobin 11.4 g/dL Hematocrit 34.5 % Mean Corpuscular Volume 89.1 fL Mean Corpuscular Hemoglobin 29.5 pg Mean Corpuscular Hemoglobin Concent 33.0 g/dl RDW Standard Deviation 43.4 fL RDW Coefficient of Variation 13.4 % Platelet Count 223 K/uL Mean Platelet Volume 9.2 fL Prothrombin Time 18.7 SECONDS Prothromb Time International Ratio 1.8 Activated Partial Thromboplast Time 86.7 SECONDS Partial Thromboplastin Ratio 3.3 Test 07/16/17 11:34 Bedside Glucose 212 mg/dl Assessment & Plan PULMONARY EMBOLI Present on admission with chest pressure associated with SOB and was found to be mild hypoxia. CTA chest on admission showed bilateral pulmonary emboli Has been on heparin IV after previous team discussed it with Ortho Venous doppler U/S L/E showed proximal and distal thrombi LLE, popliteal and calf thrombi RLE. IVC filter was placed on 07/10/[address] Reno due to the extensive clot in LE and if developed recurrent epidural hematoma or any bleeding complication. Pulmonary on board recommended for patient to continue follow up with pulmonary to make sure that his IVC filter will remove in the future INR 1.8 today Continue heparin IV bridge/coumadin until INR therapeutic for at least 2 days in a row. ECHO showed * There is moderate concentric left ventricular hypertrophy. * The left ventricular wall motion is normal. * The left ventricle is hyperdynamic. * The LV Ejection Fraction = >70 %. * There is mild to moderate tricuspid regurgitation. * Top normal to mild pulmonary pressures are suspected. * The right ventricle is mildly dilated on limited visualization with normal qualitative right ventricualar systolic function. * The right ventricular systolic pressure is calculated to be 37 mm Hg. * The inferior vena cava was not well visualized and therefore the right atrial pressure cannot be estimated. S/P RECENT THORACIC DECOMPRESSION AND FUSION, S/P RECENT THORACIC EPIDURAL HEMATOMA Stable ELEVATED TROPONIN Mostly related to PE Trop trending down Echo showed no LV wall abnormality Aspirin held due to recent epidural hematoma CORONARY ARTERY DISEASE Echo did not show any left ventricular wall motion abnormalities. Continue carvedilol and statin Aspirin on hold stable SUSPECTED PULMONARY HYPERTENSION Might be related to sleep apnea vs acute PE Echo showed mild to moderate tricuspid regurgitation, top-normal to slightly elevated pulmonary artery pressures, mildly dilated RV. Follow up as an outpatient with Pulmonary HYPERTENSION BP stable Continue carvedilol, lisinopril, doxazosin. SLEEP APNEA Continue BiPAP. DM TYPE 2 Controlled Hgb A1C 6.7 06/22/17. Elevating BS due to steroid Continue monitor BS Transitioning to usual outpatient regimen with metformin / glyburide, sitagliptin, liraglutide. HYPOTHYROIDISM Continue levothyroxine. DYSLIPIDEMIA Continue atorvastatin. VTE PROPHYLAXIS On IV heparin/ IVC placed DISPOSITION Anticipated return to [facility] for inpatient rehab once INR's therapeutic. Medical follow-up with Dr. Jones. Ortho Spine follow-up with Dr. Yepez. Current Inpatient Medications: Current Inpatient Medications Medications (Trade) Dose Ordered Sig/Romana Route Start Time Stop Time Status Last Admin Dose Admin Acetaminophen (Tylenol Tab) 650 mg Q4H PRN PO 07/09/17 17:00 08/08/17 16:59 Atorvastatin Calcium (Lipitor Tab) 20 mg MoWeFr@0900 PO 07/10/17 09:00 08/09/17 08:59 07/15/17 08:13 20 MG Carvedilol (Coreg Tab) 3.125 mg BID PO 07/09/17 21:00 08/08/17 20:59 07/16/17 07:43 3.125 MG Docusate Sodium (coLACE CAP) 100 mg BID PO 07/09/17 21:00 08/08/17 20:59 07/16/17 07:43 100 MG Doxazosin Mesylate (Cardura Tab) 4 mg QAM PO 07/10/17 09:00 08/09/17 08:59 07/15/17 08:13 4 MG Escitalopram Oxalate (Lexapro Tab) 20 mg QAM PO 07/10/17 09:00 08/09/17 08:59 07/16/17 07:41 20 MG Famotidine (Pepcid Tab) 20 mg BID PO 07/09/17 21:00 08/08/17 20:59 07/16/17 07:41 20 MG Gabapentin (Neurontin Tab) 600 mg BID PO 07/09/17 21:00 08/08/17 20:59 07/16/17 07:42 600 MG Lactobacillus Acidophilus (Floranex Tab) 1 tab DAILY PO 07/10/17 09:00 08/09/17 08:59 07/16/17 07:42 1 TAB Levothyroxine Sodium (Synthroid Tab) 50 mcg DAILYBB PO 07/10/17 06:00 08/09/17 05:59 07/16/17 06:29 50 MCG Lisinopril (Zestril Tab) 2.5 mg QPM PO 07/09/17 21:00 08/08/17 20:59 07/15/17 21:48 2.5 MG Multivitamins (Multivitamin Tab) 0.5 tab BID PO 07/09/17 21:00 08/08/17 20:59 07/16/17 07:42 0.5 TAB Trazodone HCl (Desyrel Tab) 100 mg QPM PO 07/09/17 21:00 08/08/17 20:59 07/15/17 21:47 100 MG Heparin Sodium/ Dextrose 500 ml @ 35 mls/hr [id number] PRN IV 07/09/17 18:30 08/08/17 18:29 07/16/17 08:39 35 MLS/HR Insulin Aspart (novoLOG ASPART) SLIDING SCALE G... ACHS SC 07/10/17 07:00 08/09/17 06:59 07/16/17 12:03 16 UNITS Insulin Glargine (Lantus Solostar Pen) BSG LANTUS < ... BID SC 07/13/17 09:00 08/11/17 21:29 07/16/17 08:04 15 UNITS Warfarin Sodium (Coumadin Tab) 7.5 mg DAILY@16 PO 07/14/17 16:00 08/13/17 15:59 07/15/17 16:46 7.5 MG Sitagliptin Phosphate (Januvia Tab) 100 mg QAM PO 07/15/17 09:00 08/14/17 08:59 07/16/17 07:43 100 MG Liraglutide (Victoza) 18 mg DAILY SC 07/15/17 09:00 08/14/17 08:59 07/16/17 07:50 18 MG Non-Formulary Medication (Non-Formulary Patient'S Own Med) 1 ea BIDM PO 07/14/17 17:00 08/13/17 16:59 07/16/17 07:41 1 EA Polyethylene (Miralax Powder Packet) 17 gm DAILY PO 07/16/17 09:00 08/15/17 08:59 07/16/17 07:41 17 GM
[2017-07-16 20:02] VITALS: BP 152/74; PULSE 80; TEMP 36.5; O2SAT 91
[2017-07-16] MEDS: TRAZODONE HCL 100 MG TAB PO SCH (21:05)
[2017-07-16] MEDS: LISINOPRIL 2.5 MG TAB PO SCH (21:10)
[2017-07-17] VITALS (7 sets, daily range): BP systolic 118–137; BP diastolic 71–84; PULSE 74–89; TEMP 36.5–36.9; O2SAT 90–95
[2017-07-17] MEDS: LEVOTHYROXINE 50 MCG TAB PO SCH (06:15)
[2017-07-17 07:54] LABS: INR 1.8 (0.9-1.1)
[2017-07-17] MEDS: HEPARIN 25,000 UNIT/500ML D5W 500 ML IV PRN (07:54)
[2017-07-17] MEDS: INSULIN ASPART 100 UNITS/ML 3 ML PEN SC SCH ×4 (07:55→21:14)
[2017-07-17] MEDS: INSULIN GLARGINE SOLOSTAR 100 UNITS/ML 3 ML PEN SC SCH ×2 (07:55→21:14)
[2017-07-17 07:56] LABS: PTT PATIENT 57.8 SECONDS (21.0-31.0)
[2017-07-17] MEDS: LIRAGLUTIDE 18 MG/3 ML INJ SC SCH (07:57)
[2017-07-17] MEDS: GLUCOVANCE PO SCH ×2 (08:05→18:00)
[2017-07-17] MEDS: SITAGLIPTIN 100 MG TAB PO SCH (08:05)
[2017-07-17] MEDS: DOXAZosin MESYLATE TAB 4 MG TAB PO SCH (08:06)
[2017-07-17] MEDS: GABAPENTIN 600 MG TAB PO SCH ×2 (08:06→21:11)
[2017-07-17] MEDS: ATORVASTATIN 20 MG TAB PO SCH (08:06)
[2017-07-17] MEDS: LACTOBACILLUS ACIDOPHILUS (FLORANEX) TAB PO SCH (08:06)
[2017-07-17] MEDS: MULTIVITAMIN TAB PO SCH ×2 (08:06→21:10)
[2017-07-17] MEDS: ESCITALOPRAM OXALATE 20 MG TAB PO SCH (08:07)
[2017-07-17] MEDS: POLYETHYLENE (MIRALAX) 17 GM PACK PO SCH (08:07)
[2017-07-17] MEDS: DOCUSATE SODIUM 100 MG CAP PO SCH ×2 (08:07→21:10)
[2017-07-17] MEDS: CARVEDILOL 3.125 MG TAB PO SCH ×2 (08:07→21:12)
[2017-07-17] MEDS: FAMOTIDINE 20 MG TAB PO SCH ×2 (08:08→21:10)
[2017-07-17] MEDS: WARFARIN SOD 4 MG TAB PO SCH (15:38)
[2017-07-17] MEDS ORDERED: NURSING VERBAL MED ORDER ONE (17:15)
[2017-07-17] MEDS ORDERED: MAGNESIUM HYDROXIDE SUSP 30 ML UDC PO ONE (17:15)
--- NOTE | 2017-07-17 18:16 | Progress Note ---
Medicine Progress Note Date & Time of Visit: Jul 17, 2017 at 18:14. Subjective Pt was seen and examined Sitting in the commode with no distress Pt said that he feels fine Objective Last 8 Hrs Date Time Temp Pulse Resp B/P (MAP) Pulse Ox O2 Delivery O2 Flow Rate FiO2 07/17/17 16:16 36.7 89 18 118/71 (87) 94 Room Air 07/17/17 12:00 Room Air Physical Exam: General- No acute distress Head- atraumatic Eyes- PERRL, EOMI ENT- oropharynx clear Neck- supple, no JVD Lungs- No wheezing Heart- regular rhythm Abdomen- normal bowel sounds, soft Extremities- no calf tenderness Neuro- alert, oriented x 3; PERRL Skin- warm & dry Laboratory Results: Last 24 Hours Test 07/16/17 20:17 07/17/17 07:22 07/17/17 07:29 07/17/17 11:19 Bedside Glucose 142 mg/dl 107 mg/dl 195 mg/dl Prothrombin Time 18.9 SECONDS Prothromb Time International Ratio 1.8 Activated Partial Thromboplast Time 57.8 SECONDS Partial Thromboplastin Ratio 2.2 Test 07/17/17 16:32 Bedside Glucose 149 mg/dl Assessment & Plan PULMONARY EMBOLI Present on admission with chest pressure associated with SOB and was found to be mild hypoxia. CTA chest on admission showed bilateral pulmonary emboli Has been on heparin IV after previous team discussed it with Ortho Venous doppler U/S L/E showed proximal and distal thrombi LLE, popliteal and calf thrombi RLE. IVC filter was placed on 07/10/[address] Reno due to the extensive clot in LE and if developed recurrent epidural hematoma or any bleeding complication. Pulmonary on board recommended for patient to continue follow up with pulmonary to make sure that his IVC filter will remove in the future INR 1.8 today Coumadin increase to 8 mg Continue monitor INR Continue heparin IV bridge/coumadin until INR therapeutic for at least 2 days in a row. ECHO showed * There is moderate concentric left ventricular hypertrophy. * The left ventricular wall motion is normal. * The left ventricle is hyperdynamic. * The LV Ejection Fraction = >70 %. * There is mild to moderate tricuspid regurgitation. * Top normal to mild pulmonary pressures are suspected. * The right ventricle is mildly dilated on limited visualization with normal qualitative right ventricualar systolic function. * The right ventricular systolic pressure is calculated to be 37 mm Hg. * The inferior vena cava was not well visualized and therefore the right atrial pressure cannot be estimated. S/P RECENT THORACIC DECOMPRESSION AND FUSION, S/P RECENT THORACIC EPIDURAL HEMATOMA Stable ELEVATED TROPONIN Mostly related to PE Trop trending down Echo showed no LV wall abnormality Aspirin held due to recent epidural hematoma CORONARY ARTERY DISEASE Echo did not show any left ventricular wall motion abnormalities. Continue carvedilol and statin Aspirin on hold stable SUSPECTED PULMONARY HYPERTENSION Might be related to sleep apnea vs acute PE Echo showed mild to moderate tricuspid regurgitation, top-normal to slightly elevated pulmonary artery pressures, mildly dilated RV. Follow up as an outpatient with Pulmonary HYPERTENSION BP stable Continue carvedilol, lisinopril, doxazosin. SLEEP APNEA Continue BiPAP. DM TYPE 2 Controlled Hgb A1C 6.7 06/22/17. Elevating BS due to steroid Continue monitor BS Transitioning to usual outpatient regimen with metformin / glyburide, sitagliptin, liraglutide. HYPOTHYROIDISM Continue levothyroxine. DYSLIPIDEMIA Continue atorvastatin. VTE PROPHYLAXIS On IV heparin/ IVC placed On coumadin with INR 1.8 DISPOSITION Anticipated return to [facility] for inpatient rehab once INR's therapeutic. Medical follow-up with Dr. Jones. Ortho Spine follow-up with Dr. Yepez. Current Inpatient Medications: Current Inpatient Medications Medications (Trade) Dose Ordered Sig/Romana Route Start Time Stop Time Status Last Admin Dose Admin Acetaminophen (Tylenol Tab) 650 mg Q4H PRN PO 07/09/17 17:00 08/08/17 16:59 Atorvastatin Calcium (Lipitor Tab) 20 mg MoWeFr@0900 PO 07/10/17 09:00 08/09/17 08:59 07/17/17 08:06 20 MG Carvedilol (Coreg Tab) 3.125 mg BID PO 07/09/17 21:00 08/08/17 20:59 07/17/17 08:07 3.125 MG Docusate Sodium (coLACE CAP) 100 mg BID PO 07/09/17 21:00 08/08/17 20:59 07/17/17 08:07 100 MG Doxazosin Mesylate (Cardura Tab) 4 mg QAM PO 07/10/17 09:00 08/09/17 08:59 07/17/17 08:06 4 MG Escitalopram Oxalate (Lexapro Tab) 20 mg QAM PO 07/10/17 09:00 08/09/17 08:59 07/17/17 08:07 20 MG Famotidine (Pepcid Tab) 20 mg BID PO 07/09/17 21:00 08/08/17 20:59 07/17/17 08:08 20 MG Gabapentin (Neurontin Tab) 600 mg BID PO 07/09/17 21:00 08/08/17 20:59 07/17/17 08:06 600 MG Lactobacillus Acidophilus (Floranex Tab) 1 tab DAILY PO 07/10/17 09:00 08/09/17 08:59 07/17/17 08:06 1 TAB Levothyroxine Sodium (Synthroid Tab) 50 mcg DAILYBB PO 07/10/17 06:00 08/09/17 05:59 07/17/17 06:15 50 MCG Lisinopril (Zestril Tab) 2.5 mg QPM PO 07/09/17 21:00 08/08/17 20:59 07/16/17 21:10 2.5 MG Multivitamins (Multivitamin Tab) 0.5 tab BID PO 07/09/17 21:00 08/08/17 20:59 07/17/17 08:06 0.5 TAB Trazodone HCl (Desyrel Tab) 100 mg QPM PO 07/09/17 21:00 08/08/17 20:59 07/16/17 21:05 100 MG Heparin Sodium/ Dextrose 500 ml @ 35 mls/hr [id number] PRN IV 07/09/17 18:30 08/08/17 18:29 07/17/17 07:54 35 MLS/HR Insulin Aspart (novoLOG ASPART) SLIDING SCALE G... ACHS SC 07/10/17 07:00 08/09/17 06:59 07/17/17 18:00 9 UNITS Insulin Glargine (Lantus Solostar Pen) BSG LANTUS < ... BID SC 07/13/17 09:00 08/11/17 21:29 07/17/17 07:55 15 UNITS Sitagliptin Phosphate (Januvia Tab) 100 mg QAM PO 07/15/17 09:00 08/14/17 08:59 07/17/17 08:05 100 MG Liraglutide (Victoza) 18 mg DAILY SC 07/15/17 09:00 08/14/17 08:59 07/17/17 07:57 18 MG Non-Formulary Medication (Non-Formulary Patient'S Own Med) 1 ea BIDM PO 07/14/17 17:00 08/13/17 16:59 07/17/17 18:00 1 EA Polyethylene (Miralax Powder Packet) 17 gm DAILY PO 07/16/17 09:00 08/15/17 08:59 07/17/17 08:07 17 GM Warfarin Sodium (Coumadin Tab) 8 mg DAILY@16 PO 07/17/17 16:00 08/13/17 15:59 07/17/17 15:38 8 MG
[2017-07-17] MEDS: LISINOPRIL 2.5 MG TAB PO SCH (21:08)
[2017-07-17] MEDS: TRAZODONE HCL 100 MG TAB PO SCH (21:10)
[2017-07-18] VITALS (8 sets, daily range): BP systolic 102–136; BP diastolic 54–76; PULSE 57–95; TEMP 36.6–37; O2SAT 90–94
[2017-07-18] MEDS: HEPARIN 25,000 UNIT/500ML D5W 500 ML IV PRN ×3 (00:26→16:39)
[2017-07-18 06:14] LABS: INR 2.1 (0.9-1.1)
[2017-07-18] MEDS: LEVOTHYROXINE 50 MCG TAB PO SCH (06:21)
[2017-07-18 07:05] LABS: PTT PATIENT 80.5 SECONDS (21.0-31.0)
[2017-07-18] MEDS: DOCUSATE SODIUM 100 MG CAP PO SCH ×2 (08:00→20:47)
[2017-07-18] MEDS: ESCITALOPRAM OXALATE 20 MG TAB PO SCH (08:01)
[2017-07-18] MEDS: LACTOBACILLUS ACIDOPHILUS (FLORANEX) TAB PO SCH (08:01)
[2017-07-18] MEDS: MULTIVITAMIN TAB PO SCH ×2 (08:02→20:47)
[2017-07-18] MEDS: DOXAZosin MESYLATE TAB 4 MG TAB PO SCH (08:04)
[2017-07-18] MEDS: GLUCOVANCE PO SCH ×2 (08:05→16:34)
[2017-07-18] MEDS: FAMOTIDINE 20 MG TAB PO SCH ×2 (08:05→20:48)
[2017-07-18] MEDS: CARVEDILOL 3.125 MG TAB PO SCH ×2 (08:06→20:48)
[2017-07-18] MEDS: POLYETHYLENE (MIRALAX) 17 GM PACK PO SCH (08:07)
[2017-07-18] MEDS: SITAGLIPTIN 100 MG TAB PO SCH (08:07)
[2017-07-18] MEDS: GABAPENTIN 600 MG TAB PO SCH ×2 (08:07→20:47)
[2017-07-18] MEDS: LIRAGLUTIDE 18 MG/3 ML INJ SC SCH (08:17)
[2017-07-18] MEDS: INSULIN ASPART 100 UNITS/ML 3 ML PEN SC SCH ×4 (08:20→20:53)
[2017-07-18] MEDS: INSULIN GLARGINE SOLOSTAR 100 UNITS/ML 3 ML PEN SC SCH ×2 (08:21→20:52)
[2017-07-18 13:49] LABS: PTT PATIENT 64.6 SECONDS (21.0-31.0)
--- NOTE | 2017-07-18 15:48 | Progress Note ---
Medicine Progress Note Date & Time of Visit: Jul 18, 2017 at 15:44. Subjective Pt was seen and examined Lying in bed with no distress Pt said that his last BM was about 2 days ago He denies any chest pain, palpitation, dizziness and sob Objective Last 8 Hrs Date Time Temp Pulse Resp B/P (MAP) Pulse Ox O2 Delivery O2 Flow Rate FiO2 07/18/17 15:36 36.8 81 14 113/74 (87) 92 Room Air 07/18/17 15:35 Room Air 07/18/17 12:00 Room Air 07/18/17 11:56 37.0 80 14 105/64 (78) 92 Room Air 07/18/17 08:18 94 Room Air 07/18/17 08:14 36.8 57 16 102/54 (70) 94 Room Air 07/18/17 08:00 Room Air Physical Exam: General- No acute distress Head- atraumatic Eyes- PERRL, EOMI ENT- oropharynx clear Neck- supple, no JVD Lungs- No wheezing Heart- regular rhythm Abdomen- normal bowel sounds, soft Extremities- no calf tenderness Neuro- alert, oriented x 3; PERRL Skin- warm & dry Laboratory Results: Last 24 Hours Test 07/17/17 16:32 07/17/17 20:58 07/18/17 05:21 07/18/17 07:25 Bedside Glucose 149 mg/dl 173 mg/dl 134 mg/dl Prothrombin Time 21.8 SECONDS Prothromb Time International Ratio 2.1 Activated Partial Thromboplast Time 80.5 SECONDS Partial Thromboplastin Ratio 3.1 Test 07/18/17 11:34 07/18/17 13:15 Bedside Glucose 210 mg/dl Activated Partial Thromboplast Time 64.6 SECONDS Partial Thromboplastin Ratio 2.5 Assessment & Plan PULMONARY EMBOLI Present on admission with chest pressure associated with SOB and was found to be mild hypoxia. CTA chest on admission showed bilateral pulmonary emboli Has been on heparin IV after previous team discussed it with Ortho Venous doppler U/S L/E showed proximal and distal thrombi LLE, popliteal and calf thrombi RLE. IVC filter was placed on 07/10/[address] Reno due to the extensive clot in LE and if developed recurrent epidural hematoma or any bleeding complication. Pulmonary on board recommended for patient to continue follow up with pulmonary to make sure that his IVC filter will remove in the future INR 2.1 today Continue Coumadin 8 mg Continue monitor INR Continue heparin IV bridge/coumadin until INR therapeutic for at least 2 days in a row Plan to d/c heparin drip tomorrow if INR above 2. ECHO showed * There is moderate concentric left ventricular hypertrophy. * The left ventricular wall motion is normal. * The left ventricle is hyperdynamic. * The LV Ejection Fraction = >70 %. * There is mild to moderate tricuspid regurgitation. * Top normal to mild pulmonary pressures are suspected. * The right ventricle is mildly dilated on limited visualization with normal qualitative right ventricualar systolic function. * The right ventricular systolic pressure is calculated to be 37 mm Hg. * The inferior vena cava was not well visualized and therefore the right atrial pressure cannot be estimated. S/P RECENT THORACIC DECOMPRESSION AND FUSION, S/P RECENT THORACIC EPIDURAL HEMATOMA Stable CONSTIPATION On laxatives If no BM, will give an enema No abdominal pain ELEVATED TROPONIN Mostly related to PE Trop trending down Echo showed no LV wall abnormality Aspirin held due to recent epidural hematoma CORONARY ARTERY DISEASE Echo did not show any left ventricular wall motion abnormalities. Continue carvedilol and statin Aspirin on hold stable SUSPECTED PULMONARY HYPERTENSION Might be related to sleep apnea vs acute PE Echo showed mild to moderate tricuspid regurgitation, top-normal to slightly elevated pulmonary artery pressures, mildly dilated RV. Follow up as an outpatient with Pulmonary HYPERTENSION BP stable Continue carvedilol, lisinopril, doxazosin. SLEEP APNEA Continue BiPAP. DM TYPE 2 Controlled Hgb A1C 6.7 06/22/17. Elevating BS due to steroid Continue monitor BS Transitioning to usual outpatient regimen with metformin / glyburide, sitagliptin, liraglutide. HYPOTHYROIDISM Continue levothyroxine. DYSLIPIDEMIA Continue atorvastatin. VTE PROPHYLAXIS On IV heparin/ IVC placed On coumadin with INR 2.1 DISPOSITION Anticipated return to [facility] for inpatient rehab once INR's therapeutic. Medical follow-up with Dr. Jones. Ortho Spine follow-up with Dr. Yepez. Current Inpatient Medications: Current Inpatient Medications Medications (Trade) Dose Ordered Sig/Romana Route Start Time Stop Time Status Last Admin Dose Admin Acetaminophen (Tylenol Tab) 650 mg Q4H PRN PO 07/09/17 17:00 08/08/17 16:59 Atorvastatin Calcium (Lipitor Tab) 20 mg MoWeFr@0900 PO 2/7/18 09:00 08/09/17 08:59 07/17/17 08:06 20 MG Carvedilol (Coreg Tab) 3.125 mg BID PO 07/09/17 21:00 08/08/17 20:59 07/18/17 08:06 3.125 MG Docusate Sodium (coLACE CAP) 100 mg BID PO 07/09/17 21:00 08/08/17 20:59 07/18/17 08:00 100 MG Doxazosin Mesylate (Cardura Tab) 4 mg QAM PO 07/10/17 09:00 08/09/17 08:59 07/17/17 08:06 4 MG Escitalopram Oxalate (Lexapro Tab) 20 mg QAM PO 07/10/17 09:00 08/09/17 08:59 07/18/17 08:01 20 MG Famotidine (Pepcid Tab) 20 mg BID PO 07/09/17 21:00 08/08/17 20:59 07/18/17 08:05 20 MG Gabapentin (Neurontin Tab) 600 mg BID PO 07/09/17 21:00 08/08/17 20:59 07/18/17 08:07 600 MG Lactobacillus Acidophilus (Floranex Tab) 1 tab DAILY PO 07/10/17 09:00 08/09/17 08:59 07/18/17 08:01 1 TAB Levothyroxine Sodium (Synthroid Tab) 50 mcg DAILYBB PO 07/10/17 06:00 08/09/17 05:59 07/18/17 06:21 50 MCG Lisinopril (Zestril Tab) 2.5 mg QPM PO 07/09/17 21:00 08/08/17 20:59 07/17/17 21:08 2.5 MG Multivitamins (Multivitamin Tab) 0.5 tab BID PO 07/09/17 21:00 08/08/17 20:59 07/18/17 08:02 0.5 TAB Trazodone HCl (Desyrel Tab) 100 mg QPM PO 07/09/17 21:00 08/08/17 20:59 07/17/17 21:10 100 MG Heparin Sodium/ Dextrose 500 ml @ 31 mls/hr [id number] PRN IV 07/09/17 18:30 3/8/18 18:29 07/18/17 07:12 31 MLS/HR Insulin Aspart (novoLOG ASPART) SLIDING SCALE G... ACHS SC 07/10/17 07:00 08/09/17 06:59 07/18/17 08:20 11 UNITS Insulin Glargine (Lantus Solostar Pen) BSG LANTUS < ... BID SC 07/13/17 09:00 08/11/17 21:29 07/18/17 08:21 15 UNITS Sitagliptin Phosphate (Januvia Tab) 100 mg QAM PO 07/15/17 09:00 08/14/17 08:59 07/18/17 08:07 100 MG Liraglutide (Victoza) 18 mg DAILY SC 07/15/17 09:00 08/14/17 08:59 07/18/17 08:17 18 MG Non-Formulary Medication (Non-Formulary Patient'S Own Med) 1 ea BIDM PO 07/14/17 17:00 08/13/17 16:59 07/18/17 08:05 1 EA Polyethylene (Miralax Powder Packet) 17 gm DAILY PO 07/16/17 09:00 08/15/17 08:59 07/18/17 08:07 17 GM Warfarin Sodium (Coumadin Tab) 8 mg DAILY@16 PO 07/17/17 16:00 08/13/17 15:59 07/17/17 15:38 8 MG
[2017-07-18] MEDS: WARFARIN SOD 4 MG TAB PO SCH (16:33)
[2017-07-18] MEDS ORDERED: BISACODYL 5 MG TABEC PO ONE (16:45)
[2017-07-18] MEDS: TRAZODONE HCL 100 MG TAB PO SCH (20:48)
[2017-07-18] MEDS: LISINOPRIL 2.5 MG TAB PO SCH (20:49)
[2017-07-19 04:43] VITALS: BP 116/70; PULSE 72; TEMP 36.6; O2SAT 93
[2017-07-19] MEDS: LEVOTHYROXINE 50 MCG TAB PO SCH (06:06)
[2017-07-19 07:25] VITALS: BP 115/74; PULSE 78; TEMP 36.4; O2SAT 90
[2017-07-19 07:27] LABS: INR 2.6 (0.9-1.1)
[2017-07-19 08:20] VITALS: BP 108/72; PULSE 85
[2017-07-19] MEDS: DOXAZosin MESYLATE TAB 4 MG TAB PO SCH (08:21)
[2017-07-19] MEDS: POLYETHYLENE (MIRALAX) 17 GM PACK PO SCH (08:21)
[2017-07-19] MEDS: CARVEDILOL 3.125 MG TAB PO SCH (08:22)
[2017-07-19] MEDS: ESCITALOPRAM OXALATE 20 MG TAB PO SCH (08:23)
[2017-07-19] MEDS: FAMOTIDINE 20 MG TAB PO SCH (08:23)
[2017-07-19] MEDS: DOCUSATE SODIUM 100 MG CAP PO SCH (08:23)
[2017-07-19] MEDS: GABAPENTIN 600 MG TAB PO SCH (08:23)
[2017-07-19] MEDS: LACTOBACILLUS ACIDOPHILUS (FLORANEX) TAB PO SCH (08:24)
[2017-07-19] MEDS: MULTIVITAMIN TAB PO SCH (08:24)
[2017-07-19] MEDS: ATORVASTATIN 20 MG TAB PO SCH (08:24)
[2017-07-19] MEDS: SITAGLIPTIN 100 MG TAB PO SCH (08:25)
[2017-07-19] MEDS: GLUCOVANCE PO SCH ×2 (08:26→16:33)
[2017-07-19] MEDS ORDERED: NURSING VERBAL MED ORDER ONE (08:30)
[2017-07-19] MEDS: INSULIN GLARGINE SOLOSTAR 100 UNITS/ML 3 ML PEN SC SCH (08:33)
[2017-07-19] MEDS: INSULIN ASPART 100 UNITS/ML 3 ML PEN SC SCH ×2 (08:33→13:31)
[2017-07-19] MEDS: LIRAGLUTIDE 18 MG/3 ML INJ SC SCH (08:34)
[2017-07-19 11:52] VITALS: BP 122/73; PULSE 86; TEMP 36.4; O2SAT 91
--- NOTE | 2017-07-19 15:02 | Progress Note ---
Medicine Progress Note Date & Time of Visit: Jul 19, 2017 at 14:50. Subjective Pt was seen and examined Lying in bed with no distress Pt said that he feels fine He said that he had 2 BM yesterday Denies any chest pain, palpitation, dizziness and SOB Objective Last 8 Hrs Date Time Temp Pulse Resp B/P (MAP) Pulse Ox O2 Delivery O2 Flow Rate FiO2 07/19/17 12:00 Room Air 07/19/17 11:52 36.4 86 20 122/73 (89) 91 07/19/17 08:20 85 108/72 (84) 07/19/17 08:00 Room Air 07/19/17 07:25 36.4 78 20 115/74 (88) 90 Room Air Physical Exam: General- No acute distress Head- atraumatic Eyes- PERRL, EOMI ENT- oropharynx clear Neck- supple, no JVD Lungs- No wheezing Heart- regular rhythm Abdomen- normal bowel sounds, soft Extremities- no calf tenderness Neuro- alert, oriented x 3; PERRL Skin- warm & dry Laboratory Results: Last 24 Hours Test 07/18/17 15:57 07/18/17 19:59 07/19/17 06:49 07/19/17 07:39 Bedside Glucose 199 mg/dl 182 mg/dl 165 mg/dl Prothrombin Time 26.4 SECONDS Prothromb Time International Ratio 2.6 Activated Partial Thromboplast Time 73.0 SECONDS Partial Thromboplastin Ratio 2.8 Test 07/19/17 12:09 Bedside Glucose 172 mg/dl Assessment & Plan PULMONARY EMBOLI Present on admission with chest pressure associated with SOB and was found to be mild hypoxia. CTA chest on admission showed bilateral pulmonary emboli Has been on heparin IV after previous team discussed it with Ortho Venous doppler U/S L/E showed proximal and distal thrombi LLE, popliteal and calf thrombi RLE. IVC filter was placed on 07/10/[address] Reno due to the extensive clot in LE and if developed recurrent epidural hematoma or any bleeding complication. Pulmonary on board recommended for patient to continue follow up with pulmonary to make sure that his IVC filter will remove in the future Follow up with Vascular surgery Dr. Reno INR 2.6 today Continue monitor INR D/C heparin IV bridge/coumadin today since INR therapeutic for at least 2 days in a row Will discharge on coumadin 7.5 mg Continue monitor PT/INR ECHO showed * There is moderate concentric left ventricular hypertrophy. * The left ventricular wall motion is normal. * The left ventricle is hyperdynamic. * The LV Ejection Fraction = >70 %. * There is mild to moderate tricuspid regurgitation. * Top normal to mild pulmonary pressures are suspected. * The right ventricle is mildly dilated on limited visualization with normal qualitative right ventricualar systolic function. * The right ventricular systolic pressure is calculated to be 37 mm Hg. * The inferior vena cava was not well visualized and therefore the right atrial pressure cannot be estimated. S/P RECENT THORACIC DECOMPRESSION AND FUSION, S/P RECENT THORACIC EPIDURAL HEMATOMA Stable CONSTIPATION Had 2 BM yesterday No abdominal pain Stable ELEVATED TROPONIN Mostly related to PE Trop trending down Echo showed no LV wall abnormality Aspirin held due to recent epidural hematoma CORONARY ARTERY DISEASE Echo did not show any left ventricular wall motion abnormalities. Continue carvedilol and statin Aspirin on hold stable SUSPECTED PULMONARY HYPERTENSION Might be related to sleep apnea vs acute PE Echo showed mild to moderate tricuspid regurgitation, top-normal to slightly elevated pulmonary artery pressures, mildly dilated RV. Follow up as an outpatient with Pulmonary HYPERTENSION BP stable Continue carvedilol, lisinopril, doxazosin. SLEEP APNEA Continue BiPAP. DM TYPE 2 Controlled Hgb A1C 6.7 06/22/17. Elevating BS due to steroid Continue monitor BS Transitioning to usual outpatient regimen with metformin / glyburide, sitagliptin, liraglutide. HYPOTHYROIDISM Continue levothyroxine. DYSLIPIDEMIA Continue atorvastatin. VTE PROPHYLAXIS D/C IV heparin drip On coumadin with INR 2.6 DISPOSITION Discharge to [facility] for inpatient rehab today Medical follow-up with Dr. Jones. Ortho Spine follow-up with Dr. Yepez. Consultants: Vascular Pulmonary Current Inpatient Medications: Current Inpatient Medications Medications (Trade) Dose Ordered Sig/Romana Route Start Time Stop Time Status Last Admin Dose Admin Acetaminophen (Tylenol Tab) 650 mg Q4H PRN PO 07/09/17 17:00 08/08/17 16:59 Atorvastatin Calcium (Lipitor Tab) 20 mg MoWeFr@0900 PO 07/10/17 09:00 08/09/17 08:59 07/19/17 08:24 20 MG Carvedilol (Coreg Tab) 3.125 mg BID PO 07/09/17 21:00 08/08/17 20:59 07/19/17 08:22 3.125 MG Docusate Sodium (coLACE CAP) 100 mg BID PO 07/09/17 21:00 08/08/17 20:59 07/19/17 08:23 100 MG Doxazosin Mesylate (Cardura Tab) 4 mg QAM PO 07/10/17 09:00 08/09/17 08:59 07/17/17 08:06 4 MG Escitalopram Oxalate (Lexapro Tab) 20 mg QAM PO 07/10/17 09:00 08/09/17 08:59 07/19/17 08:23 20 MG Famotidine (Pepcid Tab) 20 mg BID PO 07/09/17 21:00 08/08/17 20:59 07/19/17 08:23 20 MG Gabapentin (Neurontin Tab) 600 mg BID PO 07/09/17 21:00 08/08/17 20:59 07/19/17 08:23 600 MG Lactobacillus Acidophilus (Floranex Tab) 1 tab DAILY PO 07/10/17 09:00 08/09/17 08:59 07/19/17 08:24 1 TAB Levothyroxine Sodium (Synthroid Tab) 50 mcg DAILYBB PO 07/10/17 06:00 08/09/17 05:59 07/19/17 06:06 50 MCG Lisinopril (Zestril Tab) 2.5 mg QPM PO 07/09/17 21:00 08/08/17 20:59 07/18/17 20:49 2.5 MG Multivitamins (Multivitamin Tab) 0.5 tab BID PO 07/09/17 21:00 08/08/17 20:59 07/19/17 08:24 0.5 TAB Trazodone HCl (Desyrel Tab) 100 mg QPM PO 07/09/17 21:00 08/08/17 20:59 07/18/17 20:48 100 MG Insulin Aspart (novoLOG ASPART) SLIDING SCALE G... ACHS SC 07/10/17 07:00 08/09/17 06:59 07/19/17 13:31 13 UNITS Insulin Glargine (Lantus Solostar Pen) BSG LANTUS < ... BID SC 07/13/17 09:00 08/11/17 21:29 07/19/17 08:33 20 UNITS Sitagliptin Phosphate (Januvia Tab) 100 mg QAM PO 07/15/17 09:00 08/14/17 08:59 07/19/17 08:25 100 MG Non-Formulary Medication (Non-Formulary Patient'S Own Med) 1 ea BIDM PO 07/14/17 17:00 08/13/17 16:59 07/19/17 08:26 1 EA Polyethylene (Miralax Powder Packet) 17 gm DAILY PO 07/16/17 09:00 08/15/17 08:59 07/19/17 08:21 17 GM Warfarin Sodium (Coumadin Tab) 8 mg DAILY@16 PO 07/17/17 16:00 08/13/17 15:59 07/18/17 16:33 8 MG Liraglutide (Victoza) 1.8 mg DAILY SC 07/20/17 09:00 08/19/17 08:59
[2017-07-19] MEDS ORDERED: CMD5 PO (15:09)
[2017-07-19] MEDS ORDERED: ACET-1047 PO (15:13)
--- NOTE | 2017-07-19 15:23 | Discharge Instructions ---
Discharge Instructions Date of Service Jul 19, 2017. Admission Reason for Admission: Bilateral Pulmonary Embolism Discharge Discharge Diagnosis / Problem: Bilateral Pulmonary Embolism Discharge Goals Goal(s): Decrease discomfort, Improve function, Improve disease control Activity Recommendations Activity Limitations: resume your previous activity (as tolerated) . Instructions / Follow-Up Instructions / Follow-Up Discharge to [facility] For rehab Follow up with your primary care provider once discharge from rehab Follow up with Vascular surgery Dr. Reno Follow up with [facility] once discharge from rehab Follow up with orthopedic Dr. Yepez Fall precaution Continue PT/OT Continue Coumadin Check PT/INR in 1-2 days Continue monitor blood sugar Medication Instructions: Coumadin * Warfarin is a medicine prescribed to prevent blood clots * Warfarin will thin your blood and help prevent new clots * Take your medications exactly as directed * Never skip a dose. Never take a double dose. If you miss a dose, take it as soon as you remember * It is important for your doctor to monitor your prothrombin time (PT). This is a lab test * Keep your appointment for lab tests Risk of Adverse Drug Reactions and Interactions: * Warfarin increases your risk of bleeding * The food you eat and other medications you take can affect how Warfarin works in your body * Ask your doctor about daily aspirin therapy * It is very important to talk with your doctor about all of the other medicines , antibiotics, vitamins or herbal products that you are taking * All of your medication must be approved by your doctor, including new medicines, as well as medicines you have taken before you started taking Warfarin * Avoid any NSAID such as motrin, aleve, advil, ibuprofen, naproxen,.... Diet: * In order for Warfarin to work properly, it is important to keep your intake of Vitamin K as consistent as possible * You should avoid any sudden change in Vitamin K intake * Report any significant changes in your diet or weight to your doctor Call your Primary Care doctor if you experience any of the following: * Swelling or Pain in your leg * Sudden, continuous pain deep in a muscle * Pain that worsens when you are active or when you stand still for a long time * Chest Pain * Sudden Shortness of Breath * Rapid or pounding heart beat * Fainting * Dizziness * Cough with blood or bloody sputum * Sweating more than normal * Bruises * Heavy or uncontrolled bleeding * Blood in your urine, stool or vomit * Black or tarry stools Caring for Your Self at Home: * Avoid sitting, standing or lying down for long periods without moving your legs and feet * When traveling by car, stop to get out and move around at least once every 3 hours * On long airplane, train or bus rides, get up and move around when possible * If you can't get up, wiggle your toes and tighten your calves to keep your blood moving Follow Up: It is important for you to keep your follow up appointments with your medical provider. Current Hospital Diet Patient's current hospital diet: AHA Diet (Heart Healthy), Diabetes Type 2 Diet Discharge Diet Recommended Diet: AHA Diet (Heart Healthy), Diabetes Type 2 Diet Procedures Procedures Performed: Insertion Of Inferior Vena Cava Filter, Right Jugular Approach, Ultrasound Localization Of Right Internal Jugular Vein, Fluoroscopy For Positioning, Moderate Concious Sedation 1358 to 1415 Pending Studies Studies pending at discharge: no Laboratory Results Hemoglobin A1c Test 06/22/17 05:54 Range/Units Estimated Average Glucose 146 mg/dl Hemoglobin A1c 6.7 H 4.5-5.6 % Medical Emergencies . Who to Call and When: Medical Emergencies: If at any time you feel your situation is an emergency, please call 911 immediately. . Non-Emergent Contact Non-Emergency issues call your: Primary Care Provider Call Non-Emergent contact if: your pain is not controlled, you have any medication questions . . "Provider Documentation" section prepared by Mumtaz Thomas. . VTE Core Measure Inpt VTE Proph given/why not?: Warfarin (Coumadin), Other Anticoagulation (IV heparin drip)
--- NOTE | 2017-07-19 15:30 | Discharge Summary ---
Discharge Summary Date of Service Jul 19, 2017. Discharge Summary Admission Date: Jul 09, 2017 at 16:54 Discharge Date: Jul 19, 2017 Discharge Disposition: Rehab Principal Diagnosis: B/L PE Secondary Diagnoses/Problems: Constipation S/P RECENT THORACIC DECOMPRESSION AND FUSION, S/P RECENT THORACIC EPIDURAL HEMATOMA ELEVATED TROPONIN CAD SUSPECTED PULMONARY HYPERTENSION DM Type 2 Sleep Apnea HTN Dyslipidemia Hypothyroidism Procedures: Insertion Of Inferior Vena Cava Filter, Right Jugular Approach, Ultrasound Localization Of Right Internal Jugular Vein, Fluoroscopy For Positioning, (CHEST FOR PE) ANGIO WITH CT DOSE: 571.99 mGy.cm HISTORY: Chest pain dyspnea TECHNIQUE: Multiaxial CT images of the chest were performed following the intravenous administration of contrast to evaluate the pulmonary arteries. Maximal intensity projection images were also obtained. A dose lowering technique was utilized adhering to the principles of ALARA. COMPARISON STUDY: None. FINDINGS: The thoracic aorta is normal in course and caliber. There are findings of extensive bilateral acute pulmonary emboli. These involve the main central right as well as left pulmonary arterial vessels. There is involvement also of the pulmonary arterial structures of the right and to a lesser extent left lower lobe region. There are findings of a prior median sternotomy. There are no focal infiltrative changes IMPRESSION: 1. Acute extensive bilateral pulmonary emboli. 2. Negative thoracic aorta. 3. Incidental note is made of several small gallstones. The above report was generated using voice recognition software. It may contain grammatical, syntax or spelling errors. Electronically signed by: Vish Bowers M.D. 07/09/2017 2:22 PM Dictated Date/Time: 07/09/2017 2:04 PM [~ rep ct add3]] BILATERAL LOWER EXTREMITY VENOUS DOPPLER HISTORY: Acute pulmonary emboli pulmonary emboli COMPARISON STUDY: CTA of the chest of same day. FINDINGS: RIGHT: Occlusive thrombus involves the popliteal, and posterior tibial veins. The remaining deep veins of the right lower extremity are patent and within normal limits. LEFT: Occlusive deep venous thrombosis involves the common femoral, superficial femoral, popliteal and posterior tibial veins. The remaining deep veins of the left lower extremity are patent and within normal limits. IMPRESSION: Extensive deep venous thrombosis of the bilateral lower extremities as above. Electronically signed by: Daniel Herrera M.D. 07/09/2017 10:55 PM Dictated Date/Time: 07/09/2017 10:52 PM Consultations: Vascular Pulmonary Medication Reconciliation New Medications: Acetaminophen (Mapap) 325 Mg Tab 650 MG PO Q6H PRN for Pain or Fever for 7 Days, TAB Warfarin Sod (Coumadin) 5 Mg Tab 7.5 MG PO DAILY for 30 Days Continued Medications: Acetaminophen Tab (Tylenol) 325 Mg Tab 650 MG PO PRN, TAB Atorvastatin (Lipitor) 20 Mg Tab 20 MG PO Sat FRIPM, 0 Refills Bisacodyl (Bisacodyl) 10 Mg Sup 1 MG RE DAILY Carvedilol (Coreg) 3.125 Mg Tab 3.125 MG PO BID, TAB Docusate Sodium (Docusate Sodium) 100 Mg Cap 100 MG PO BID Doxazosin Mesylate (Cardura) 4 Mg Tab 4 MG PO QAM, TAB Escitalopram Oxalate (Lexapro) 20 Mg Tab 20 MG PO QAM, 0 Refills Famotidine (Pepcid) 20 Mg Tab 20 MG PO BID, 0 Refills Gabapentin (Neurontin) 300 Mg Cap 600 MG PO BID, CAP Glyburide-Metformin (Glucovance 5/500 Mg) 1 Tab Tab 1 TAB PO BID, TAB Insulin Aspart (Novolog) 100 Units/Ml Inj UNITS SC ACHS Lactobacillus Acidophilus (Lactinex) Tab 1 TAB PO DAILY Levothyroxine Sodium (Synthroid) 50 Mcg Tab 50 MCG PO QAM, TAB Liraglutide (Victoza) 18 Mg/3 Ml Inj 18 MG SQ DAILY Lisinopril (Zestril) 2.5 Mg Tab 2.5 MG PO QPM Multivitamin (Multivitamin) Tab 0.5 TAB PO BID, TAB Polyethylene Glycol 3350 (Miralax) 1 Pow Pow 17 GM PO Q2D PRN for Constipation, #527 GM Sennosides-Docusate Sodium (Docusate Sodium/Senna) 1 Tab Tab 1 TAB PO DAILY PRN for Constipation Sitagliptin Phosphate (Januvia) 100 Mg Tab 100 MG PO QAM, TAB Trazodone Hcl (Trazodone) 50 Mg Tab 100 MG PO QPM, 0 Refills Discontinued Medications: Oxycodone HCl (Oxycodone HCl) 5 Mg Tab 5-10 MG PO Q4H PRN for Moderate - severe pain for 30 Days, #30 TAB Admission Information HPI (per Admitting provider): 67 YO male followed by Dr. Jones in [place]. History of Guillain-Riverside syndrome, recurrent DVT's, coronary artery disease, hypertension, DM type 2, and other problems noted below. First DVT associated with Guillain-Riverside illness several years ago. Treated with warfarin for 6 months. Recurrent DVT after warfarin was discontinued. Remained on warfarin since then. Brother had DVT associated with lower extremity fracture. Mother of sudden in her 30's, possibly due to PE. Patient reports that he was evaluated for hypercoagulable conditions, but there were no abnormalities identified. Developed back pain and leg weakness due to thoracic spinal stenosis. Scheduled for thoracic decompression / fusion. Warfarin was held for several days prior to the procedure. Thoracic decompression / fusion performed on 06/21/17. Discharged to home on 06/24/17. Resumed warfarin at the time of discharge. Subsequently started on enoxaparin due to subtherapeutic INR. Developed thoracic back pain and worsening lower extremity weakness L > R. Came to ED 07/01/17 and found to have thoracic epidural hematoma. Epidural hematoma evacuated emergently. Lower extremity weakness improved. Transferred to [facility] for rehab on 07/05/17. Warfarin continued to be held. Today patient experienced nausea, mild left parasternal chest pressure, SOB. O2 sats were reportedly 88%. No pain or swelling of legs. Transferred to ED for evaluation. Received SL NTG en route with improvement of chest pain. CTA chest demonstrated bilateral pulmonary emboli. Case discussed with Ortho- OK to anticoagulate with heparin. Started on IV heparin without bolus. Comfortable at time of my assessment. . Physical Exam (per Admitting): General Appearance: no apparent distress, + obese Head: normocephalic, atraumatic Eyes: normal inspection, PERRL, EOMI, sclerae normal ENT: normal ENT inspection, hearing grossly normal, pharynx normal Neck: supple, no adenopathy, thyroid normal, no JVD, trachea midline Respiratory/Chest: lungs clear, no respiratory distress, no accessory muscle use Cardiovascular: regular rate, rhythm, no gallop, no JVD, no murmur, + abnormal peripheral pulses (diminished pedal pulses), + pertinent finding ( trace pretibial edema) Abdomen/GI: normal bowel sounds, non tender, soft, no organomegaly, no pulsatile mass Extremities/Musculoskelatal: normal inspection, no calf tenderness, normal capillary refill Neurologic/Psych: principal web developer II-XII nml as tested (PERRL, EOMI, no facial palsy, no dysarthria), + pertinent finding (mild weakness flexion LLE; plantar reflexes upgoing bilaterally) Skin: normal color, warm/dry, no rash Lymphatic: no adenopathy (cervical) Hospital Course PULMONARY EMBOLI Present on admission with chest pressure associated with SOB and was found to be mild hypoxia. CTA chest on admission showed bilateral pulmonary emboli Has been on heparin IV after previous team discussed it with Ortho Venous doppler U/S L/E showed proximal and distal thrombi LLE, popliteal and calf thrombi RLE. IVC filter was placed on 07/10/[address] Reno due to the extensive clot in LE and if developed recurrent epidural hematoma or any bleeding complication. Pulmonary on board recommended for patient to continue follow up with pulmonary to make sure that his IVC filter will remove in the future Follow up with Vascular surgery Dr. Reno INR 2.6 today Continue monitor INR D/C heparin IV bridge/coumadin today since INR therapeutic for at least 2 days in a row Will discharge on coumadin 7.5 mg Continue monitor PT/INR ECHO showed * There is moderate concentric left ventricular hypertrophy. * The left ventricular wall motion is normal. * The left ventricle is hyperdynamic. * The LV Ejection Fraction = >70 %. * There is mild to moderate tricuspid regurgitation. * Top normal to mild pulmonary pressures are suspected. * The right ventricle is mildly dilated on limited visualization with normal qualitative right ventricualar systolic function. * The right ventricular systolic pressure is calculated to be 37 mm Hg. * The inferior vena cava was not well visualized and therefore the right atrial pressure cannot be estimated. S/P RECENT THORACIC DECOMPRESSION AND FUSION, S/P RECENT THORACIC EPIDURAL HEMATOMA Stable CONSTIPATION Had 2 BM yesterday No abdominal pain Stable ELEVATED TROPONIN Mostly related to PE Trop trending down Echo showed no LV wall abnormality Aspirin held due to recent epidural hematoma CORONARY ARTERY DISEASE Echo did not show any left ventricular wall motion abnormalities. Continue carvedilol and statin Aspirin on hold stable SUSPECTED PULMONARY HYPERTENSION Might be related to sleep apnea vs acute PE Echo showed mild to moderate tricuspid regurgitation, top-normal to slightly elevated pulmonary artery pressures, mildly dilated RV. Follow up as an outpatient with Pulmonary HYPERTENSION BP stable Continue carvedilol, lisinopril, doxazosin. SLEEP APNEA Continue BiPAP. DM TYPE 2 Controlled Hgb A1C 6.7 1/20/18. Elevating BS due to steroid Continue monitor BS Transitioning to usual outpatient regimen with metformin / glyburide, sitagliptin, liraglutide. HYPOTHYROIDISM Continue levothyroxine. DYSLIPIDEMIA Continue atorvastatin. VTE PROPHYLAXIS D/C IV heparin drip On coumadin with INR 2.6 DISPOSITION Discharge to [facility] for inpatient rehab today Medical follow-up with Dr. Jones. Ortho Spine follow-up with Dr. Yepez. Total time spent on discharge = 35 minutes This includes examination of the patient, discharge planning, medication reconciliation, and communication with other providers. Discharge Instructions Discharge Instructions Date of Service Jul 19, 2017. Admission Reason for Admission: Bilateral Pulmonary Embolism Discharge Discharge Diagnosis / Problem: Bilateral Pulmonary Embolism Discharge Goals Goal(s): Decrease discomfort, Improve function, Improve disease control Activity Recommendations Activity Limitations: resume your previous activity (as tolerated) . Instructions / Follow-Up Instructions / Follow-Up Discharge to [facility] For rehab Follow up with your primary care provider once discharge from rehab Follow up with Vascular surgery Dr. Reno Follow up with [facility] once discharge from rehab Follow up with orthopedic Dr. Yepez Fall precaution Continue PT/OT Continue Coumadin Check PT/INR in 1-2 days Continue monitor blood sugar Medication Instructions: Coumadin * Warfarin is a medicine prescribed to prevent blood clots * Warfarin will thin your blood and help prevent new clots * Take your medications exactly as directed * Never skip a dose. Never take a double dose. If you miss a dose, take it as soon as you remember * It is important for your doctor to monitor your prothrombin time (PT). This is a lab test * Keep your appointment for lab tests Risk of Adverse Drug Reactions and Interactions: * Warfarin increases your risk of bleeding * The food you eat and other medications you take can affect how Warfarin works in your body * Ask your doctor about daily aspirin therapy * It is very important to talk with your doctor about all of the other medicines , antibiotics, vitamins or herbal products that you are taking * All of your medication must be approved by your doctor, including new medicines, as well as medicines you have taken before you started taking Warfarin * Avoid any NSAID such as motrin, aleve, advil, ibuprofen, naproxen,.... Diet: * In order for Warfarin to work properly, it is important to keep your intake of Vitamin K as consistent as possible * You should avoid any sudden change in Vitamin K intake * Report any significant changes in your diet or weight to your doctor Call your Primary Care doctor if you experience any of the following: * Swelling or Pain in your leg * Sudden, continuous pain deep in a muscle * Pain that worsens when you are active or when you stand still for a long time * Chest Pain * Sudden Shortness of Breath * Rapid or pounding heart beat * Fainting * Dizziness * Cough with blood or bloody sputum * Sweating more than normal * Bruises * Heavy or uncontrolled bleeding * Blood in your urine, stool or vomit * Black or tarry stools Caring for Your Self at Home: * Avoid sitting, standing or lying down for long periods without moving your legs and feet * When traveling by car, stop to get out and move around at least once every 3 hours * On long airplane, train or bus rides, get up and move around when possible * If you can't get up, wiggle your toes and tighten your calves to keep your blood moving Follow Up: It is important for you to keep your follow up appointments with your medical provider. Current Hospital Diet Patient's current hospital diet: AHA Diet (Heart Healthy), Diabetes Type 2 Diet Discharge Diet Recommended Diet: AHA Diet (Heart Healthy), Diabetes Type 2 Diet Procedures Procedures Performed: Insertion Of Inferior Vena Cava Filter, Right Jugular Approach, Ultrasound Localization Of Right Internal Jugular Vein, Fluoroscopy For Positioning, Moderate Concious Sedation 1358 to 1415 Pending Studies Studies pending at discharge: no Laboratory Results Hemoglobin A1c Test 06/22/17 05:54 Range/Units Estimated Average Glucose 146 mg/dl Hemoglobin A1c 6.7 H 4.5-5.6 % Medical Emergencies . Who to Call and When: Medical Emergencies: If at any time you feel your situation is an emergency, please call 911 immediately. . Non-Emergent Contact Non-Emergency issues call your: Primary Care Provider Call Non-Emergent contact if: your pain is not controlled, you have any medication questions . . "Provider Documentation" section prepared by Mumtaz Thomas. . VTE Core Measure Inpt VTE Proph given/why not?: Warfarin (Coumadin), Other Anticoagulation (IV heparin drip) [facility] M. M.[facility].
[2017-07-19 15:57] VITALS: BP 105/58; PULSE 77; TEMP 36.7; O2SAT 94
[2017-07-19] MEDS ORDERED: WARFARIN SOD 7.5 MG TAB PO SCH (16:00)
[2017-07-19 16:09] VITALS: BP 105/58; PULSE 77; TEMP 36.7; O2SAT 94
[2017-07-20] MEDS ORDERED: LIRAGLUTIDE 18 MG/3 ML INJ SC SCH (09:00)
== END 2017-07-19 17:28 | DRG 167 ==
LOC: EDBD 11:43 → C.EDB 11:44 → C.2T 16:54 → EDBEDREQ 16:58 → ENRESERV 17:13 → C.MED 07-12 07:40
PROVIDERS: ADMIT Hospitalist; ATTEND Internal Medicine
PROC: 06H03DZ Insertion of Intraluminal Device into Inferior Vena Cava, Percutaneous Approach (ICD-10-PCS; principal; 2017-07-10 11:45)
DX: I26.99 Other pulmonary embolism without acute cor pulmonale (principal); I82.433 Acute embolism and thrombosis of popliteal vein, bilateral; I82.443 Acute embolism and thrombosis of tibial vein, bilateral; I82.412 Acute embolism and thrombosis of left femoral vein; I82.812 Embolism and thrombosis of superficial veins of left lower extremity; G61.0 Guillain-Barre syndrome; Z98.1 Arthrodesis status; Z86.79 Personal history of other diseases of the circulatory system; I27.20 Pulmonary hypertension, unspecified; R79.89 Other specified abnormal findings of blood chemistry; K59.00 Constipation, unspecified; I25.10 Atherosclerotic heart disease of native coronary artery without angina pectoris; I10 Essential (primary) hypertension; G47.30 Sleep apnea, unspecified; E11.9 Type 2 diabetes mellitus without complications; E03.9 Hypothyroidism, unspecified; E78.5 Hyperlipidemia, unspecified; Z86.718 Personal history of other venous thrombosis and embolism; Z87.891 Personal history of nicotine dependence; Z98.0 Intestinal bypass and anastomosis status; Z79.4 Long term (current) use of insulin; Z79.84 Long term (current) use of oral hypoglycemic drugs; Z79.899 Other long term (current) drug therapy; Z83.2 Family history of diseases of the blood and blood-forming organs and certain disorders involving the immune mechanism; Z82.49 Family history of ischemic heart disease and other diseases of the circulatory system; Z83.3 Family history of diabetes mellitus

== ENCOUNTER 2017-10-11 05:44 | Day surgery (SDC) | payer BC, OTHER ==
[~2017-10-11] VITALS: Ht 188 cm; Wt 112.0 kg
[~2017-10-11 05:44] MED LIST changes: +ACET-1047 PO; +BISA10SU5 RE; +CMD5 PO; -COEN100C7 PO; +DOCU100C31 PO; +LCTX PO; -LIRA18IN INJ; +LIRA18IN SQ; -METH118C PO; -MISCCAP80 PO; +NVLG SC; -ORPH100T PO; -OXYC-57 PO; -RXC5 PO; +SENN8.6T36 PO; -WARF7.5T4 PO
[2017-10-11] MEDS ORDERED: CEFAZOLIN 2000MG IV PUSH 15 ML IV SCH (06:00)
[2017-10-11] MEDS ORDERED: SODIUM CHLORIDE 0.9% 1000ML IV SCH (06:00)
[2017-10-11 06:15] VITALS: BP 131/80; PULSE 75; TEMP 36.7; O2SAT 95; Ht 188 cm; Wt 112.0 kg
[2017-10-11 06:33] LABS: INR 2.5 (0.9-1.1); PTT PATIENT 31.2 SECONDS (21.0-31.0)
[2017-10-11] MEDS ORDERED: WARF6TAB5 PO (06:48)
[2017-10-11] MEDS ORDERED: OXYC-57 PO (06:54)
[2017-10-11] MEDS ORDERED: METF-384 PO (06:54)
[2017-10-11] MEDS ORDERED: INSDGI SC (06:55)
[2017-10-11] MEDS ORDERED: ditropan PO (06:57)
--- NOTE | 2017-10-11 07:28 | History and Physical ---
History & Physical Date of Service October 11, 2017. History & Physical Chief Complaint Post filter insertion History of Present Illness The patient is a 67 year old male who has a history of DVT when he had Guillain- Caldwell syndrome several years ago. He had a spinal decompression on 06/21/17 and d/c on 06/24. Coumadin was held for the surgery. Was started on Lovenox due to subtherapeutic INR. On 07/01 he had a epidural hematoma which was evacuated. Coumadin was held. Came to ED with chest pain and found to have bilateral PE and DVT. Filter was placed at that time. He is now admitted for removal of filter Allergies Coded Allergies: No Known Allergies (Verified , 07/09/17) Home Medications Scheduled Acetaminophen Tab (Tylenol), 650 MG PO PRN Atorvastatin (Lipitor), 20 MG PO SAT WED SATPM Bisacodyl (Bisacodyl), 1 MG RE DAILY Carvedilol (Coreg), 3.125 MG PO BID Docusate Sodium (Docusate Sodium), 100 MG PO BID Doxazosin Mesylate (Cardura), 4 MG PO QAM Escitalopram Oxalate (Lexapro), 20 MG PO QAM Famotidine (Pepcid), 20 MG PO BID Gabapentin (Neurontin), 600 MG PO BID Glyburide (Micronase), 5 MG PO BIDM Insulin Aspart (Novolog), UNITS SC ACHS Lactobacillus Acidophilus (Lactinex), 1 TAB PO DAILY Levothyroxine Sodium (Synthroid), 50 MCG PO QAM Lisinopril (Zestril), 2.5 MG PO QPM Metformin Hcl (Glucophage), 500 MG PO BIDM Multivitamin (Multivitamin), 0.5 TAB PO BID Sennosides-Docusate Sodium (Docusate Sodium/Senna), 1 TAB PO DAILY Sitagliptin Phosphate (Januvia), 100 MG PO QAM Trazodone Hcl (Trazodone), 100 MG PO QPM Scheduled PRN Oxycodone HCl (Oxycodone HCl), 5-10 MG PO Q4H PRN for Moderate - severe pain Polyethylene Glycol 3350 (Miralax), 17 GM PO Q2D PRN for Constipation Problem List Medical Problems: (1) Anemia (2) Coronary artery disease (3) Dyslipidemia (4) Epidural hematoma (5) History of diverticulitis of colon (6) History of DVT (deep vein thrombosis) (7) History of Guillain-Caldwell syndrome (8) Hypertension (9) Hypothyroidism (10) Sleep apnea Surgical Problems: (1) Status post appendectomy (2) Status post coronary artery bypass grafting (3) Status post evacuation thoracic epidural abscess (4) Status post exploratory laparotomy (5) Status post thoracic decompression / fusion Surgical / Medical History Hx Cardiac Surgery: Yes (HEART CATH) Hx Abdominal Surgery: Yes (bowel resection) Hx Cancer Surgery: No Hx Thoracic Surgery: No Hx Orthopedic: Yes (THORACIC SPINE SURGERY) Hx Urinary Tract Surgery: No Family History Coronary artery disease FATHER Deep vein thrombosis BROTHER Diabetes mellitus GRANDMOTHER Hypertension FATHER Sudden , possible PE MOTHER Social History Smoking Status: Former Smoker Hx Tobacco Use In Past Year?: No Hx Alcohol Use - Type & Amnt: No Hx Substance Use -Type & Amnt: No ROS: Vascular Con v2 Review of Systems Constitutional: No chills, No diaphoresis, No fever, No malaise, No weakness, No weight gain, No weight loss, No sweats, No fatigue, No problem reported Respiratory: No cough, No cyanosis, No LA, No hemoptysis, No orthopnea, No PND , No short of breath, No sputum production, No stridor, No wheezing, No dyspnea , No problem reported Cardiovascular: + chest pain Gastrointestinal: No abdominal pain, No constipation, No diarrhea, No nausea, No vomiting, No anorexia, No appetite changes, No belching, No flatulence, No food intolerance, No hematemesis, No hemorrhoids, No hematochezia, No stool changes, No heartburn, No indigestion, No dysphagia, No rectal bleeding, No problem reported Genitourinary - Male: No impotence, No penile discharge, No penile itching, No rash, No testicular pain, No testicular swelling, No hematuria, No difficulty urinating, No problem reported Neurologic: No dizziness, No weakness, No headache, No lethargy, No numbness, No paresthesia, No pre-existing deficit, No seizures, No tics, No tingling, No tremors, No vertigo, No memory loss, No LOC, No problem reported Exam: Vascular Con v2 Physical Exam Constitutional: General Apperance: heathly-appearing, well-nourished, well-developed Level of Distress: NAD Ambulation: ambulating normally Psychiatric: Mental Status: active & alert, normal mood, normal affect Orientation: oriented except where noted, to time, to place, to person Memory: recent memory normal, remote memory normal Lungs: Auscultation: breath sounds normal Cardiovascular: Heart Auscultation: RRR Peripheral Pulses: Radial Pulse: normal on the left, normal on the right Femoral Pulse: normal on the left, normal on the right Abdomen: Inspection & Palpation: soft, non-distended Musculoskeletal: normal Extremities: Upper Right: no cyanosis, no edema, no varicosities, no palpable cord, no clubbing, no ulcers, no mottling Upper Left: no cyanosis, no edema, no palpable cord, no clubbing, no ulcers , no mottling Lower Right: no cyanosis, no edema, no varicosities, no palpable cord, no clubbing, no ulcers, no mottling Lower Left: no cyanosis, no edema, no varicosities, no palpable cord, no clubbing, no ulcers, no mottling Neurologic: Cranial Nerves: grossly intact Sensation: grossly intact A&P: Vascular Con v2 Assessment and Plan Imp: Post filter insertion Plan: Patient is admitted for IVC filter removal. I have discussed the risks options and benefits of the procedure with the patient. The patient understands the risks options and benefits and agrees to the procedure.
--- NOTE | 2017-10-11 07:41 | Pre Sedation Assessment ---
Pre Sedation Assessment General Date of Sedation: October 11, 2017. Vital Signs Past 12 Hours Date Time Temp Pulse Resp B/P (MAP) Pulse Ox O2 Delivery O2 Flow Rate FiO2 10/11/17 06:15 36.7 75 18 131/80 (97) 95 Room Air Pre-Sedation Airway Assessment Smoking Status: Never Smoker Hx of Sleep Apnea: Yes Short Thick Neck: Yes Thyro-mental Distance: > 3 Finger Breadths Oral Cavity: Capped Teeth Mallampati Classification: Class II ASA Classification: Class II NPO Status Date of Last Intake of Fluids: October 10, 2017 Time of Last Intake of Fluids: 2200 Date of Last Intake of Solids: October 10, 2017 Time of Last Intake of Solids: 1800 Procedure Planning Contraindications for Sedation: None Current Medications Reviewed: Yes Notes The planned sedation has been discussed with the patient. Informed Consent was obtained. I have identified the patient, determined the appropriateness of sedation and have assessed the patient immediately prior to the procedure. All medicine(s) and interventions are by my order.
[2017-10-11] MEDS ORDERED: FENTANYL CITRATE INJ 50 MCG/1 ML 2 ML VIAL ONE ×2 (07:46→07:49)
[2017-10-11] MEDS ORDERED: MIDAZOLAM HCL 1 MG/ML 2ML VIAL ONE (07:46)
[2017-10-11] MEDS ORDERED: MIDAZOLAM HCL 1 MG/ML 2ML VIAL IV ONE (08:26)
[2017-10-11] MEDS ORDERED: LIDOCAINE HCL 1% 20 ML VIAL SQ ONE (08:26)
[2017-10-11] MEDS ORDERED: IODIXANOL (VISIPAQUE) 270 MG/ML 50ML FLUSH ONE (08:26)
[2017-10-11] MEDS ORDERED: FENTANYL CITRATE INJ 50 MCG/1 ML 2 ML VIAL IV ONE (08:26)
--- NOTE | 2017-10-11 08:29 | [facility] Operative Report ---
Operative Report Operative Date October 11, 2017. Pre-Operative Diagnosis Post Inferior Vena Cava Filter Post-Operative Diagnosis Post Inferior Vena Cava Filter Procedure(s) Performed Removal of Inferior Vena Cava Filter, Moderate Sedation from 0814 - [address] Reno Consumer Affairs Director Surgeon(s) None Estimated Blood Loss 0 Findings No extravasation of contrast and no intracaval clot seen Specimens a: Explant IVC Filter Drains None Anesthesia Type IV Sedat Cons RN Only Complication(s) none Disposition no Indications The patient is a 67-year-old male who had a filter placed for PE DVT and difficulty with anticoagulation. He is now admitted for removal of his filter.I have discussed the risks options and benefits of the procedure with the patient. The patient understands the risks options and benefits and agrees to the procedure. Description of Procedure The patient was brought to the angio suite and placed in the supine position. The right side of the neck was prepped and draped in the usual fashion. The right internal jugular vein was located with ultrasound. It was patent, compressed easily, and had no filling defects. The vein was then punctured under ultrasound visualization. A guidewire was then passed centrally into the inferior vena cava under fluoroscopic guidance. The puncture site was then dilated and the filter removal sheath inserted. It was passed to the infra renal vena cava above the filter. A venacavagram was done which showed no cava clot in the cava or filter. The filter removal snare was then passed through the sheath and the hook of the filter was snared.. The snare was then tightened and the sheath pushed in over the filter. It retracted easily. The filter was removed. Post removal venogram showed no extravasation of contrast. The sheath was the removed. Pressure was applied to the puncture site. Adequate hemostasis was obtained and a sterile dressing was applied. The patient left the angio suite in good condition and tolerated the procedure well. I attest to the content of the Intraoperative Record and any orders documented therein. Any exceptions are noted below.
--- NOTE | 2017-10-11 08:35 | Post Sedation Assessment ---
Post Sedation Assessment General Date of Sedation October 11, 2017. Vital Signs: Vital Signs Past 12 Hours Date Time Temp Pulse Resp B/P (MAP) Pulse Ox O2 Delivery O2 Flow Rate FiO2 10/11/17 08:32 69 16 144/78 98 Room Air 10/11/17 08:29 66 16 150/77 97 Room Air 10/11/17 08:24 62 16 137/78 98 Oxymask 4 10/11/17 08:20 62 16 99 Oxymask 4 10/11/17 08:15 58 16 99 Oxymask 4 10/11/17 08:10 50 16 99 Oxymask 4 10/11/17 08:05 55 16 157/85 96 Room Air 10/11/17 06:15 36.7 75 18 131/80 (97) 95 Room Air Post Procedure Recovery Score Activity: (2) Moves 4 extremities * Respiration: (2) Deep breath/cough Circulation: (2) +/-20% PreAnes Value Consciousness: (1) Arouseable (by name) Oxygen Saturation: (2) > 92% On Room Air Post Anesthesia Score: 9 Discharge Sedation Level of Care: Fast Track Phase II Post Sedation Plan On clinical assessment, the patient appears to have tolerated the sedation without complications. Patient is recovering as anticipated. Patient will continue to be monitored by nursing and may be discharged when sedation discharge criteria are met per below protocol. Upon Completions of procedure and additional 15 minutes continue every 5 minute vital signs and the P.A.R. score; then discharge to a Phase I or Fast Track to Phase II per the following guidelines: * Discharge Patient to appropriate Phase II area if PAR is 8 or greater or return to pre- procedure baseline. The post - procedure orders will be as directed. * If PAR score is less than 8 or not return to pre-procedure baseline then patient will follow Phase I monitoring till PAR is reached for Phase II. The Phase I may be done in procedure room or may call to secure a Phase I area. * If naloxone or flumazenil are used for reversal, hold in Phase I for an additional 60 -120 minutes before discharge to Phase II. Please call the Sedation Physician to re-evaluate and complete post-note for discharge to Phase II area. Do NOT discharge from procedure sedation or Phase 1 until post- sedation evaluation note is complete by procedure /sedation MD Sedation Discharge Instructions to be given to the patient at discharge to home.
--- NOTE | 2017-10-11 08:35 | Discharge Instructions ---
Discharge Instructions Date of Service October 11, 2017. Visit Reason for Visit: S/P Ivc Filter Insertion Discharge Discharge Diagnosis / Problem: Removal of vena cava filter Discharge Goals Goal(s): Therapeutic intervention Activity Recommendations Activity Limitations: per Instructions/Follow-up section Shower/Bathe: no limitations Anesthesia . Post Anesthesia Instructions: If you have had General Anesthesia or IV Sedation: * Do not drive today. * Resume driving when surgeon permits. * Do not make important decisions or sign legal documents today. * Call surgeon for: 1. Temperature elevations greater than 101 degrees F. 2. Uncontrollable pain. 3. Excessive bleeding. 4. Persistent nausea and vomiting. 5. Medication intolerance (nausea, vomiting or rash). * For nausea and vomiting use only clear liquids such as: tea, soda, bouillon until nausea subsides, then gradually increase diet as tolerated. * If you have any concerns or questions, call your surgeon's office. If physician is unavailable and it is an emergency, call 911 or go to the nearest emergency room. . Instructions / Follow-Up Instructions / Follow-Up Call [phone] to schedule a follow up appointment if one not already scheduled. SPECIAL CARE INSTRUCTIONS: Medications: * Continue to take your medications as directed. If you have been given a prescription for Plavix, please fill it immediately and take as directed. Incision Care: * Your puncture site may have some bruising and minor swelling for about one week. * You will have a small dressing covering your puncture site. You may remove the dressing after 24 hours and shower. You may let the warm soapy water run over it, but be sure to dry the puncture site well and keep it dry. * DO NOT IMMERSE THE INCISION IN A TUB/POOL/etc. UNTIL HEALED. * Puncture sites should be kept covered with a band-aid until it begins to heal. Restrictions: * Depending on whether you leg or arm was punctured to access the arteries, you will be required to lay flat, hold your arm still, or both, for about 4 hours after the procedure to prevent bleeding. * Limit your activity for the first 48 hours. You may walk and go up and down steps. Avoid excessive bending or movement at the puncture site. Possible Complications: * Excessive Swelling - after blood flow is improved you may notice increased swelling in the lower legs. This is a normal response. This usually depends on the amount of blockages in the leg, how long they have been there prior to your procedure and how much blood flow was restored. Elevating your legs will help to improve this. Please notify our office ([phone] ) if the swelling does not go away after lying in bed overnight. * Infection/Drainage/Bleeding - Drainage or bleeding from the puncture site should be minimal. If you have excessive bleeding or drainage, call our office ([phone]) right away. * Pain - You may experience some mild pain or soreness at your puncture site. If your pain does not improve, please contact our office ([phone]). Call your doctor and seek emergent treatment if you develop: * Temperature above 101 degrees * Any fever or chills * Any redness or purulent drainage from the puncture site * Any new dusky/blue colored toes or feet with coolness or sharp or aching pain. SKIN IRRITATION: * You may experience some redness and/or swelling in the area where radiation was administered. If any skin irritation occurs, please contact your family physician. FOLLOW UP VISIT: Keep any scheduled doctor appointments. Diet Recommendations Recommended Home Diet: resume previous diet Procedures Procedures Performed: Removal of Inferior Vena Cava Filter, Moderate Sedation from 0814 - 0832 Pending Studies Studies pending at discharge: no Medical Emergencies . Who to Call and When: Medical Emergencies: If at any time you feel your situation is an emergency, please call 911 immediately. . Non-Emergent Contact Non-Emergency issues call your: Surgeon . . "Provider Documentation" section prepared by Félix Reno. .
[2017-10-11 08:42] VITALS: BP 127/83; PULSE 73; TEMP 36.6; O2SAT 97
[2017-10-11 09:13] VITALS: BP 141/83; PULSE 70; TEMP 36.5; O2SAT 98
== END 2017-10-11 09:27 | disposition home or self-care (01) ==
LOC: C.ACU 05:44
PROVIDERS: ATTEND Surgery Vascular Surgery
DX: Z86.718 Personal history of other venous thrombosis and embolism (principal); Z86.711 Personal history of pulmonary embolism; I25.10 Atherosclerotic heart disease of native coronary artery without angina pectoris; E78.5 Hyperlipidemia, unspecified; I10 Essential (primary) hypertension; E03.9 Hypothyroidism, unspecified; G47.30 Sleep apnea, unspecified; Z79.4 Long term (current) use of insulin; Z79.899 Other long term (current) drug therapy; Z82.49 Family history of ischemic heart disease and other diseases of the circulatory system; Z83.3 Family history of diabetes mellitus; Z87.891 Personal history of nicotine dependence; Z79.01 Long term (current) use of anticoagulants

== ENCOUNTER 2019-05-05 15:09 | Inpatient (IN) ==
[2019-05-05] MEDS ORDERED: SODIUM CHLORIDE 0.9% 500 ML IV SCH (15:45)
[2019-05-05 16:00] LABS: Basophils # (auto) 0.06 K/uL (0-0.2); Basophils % (auto) 0.7 %; Eosinophils # (auto) 0.29 K/uL (0-0.5); Eosinophils % (auto) 3.6 %; Hematocrit (blood only) 41.8 % (42-52); Hemoglobin 13.4 g/dL (14.0-18.0); Immature Granulocytes # (auto) 0.02 K/uL (0.00-0.02); Immature Granulocytes % (auto) 0.2 %; Lymphocytes # (auto) 2.44 K/uL (1.2-3.4); Mean Corpuscular Hemoglobin 30.7 pg (25-34); Mean Corpuscular Hgb Conc 32.1 g/dL (32-36); Mean Corpuscular Volume 95.7 fL (80-100); Mean Platelet Volume 9.8 fL (7.4-10.4); Monocytes % (auto) 8.6 %; Neutrophils # (auto) 4.62 K/uL (1.4-6.5); Neutrophils % (auto) 56.9 %; Platelet Count 204 K/uL (130-400); RDW Coefficient of Variation 13.2 % (11.5-14.5); RDW Standard Deviation 45.7 fL (36.4-46.3); Red Blood Count 4.37 M/uL (4.7-6.1); White Blood Count 8.13 K/uL (4.8-10.8)
[2019-05-05] MEDS ORDERED: SODIUM CHLORIDE 0.9% 1000ML 1,000 ML IV ONE ×2 (16:02→16:10)
[2019-05-05 16:04] LABS: Alanine Aminotransferase 24 U/L (12-78); Albumin Level 3.4 gm/dl (3.4-5.0); Aspartate Aminotransferase 18 U/L (15-37); BUN Creatinine Ratio 21.9 (10-20); Blood Urea Nitrogen 23 mg/dl (7-18); Calcium 9.1 mg/dl (8.5-10.1); Carbon Dioxide 27 mmol/L (21-32); Chloride 105 mmol/L (98-107); Creatinine Clr Calc Pharmacy 34.4 ml/min; Est GFR (African American) 83.5; Est GFR (Non-African American) 72.1; Glucose 133 mg/dl (70-99); Potassium 3.8 mmol/L (3.5-5.1); Sodium 138 mmol/L (136-145)
--- NOTE | 2019-05-05 16:07 | XRay Report ---
XR chest 1V portable HISTORY: 69 years-old Male weakness acute weakness COMPARISON: Chest radiograph and CTA chest 07/09/2017 TECHNIQUE: Portable AP view of the chest FINDINGS: Cardiomediastinal and hilar silhouettes are within normal limits. Prior median sternotomy. Posterior interbody vince and screw fusion hardware of the thoracic spine. Degenerative changes of the shoulders and spine. Mild right hemidiaphragmatic elevation. No pneumothorax, pleural effusion or overt pulmona ry edema. IMPRESSION: No acute process. The above report was generated using voice recognition software. It may contain grammatical, syntax o r spelling errors. Electronically signed by: Daniel Herrera M.D. 05/05/2019 4:06 PM
[2019-05-05 16:09] LABS: Albumin Globulin Ratio 0.8 (0.9-2); Alkaline Phosphatase 131 U/L (45-117); Bilirubin,Total 0.4 mg/dl (0.2-1); Globulin 4.1 gm/dl (2.5-4.0); Total Protein 7.5 gm/dl (6.4-8.2); Troponin I < 0.015 ng/ml (0-0.045)
[2019-05-05] MEDS ORDERED: LEVOFLOXACIN/D5W 750 MG/150 ML BAG IV STA (16:54)
[2019-05-05] MEDS ORDERED: PIPERACILL/TAZOBAC CONSULT ACTIVE PRN (16:54)
[2019-05-05] MEDS ORDERED: PIPERACILLIN/TAZOBACTAM 4.5 GM/120 ML BAG IV ONE (16:54)
[2019-05-05 17:18] LABS: Appearance Urine Clear (Clear); Bacteria Urine Automated Negative (Negative); Bilirubin Urine Negative (Negative); Blood Urine Negative (Negative); Color Urine Yellow; Glucose Urine UA Negative (Negative); Ketones Urine Negative (Negative); Leukocyte Esterase Urine Trace (Negative); Nitrite Urine Negative (Negative); Protein Urine Negative (Negative); RBC Urine Automated 0-4 /hpf (0-4); Specific Gravity Urine 1.011 (1.000-1.030); Urobilinogen Urine Negative (Negative); pH Urine 5.5 (4.5-7.5)
[2019-05-05] MEDS ORDERED: DiphenhydrAMINE HCL 50 MG/ML VIAL IV STA (17:38)
[2019-05-05] MEDS ORDERED: MoRPHine SULFATE 2 MG/ML CARP IV STA (19:32)
[2019-05-05] MEDS ORDERED: MoRPHine SULFATE 2 MG/ML CARP ONE (19:37)
--- NOTE | 2019-05-05 20:17 | History & Physical Report ---
Date of Service May 05, 2019 Assessment & Plan (1) Hypotension: Patient with history of hypertension. Sent from PCP after being found hypotensive in the office, blood pressure = 75/48. Upon arrival to the ER blood pressure had improved to 107/78. Patient was administered 2.5 L of crystalloid fluid and blood pressure has remained normal to slightly elevated since. Hypotension most likely secondary to volume contraction, now resolved -Continue to monitor blood pressure Present on Admission?: Yes (2) Weakness: Patient with 1 month of progressive weakness acutely worsening over the last week. Could be secondary to dehydration with hypotension. Electrolytes and renal function are intact. Given patient's extensive history of spinal surgeries it is concerning that he localizes his weakness predominantly to his lower extremities. Also quite concerning is the progressive loss of function over the past few months. His presentation does not seem to be acute in any way. No fall/trauma/point tenderness. Sensation and mobility are intact. -PT/OT -Case management assessment Present on Admission?: Yes (3) Cellulitis: Left ankle cellulitis being treated with doxycycline 100 mg p.o. twice daily. Patient is near completion of his course. He feels that it has improved. Afebrile, hemodynamically stable, no leukocytosis. Do not strongly suspect osteomyelitis or progression of infection as underlying cause of patient's presentation today. -Check ESR/CRP -Check x-ray left ankle -Vish area of cellulitis daily to monitor for progression or resolution -Continue doxycycline 100 mg p.o. twice daily. Prescribed for 7 days on on 04/29/2019. Course should be completed after second dose tomorrow. Present on Admission?: Yes (4) Urinary retention: Ongoing. Concern for cauda equina involvement given patient's progressive weakness Bladder scan every shift as needed Patient may self cath Continue Vesicare and methenamine at home dosages Present on Admission?: Yes (5) Depression: Chronic. Stable. Continue bupropion 150 mg p.o. daily Present on Admission?: Yes (6) Hypothyroidism: Chronic. -Check TSH with a.m. labs Continue Synthroid 75 mcg p.o. 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 Strong family history of hypercoagulability. Presently on apixaban 5 mg p.o. twice daily Continue home medication, apixaban 5 mg p.o. twice daily Present on Admission?: Yes (8) Dyslipidemia: Chronic. Stable. Continue atorvastatin 20 mg p.o. daily Continue coenzyme Q 1000 mg p.o. daily Present on Admission?: Yes (9) Coronary artery disease: Chronic. Stable. Patient without chest pain. EKG with no acute ischemic changes Continue home medications Present on Admission?: Yes (10) Hypertension: Patient hypotensive in clinic today which has improved with administration of IV fluid. Presently mildly hypertensive. Continue lisinopril 2.5 mg p.o. daily Continue to monitor Present on Admission?: Yes (11) T2DM (type 2 diabetes mellitus): Blood sugar = 133. Last hemoglobin C 06/22/2017 = 6.7 Hold metformin while inpatient Continue insulin glargine 20 units every afternoon Insulin sliding scale -Continue liraglutide Present on Admission?: Yes (12) Anemia: Chronic. Patient with Hgb = 13.4 and HCT = 41.8 which is up from prior values of 11.4 and 34.5, respectively. No blood transfusion. Possibly secondary to volume contraction/hemoconcentration Continue to monitor CBC Present on Admission?: Yes (13) History of thoracic spinal fusion: Patient with extensive history of spinal surgery as above. Has had progressive loss of function as well as increased spasm. Check MRI thoracic and lumbar spine Consult orthopedic surgery. Patient is well-known to Dr. Yepez Continue home pain management with Percocet and Tylenol, muscle relaxer tizan idine. Add Flexeril Morphine as needed FENLR at 80 mL/h x 2 L. Monitor electrolytes and replete as needed. Consistent carb/heart healthy diet as tolerated Prophylaxispatient anticoagulated on apixaban, will continue. Continue home famotidine 40 mg p.o. twice daily Codefull per discussion with patient Dispositionobservation to medical floor History of Present Illness Chief Complaint: Diffuse weakness Primary Care Provider: Kirstin Sims DO James Balderas is an unfortunate 69-year-old male with complex medical history. He is sent today from his PCPs office with complaint of 1 month of progressive weakness/fatigue as well as hypotension in the office with blood pressure 75/48. He is currently being treated for a left ankle cellulitis with doxycycline 100 mg p.o. twice daily. Patient has remote history of bacterial meningitis and Guillain-Luong syndrome diagnosed in 1999. History of thoracic spinal stenosis involving T10-T11 status post decompression and fusion performed on 06/21/2017. He was readmitted on 07/01 with increase in back pain and bilateral leg weakness. He was found to have a thoracic epidural hematoma extending to T7 status post evacuation on 07/02/2017. Patient with history of prior DVT during his episode with Guillain- Luong as well as a strong family history of hypercoagulability, including his mother dying at age 38 most likely secondary to massive PE. He was being treated with Coumadin during the time of the hematoma which was held for the surgery and after discharge. Patient returned to the ER on 07/09/2017 with bilateral pulmonary emboli and DVT. He was temporarily anticoagulated with heparin and had an IVC filter placed on 07/10/2017 and removed on 10/11/2017. Patient had another spinal surgery in [place]. Patient with chronic back pain and spasms as well as limited mobility. He reports that after his Karen-Luong he recovered a lot of function. With his subsequent back surgeries patient has become progressively less mobile. He reports that last spring he was moving through his home holding onto furniture and balancing himself with the wall. In late summer he was ambulating with a walker and harness. Since about January, he is unable to stand up on his own or walk. He is essentially bedbound. He has decreased urinary sensation and chronic constipation. Also with development of a small bedsore. He had PT home services but not recently. He denies falls, trauma, fever/chills. He reports his back pain is constant and stable but he has been experiencing some worsening leg spasms as well as progressive weakness and fatigue over the last month, ac utely worsening over the last week. He describes the weakness is diffuse but mostly involving his legs. ER course: Benadryl, Levaquin, Zosyn, normal saline x2-1/2 L Allergies Allergy/AdvReac Type Severity Reaction Status Date / Time No Known Drug Allergies Allergy Verified 05/05/19 13:42 Home Medications Home Medications Medication Instructions Recorded Confirmed Type apixaban 5 mg tablet 5 mg PO BID 04/21/19 05/05/19 History atorvastatin 20 mg tablet 20 mg PO .COMPLEX 04/21/19 05/05/19 History famotidine 40 mg tablet 40 mg PO BID 04/21/19 05/05/19 History gabapentin 300 mg capsule 600 mg PO BID cap 04/21/19 05/05/19 History insulin glargine 100) 100 unit/mL 20 units SQ QPM ml 04/21/19 05/05/19 History subcutaneous solution levothyroxine 75 mcg tablet 75 mcg PO QPM 04/21/19 05/05/19 History liraglutide 0.6 mg/0.1 mL (18 mg/3 1.2 mg SQ DAILY ml 04/21/19 05/05/19 History mL) subcutaneous pen injector lisinopril 2.5 mg tablet 2.5 mg PO DAILY 04/21/19 05/05/19 History metformin 1,000 mg tablet 1,000 mg PO BID 04/21/19 05/05/19 History methenamine hippurate 1 gram tablet 1 gm PO Q12H 04/21/19 05/05/19 History multivitamin 1 tab PO DAILY 04/21/19 05/05/19 History polyethylene glycol 3350 17 17 gm PO DAILY PRN 04/21/19 05/05/19 History gram/dose oral powder trazodone 100 mg tablet 100 mg PO HS 04/21/19 05/05/19 History bupropion HCl 150 mg 24 hr tablet, 150 mg PO QAM #30 tab 04/23/19 05/05/19 Rx extended release acetaminophen [Tylenol Extra 100 mg PO Q6H PRN 05/05/19 05/05/19 History Strength] coenzyme Q10 100 mg PO DAILY 05/05/19 05/05/19 History oxycodone-acetaminophen [Percocet] 1 tab PO Q8 PRN 05/05/19 05/05/19 History solifenacin [Vesicare] 10 mg PO QPM 05/05/19 05/05/19 History tizanidine 4 mg PO BID 05/05/19 05/05/19 History Past Med/Surg History Medical History Bladder incontinence Coronary artery disease Depression Dyslipidemia History of diverticulitis of colon History of DVT (deep vein thrombosis) History of Guillain-Sandy syndrome Hypertension Hypothyroidism Sleep apnea T2DM (type 2 diabetes mellitus) Thoracic spinal stenosis Urinary retention Surgical History H/O sinus surgery History of bowel resection (~1981) secondary to diverticulitis performation History of thoracic spinal fusion (08/2016) Hx of spinal fusion (06/2017) T10-T11 S/P evacuation of hematoma (07/2017) S/P right knee arthroscopy S/P tonsillectomy and adenoidectomy age 8 Status post coronary artery bypass grafting (Inactive) x 3 Family History Father Myocardial infarction Coronary heart disease Stroke Mother , sudden, unclear cause No problems noted. Grandmother (Paternal) CLL (chronic lymphocytic leukemia) Social History Preferred Language: Slovenian Communication Ability: Effective Visual Impairment: Limited Hearing Ability: Normal Propagation Worker Required: No Beliefs That Will Affect Care: None marital status: Current Living Situation: Spouse current occupational status: retired Other Information That Helps Us Care for You: No Feels Safe at Home: Yes Safety Concerns: Feels Safe At This Time Smoking Status: Never smoker Hx Alcohol Use: Yes Alcohol type: beer, wine and hard liquor Hx Substance Use: No Childhood Exposure to Second-Hand Smoke: No Other Diet Comment: regular caffeine: No during the past year weight has: remained stable Dental Care, Regularly: Yes Physical Activity Frequency: Does not Exercise Seatbelt Use: always Sunscreen Use: No Review of Systems Review of Systems: All systems reviewed & are unremarkable except as noted in HPI & below Denies abdominal pain, nausea, vomiting, diarrhea + Chronic constipation Physical Exam Physical Exam: General: patient resting comfortably, NAD, non-toxic in appearance, AA&O x 4 Skin: warm, dry, intact, no rashes or lesions HEENT: NC/AT, PERRL, EOMI, anicteric sclera, conjunctiva without injection, external ear normal to inspection and nontender, nares patent, moist mucus membranes, dentition intact, no oropharyngeal lesions, neck supple, trachea midline, no LAD, no thyromegaly, no JVD Heart: +S1/S2, regular, no m/r/g Lungs: equal air entry bilaterally, no rales/rhonchi/wheezes Abd: +BS, soft, NT/ND, no masses/organomegaly/ascites Ext: warm, 2+ pulses in UE/LE bilaterally, no clubbing/cyanosis or edema, left ankle wound with central eschar, surrounding erythema, tenderness. No crepitus/bulla/lymphangitic streaking Neuro: Grossly nonfocal, patient AA&O x 4, speech intact, no facial droop, moving all extremities on command with equal strength 5/5 Results & Data Vital Signs (Past 12 Hours) Vital Signs Temp Pulse Pulse Resp BP BP Pulse Ox 05/05/19 20:05 71 16 162/85 H 97 05/05/19 19:06 20 148/90 H 98 05/05/19 18:00 72 18 154/90 H 96 05/05/19 17:36 76 20 166/99 H 97 05/05/19 16:15 66 20 107/67 05/05/19 15:25 36.6 C 61 18 107/78 96 Laboratory Results Lab Results 05/05/19 05/05/19 05/05/19 Range/Units 14:35 14:35 16:39 WBC 8.13 (4.8-10.8) K/uL RBC 4.37 L (4.7-6.1) M/uL Hgb 13.4 L (14.0-18.0) g/dL Hct 41.8 L (42-52) % MCV 95.7 (80-100) fL MCH 30.7 (25-34) pg MCHC 32.1 (32-36) g/dL RDW Std Deviation 45.7 (36.4-46.3) fL RDW Coeff of Donna 13.2 (11.5-14.5) % Plt Count 204 (130-400) K/uL MPV 9.8 (7.4-10.4) fL Immature Gran % (Auto) 0.2 % Neut % (Auto) 56.9 % Lymph % (Auto) 30.0 % [place] % (Auto) 8.6 % Eos % (Auto) 3.6 % Baso % (Auto) 0.7 % Immature Gran # (Auto) 0.02 (0.00-0.02) K/uL Neut # (Auto) 4.62 (1.4-6.5) K/uL Lymph # (Auto) 2.44 (1.2-3.4) K/uL [place] # (Auto) 0.70 H (0.11-0.59) K/uL Eos # (Auto) 0.29 (0-0.5) K/uL Baso # (Auto) 0.06 (0-0.2) K/uL Sodium 138 (136-145) mmol/L Potassium 3.8 (3.5-5.1) mmol/L Chloride 105 (98-107) mmol/L Carbon Dioxide 27 (21-32) mmol/L Anion Gap 7.0 (3-11) BUN 23 H (7-18) mg/dl Creatinine 1.05 (0.6-1.4) mg/dl Est Cr Clr Drug Dosing 34.4 ml/min Est GFR ( Amer) 83.5 Est GFR (Non-Af Amer) 72.1 BUN/Creatinine Ratio 21.9 H (10-20) Glucose 133 H (70-99) mg/dl Calcium 9.1 (8.5-10.1) mg/dl Total Bilirubin 0.4 (0.2-1) mg/dl AST 18 (15-37) U/L ALT 24 (12-78) U/L Alkaline Phosphatase 131 H (45-117) U/L CK-MB (CK-2) 2.0 (0.5-3.6) ng/ml Troponin I < 0.015 (0-0.045) ng/ml Total Protein 7.5 (6.4-8.2) gm/dl Albumin 3.4 (3.4-5.0) gm/dl Globulin 4.1 H (2.5-4.0) gm/dl Albumin/Globulin Ratio 0.8 L (0.9-2) Urine Color Yellow Urine Appearance Clear (Clear) Urine pH 5.5 (4.5-7.5) Ur Specific [place] 1.011 (1.000-1.030) Urine Protein Negative (Negative) Urine Glucose (UA) Negative (Negative) Urine Ketones Negative (Negative) Urine Blood Negative (Negative) Urine Nitrite Negative (Negative) Urine Bilirubin Negative (Negative) Urine Urobilinogen Negative (Negative) Ur Leukocyte Esterase Trace H (Negative) Urine WBC (Auto) 1-5 (0-5) /hpf Urine RBC (Auto) 0-4 (0-4) /hpf U Hyaline Cast (Auto) 1-5 (0-5) /lpf U Epithel Cells (Auto) 10-20 H (0-5) /lpf Urine Bacteria (Auto) Negative (Negative) Diagnostic Findings XR chest 1V portable HISTORY: 69 years-old Male weakness acute weakness COMPARISON: Chest radiograph and CTA chest 07/09/2017 TECHNIQUE: Portable AP view of the chest FINDINGS: Cardiomediastinal and hilar silhouettes are within normal limits. Prior median sternotomy. Posterior interbody vince and screw fusion hardware of the thoracic spine. Degenerative changes of the shoulders and spine. Mild right hemidia phragmatic elevation. No pneumothorax, pleural effusion or overt pulmonary edema. IMPRESSION: No acute process. The above report was generated using voice recognition software. It may contain grammatical, syntax or spelling errors. Electronically signed by: Daniel Herrera M.D. 05/05/2019 4:06 PM Dictated: 05/05/19 1604 Transcribed: 05/05/19 1604 ECG Additional Comments: Study shows normal sinus rhythm at 60 bpm, leftward axis, no acute ischemic changes Code Status & VTE Plan Code Status Full code VTE Prophylaxis Plan VTE Prophylaxis will be ordered: Yes PG Care Time/CCT Total # of Minutes Spent Total Time Spent with Patient: Total time spent is greater than 50% in coordination of care (as documented) at patient's floor/unit and/or counseling patient: (1) Cellulitis Site of cellulitis: unspecified site Qualified Code(s): L03.90 - Cellulitis, unspecified (2) Depression Depression Type: major depressive disorder Major depression recurrence: unspecified whether recurrent Active/Remission status: remission status unspecified Qualified Code(s): F32.9 - Major depressive disorder, single episode, unspecified (3) Hypothyroidism Hypothyroidism type: unspecified Qualified Code(s): E03.9 - Hypothyroidism, unspecified (4) Coronary artery disease Coronary Disease-Associated Artery/Lesion type: [place] artery [place] vs. transplanted heart: [place] heart Associated angina: without angina Qualified C ode(s): I25.10 - Atherosclerotic heart disease of [place] coronary artery without angina pectoris (5) Hypertension Hypertension type: essential hypertension Qualified Code(s): I10 - Essential (primary) hypertension (6) T2DM (type 2 diabetes mellitus) Diabetes mellitus residential insulin use: with corporate learning consultant use Diabetes mellitus complication status: without complication Qualified Code(s): E11.9 - Type 2 diabetes mellitus without complications; Z79.4 - halfway (current) use of insulin (7) Anemia Anemia type: unspecified type Qualified Code(s): D64.9 - Anemia, unspecified (8) Hypotension Hypotension type: hypotension due to hypovolemia Qualified Code(s): I95.89 - Other hypotension; E86.1 - Hypovolemia
[2019-05-05] MEDS ORDERED: CYCLOBENZAPRINE HCL 5 MG TAB PO PRN (20:36)
[2019-05-05] MEDS ORDERED: CARBOHYDRATES FOR HYPOGLYCEMIA PO PRN (20:36)
[2019-05-05] MEDS ORDERED: GLUCOSE 10 TABS/TUBE PO PRN (20:36)
[2019-05-05] MEDS ORDERED: GLUCOSE 40% GEL 15 GM TUBE PO PRN (20:36)
[2019-05-05] MEDS ORDERED: DOCUSATE SODIUM 100 MG CAP PO PRN (20:36)
[2019-05-05] MEDS ORDERED: OXYCODONE/ACETAMINOPHEN 5mg/325mg TAB PO PRN (20:36)
[2019-05-05] MEDS ORDERED: DEXTROSE 50% 50 ML SYRINGE IV PRN (20:36)
[2019-05-05] MEDS ORDERED: GLUCAGON FOR INJ 1 MG VIAL SQ PRN (20:36)
[2019-05-05] MEDS ORDERED: ACETAMINOPHEN 500 MG TAB PO PRN (20:36)
[2019-05-05] MEDS ORDERED: bisacodyL 10 MG SUPP PR PRN (20:58)
[2019-05-05] MEDS ORDERED: MoRPHine SULFATE 2 MG/ML CARP IV PRN (20:58)
[2019-05-05] MEDS ORDERED: FAMOTIDINE 20 MG TAB PO SCH (21:00)
[2019-05-05] MEDS ORDERED: INSULIN GLARGINE SOLOSTAR 100 UNITS/ML 3 ML PEN SC SCH (21:00)
[2019-05-05] MEDS: LACTATED RINGER'S 1,000 ML IV SCH (21:03)
[2019-05-05 21:15] LABS: C Reactive Protein 1.36 mg/dl (0-0.29); Magnesium 1.9 mg/dl (1.8-2.4); Phosphorus 3.2 mg/dl (2.5-4.9)
--- NOTE | 2019-05-05 21:35 | XRay Report ---
XR ankle LT 2V HISTORY: 69 years-old Male cellulitis, ?osteo acute pain and swelling of the left ankle COMPARISON: None available TECHNIQUE: 2 views of the left ankle FINDINGS: Heterogeneous appearance of the osseous structures, likely secondary to bone demineralization.. Large enthesophyte of the calcaneus. Moderate tibiotalar osteoarthritis. Moderate to severe degenerative c hanges of the hindfoot and midfoot. There is diffuse soft tissue prominence. Arterial calcifications are noted. No acute fracture, dislocation or bony erosion identified. IMPRESSION: 1. Heterogeneous appearance of the bones, likely secondary to bone demineralization. No acute fractur e or dislocation identified. 2. Soft tissue prominence without bony erosion to suggest osteomyelitis. 3. Degenerative changes as above. The above report was generated using voice recognition software. It may contain grammatical, syntax o r spelling errors. Electronically signed by: Daniel Herrera M.D. 05/05/2019 9:34 PM
--- NOTE | 2019-05-05 22:35 | Magnetic Resonance Report ---
MR thoracic spine wo con HISTORY: 69 years-old Male progressive weakness chronic mid and low back pain with history of prior surgery. COMPARISON: MR lumbar spine of same day, MR thoracic spine 07/01/2017 TECHNIQUE: Multiplanar multisequence MRI of the thoracic spine was obtained without the use of IV con trast. FINDINGS: Prior median sternotomy. The heart appears enlarged. No gross extraspinal abnormality identified on t he large field of view roll form operator localizer images. Multilevel degenerative changes of the cervical and collin mbar spine noted. Artifact from spinal fusion hardware limits the study. Discectomy changes at T7-T8 and T10-T11. Posterior interbody vince and screw fusion hardware extends from C6-T12, previously only s een at the T10-T11 level. There is multilevel disc space narrowing with spondylitic spurring and face t arthrosis. No significant central canal or foraminal narrowing identified. Facet arthrosis at T4-T5 , pronounced in the left partially effaces the left posterior lateral thecal sac, image 9 series 7. T he bilateral neuroforamen at T10-T11 is suboptimally evaluated secondary to adjacent artifact. Additi onally, the left neuroforamen at T7-T8 and T8-T9 are not well seen. Circumscribed T2 hyperintense flu id collection within the operative bed at T9-T11 measures 1.9 x 4.6 x 6.1 cm in AP, transverse and cr anial caudal dimensions extending into the posterior epidural distribution. There is no acute fracture, subluxation or bone marrow edema identified. Signal within the visualized thoracic spinal cord appears unremarkable. IMPRESSION: 1. No acute fracture or subluxation. 2. Posterior interbody vince and screw fusion hardware extends from T6-T12. There is a fluid collection within the laminectomy bed extending into the posterior epidural tissues at T9-T11 measuring up to 6 .1 cm in length suggestive of a probable seroma. Correlate clinically. 3. No significant central canal or foraminal narrowing identified. The above report was generated using voice recognition software. It may contain grammatical, syntax o r spelling errors. Electronically signed by: Daniel Herrera M.D. 05/05/2019 10:32 PM
[2019-05-05] MEDS: GABAPENTIN 600 MG TAB PO SCH (22:43)
[2019-05-05] MEDS: APIXABAN 5 MG TABLET PO SCH (22:44)
[2019-05-05] MEDS: LEVOTHYROXINE SODIUM 75 MCG TABLET PO SCH (22:44)
[2019-05-05] MEDS: DOXYCYCLINE HYCLATE 100 MG CAP PO SCH (22:45)
[2019-05-05] MEDS: TIZANIDINE HCL 4 MG TABLET PO SCH (22:45)
[2019-05-05] MEDS: METHENAMINE HIPPURATE 1 GM TAB PO SCH (22:45)
[2019-05-05] MEDS: TRAZODONE HCL 100 MG TAB PO SCH (22:45)
--- NOTE | 2019-05-05 22:46 | Magnetic Resonance Report ---
MR lumbar spine wo con CLINICAL HISTORY: 69 years-old Male with BL LE weakness. Acute weakness of the bilateral lower extre mities COMPARISON: MRI thoracic spine of same day, MRI lumbar spine 07/01/2017 TECHNIQUE: Multiplanar, multi sequence MRI of the lumbar spine was performed without intravenous cont rast. FINDINGS: Posterior interbody vince and screw fusion hardware of the lower thoracic spine is partially imaged. Pa rtially imaged fluid collection within the epidural operative bed. Incomplete fat saturation surround s the inferior extent of the hardware. There is no acute fracture or subluxation. Minimal bone marrow edema involving the anterior endplates of L2, L3 and L4 is likely on a degenerative basis. No acute abnormality of the imaged intra-abdominal or paraspinal tissues. No aortic aneurysm or adenopathy. Sc out localizer images demonstrate no gross extraspinal abnormality. Conus medullaris terminates at T12 -L1. Mild urinary bladder distention with trabeculation and wall thickening. Findings may be secondary to chronic bladder outlet obstruction. T12-L1: Mild disc space narrowing with mild spondylitic spurring and moderate facet arthrosis. Tiny posterior annular disc bulge. No central canal or foraminal narrowing. Unchanged. L1-L2: Mild disc space narrowing with mild spondylitic spurring and moderate facet arthrosis. Tiny p osterior annular disc bulge. No central canal or foraminal narrowing. Unchanged. L2-L3: No significant disc space narrowing. Tiny posterior annular disc bulge. There is mild spondyl itic spurring with ligamentum flavum thickening and moderate facet arthrosis. Mild right foraminal na rrowing. Central canal and left foramen are patent. Unchanged. L3-L4: Mild disc space narrowing with spondylitic spurring, small posterior annular disc bulge with ligamentum flavum thickening and moderate facet arthrosis. Flattening of the ventral thecal sac witho ut significant central canal or left foraminal narrowing. There is mild right foraminal stenosis. L4-L5: Mild disc space narrowing with spondylitic spurring, circumferential annular disc bulge, liga mentum flavum thickening with severe facet arthrosis and moderate bilateral facet effusions. Mild albert tral canal stenosis with mild narrowing of the bilateral lateral recesses. There is moderate bilatera l foraminal narrowing. No significant change from comparison. L5-S1: Severe disc space narrowing. Trace fluid signal noted within the disc space. Spondylitic spur ring with circumferential annular disc bulge. No endplate edema. Moderate facet arthrosis with ligame ntum flavum thickening. Small central disc protrusion. Flattening of the ventral thecal sac without s ignificant central canal stenosis. Mild bilateral foraminal narrowing. No significant change from com parison. IMPRESSION: 1. No acute fracture or subluxation. 2. Fusion hardware of the lower thoracic spine partially imaged. Additionally, a fluid collection wit hin the laminectomy operative bed is also partially imaged and further described on MRI thoracic spin e study of same day. 3. Multilevel discogenic degenerative changes and facet arthrosis as above, not significant change fr om 07/01/2017 exam. The above report was generated using voice recognition software. It may contain grammatical, syntax o r spelling errors. Electronically signed by: Daniel Herrera M.D. 05/05/2019 10:45 PM
[2019-05-05] MEDS: LIDOCAINE 5% 1 PATCH TD SCH (22:47)
[2019-05-05] MEDS: INSULIN ASPART 100 UNITS/ML 3 ML PEN SC SCH (22:47)
[2019-05-06 07:49] LABS: BUN Creatinine Ratio 21.2 (10-20); Calcium 8.8 mg/dl (8.5-10.1); Creatinine Clr Calc Pharmacy 123.5 ml/min; Est GFR (African American) 109.1; Est GFR (Non-African American) 94.1; Potassium 3.9 mmol/L (3.5-5.1)
[2019-05-06 07:58] LABS: Thyroid Stimulating Hormone 3.31 uIu/ml (0.300-4.500)
[2019-05-06] MEDS: GABAPENTIN 600 MG TAB PO SCH ×2 (08:23→20:37)
[2019-05-06] MEDS: APIXABAN 5 MG TABLET PO SCH ×2 (08:23→20:36)
[2019-05-06] MEDS: DOXYCYCLINE HYCLATE 100 MG CAP PO SCH ×2 (08:24→20:37)
[2019-05-06] MEDS: TIZANIDINE HCL 4 MG TABLET PO SCH ×2 (08:24→20:38)
[2019-05-06] MEDS: METHENAMINE HIPPURATE 1 GM TAB PO SCH ×2 (08:24→20:36)
[2019-05-06] MEDS: BuPROPion XL 150 MG TABCR PO SCH (08:24)
[2019-05-06] MEDS: INSULIN ASPART 100 UNITS/ML 3 ML PEN SC SCH ×4 (08:27→20:40)
[2019-05-06] MEDS ORDERED: NON-FORMULARY MEDICATION (Coenzyme Q10 100 MG) PO SCH (09:00)
--- NOTE | 2019-05-06 09:30 | XRay Report ---
XR lumbar spine 2-3V CLINICAL HISTORY: leg pain, standing films pain COMPARISON STUDY: 11/19/2011 FINDINGS: Interval low thoracic laminectomy and fusion. Lumbar vertebral bodies are normal in terms of stature. There are findings of significant degenerative intervertebral disc change L5-S1 with moderate changes seen at L4-L5. These findings are similar compared to the prior study. No evidence for compression deformity. IMPRESSION: Moderate degenerative disc change primarily from L4 through S1. No acute process. No sig nificant change from the prior study. The above report was generated using voice recognition software. It may contain grammatical, syntax or spelling errors. Electronically signed by: Vish Bowers M.D. 05/06/2019 9:29 AM
[2019-05-06] MEDS: LACTATED RINGER'S 1,000 ML IV SCH (09:45)
--- NOTE | 2019-05-06 14:54 | Orthopedic Consultation ---
Date of Consultation May 06, 2019 Assessment & Plan (1) Weakness: I did meet with the patient and his . We reviewed his MRI and x-ray findings. I did not appreciate any new onset of neural encroachment that could account for his symptoms. I suspect this is longstanding weakness from his thoracic cord compression 2 years ago. This point I would recommend that he reinitiate outpatient physical therapy. He mentions that he will be traveling for the next few weeks but upon return in the new year will initiate this course of action. Present on Admission?: Yes History of Present Illness Reason for Consultation: Bilateral leg weakness Attending Physician: Duc Rivas History of Present Illness This is a 69-year-old male well-known to me that presents to the emergency room last evening with hypotension. Was also determined that he has had decline in neurologic function and weakness in the lower extremities. I was consulted regarding this issue. He states that he was making some progress with a regular therapy appointments a year ago but since discontinuing physical therapy has had a steady decline in independence and lower extremity function. Allergies Allergy/AdvReac Type Severity Reaction Status Date / Time No Known Drug Allergies Allergy Verified 05/05/19 13:42 Home Medications Home Medications Medication Instructions Recorded Confirmed Type apixaban 5 mg tablet 5 mg PO BID 04/21/19 05/05/19 History atorvastatin 20 mg tablet 20 mg PO .COMPLEX 04/21/19 05/05/19 History famotidine 40 mg tablet 40 mg PO BID 04/21/19 05/05/19 History gabapentin 300 mg capsule 600 mg PO BID cap 04/21/19 05/05/19 History insulin glargine 100) 100 unit/mL 20 units SQ QPM ml 04/21/19 05/05/19 History subcutaneous solution levothyroxine 75 mcg tablet 75 mcg PO QPM 04/21/19 05/05/19 History liraglutide 0.6 mg/0.1 mL (18 mg/3 1.2 mg SQ DAILY ml 04/21/19 05/05/19 History mL) subcutaneous pen injector lisinopril 2.5 mg tablet 2.5 mg PO DAILY 04/21/19 05/05/19 History metformin 1,000 mg tablet 1,000 mg PO BID 04/21/19 05/05/19 History methenamine hippurate 1 gram tablet 1 gm PO Q12H 04/21/19 05/05/19 History multivitamin 1 tab PO DAILY 04/21/19 05/05/19 History polyethylene glycol 3350 17 17 gm PO DAILY PRN 04/21/19 05/05/19 History gram/dose oral powder trazodone 100 mg tablet 100 mg PO HS 04/21/19 05/05/19 History bupropion HCl 150 mg 24 hr tablet, 150 mg PO QAM #30 tab 04/23/19 05/05/19 Rx extended release acetaminophen [Tylenol Extra 100 mg PO Q6H PRN 05/05/19 05/05/19 History Strength] coenzyme Q10 100 mg PO DAILY 05/05/19 05/05/19 History oxycodone-acetaminophen [Percocet] 1 tab PO Q8 PRN 05/05/19 05/05/19 History solifenacin [Vesicare] 10 mg PO QPM 05/05/19 05/05/19 History tizanidine 4 mg PO BID 05/05/19 05/05/19 History Patient History Medical History Bladder incontinence Coronary artery disease Depression Dyslipidemia History of diverticulitis of colon History of DVT (deep vein thrombosis) History of Gu[place]ain[place] syndrome Hypertension Hypothyroidism Sleep apnea T2DM (type 2 diabetes mellitus) Thoracic spinal stenosis Urinary retention Surgical History H/O sinus surgery History of bowel resection (~1981) secondary to diverticulitis performation History of thoracic spinal fusion (08/2016) Hx of spinal fusion (06/2017) T10-T11 S/P evacuation of hematoma (07/2017) S/P right knee arthroscopy S/P tonsillectomy and adenoidectomy age 8 Status post coronary artery bypass grafting (Inactive) x 3 Family History Father Myocardial infarction Coronary heart disease Stroke Mother , sudden, unclear cause No problems noted. Grandmother (Paternal) CLL (chronic lymphocytic leukemia) Social History Preferred Language: Indonesian Communication Ability: Effective Visual Impairment: Limited Hearing Ability: Normal Shortage Worker Required: No Beliefs That Will Affect Care: None marital status: Current Living Situation: Spouse current occupational status: retired Other Information That Helps Us Care for You: No Feels Safe at Home: Yes Safety Concerns: Feels Safe At This Time Smoking Status: Never smoker Hx Alcohol Use: Yes Alcohol type: beer, wine and hard liquor Hx Substance Use: No Childhood Exposure to Second-Hand Smoke: No Other Diet Comment: regular caffeine: No during the past year weight has: remained stable Dental Care, Regularly: Yes Physical Activity Frequency: Does not Exercise Seatbelt Use: always Sunscreen Use: No Physical Exam Physical Exam: Patient is sitting up in bed. Appears comfortable. He has 4/5 left plantar flexion dorsiflexion with a five 5/5 on the right. He has a 3+/5 bilateral quadriceps bilaterally. Sensation to light touch and cold is symmetric and intact bilateral extremities. Results & Data Vital Signs (Past 12 Hours) Vital Signs Temp Pulse Resp BP BP Pulse Ox 05/06/19 12:16 36.5 C 75 18 147/100 H 94 05/06/19 08:00 36.7 C 76 18 145/83 H 95 05/06/19 04:31 36.6 C 77 18 136/75 94
--- NOTE | 2019-05-06 15:35 | Hospitalist Progress Note ---
Date of Service May 06, 2019 Assessment & Plan (1) Hypotension: Patient with history of hypertension. Sent from PCP after being found hypotensive in the office, blood pressure = 75/48. Upon arrival to the ER blood pressure had improved to 107/78. Patient was administered 2.5 L of crystalloid fluid and blood pressure has remained normal to slightly elevated since. Hypotension most likely secondary to volume contraction, now resolved -Continue to monitor blood pressure (2) Weakness: Patient with 1 month of progressive weakness acutely worsening over the last week. Could be secondary to dehydration with hypotension. Electrolytes and renal function are intact, but borderline elevated. Given patient's extensive history of spinal surgeries it is concerning that he localizes his weakness predominantly to his lower extremities. Also quite concerning is the progressive loss of function over the past few months. His presentation does not seem to be acute in any way. No fall/trauma/point tenderness. Sensation and mobility are intact. -consulted ortho however, does not appear weakness is from the back. -PT/OT -Case management assessment (3) Cellulitis: Left ankle cellulitis being treated with doxycycline 100 mg p.o. twice daily. Patient is near completion of his course. He feels that it has improved. Afebrile, hemodynamically stable, no leukocytosis. Do not strongly suspect osteomyelitis or progression of infection as underlying cause of patient's presentation today. -Check ESR/CRP -Check x-ray left ankle -Vish area of cellulitis daily to monitor for progression or resolution -Continue doxycycline 100 mg p.o. twice daily. Prescribed for 7 days on on 04/29/2019. Course should be completed after second dose tomorrow. (4) Urinary retention: Ongoing. Concern for cauda equina involvement given patient's progressive weakness Bladder scan every shift as needed Patient may self cath Continue Vesicare and methenamine at home dosages (5) Depression: Chronic. Stable. Continue bupropion 150 mg p.o. daily (6) Hypothyroidism: Chronic. -Check TSH with a.m. labs Continue Synthroid 75 mcg p.o. 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 Strong family history of hypercoagulability. Presently on apixaban 5 mg p.o. twice daily Continue home medication, apixaban 5 mg p.o. twice daily (8) Dyslipidemia: Chronic. Stable. Continue atorvastatin 20 mg p.o. daily Continue coenzyme Q 1000 mg p.o. daily (9) Coronary artery disease: Chronic. Stable. Patient without chest pain. EKG with no acute ischemic changes Continue home medications (10) Hypertension: Patient hypotensive in clinic today which has improved with administration of IV fluid. Presently mildly hypertensive. Continue lisinopril 2.5 mg p.o. daily Continue to monitor (11) T2DM (type 2 diabetes mellitus): Blood sugar = 133. Last hemoglobin C 06/22/2017 = 6.7 Hold metformin while inpatient Continue insulin glargine 20 units every afternoon Insulin sliding scale -Continue liraglutide (12) Anemia: Chronic. Patient with Hgb = 13.4 and HCT = 41.8 which is up from prior values of 11.4 and 34.5, respectively. No blood transfusion. Possibly secondary to volume contraction/hemoconcentration Continue to monitor CBC (13) History of thoracic spinal fusion: Patient with extensive history of spinal surgery as above. Has had progressive loss of function as well as increased spasm. Check MRI thoracic and lumbar spine Consult orthopedic surgery. Patient is well-known to Dr. Yepez Continue home pain management with Percocet and Tylenol, muscle relaxer tizanidine. Add Flexeril Morphine as needed Consistent carb/heart healthy diet as tolerated Prophylaxispatient anticoagulated on apixaban, will continue. Continue home famotidine 40 mg p.o. twice daily Codefull per discussion with patient Patient needs rehab. Awaiting placement. Subjective Patient reports feeling well, except for feeling weak. He has no new symptoms. Review of Systems Review of Systems: All systems reviewed & are unremarkable except as noted in HPI & below Physical Exam Physical Exam: General: patient resting comfortably, NAD, non-toxic in appearance, AA&O x 4 Skin: warm, dry, intact, no rashes or lesions HEENT: NC/AT, PERRL, EOMI, anicteric sclera, conjunctiva without injection, external ear normal to inspection and nontender, no thyromegaly, no JVD Heart: +S1/S2, regular, no m/r/g Lungs: equal air entry bilaterally, no rales/rhonchi/wheezes Abd: +BS, soft, NT/ND, no masses/organomegaly/ascites Ext: warm, 2+ pulses in UE/LE bilaterally, no clubbing/cyanosis or edema, left ankle wound with central eschar, surrounding erythema, tenderness. No crepitus/bulla/lymphangitic streaking Neuro: Grossly nonfocal, patient AA&O x 4, speech intact, no facial droop, moving all extremities on command with equal strength 5/5 Results & Data Vital Signs (Past 12 Hours) Vital Signs Temp Pulse Resp BP BP Pulse Ox 05/06/19 15:18 36.7 C 65 18 137/76 93 05/06/19 12:16 36.5 C 75 18 147/100 H 94 05/06/19 08:00 36.7 C 76 18 145/83 H 95 05/06/19 04:31 36.6 C 77 18 136/75 94 PG Care Time/CCT Total # of Minutes Spent Total Time Spent with Patient: Total time spent is greater than 50% in coordination of care (as documented) at patient's floor/unit and/or counseling patient: (1) T2DM (type 2 diabetes mellitus) Diabetes mellitus complication status: without complication Diabetes mellitus detention insulin use: with detention use Qualified Code(s): E11.9 - Type 2 diabetes mellitus without complications; Z79.4 - exterminator (current) use of insulin (2) Coronary artery disease Associated angina: without angina Coronary Disease-Associated Artery/Lesion type: [place] artery [place] vs. transplanted heart: [place] heart Qualified Code(s): I25.10 - Atherosclerotic heart disease of [place] coronary artery without angina pectoris (3) Anemia Anemia type: unspecified type Qualified Code(s): D64.9 - Anemia, unspecified (4) Cellulitis Site of cellulitis: unspecified site Qualified Code(s): L03.90 - Cellulitis, unspecified (5) Depression Active/Remission status: remission status unspecified Depression Type: major depressive disorder Major depression recurrence: unspecified whether recurrent Qualified Code(s): F32.9 - Major depressive disorder, single episode, unspecified (6) Hypothyroidism Hypothyroidism type: unspecified Qualified Code(s): E03.9 - Hypothyroidism, unspecified (7) Hypertension Hypertension type: essential hypertension Qualified Code(s): I10 - Essential (primary) hypertension (8) Hypotension Hypotension type: hypotension due to hypovolemia Qualified Code(s): I95.89 - Other hypotension; E86.1 - Hypovolemia
[2019-05-06] MEDS: LIRAGLUTIDE PEN SQ SCH (16:13)
[2019-05-06] MEDS: ATORVASTATIN 20 MG TAB PO SCH (20:37)
[2019-05-06] MEDS: LEVOTHYROXINE SODIUM 75 MCG TABLET PO SCH (20:37)
[2019-05-06] MEDS: TRAZODONE HCL 100 MG TAB PO SCH (20:37)
[2019-05-06] MEDS: LIDOCAINE 5% 1 PATCH TD SCH (20:39)
[2019-05-06] MEDS: INSULIN GLARGINE SOLOSTAR 100 UNITS/ML 3 ML PEN SC SCH (20:39)
--- NOTE | 2019-05-06 21:07 | Emergency Department Note ---
Entered by Ellyn Vang acting as a scribe for History of Present Illness General Chief complaint: Weakness Stated complaint: weakness Time Seen by Provider: 05/05/19 15:19 Source: patient History of Present Illness Onset (ago): week(s) 2 Location: lower extremity Pain Consistency: + other (worsening) Quality: + other (weakness) Relieved By: not by medication (Doxycycline) Associated symptoms: + denies other symptoms (palpitations, urinary frequency ), + headaches and + other (left ankle cellulitis, low blood pressure, cloudy urine); no chest pain, no cough, no fever/chills (fever), no loss of appetite and no shortness of breath The patient is a 69 year old male who presents to the Emergency Room with complaints of worsening weakness starting 2 weeks ago. The patient states that he had back surgery a while ago and stopped physical therapy 2 weeks ago. He states that over the past 2 weeks he has had increasing weakness and attributed it to the discontinuation of his therapy. He reports that he also has had cellulitis on his left ankle that he has been being treated with Doxycycline for, but it doesnt seem to be helping. He reports that he went to his PCP today for it and they noticed his blood pressure was low at 75/50, so they sent him here for evaluation. The patient notes that he is on Lisinopril for hypertension, but there have been no recent changes to his dosing or any of his medications. The patient complains of a headache and cloudy urine. The patient denies loss of appetite, chest pain, palpitations, cough, shortness of breath, fever, and urinary frequency. Home Medications Home Medications Medication Instructions Recorded Confirmed Type apixaban 5 mg tablet 5 mg PO BID 04/21/19 05/05/19 History atorvastatin 20 mg tablet 20 mg PO .COMPLEX 04/21/19 05/05/19 History famotidine 40 mg tablet 40 mg PO BID 04/21/19 05/05/19 History gabapentin 300 mg capsule 600 mg PO BID cap 04/21/19 05/05/19 History insulin glargine 100) 100 unit/mL 20 units SQ QPM ml 04/21/19 05/05/19 History subcutaneous solution levothyroxine 75 mcg tablet 75 mcg PO QPM 04/21/19 05/05/19 History liraglutide 0.6 mg/0.1 mL (18 mg/3 1.2 mg SQ DAILY ml 04/21/19 05/05/19 History mL) subcutaneous pen injector lisinopril 2.5 mg tablet 2.5 mg PO DAILY 04/21/19 05/05/19 History metformin 1,000 mg tablet 1,000 mg PO BID 04/21/19 05/05/19 History methenamine hippurate 1 gram tablet 1 gm PO Q12H 04/21/19 05/05/19 History multivitamin 1 tab PO DAILY 04/21/19 05/05/19 History polyethylene glycol 3350 17 17 gm PO DAILY PRN 04/21/19 05/05/19 History gram/dose oral powder trazodone 100 mg tablet 100 mg PO HS 04/21/19 05/05/19 History bupropion HCl 150 mg 24 hr tablet, 150 mg PO QAM #30 tab 04/23/19 05/05/19 Rx extended release acetaminophen [Tylenol Extra 100 mg PO Q6H PRN 05/05/19 05/05/19 History Strength] coenzyme Q10 100 mg PO DAILY 05/05/19 05/05/19 History oxycodone-acetaminophen [Percocet] 1 tab PO Q8 PRN 05/05/19 05/05/19 History solifenacin [Vesicare] 10 mg PO QPM 05/05/19 05/05/19 History tizanidine 4 mg PO BID 05/05/19 05/05/19 History Allergies Allergy/AdvReac Type Severity Reaction Status Date / Time No Known Drug Allergies Allergy Verified 05/05/19 13:42 Past Med/Surg History Medical History Bladder incontinence Coronary artery disease Depression Dyslipidemia History of diverticulitis of colon History of DVT (deep vein thrombosis) History of Guillain-Torrance syndrome Hypertension Hypothyroidism Sleep apnea T2DM (type 2 diabetes mellitus) Thoracic spinal stenosis Urinary retention Surgical History H/O sinus surgery History of bowel resection (~1981) secondary to diverticulitis performation History of thoracic spinal fusion (08/2016) Hx of spinal fusion (06/2017) T10-T11 S/P evacuation of hematoma (07/2017) S/P right knee arthroscopy S/P tonsillectomy and adenoidectomy age 8 Status post coronary artery bypass grafting (Inactive) x 3 Family History Father Myocardial infarction Coronary heart disease Stroke Mother , sudden, unclear cause No problems noted. Grandmother (Paternal) CLL (chronic lymphocytic leukemia) Social History Preferred Language: Wolof Communication Ability: Effective Visual Impairment: Limited Hearing Ability: Normal Relations Specialist Required: No Beliefs That Will Affect Care: None marital status: Current Living Situation: Spouse current occupational status: retired Other Information That Helps Us Care for You: No Feels Safe at Home: Yes Safety Concerns: Feels Safe At This Time Smoking Status: Never smoker Hx Alcohol Use: Yes Alcohol type: beer, wine and hard liquor Hx Substance Use: No Childhood Exposure to Second-Hand Smoke: No Other Diet Comment: regular caffeine: No during the past year weight has: remained stable Dental Care, Regularly: Yes Physical Activity Frequency: Does not Exercise Seatbelt Use: always Sunscreen Use: No Review of Systems See HPI for pertinent positives & negatives. and A total of 10 systems reviewed and were otherwise negative Physical Exam Vital Signs Vital Signs - 24 hr 05/05/19 15:25 05/05/19 16:15 05/05/19 17:36 Temperature 36.6 C Temperature Source Oral Pulse Rate 61 Pulse Rate [Right Finger] 66 76 Pulse Rhythm Regular Pulse Rhythm [Right Finger] Regular Respiratory Rate 18 20 20 Respiratory Effort / Characteristics Non-Labored Spontaneous Non-Labored Respiratory Depth Normal Normal Normal Respiratory Pattern Regular Blood Pressure 107/78 Blood Pressure [Right Arm] 107/67 166/99 H Blood Pressure Mean 87 Blood Pressure Mean [Right Arm] 80 121 Blood Pressure Position Lying Blood Pressure Position [Right Arm] Lying Lying Pulse Oximetry 96 97 Oxygen Delivery Method Room Air Room Air Sepsis Recent Fever Within 48 Hours No Sepsis New/Unexplained Change in Mental Status No Sepsis Action Taken by Nursing No Action Required 05/05/19 18:00 Temperature Temperature Source Pulse Rate Pulse Rate [Right Finger] 72 Pulse Rhythm Pulse Rhythm [Right Finger] Respiratory Rate 18 Respiratory Effort / Characteristics Non-Labored Respiratory Depth Normal Respiratory Pattern Regular Blood Pressure Blood Pressure [Right Arm] 154/90 H Blood Pressure Mean Blood Pressure Mean [Right Arm] 111 Blood Pressure Position Blood Pressure Position [Right Arm] Lying Pulse Oximetry 96 Oxygen Delivery Method Room Air Sepsis Recent Fever Within 48 Hours Sepsis New/Unexplained Change in Mental Status Sepsis Action Taken by Nursing GENERAL: Awake, alert, well-appearing, in no acute distress HENT: Normocephalic, atraumatic. Oropharynx unremarkable. EYES: Normal conjunctiva. Sclera non-icteric. NECK: Supple. No nuchal rigidity. FROM. No JVD. RESPIRATORY: Clear to auscultation. CARDIAC: Regular rate, normal rhythm. Extremities warm and well perfused. Pulses equal. ABDOMEN: Soft, non-distended. No tenderness to palpation. No rebound or guarding. No masses. RECTAL: Deferred. MUSCULOSKELETAL: Chest examination reveals no tenderness. The back is symmetrical on inspection without obvious abnormality. There is no CVA tenderness to palpation. No joint edema. LOWER EXTREMITIES: Calves are equal size bilaterally and non-tender. No edema. No discoloration. NEURO: Normal sensorium. No sensory or motor deficits noted. SKIN: No jaundice noted. Cellulitis to the left ankle that has not responded to antibiotics. No pain with flexion of the ankle. Course Course 1321: The resident, Flavio Francis, performed his initial evaluation and examination at this time. 1343: The patient was evaluated in room C5. A complete history and physical exam was performed. 1653: I reevaluated the patient with the resident and updated him on his test results thus far. I discussed the treatment plan with him. He verbally agrees and understands. 1700: The resident, Flavio Francis, evaluated the patient's neurological exam again. He has normal reflexes. His sensation and motor are intact to vibratory sense. We are ordering a puff spirometer test. 1710: The resident, Flavio Francis, discussed the patient's case with VIJAYA Fischer [facility] Hospitalist. She will evaluate the patient for further management. Administered Medications Apixaban (Eliquis) 5 mg PO BID [facility] Stop: 06/04/19 20:59 Last Admin: 05/07/19 21:13 Dose: 5 mg Documented by: [id number] Admin: 05/07/19 08:20 Dose: 5 mg Documented by: [id number] Admin: 05/06/19 20:36 Dose: 5 mg Documented by: [id number] Admin: 05/06/19 08:23 Dose: 5 mg Documented by: [id number] Admin: 05/05/19 22:44 Dose: 5 mg Documented by: [id number] Atorvastatin Calcium (Lipitor) 20 mg PO [id number] [facility] Stop: 06/05/19 20:59 Last Admin: 05/06/19 20:37 Dose: 20 mg Documented by: [id number] Bupropion HCl (Wellbutrin-Xl) 150 mg PO QAM [facility] Stop: 06/05/19 08:59 Last Admin: 05/07/19 08:19 Dose: 150 mg Documented by: [id number] Admin: 05/06/19 08:24 Dose: 150 mg Documented by: [id number] Doxycycline Hyclate (Vibramycin) 100 mg PO BID [facility] Stop: 05/15/19 21:59 Last Admin: 05/07/19 21:14 Dose: 100 mg Documented by: [id number] Admin: 05/07/19 08:19 Dose: 100 mg Documented by: [id number] Admin: 05/06/19 20:37 Dose: 100 mg Documented by: [id number] Admin: 05/06/19 08:24 Dose: 100 mg Documented by: [id number] Admin: 05/05/19 22:45 Dose: 100 mg Documented by: [id number] Gabapentin (Neurontin) 600 mg PO BID [facility] Stop: 06/04/19 20:59 Last Admin: 05/07/19 21:14 Dose: 600 mg Documented by: [id number] Admin: 05/07/19 08:19 Dose: 600 mg Documented by: [id number] Admin: 05/06/19 20:37 Dose: 600 mg Documented by: [id number] Admin: 05/06/19 08:23 Dose: 600 mg Documented by: [id number] Admin: 05/05/19 22:43 Dose: 600 mg Documented by: [id number] Insulin Aspart (Novolog Flexpen) 0 units SC ACHS [facility] Stop: 06/04/19 21:59 Last Admin: 05/07/19 21:16 Dose: 1 units Documented by: [id number] Cosigned by: [id number] Admin: 05/07/19 17:45 Dose: 7 units Documented by: [id number] Cosigned by: [id number] Admin: 05/07/19 12:47 Dose: 8 units Documented by: [id number] Cosigned by: [id number] Admin: 05/07/19 08:23 Dose: 6 units Documented by: [id number] Cosigned by: [id number] Admin: 05/06/19 20:40 Dose: Not Given Documented by: [id number] Cosigned by: [id number] Admin: 05/06/19 17:44 Dose: 7 units Documented by: [id number] Cosigned by: [id number] Admin: 05/06/19 12:37 Dose: 6 units Documented by: [id number] Cosigned by: [id number] Admin: 05/06/19 08:27 Dose: 2 units Documented by: [id number] Cosigned by: [id number] Admin: 05/05/19 22:47 Dose: 1 units Documented by: [id number] Cosigned by: [id number] Insulin Glargine (Lantus Solostar Pen) 16 units SC QPM [facility] Stop: 06/05/19 20:59 Last Admin: 05/07/19 21:18 Dose: 16 units Documented by: [id number] Cosigned by: [id number] Admin: 05/06/19 20:39 Dose: 16 units Documented by: [id number] Cosigned by: [id number] Levothyroxine Sodium (Synthroid) 75 mcg PO QPM [facility] Stop: 06/04/19 20:59 Last Admin: 05/07/19 21:14 Dose: 75 mcg Documented by: [id number] Admin: 05/06/19 20:37 Dose: 75 mcg Documented by: [id number] Admin: 05/05/19 22:44 Dose: 75 mcg Documented by: [id number] Lidocaine (Lidoderm 5%) 1 patch TD HS [facility] Stop: 06/04/19 21:59 Last Admin: 05/07/19 21:17 Dose: Not Given Documented by: [id number] Admin: 05/06/19 20:39 Dose: Not Given Documented by: [id number] Admin: 05/05/19 22:47 Dose: Not Given Documented by: [id number] Liraglutide (Victoza) 1.2 ea SQ DAILY [facility] Stop: 06/05/19 14:59 Last Admin: 05/07/19 08:21 Dose: 1.2 ea Documented by: [id number] Admin: 05/06/19 16:13 Dose: 1.2 ea Documented by: [id number] Lisinopril (Zestril) 2.5 mg PO DAILY [facility] Stop: 06/05/19 08:59 Last Admin: 05/07/19 08:18 Dose: 2.5 mg Documented by: [id number] Admin: 05/06/19 08:24 Dose: 2.5 mg Documented by: [id number] Methenamine Hippurate (Urex) 1 gm PO BID [facility] Stop: 06/04/19 21:59 Last Admin: 05/07/19 21:14 Dose: 1 gm Documented by: [id number] Admin: 05/07/19 08:20 Dose: 1 gm Documented by: [id number] Admin: 05/06/19 20:36 Dose: 1 gm Documented by: [id number] Admin: 05/06/19 08:24 Dose: 1 gm Documented by: [id number] Admin: 05/05/19 22:45 Dose: 1 gm Documented by: [id number] Miscellaneous (Remove Lidoderm Patch) 1 ea N/A QAM [facility] Stop: 06/05/19 08:59 Last Admin: 05/07/19 08:21 Dose: 1 ea Documented by: [id number] Admin: 05/06/19 08:23 Dose: Not Given Documented by: [id number] Polyethylene Glycol (Miralax Powder Packet) 17 gm PO DAILY PRN PRN Reason: Constipation Stop: 06/04/19 20:35 Last Admin: 05/07/19 21:22 Dose: 17 gm Documented by: [id number] Solifenacin (Vesicare) 1 ea PO QPM [facility] Stop: 06/05/19 20:59 Last Admin: 05/07/19 21:18 Dose: 1 ea Documented by: [id number] Admin: 05/06/19 20:38 Dose: 1 ea Documented by: [id number] Tizanidine HCl (Zanaflex) 4 mg PO BID [facility] Stop: 06/04/19 20:59 Last Admin: 05/07/19 21:15 Dose: 4 mg Documented by: [id number] Admin: 05/07/19 08:19 Dose: 4 mg Documented by: [id number] Admin: 05/06/19 20:38 Dose: 4 mg Documented by: [id number] Admin: 05/06/19 08:24 Dose: 4 mg Documented by: [id number] Admin: 05/05/19 22:45 Dose: 4 mg Documented by: [id number] Trazodone HCl (Desyrel) 100 mg PO HS [facility] Stop: 06/04/19 20:59 Last Admin: 05/07/19 21:14 Dose: 100 mg Documented by: [id number] Admin: 12/04/19 20:37 Dose: 100 mg Documented by: [id number] Admin: 05/05/19 22:45 Dose: 100 mg Documented by: [id number] Discontinued Medications Diphenhydramine HCl (Benadryl) 50 mg IV NOW STA Stop: 05/05/19 17:39 Last Admin: 05/05/19 17:46 Dose: 50 mg Documented by: [id number] Famotidine (Pepcid) 40 mg PO BID [facility] Stop: 06/04/19 20:59 Last Admin: 05/05/19 21:38 Dose: Not Given Documented by: [id number] Sodium Chloride (Nss) 500 mls @ 125 mls/hr IV .Q4H [facility] Stop: 05/05/19 19:44 Last Infusion: 05/05/19 19:51 Dose: 0 mls/hr Documented by: [id number] Infusion: 05/05/19 16:05 Dose: 0 mls/hr Documented by: [id number] Admin: 05/05/19 15:48 Dose: 125 mls/hr Documented by: [id number] Sodium Chloride (Nss 1000ml) 1,000 mls @ 999 mls/hr IV .Q1H1M ONE Stop: 05/05/19 17:02 Last Infusion: 05/05/19 17:32 Dose: 0 mls/hr Documented by: [id number] Admin: 05/05/19 16:05 Dose: 999 mls/hr Documented by: [id number] Sodium Chloride (Nss 1000ml) 1,000 mls @ 999 mls/hr IV .Q1H1M ONE Stop: 05/05/19 17:10 Last Infusion: 05/05/19 17:45 Dose: 0 mls/hr Documented by: [id number] Admin: 05/05/19 16:39 Dose: 999 mls/hr Documented by: [id number] Piperacillin Sod/Tazobactam Sod (Zosyn) 4.5 gm in 120 mls @ 240 mls/hr IV NOW ONE Stop: 05/05/19 17:23 Last Infusion: 05/05/19 17:32 Dose: 0 mls/hr Documented by: [id number] Admin: 05/05/19 17:04 Dose: 240 mls/hr Documented by: [id number] Levofloxacin/Dextrose (Levaquin/D5w) 750 mg in 150 mls @ 100 mls/hr IV NOW STA Stop: 05/05/19 18:23 Last Infusion: 05/05/19 19:52 Dose: 0 mls/hr Documented by: [id number] Infusion: 05/05/19 17:32 Dose: 0 mls/hr Documented by: [id number] Admin: 05/05/19 17:04 Dose: 100 mls/hr Documented by: [id number] Lactated Ringer's (Lr) 1,000 mls @ 80 mls/hr IV .[id number] [facility] Stop: 05/06/19 21:35 Last Infusion: 05/06/19 23:00 Dose: 0 mls/hr Documented by: [id number] Admin: 05/06/19 09:45 Dose: 80 mls/hr Documented by: [id number] Infusion: 05/06/19 09:33 Dose: 80 mls/hr Documented by: [id number] Admin: 05/05/19 21:03 Dose: 80 mls/hr Documented by: [id number] Insulin Glargine (Lantus Solostar Pen) 20 units SC QPM [facility] Stop: 06/04/19 20:59 Last Admin: 05/05/19 22:46 Dose: 20 units Documented by: [id number] Cosigned by: [id number] Miscellaneous (Order Awaiting Action) 1 ea N/A QS [facility] Stop: 06/05/19 00:00 Last Admin: 05/06/19 08:20 Dose: Not Given Documented by: [id number] Admin: 05/05/19 23:27 Dose: Not Given Documented by: [id number] Miscellaneous (Order Awaiting Action) 1 ea N/A QS [facility] Stop: 06/05/19 00:00 Last Admin: 05/06/19 08:20 Dose: Not Given Documented by: [id number] Admin: 05/05/19 23:26 Dose: Not Given Documented by: [id number] Morphine Sulfate (Morphine Sulfate) 2 mg IV NOW STA Stop: 05/05/19 19:33 Last Admin: 05/05/19 19:39 Dose: 2 mg Documented by: [id number] Morphine Sulfate (Morphine Sulfate) Confirm Administered Dose 2 mg .ROUTE .STK- MED ONE Stop: 05/05/19 19:38 Last Admin: 05/05/19 19:39 Dose: Not Given Documented by: [id number] Medical Decision Making Differential Diagnosis Differential Diagnosis includes but is not limited to dehydration, stroke, anemia, hypoglycemia, hyponatremia, hypernatremia, urinary tract infection, p neumonia, bronchitis, sepsis, gastroenteritis, additional abdominal pathology, metabolic abnormalities and infections. Medical Records Attestation: I reviewed the patient's medical records. Home Medications Current Medication List: was personally reviewed by me Laboratory Data Attestation: I reviewed the patient's lab results. Result diagrams: 05/05/19 14:35 05/06/19 06:48 Lab Results 05/05/19 05/05/19 05/05/19 Range/Units 14:35 14:35 14:35 WBC 8.13 (4.8-10.8) K/uL RBC 4.37 L (4.7-6.1) M/uL Hgb 13.4 L (14.0-18.0) g/dL Hct 41.8 L (42-52) % MCV 95.7 (80-100) fL MCH 30.7 (25-34) pg MCHC 32.1 (32-36) g/dL RDW Std Deviation 45.7 (36.4-46.3) fL RDW Coeff of Donna 13.2 (11.5-14.5) % Plt Count 204 (130-400) K/uL MPV 9.8 (7.4-10.4) fL Immature Gran % (Auto) 0.2 % Neut % (Auto) 56.9 % Lymph % (Auto) 30.0 % Laurens % (Auto) 8.6 % Eos % (Auto) 3.6 % Baso % (Auto) 0.7 % Immature Gran # (Auto) 0.02 (0.00-0.02) K/uL Neut # (Auto) 4.62 (1.4-6.5) K/uL Lymph # (Auto) 2.44 (1.2-3.4) K/uL Laurens # (Auto) 0.70 H (0.11-0.59) K/uL Eos # (Auto) 0.29 (0-0.5) K/uL Baso # (Auto) 0.06 (0-0.2) K/uL ESR 79 H (0-14) mm/hr Sodium 138 (136-145) mmol/L Potassium 3.8 (3.5-5.1) mmol/L Chloride 105 (98-107) mmol/L Carbon Dioxide 27 (21-32) mmol/L Anion Gap 7.0 (3-11) BUN 23 H (7-18) mg/dl Creatinine 1.05 (0.6-1.4) mg/dl Est Cr Clr Drug Dosing 34.4 ml/min Est GFR ( Amer) 83.5 Est GFR (Non-Af Amer) 72.1 BUN/Creatinine Ratio 21.9 H (10-20) Glucose 133 H (70-99) mg/dl POC Glucose (70-99) Calcium 9.1 (8.5-10.1) mg/dl Phosphorus (2.5-4.9) mg/dl Magnesium (1.8-2.4) mg/dl Total Bilirubin 0.4 (0.2-1) mg/dl AST 18 (15-37) U/L ALT 24 (12-78) U/L Alkaline Phosphatase 131 H (45-117) U/L Total Creatine Kinase (39-308) U/L CK-MB (CK-2) 2.0 (0.5-3.6) ng/ml Troponin I < 0.015 (0-0.045) ng/ml C-Reactive Protein (0-0.29) mg/dl Total Protein 7.5 (6.4-8.2) gm/dl Albumin 3.4 (3.4-5.0) gm/dl Globulin 4.1 H (2.5-4.0) gm/dl Albumin/Globulin Ratio 0.8 L (0.9-2) TSH (0.300-4.500) uIu/ml Urine Color Urine Appearance (Clear) Urine pH (4.5-7.5) Ur Specific Monroe (1.000-1.030) Urine Protein (Negative) Urine Glucose (UA) (Negative) Urine Ketones (Negative) Urine Blood (Negative) Urine Nitrite (Negative) Urine Bilirubin (Negative) Urine Urobilinogen (Negative) Ur Leukocyte Esterase (Negative) Urine WBC (Auto) (0-5) /hpf Urine RBC (Auto) (0-4) /hpf U Hyaline Cast (Auto) (0-5) /lpf U Epithel Cells (Auto) (0-5) /lpf Urine Bacteria (Auto) (Negative) Nasal Screen MRSA (PCR) (Negative) 05/05/19 05/05/19 05/05/19 Range/Units 14:35 16:39 21:08 WBC (4.8-10.8) K/uL RBC (4.7-6.1) M/uL Hgb (14.0-18.0) g/dL Hct (42-52) % MCV (80-100) fL MCH (25-34) pg MCHC (32-36) g/dL RDW Std Deviation (36.4-46.3) fL RDW Coeff of Donna (11.5-14.5) % Plt Count (130-400) K/uL MPV (7.4-10.4) fL Immature Gran % (Auto) % Neut % (Auto) % Lymph % (Auto) % Laurens % (Auto) % Eos % (Auto) % Baso % (Auto) % Immature Gran # (Auto) (0.00-0.02) K/uL Neut # (Auto) (1.4-6.5) K/uL Lymph # (Auto) (1.2-3.4) K/uL Laurens # (Auto) (0.11-0.59) K/uL Eos # (Auto) (0-0.5) K/uL Baso # (Auto) (0-0.2) K/uL ESR (0-14) mm/hr Sodium (136-145) mmol/L Potassium (3.5-5.1) mmol/L Chloride (98-107) mmol/L Carbon Dioxide (21-32) mmol/L Anion Gap (3-11) BUN (7-18) mg/dl Creatinine (0.6-1.4) mg/dl Est Cr Clr Drug Dosing ml/min Est GFR ( Amer) Est GFR (Non-Af Amer) BUN/Creatinine Ratio (10-20) Glucose (70-99) mg/dl POC Glucose 154 H (70-99) Calcium (8.5-10.1) mg/dl Phosphorus 3.2 (2.5-4.9) mg/dl Magnesium 1.9 (1.8-2.4) mg/dl Total Bilirubin (0.2-1) mg/dl AST (15-37) U/L ALT (12-78) U/L Alkaline Phosphatase (45-117) U/L Total Creatine Kinase 97 (39-308) U/L CK-MB (CK-2) (0.5-3.6) ng/ml Troponin I (0-0.045) ng/ml C-Reactive Protein 1.36 H (0-0.29) mg/dl Total Protein (6.4-8.2) gm/dl Albumin (3.4-5.0) gm/dl Globulin (2.5-4.0) gm/dl Albumin/Globulin Ratio (0.9-2) TSH (0.300-4.500) uIu/ml Urine Color Yellow Urine Appearance Clear (Clear) Urine pH 5.5 (4.5-7.5) Ur Specific Monroe 1.011 (1.000-1.030) Urine Protein Negative (Negative) Urine Glucose (UA) Negative (Negative) Urine Ketones Negative (Negative) Urine Blood Negative (Negative) Urine Nitrite Negative (Negative) Urine Bilirubin Negative (Negative) Urine Urobilinogen Negative (Negative) Ur Leukocyte Esterase Trace H (Negative) Urine WBC (Auto) 1-5 (0-5) /hpf Urine RBC (Auto) 0-4 (0-4) /hpf U Hyaline Cast (Auto) 1-5 (0-5) /lpf U Epithel Cells (Auto) 10-20 H (0-5) /lpf Urine Bacteria (Auto) Negative (Negative) Nasal Screen MRSA (PCR) (Negative) 05/05/19 05/06/19 05/06/19 Range/Units 21:15 06:48 07:40 WBC (4.8-10.8) K/uL RBC (4.7-6.1) M/uL Hgb (14.0-18.0) g/dL Hct (42-52) % MCV (80-100) fL MCH (25-34) pg MCHC (32-36) g/dL RDW Std Deviation (36.4-46.3) fL RDW Coeff of Donna (11.5-14.5) % Plt Count (130-400) K/uL MPV (7.4-10.4) fL Immature Gran % (Auto) % Neut % (Auto) % Lymph % (Auto) % Laurens % (Auto) % Eos % (Auto) % Baso % (Auto) % Immature Gran # (Auto) (0.00-0.02) K/uL Neut # (Auto) (1.4-6.5) K/uL Lymph # (Auto) (1.2-3.4) K/uL Laurens # (Auto) (0.11-0.59) K/uL Eos # (Auto) (0-0.5) K/uL Baso # (Auto) (0-0.2) K/uL ESR (0-14) mm/hr Sodium 142 (136-145) mmol/L Potassium 3.9 (3.5-5.1) mmol/L Chloride 109 H (98-107) mmol/L Carbon Dioxide 29 (21-32) mmol/L Anion Gap 4.0 (3-11) BUN 16 (7-18) mg/dl Creatinine 0.74 D (0.6-1.4) mg/dl Est Cr Clr Drug Dosing 123.5 ml/min Est GFR ( Amer) 109.1 Est GFR (Non-Af Amer) 94.1 BUN/Creatinine Ratio 21.2 H (10-20) Glucose 93 (70-99) mg/dl POC Glucose 83 (70-99) Calcium 8.8 (8.5-10.1) mg/dl Phosphorus (2.5-4.9) mg/dl Magnesium (1.8-2.4) mg/dl Total Bilirubin (0.2-1) mg/dl AST (15-37) U/L ALT (12-78) U/L Alkaline Phosphatase (45-117) U/L Total Creatine Kinase (39-308) U/L CK-MB (CK-2) (0.5-3.6) ng/ml Troponin I (0-0.045) ng/ml C-Reactive Protein (0-0.29) mg/dl Total Protein (6.4-8.2) gm/dl Albumin (3.4-5.0) gm/dl Globulin (2.5-4.0) gm/dl Albumin/Globulin Ratio (0.9-2) TSH 3.310 (0.300-4.500) uIu/ml Urine Color Urine Appearance (Clear) Urine pH (4.5-7.5) Ur Specific Monroe (1.000-1.030) Urine Protein (Negative) Urine Glucose (UA) (Negative) Urine Ketones (Negative) Urine Blood (Negative) Urine Nitrite (Negative) Urine Bilirubin (Negative) Urine Urobilinogen (Negative) Ur Leukocyte Esterase (Negative) Urine WBC (Auto) (0-5) /hpf Urine RBC (Auto) (0-4) /hpf U Hyaline Cast (Auto) (0-5) /lpf U Epithel Cells (Auto) (0-5) /lpf Urine Bacteria (Auto) (Negative) Nasal Screen MRSA (PCR) Negative (Negative) 05/06/19 05/06/19 05/06/19 Range/Units 11:36 16:22 20:06 WBC (4.8-10.8) K/uL RBC (4.7-6.1) M/uL Hgb (14.0-18.0) g/dL Hct (42-52) % MCV (80-100) fL MCH (25-34) pg MCHC (32-36) g/dL RDW Std Deviation (36.4-46.3) fL RDW Coeff of Donna (11.5-14.5) % Plt Count (130-400) K/uL MPV (7.4-10.4) fL Immature Gran % (Auto) % Neut % (Auto) % Lymph % (Auto) % [place] % (Auto) % Eos % (Auto) % Baso % (Auto) % Immature Gran # (Auto) (0.00-0.02) K/uL Neut # (Auto) (1.4-6.5) K/uL Lymph # (Auto) (1.2-3.4) K/uL [place]rens # (Auto) (0.11-0.59) K/uL Eos # (Auto) (0-0.5) K/uL Baso # (Auto) (0-0.2) K/uL ESR (0-14) mm/hr Sodium (136-145) mmol/L Potassium (3.5-5.1) mmol/L Chloride (98-107) mmol/L Carbon Dioxide (21-32) mmol/L Anion Gap (3-11) BUN (7-18) mg/dl Creatinine (0.6-1.4) mg/dl Est Cr Clr Drug Dosing ml/min Est GFR ( Amer) Est GFR (Non-Af Amer) BUN/Creatinine Ratio (10-20) Glucose (70-99) mg/dl POC Glucose 112 H 165 H 111 H (70-99) Calcium (8.5-10.1) mg/dl Phosphorus (2.5-4.9) mg/dl Magnesium (1.8-2.4) mg/dl Total Bilirubin (0.2-1) mg/dl AST (15-37) U/L ALT (12-78) U/L Alkaline Phosphatase (45-117) U/L Total Creatine Kinase (39-308) U/L CK-MB (CK-2) (0.5-3.6) ng/ml Troponin I (0-0.045) ng/ml C-Reactive Protein (0-0.29) mg/dl Total Protein (6.4-8.2) gm/dl Albumin (3.4-5.0) gm/dl Globulin (2.5-4.0) gm/dl Albumin/Globulin Ratio (0.9-2) TSH (0.300-4.500) uIu/ml Urine Color Urine Appearance (Clear) Urine pH (4.5-7.5) Ur Specific [place] (1.000-1.030) Urine Protein (Negative) Urine Glucose (UA) (Negative) Urine Ketones (Negative) Urine Blood (Negative) Urine Nitrite (Negative) Urine Bilirubin (Negative) Urine Urobilinogen (Negative) Ur Leukocyte Esterase (Negative) Urine WBC (Auto) (0-5) /hpf Urine RBC (Auto) (0-4) /hpf U Hyaline Cast (Auto) (0-5) /lpf U Epithel Cells (Auto) (0-5) /lpf Urine Bacteria (Auto) (Negative) Nasal Screen MRSA (PCR) (Negative) Imaging Data Radiologist's Impression: Radiology results as stated below per my review and the radiologist's interpretation: XR chest 1V portable HISTORY: 69 years-old Male weakness acute weakness COMPARISON: Chest radiograph and CTA chest 07/09/2017 TECHNIQUE: Portable AP view of the chest FINDINGS: Cardiomediastinal and hilar silhouettes are within normal limits. Prior median sternotomy. Posterior interbody vince and screw fusion hardware of the thoracic spine. Degenerative changes of the shoulders and spine. Mild right hemidiaphragmatic elevation. No pneumothorax, pleural effusion or overt pulmonary edema. IMPRESSION: No acute process. The above report was generated using voice recognition software. It may contain grammatical, syntax or spelling errors. Electronically signed by: Daniel Herrera M.D. 05/05/2019 4:06 PM ECG Data Attestation: I personally reviewed and interpreted this ECG as follows: Indication: + weakness Rate (beats per minute): 60 Rhythm: + normal sinus ECG [place]: + Normal ECG ST segments: no ST depression and no ST elevation ECG Findings: + Other (QT-c 464) Comparison ECG Date: from (07/11/2017) Change: the following changes noted (no longer premature atrial complexes) Blood Pressure Blood Pressure Findings: Elevated blood pressure Blood Pressure Disposition: further management by hospitalist MDM Narrative This is a 69-year-old male who presents emergency department complaining of hypotension. Normal saline bolus was given to the patient. Patient also has an area of cellulitis that has not been giving better on antibiotics. He was st arted on broad-spectrum antibiotics. I did discuss the case with the hospitalist who agreed to meet the patient. Patient and family were in agreement with the treatment plan. Impression & Plan Weakness, Cellulitis, Failure of outpatient treatment Discharge Plan Visit Data *Final* Discharge Date/Time: 05/05/19 20:16 Chief Complaint: Weakness Stated Complaint: weakness ED Provider: Kolton Salomon ED Midlevel Provider: Flavio Francis Discharge Problem: Weakness, Cellulitis, Failure of outpatient treatment Patient Disposition: Admitted As Inpatient Discharge Instructions Interventions: ED Discharge Assessment Last Done: 05/05/19 20:16 Discharge Problem: Cellulitis Qualifiers: Site of cellulitis: unspecified site Qualified Code(s): L03.90 - Cellulitis, unspecified The scribe's documentation has been prepared under my direction and personally reviewed by me in its entirety. I confirm that the note above accurately reflects all work, treatment, procedures, and medical decision making performed by me.
[2019-05-07] MEDS: BuPROPion XL 150 MG TABCR PO SCH (08:19)
[2019-05-07] MEDS: GABAPENTIN 600 MG TAB PO SCH ×2 (08:19→21:14)
[2019-05-07] MEDS: TIZANIDINE HCL 4 MG TABLET PO SCH ×2 (08:19→21:15)
[2019-05-07] MEDS: DOXYCYCLINE HYCLATE 100 MG CAP PO SCH ×2 (08:19→21:14)
[2019-05-07] MEDS: APIXABAN 5 MG TABLET PO SCH ×2 (08:20→21:13)
[2019-05-07] MEDS: METHENAMINE HIPPURATE 1 GM TAB PO SCH ×2 (08:20→21:14)
[2019-05-07] MEDS: LIRAGLUTIDE PEN SQ SCH (08:21)
[2019-05-07] MEDS: INSULIN ASPART 100 UNITS/ML 3 ML PEN SC SCH ×4 (08:23→21:16)
[2019-05-07] MEDS: TRAZODONE HCL 100 MG TAB PO SCH (21:14)
[2019-05-07] MEDS: LEVOTHYROXINE SODIUM 75 MCG TABLET PO SCH (21:14)
[2019-05-07] MEDS: LIDOCAINE 5% 1 PATCH TD SCH (21:17)
[2019-05-07] MEDS: INSULIN GLARGINE SOLOSTAR 100 UNITS/ML 3 ML PEN SC SCH (21:18)
[2019-05-07] MEDS: POLYETHYLENE (MIRALAX) 17 GM PACK PO PRN (21:22)
--- NOTE | 2019-05-07 21:55 | Hospitalist Progress Note ---
Date of Service May 07, 2019 Assessment & Plan (1) Hypotension: Resolved. Patient did have a bout of diarrhea prior to this episode, it is likely patient was not able to rehydrate the fluid that was lost. Patient with history of hypertension. Sent from PCP after being found hypotensive in the office, blood pressure = 75/48. Upon arrival to the ER blood pressure had improved to 107/78. Patient was administered 2.5 L of crystalloid fluid and blood pressure has remained normal to slightly elevated since. Hypotension most likely secondary to volume contraction. -Continue to monitor blood pressure -Pending placement. (2) Weakness: Patient with 1 month of progressive weakness acutely worsening over the last week. Could be secondary to dehydration with hypotension. Electrolytes and renal function are intact, but borderline elevated. Given patient's extensive history of spinal surgeries it is concerning that he localizes his weakness predominantly to his lower extremities. Also quite concerning is the progressive loss of function over the past few months. His presentation does not seem to be acute in any way. No fall/trauma/point tenderness. Sensation and mobility are intact. -consulted ortho however, does not appear weakness is from the back. -PT/OT -Case management assessment (3) Cellulitis: Left ankle cellulitis being treated with doxycycline 100 mg p.o. twice daily. Patient is near completion of his course. He feels that it has improved. Afebrile, hemodynamically stable, no leukocytosis. Do not strongly suspect osteomyelitis or progression of infection as underlying cause of patient's presentation today. -Check ESR/CRP -Check x-ray left ankle -Vish area of cellulitis daily to monitor for progression or resolution -Continue doxycycline 100 mg p.o. twice daily. Prescribed for 7 days on on 04/29/2019. Course should be completed after second dose tomorrow. (4) Urinary retention: Ongoing. Concern for cauda equina involvement given patient's progressive weakness Bladder scan every shift as needed Patient may self cath Continue Vesicare and methenamine at home dosages (5) Depression: Chronic. Stable. Continue bupropion 150 mg p.o. daily (6) Hypothyroidism: Chronic. -Check TSH with a.m. labs Continue Synthroid 75 mcg p.o. 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 Strong family history of hypercoagulability. Presently on apixaban 5 mg p.o. twice daily Continue home medication, apixaban 5 mg p.o. twice daily (8) Dyslipidemia: Chronic. Stable. Continue atorvastatin 20 mg p.o. daily Continue coenzyme Q 1000 mg p.o. daily (9) Coronary artery disease: Chronic. Stable. Patient without chest pain. EKG with no acute ischemic changes Continue home medications (10) Hypertension: Patient hypotensive in clinic today which has improved with administration of IV fluid. Presently mildly hypertensive. Continue lisinopril 2.5 mg p.o. daily Continue to monitor (11) T2DM (type 2 diabetes mellitus): Blood sugar = 133. Last hemoglobin C 06/22/2017 = 6.7 Hold metformin while inpatient Continue insulin glargine 20 units every afternoon Insulin sliding scale -Continue liraglutide (12) Anemia: Chronic. Patient with Hgb = 13.4 and HCT = 41.8 which is up from prior values of 11.4 and 34.5, respectively. No blood transfusion. Possibly secondary to volume contraction/hemoconcentration Continue to monitor CBC (13) History of thoracic spinal fusion: Patient with extensive history of spinal surgery as above. Has had progressive loss of function as well as increased spasm. Check MRI thoracic and lumbar spine Consult orthopedic surgery. Patient is well-known to Dr. Yepze Continue home pain management with Percocet and Tylenol, muscle relaxer tizanidine. Add Flexeril Morphine as needed Consistent carb/heart healthy diet as tolerated Prophylaxispatient anticoagulated on apixaban, will continue. Continue home famotidine 40 mg p.o. twice daily Codefull per discussion with patient Patient needs rehab. Awaiting placement. Subjective 69 yo reports no new complaints. He feels he is much better than when he came in. Not quite back to baseline which is why he is interested in rehab. Review of Systems Review of Systems: All systems reviewed & are unremarkable except as noted in HPI & below Physical Exam Physical Exam: General: patient resting comfortably, NAD, non-toxic in appearance, AA&O x 4 Skin: warm, dry, intact, no rashes or lesions HEENT: NC/AT, PERRL, EOMI, anicteric sclera, conjunctiva without injection, external ear normal to inspection and nontender, no thyromegaly, no JVD Heart: +S1/S2, regular, no m/r/g Lungs: equal air entry bilaterally, no rales/rhonchi/wheezes Abd: +BS, soft, NT/ND, no masses/organomegaly/ascites Ext: warm, 2+ pulses in UE/LE bilaterally, no clubbing/cyanosis or edema, left ankle wound with central eschar, surrounding erythema, tenderness. No crepitus/bulla/lymphangitic streaking Neuro: Grossly nonfocal, patient AA&O x 4, speech intact, no facial droop, moving all extremities on command with equal strength 5/5 Results & Data Vital Signs (Past 12 Hours) Vital Signs Temp Pulse Resp BP Pulse Ox 05/07/19 19:36 37.0 C 76 12 145/89 H 92 05/07/19 15:15 36.5 C 75 20 134/84 93 PG Care Time/CCT Total # of Minutes Spent Total Time Spent with Patient: Total time spent is greater than 50% in coordination of care (as documented) at patient's floor/unit and/or counseling patient: (1) T2DM (type 2 diabetes mellitus) Diabetes mellitus complication status: without complication Diabetes mellitus fci insulin use: with fci use Qualified Code(s): E11.9 - Type 2 diabetes mellitus without complications; 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 transplanted heart: [place] heart Qualified Code(s): I25.10 - Atherosclerotic heart disease of [place] coronary artery without angina pectoris (3) Anemia Anemia type: unspecified type Qualified Code(s): D64.9 - Anemia, unspecified (4) Cellulitis Site of cellulitis: unspecified site Qualified Code(s): L03.90 - Cellulitis, unspecified (5) Depression Active/Remission status: remission status unspecified Depression Type: major depressive disorder Major depression recurrence: unspecified whether recurrent Qualified Code(s): F32.9 - Major depressive disorder, single episode, unspecified (6) Hypothyroidism Hypothyroidism type: unspecified Qualified Code(s): E03.9 - Hypothyroidism, unspecified (7) Hypertension Hypertension type: essential hypertension Qualified Code(s): I10 - Essential (primary) hypertension (8) Hypotension Hypotension type: hypotension due to hypovolemia Qualified Code(s): I95.89 - Other hypotension; E86.1 - Hypovolemia
[2019-05-08] MEDS: GABAPENTIN 600 MG TAB PO SCH ×2 (09:01→23:05)
[2019-05-08] MEDS: METHENAMINE HIPPURATE 1 GM TAB PO SCH ×2 (09:01→23:06)
[2019-05-08] MEDS: BuPROPion XL 150 MG TABCR PO SCH (09:01)
[2019-05-08] MEDS: DOXYCYCLINE HYCLATE 100 MG CAP PO SCH ×2 (09:01→23:05)
[2019-05-08] MEDS: APIXABAN 5 MG TABLET PO SCH ×2 (09:01→23:08)
[2019-05-08] MEDS: TIZANIDINE HCL 4 MG TABLET PO SCH ×2 (09:01→23:06)
[2019-05-08] MEDS: LIRAGLUTIDE PEN SQ SCH (09:02)
[2019-05-08] MEDS: INSULIN ASPART 100 UNITS/ML 3 ML PEN SC SCH ×4 (09:04→23:10)
[2019-05-08] MEDS: POLYETHYLENE (MIRALAX) 17 GM PACK PO PRN (20:22)
--- NOTE | 2019-05-08 22:38 | Hospitalist Progress Note ---
Date of Service May 08, 2019 Assessment & Plan (1) Hypotension: Resolved. Patient did have a bout of diarrhea prior to this episode, it is likely patient was not able to rehydrate the fluid that was lost. Patient with history of hypertension. Sent from PCP after being found hypotensive in the office, blood pressure = 75/48. Upon arrival to the ER blood pressure had improved to 107/78. Patient was administered 2.5 L of crystalloid fluid and blood pressure has remained normal to slightly elevated since. Hypotension most likely secondary to volume contraction. -Continue to monitor blood pressure -Pending placement. Rehab was denied, working on SNF placement. (2) Weakness: Patient with 1 month of progressive weakness acutely worsening over the last week. Could be secondary to dehydration with hypotension. Electrolytes and renal function are intact, but borderline elevated. Given patient's extensive history of spinal surgeries it is concerning that he localizes his weakness predominantly to his lower extremities. Also quite concerning is the progressive loss of function over the past few months. His presentation does not seem to be acute in any way. No fall/trauma/point tenderness. Sensation and mobility are intact. -consulted ortho however, does not appear weakness is from the back. -PT/OT -Case management assessment (3) Cellulitis: Left ankle cellulitis being treated with doxycycline 100 mg p.o. twice daily. Patient is near completion of his course. He feels that it has improved. Afebrile, hemodynamically stable, no leukocytosis. Do not strongly suspect osteomyelitis or progression of infection as underlying cause of patient's presentation today. -Check ESR/CRP -Check x-ray left ankle -Vish area of cellulitis daily to monitor for progression or resolution -Continue doxycycline 100 mg p.o. twice daily. Prescribed for 7 days on on 04/29/2019. Course should be completed after second dose tomorrow. (4) Urinary retention: Ongoing. Concern for cauda equina involvement given patient's progressive weakness Bladder scan every shift as needed Patient may self cath Continue Vesicare and methenamine at home dosages (5) Depression: Chronic. Stable. Continue bupropion 150 mg p.o. daily (6) Hypothyroidism: Chronic. -Check TSH with a.m. labs Continue Synthroid 75 mcg p.o. 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 Strong family history of hypercoagulability. Presently on apixaban 5 mg p.o. twice daily Continue home medication, apixaban 5 mg p.o. twice daily (8) Dyslipidemia: Chronic. Stable. Continue atorvastatin 20 mg p.o. daily Continue coenzyme Q 1000 mg p.o. daily (9) Coronary artery disease: Chronic. Stable. Patient without chest pain. EKG with no acute ischemic changes Continue home medications (10) Hypertension: Patient hypotensive in clinic today which has improved with administration of IV fluid. Presently mildly hypertensive. Continue lisinopril 2.5 mg p.o. daily Continue to monitor (11) T2DM (type 2 diabetes mellitus): Blood sugar = 133. Last hemoglobin C 06/22/2017 = 6.7 Hold metformin while inpatient Continue insulin glargine 20 units every afternoon Insulin sliding scale -Continue liraglutide (12) Anemia: Chronic. Patient with Hgb = 13.4 and HCT = 41.8 which is up from prior values of 11.4 and 34.5, respectively. No blood transfusion. Possibly second myles to volume contraction/hemoconcentration Continue to monitor CBC (13) History of thoracic spinal fusion: Patient with extensive history of spinal surgery as above. Has had progressive loss of function as well as increased spasm. Check MRI thoracic and lumbar spine Consult orthopedic surgery. Patient is well-known to Dr. Yepez Continue home pain management with Percocet and Tylenol, muscle relaxer tizanidine. Add Flexeril Morphine as needed Consistent carb/heart healthy diet as tolerated Prophylaxispatient anticoagulated on apixaban, will continue. Continue home famotidine 40 mg p.o. twice daily Codefull per discussion with patient Patient needs rehab. Awaiting placement. Subjective Patient reports doing well. Patient as no new complaints. Review of Systems Review of Systems: All systems reviewed & are unremarkable except as noted in HPI & below Physical Exam Physical Exam: General: patient resting comfortably, NAD, non-toxic in appe arance, AA&O x 4 Skin: warm, dry, intact, no rashes or lesions HEENT: NC/AT, PERRL, EOMI, anicteric sclera, conjunctiva without injection, external ear normal to inspection and nontender, no thyromegaly, no JVD Heart: +S1/S2, regular, no m/r/g Lungs: equal air entry bilaterally, no rales/rhonchi/wheezes Abd: +BS, soft, NT/ND, no masses/organomegaly/ascites Ext: warm, 2+ pulses in UE/LE bilaterally, no clubbing/cyanosis or edema, left ankle wound with central eschar, surrounding erythema, tenderness. 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 transplanted heart: [place] heart Qualified Code(s): I25.10 - Atherosclerotic heart disease of [place] coronary artery without angina pectoris (3) Anemia Anemia type: unspecified type Qualified Code(s): D64.9 - Anemia, unspecified (4) Cellulitis Site of cellulitis: unspecified site Qualified Code(s): L03.90 - Cellulitis, unspecified (5) Depression Active/Remission status: remission status unspecified Depression Type: major depressive disorder Major depression recurrence: unspecified whether recurrent Qualified Code(s): F32.9 - Major depressive disorder, single episode, unspecified (6) Hypothyroidism Hypothyroidism type: unspecified Qualified Code(s): E03.9 - Hypothyroidism, unspecified (7) Hypertension Hypertension type: essential hypertension Qualified Code(s): I10 - Essential (primary) hypertension (8) Hypotension Hypotension type: hypotension due to hypovolemia Qualified Code(s): I95.89 - Other hypotension; E86.1 - Hypovolemia
[2019-05-08] MEDS: LIDOCAINE 5% 1 PATCH TD SCH (23:04)
[2019-05-08] MEDS: LEVOTHYROXINE SODIUM 75 MCG TABLET PO SCH (23:05)
[2019-05-08] MEDS: ATORVASTATIN 20 MG TAB PO SCH (23:05)
[2019-05-08] MEDS: TRAZODONE HCL 100 MG TAB PO SCH (23:06)
[2019-05-08] MEDS: INSULIN GLARGINE SOLOSTAR 100 UNITS/ML 3 ML PEN SC SCH (23:12)
[2019-05-09] MEDS: INSULIN ASPART 100 UNITS/ML 3 ML PEN SC SCH ×4 (08:26→20:42)
[2019-05-09] MEDS: METHENAMINE HIPPURATE 1 GM TAB PO SCH ×2 (08:28→20:35)
[2019-05-09] MEDS: LIRAGLUTIDE PEN SQ SCH (08:28)
[2019-05-09] MEDS: APIXABAN 5 MG TABLET PO SCH ×2 (08:29→20:36)
[2019-05-09] MEDS: GABAPENTIN 600 MG TAB PO SCH ×2 (08:29→20:36)
[2019-05-09] MEDS: BuPROPion XL 150 MG TABCR PO SCH (08:29)
[2019-05-09] MEDS: DOXYCYCLINE HYCLATE 100 MG CAP PO SCH ×2 (08:30→20:35)
[2019-05-09] MEDS: TIZANIDINE HCL 4 MG TABLET PO SCH ×2 (08:30→20:36)
[2019-05-09] MEDS: POLYETHYLENE (MIRALAX) 17 GM PACK PO PRN (15:29)
[2019-05-09] MEDS: LEVOTHYROXINE SODIUM 75 MCG TABLET PO SCH (20:36)
[2019-05-09] MEDS: TRAZODONE HCL 100 MG TAB PO SCH (20:37)
[2019-05-09] MEDS: LIDOCAINE 5% 1 PATCH TD SCH (20:37)
[2019-05-09] MEDS: INSULIN GLARGINE SOLOSTAR 100 UNITS/ML 3 ML PEN SC SCH (20:42)
--- NOTE | 2019-05-09 21:19 | Hospitalist Progress Note ---
Date of Service May 09, 2019 Assessment & Plan (1) Hypotension: Resolved. Patient did have a bout of diarrhea prior to this episode, it is likely patient was not able to rehydrate the fluid that was lost. Patient with history of hypertension. Sent from PCP after being found hypotensive in the office, blood pressure = 75/48. Upon arrival to the ER blood pressure had improved to 107/78. Patient was administered 2.5 L of crystalloid fluid and blood pressure has remained normal to slightly elevated since. Hypotension most likely secondary to volume contraction. -Continue to monitor blood pressure -Pending placement. Rehab was denied, working on SNF placement. (2) Weakness: Patient with 1 month of progressive weakness acutely worsening over the last week. Could be secondary to dehydration with hypotension. Electrolytes and renal function are intact, but borderline elevated. Given patient's extensive history of spinal surgeries it is concerning that he localizes his weakness predominantly to his lower extremities. Also quite concerning is the progressive loss of function over the past few months. His presentation does not seem to be acute in any way. No fall/trauma/point tenderness. Sensation and mobility are intact. -consulted ortho however, does not appear weakness is from the back. -PT/OT -Case management assessment (3) Cellulitis: Left ankle cellulitis being treated with doxycycline 100 mg p.o. twice daily. Patient is near completion of his course. He feels that it has improved. Afebrile, hemodynamically stable, no leukocytosis. Do not strongly suspect osteomyelitis or progression of infection as underlying cause of patient's presentation today. -Check ESR/CRP -Check x-ray left ankle -Vish area of cellulitis daily to monitor for progression or resolution -Continue doxycycline 100 mg p.o. twice daily. Prescribed for 7 days on on 04/29/2019. Course should be completed after second dose tomorrow. (4) Urinary retention: Ongoing. Concern for cauda equina involvement given patient's progressive weakness Bladder scan every shift as needed Patient may self cath Continue Vesicare and methenamine at home dosages (5) Depression: Chronic. Stable. Continue bupropion 150 mg p.o. daily (6) Hypothyroidism: Chronic. -Check TSH with a.m. labs Continue Synthroid 75 mcg p.o. 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 Strong family history of hypercoagulability. Presently on apixaban 5 mg p.o. twice daily Continue home medication, apixaban 5 mg p.o. twice daily (8) Dyslipidemia: Chronic. Stable. Continue atorvastatin 20 mg p.o. daily Continue coenzyme Q 1000 mg p.o. daily (9) Coronary artery disease: Chronic. Stable. Patient without chest pain. EKG with no acute ischemic changes Continue home medications (10) Hypertension: Patient hypotensive in clinic today which has improved with administration of IV fluid. Presently mildly hypertensive. Continue lisinopril 2.5 mg p.o. daily Continue to monitor (11) T2DM (type 2 diabetes mellitus): Blood sugar = 133. Last hemoglobin C 06/22/2017 = 6.7 Hold metformin while inpatient Continue insulin glargine 20 units every afternoon Insulin sliding scale -Continue liraglutide (12) Anemia: Chronic. Patient with Hgb = 13.4 and HCT = 41.8 which is up from prior values of 11.4 and 34.5, respectively. No blood transfusion. Possibly second myles to volume contraction/hemoconcentration Continue to monitor CBC (13) History of thoracic spinal fusion: Patient with extensive history of spinal surgery as above. Has had progressive loss of function as well as increased spasm. Check MRI thoracic and lumbar spine Consult orthopedic surgery. Patient is well-known to Dr. Yepez Continue home pain management with Percocet and Tylenol, muscle relaxer tizanidine. Add Flexeril Morphine as needed Consistent carb/heart healthy diet as tolerated Prophylaxispatient anticoagulated on apixaban, will continue. Continue home famotidine 40 mg p.o. twice daily Codefull per discussion with patient Patient needs rehab. Awaiting placement. Subjective 69 yo male reports feeling well. He has no new complaints. Review of Systems Review of Systems: All systems reviewed & are unremarkable except as noted in HPI & below Physical Exam Physical Exam: General: patient resting comfortably, NAD, non-toxic in [place] earance, AA&O x 4 Skin: warm, dry, intact, no rashes or lesions HEENT: NC/AT, PERRL, EOMI, anicteric sclera, conjunctiva without injection, external ear normal to inspection and nontender, no thyromegaly, no JVD Heart: +S1/S2, regular, no m/r/g Lungs: equal air entry bilaterally, no rales/rhonchi/wheezes Abd: +BS, soft, NT/ND, no masses/organomegaly/ascites Ext: warm, 2+ pulses in UE/LE bilaterally, no clubbing/cyanosis or edema, left ankle wound with central eschar, surrounding erythema, tenderness. No crepitus/bulla/lymphangitic streaking Neuro: Grossly nonfocal, patient AA&O x 4, speech intact, no facial droop, moving upper extremities Results & Data Vital Signs (Past 12 Hours) Vital Signs Temp Pulse Resp BP Pulse Ox 05/09/19 15:23 36.4 C L 69 21 133/73 94 PG Care Time/CCT Total # of Minutes Spent Total Time Spent with Patient: Total time spent is greater than 50% in coordination of care (as documented) at patient's floor/unit and/or counseling patient: (1) T2DM (type 2 diabetes mellitus) Diabetes mellitus complication status: without complication Diabetes mellitus jail insulin use: with jail use Qualified Code(s): E11.9 - Type 2 diabetes mellitus without complications; 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 transplanted heart: [place] heart Qualified Code(s): I25.10 - Atherosclerotic heart disease of [place] coronary artery without angina pectoris (3) Anemia Anemia type: unspecified type Qualified Code(s): D64.9 - Anemia, unspecified (4) Cellulitis Site of cellulitis: unspecified site Qualified Code(s): L03.90 - Cellulitis, unspecified (5) Depression Active/Remission status: remission status unspecified Depression Type: major depressive disorder Major depression recurrence: unspecified whether recurrent Qualified Code(s): F32.9 - Major depressive disorder, single episode, unspecified (6) Hypothyroidism Hypothyroidism type: unspecified Qualified Code(s): E03.9 - Hypothyroidism, unspecified (7) Hypertension Hypertension type: essential hypertension Qualified Code(s): I10 - Essential (primary) hypertension (8) Hypotension Hypotension type: hypotension due to hypovolemia Qualified Code(s): I95.89 - Other hypotension; E86.1 - Hypovolemia
[2019-05-10] MEDS: GABAPENTIN 600 MG TAB PO SCH ×2 (09:24→20:07)
[2019-05-10] MEDS: METHENAMINE HIPPURATE 1 GM TAB PO SCH ×2 (09:25→20:07)
[2019-05-10] MEDS: TIZANIDINE HCL 4 MG TABLET PO SCH ×2 (09:25→20:07)
[2019-05-10] MEDS: DOXYCYCLINE HYCLATE 100 MG CAP PO SCH ×2 (09:25→20:07)
[2019-05-10] MEDS: BuPROPion XL 150 MG TABCR PO SCH (09:25)
[2019-05-10] MEDS: APIXABAN 5 MG TABLET PO SCH ×2 (09:25→20:08)
[2019-05-10] MEDS: LIRAGLUTIDE PEN SQ SCH (09:26)
[2019-05-10] MEDS: INSULIN ASPART 100 UNITS/ML 3 ML PEN SC SCH ×4 (09:27→21:41)
[2019-05-10] MEDS: LEVOTHYROXINE SODIUM 75 MCG TABLET PO SCH (20:07)
[2019-05-10] MEDS: LIDOCAINE 5% 1 PATCH TD SCH (20:08)
[2019-05-10] MEDS: TRAZODONE HCL 100 MG TAB PO SCH (20:08)
[2019-05-10] MEDS: INSULIN GLARGINE SOLOSTAR 100 UNITS/ML 3 ML PEN SC SCH (21:47)
--- NOTE | 2019-05-10 21:50 | Hospitalist Progress Note ---
Date of Service May 10, 2019 Assessment & Plan (1) Hypotension: Resolved. Patient did have a bout of diarrhea prior to this episode, it is likely patient was not able to rehydrate the fluid that was lost. Patient with history of hypertension. Sent from PCP after being found hypotensive in the office, blood pressure = 75/48. Upon arrival to the ER blood pressure had improved to 107/78. Patient was administered 2.5 L of crystalloid fluid and blood pressure has remained normal to slightly elevated since. Hypotension most likely secondary to volume contraction. -Continue to monitor blood pressure -Pending placement. Rehab was denied, working on SNF placement. (2) Weakness: Patient with 1 month of progressive weakness acutely worsening over the last week. Could be secondary to dehydration with hypotension. Electrolytes and renal function are intact, but borderline elevated. Given patient's extensive history of spinal surgeries it is concerning that he localizes his weakness predominantly to his lower extremities. Also quite concerning is the progressive loss of function over the past few months. His presentation does not seem to be acute in any way. No fall/trauma/point tenderness. Sensation and mobility are intact. -consulted ortho however, does not appear weakness is from the back. -PT/OT -Case management assessment (3) Cellulitis: Left ankle cellulitis being treated with doxycycline 100 mg p.o. twice daily. Patient is near completion of his course. He feels that it has improved. Afebrile, hemodynamically stable, no leukocytosis. Do not strongly suspect osteomyelitis or progression of infection as underlying cause of patient's presentation today. -Vish area of cellulitis daily to monitor for progression or resolution -Continue doxycycline 100 mg p.o. twice daily, completed over 10 days on 05/10 . will stop. -affected area no longer warm, nor painful to palpaion (4) Urinary retention: Ongoing. Concern for cauda equina involvement given patient's progressive weakness Bladder scan every shift as needed Patient may self cath Continue Vesicare and methenamine at home dosages (5) Depression: Chronic. Stable. Continue bupropion 150 mg p.o. daily (6) Hypothyroidism: Chronic. -Check TSH with a.m. labs Continue Synthroid 75 mcg p.o. 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 Strong family history of hypercoagulability. Presently on apixaban 5 mg p.o. twice daily Continue home medication, apixaban 5 mg p.o. twice daily (8) Dyslipidemia: Chronic. Stable. Continue atorvastatin 20 mg p.o. daily Continue coenzyme Q 1000 mg p.o. daily (9) Coronary artery disease: Chronic. Stable. Patient without chest pain. EKG with no acute ischemic changes Continue home medications (10) Hypertension: Patient hypotensive in clinic today which has improved with administration of IV fluid. Presently mildly hypertensive. Continue lisinopril 2.5 mg p.o. daily Continue to monitor (11) T2DM (type 2 diabetes mellitus): Blood sugar = 133. Last hemoglobin C 06/22/2017 = 6.7 Hold metformin while inpatient Continue insulin glargine 20 units every afternoon Insulin sliding scale -Continue liraglutide (12) Anemia: Chronic. Patient with Hgb = 13.4 and HCT = 41.8 which is up from prior values of 11.4 and 34.5, respectively. No blood transfusion. Possibly secondary to volume contraction/hemoconcentration Continue to monitor CBC (13) History of thoracic spinal fusion: Patient with extensive history of spinal surgery as above. Has had progressive loss of function as well as increased spasm. Check MRI thoracic and lumbar spine Consult orthopedic surgery. Patient is well-known to Dr. Yepez Continue home pain management with Percocet and Tylenol, muscle relaxer tizanidine. Add Flexeril Morphine as needed Consistent carb/heart healthy diet as tolerated Prophylaxispatient anticoagulated on apixaban, will continue. Continue home famotidine 40 mg p.o. twice daily Codefull per discussion with patient Patient needs rehab. Awaiting placement. Subjective Patient reports feeling well. Review of Systems Review of Systems: All systems reviewed & are unremarkable except as noted in HPI & below Physical Exam Physical Exam: General: patient resting comfortably, NAD, non-toxic in appearance, AA&O x 4 Skin: warm, dry, intact, no rashes or lesions HEENT: NC/AT, PERRL, EOMI, anicteric sclera, conjunctiva without injection, external ear normal to inspection and nontender, no thyromegaly, no JVD Heart: +S1/S2, regular, no m/r/g Lungs: equal air entry bilaterally, no rales/rhonchi/wheezes Abd: +BS, soft, NT/ND, no masses/organomegaly/ascites Ext: warm, 2+ pulses in UE/LE bilaterally, no clubbing/cyanosis or edema, left ankle wound with central eschar, surrounding erythema, tenderness. No crepitus/bulla/lymphangitic streaking Neuro: Grossly nonfocal, patient AA&O x 4, speech intact, no facial droop, moving upper extremities Results & Data Vital Signs (Past 12 Hours) Vital Signs Temp Pulse Resp BP Pulse Ox 05/10/19 15:34 36.3 C L 74 18 111/70 95 PG Care Time/CCT Total # of Minutes Spent Total Time Spent with Patient: Total time spent is greater than 50% in coordination of care (as documented) at patient's floor/unit and/or counseling patient: (1) T2DM (type 2 diabetes mellitus) Diabetes mellitus complication status: without complication Diabetes mellitus termite renewal inspector insulin use: with termite renewal inspector use Qualified Code(s): E11.9 - Type 2 diabetes mellitus without complications; Z79.4 - custodial (current) use of insulin (2) Coronary artery disease Associated angina: without angina Coronary Disease-Associated Artery/Lesion type: [place] artery [place] vs. transplanted heart: [place] heart Qualified Code(s): I25.10 - Atherosclerotic heart disease of [place] coronary artery without angina pectoris (3) Anemia Anemia type: unspecified type Qualified Code(s): D64.9 - Anemia, unspecified (4) Cellulitis Site of cellulitis: unspecified site Qualified Code(s): L03.90 - Cellulitis, unspecified (5) Depression Active/Remission status: remission status unspecified Depression Type: major depressive disorder Major depression recurrence: unspecified whether recurrent Qualified Code(s): F32.9 - Major depressive disorder, single episode, unspecified (6) Hypothyroidism Hypothyroidism type: unspecified Qualified Code(s): E03.9 - Hypothyroidism, unspecified (7) Hypertension Hypertension type: essential hypertension Qualified Code(s): I10 - Essential (primary) hypertension (8) Hypotension Hypotension type: hypotension due to hypovolemia Qualified Code(s): I95.89 - Other hypotension; E86.1 - Hypovolemia
[2019-05-11 07:43] LABS: BUN Creatinine Ratio 18.5 (10-20); Creatinine Clr Calc Pharmacy 103.9 ml/min; Est GFR (African American) 101.6; Est GFR (Non-African American) 87.6; Potassium 3.9 mmol/L (3.5-5.1)
[2019-05-11] MEDS: TIZANIDINE HCL 4 MG TABLET PO SCH ×2 (07:57→20:58)
[2019-05-11] MEDS: APIXABAN 5 MG TABLET PO SCH ×2 (07:57→20:54)
[2019-05-11] MEDS: BuPROPion XL 150 MG TABCR PO SCH (07:57)
[2019-05-11] MEDS: METHENAMINE HIPPURATE 1 GM TAB PO SCH ×2 (07:57→20:57)
[2019-05-11] MEDS: LIRAGLUTIDE PEN SQ SCH (07:57)
[2019-05-11] MEDS: GABAPENTIN 600 MG TAB PO SCH ×2 (07:57→20:55)
[2019-05-11] MEDS: INSULIN ASPART 100 UNITS/ML 3 ML PEN SC SCH ×4 (08:00→21:00)
[2019-05-11] MEDS ORDERED: SODIUM CHLORIDE 0.9% 1000ML 1,000 ML IV ONE (13:25)
[2019-05-11 13:54] LABS: Hematocrit (blood only) 39.5 % (42-52); Hemoglobin 12.7 g/dL (14.0-18.0); Mean Corpuscular Hemoglobin 30.4 pg (25-34); Mean Corpuscular Volume 94.5 fL (80-100); Mean Platelet Volume 9.7 fL (7.4-10.4); Platelet Count 175 K/uL (130-400); RDW Coefficient of Variation 13.2 % (11.5-14.5); RDW Standard Deviation 45.3 fL (36.4-46.3); Red Blood Count 4.18 M/uL (4.7-6.1); White Blood Count 7.37 K/uL (4.8-10.8)
[2019-05-11 14:00] LABS: Mean Corpuscular Hgb Conc 32.2 g/dL (32-36)
[2019-05-11 14:15] LABS: BUN Creatinine Ratio 15.4 (10-20); Creatinine Clr Calc Pharmacy 67.2 ml/min; Est GFR (African American) 61.1; Est GFR (Non-African American) 52.7; Potassium 3.8 mmol/L (3.5-5.1)
[2019-05-11 14:18] LABS: Albumin Globulin Ratio 0.8 (0.9-2); Bilirubin,Total 0.3 mg/dl (0.2-1); Globulin 3.8 gm/dl (2.5-4.0); Total Protein 6.8 gm/dl (6.4-8.2)
--- NOTE | 2019-05-11 15:54 | Hospitalist Progress Note ---
Date of Service May 11, 2019 Assessment & Plan (1) Hypotension: x2 episodes including one today. Concern for cardiac arrhythmia and patient transferred to medical with telemetry for monitoring and evaluation advisor. No identifiable precipitating vagal event (eating, pain etc...) prior episode today although heart rate is more indicative of a vagal event rather than volume loss which this had previously been attributed to. Plan to keep on telemetry for next 24-48 hours to see if another event can be c aptured or if not can be sent with a 30 day event monitor to be set up. He is on a number of possible contributory medications including tizanidine, trazodone, lisinopril. Although he reports no recent changes to these and he has been getting them every day during this admission without multiple hypotensive episodes. Orthostatics Qshift (2) Weakness: Patient with 1 month of bilateral progressive weakness acutely worsening over the last week. No fall/trauma/point tenderness. Appreciate orthopedic consultation - suspected longstanding weakness from thor acic cord compression 2 years ago, acutely worsened after stopping therapy. (3) Cellulitis: No cellulitis present on exam today. Doxycycline now discontinued. Patient reports redness has improved. (4) Urinary retention: Chronically straight caths to avoid overflow incontinence. 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 Continue Vesicare and methenamine at home dosages. No recent change in urine as per patient to account for symptoms. UA on admission surprisingly clean with only trace LE and 10-20 epithelial cells. No culture taken. (5) Depression: Chronic. Stable. Continue bupropion 150 mg p.o. daily (6) Hypothyroidism: Chronic. TSH 3.31 Continue Synthroid 75 mcg p.o. 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 Strong family history of hypercoagulability. Continue home medication, apixaban 5 mg p.o. twice daily (8) Dyslipidemia: Chronic. Continue atorvastatin 20 mg p.o. daily (9) Coronary artery disease: Chronic. Stable. Patient without chest pain. EKG with no acute ischemic changes Continue home medications (10) Hypertension: as above for hypotension. Will discontinue lisinopril at this time given additional hypotensive episode. (11) T2DM (type 2 diabetes mellitus): Blood sugar = 133. Last hemoglobin C 06/22/2017 = 6.7. Will repeat in AM Continue insulin glargine 20 units every afternoon Insulin sliding scale, will d/c carb coverage and place patient back on metformin in anticipation for discharge -Continue liraglutide (12) Anemia: Chronic. Mild normocytic anemia. No further inpatient required for this. (13) History of thoracic spinal fusion: Patient with extensive history of spinal surgery as above. Has had progressive loss of function as well as increased spasm. Check MRI thoracic and lumbar spine Consult orthopedic surgery. Patient is well-known to Dr. Yepez Continue home pain management with Percocet and Tylenol, muscle relaxer tizanidine. Add Flexeril Morphine as needed Consistent carb/heart healthy diet as tolerated Prophylaxispatient anticoagulated on apixaban, will continue. Continue home famotidine 40 mg p.o. twice daily Codefull per discussion with patient Patient needs rehab. Awaiting placement. (14) DVT prophylaxis: Eliquis 5mg BID (15) Discharge planning issues: Patient needing palcement on discharge as per PT/OT recommendaitons Subjective Patient seen when had an acute hypotensive episode today around 13:15. Patient symptomatic with visual changes and dizziness at that time. He reports not doing anything particularly to bring on symptoms. Same as episode when he was admitted. Separately he does have vertigo episodes when he turns his head to the side but these episodes do not feel the same in any way. Apart from these two occasions he has not had this before. He was not tachycardic during this episode. He does report a lack of sleep since coming in to hospital and is drifting off multiple times during my exam but reports this is unique to the hospitalization and was not present prior to this. He takes trazodone due to chronic insomnia but has done so for years. No recent changes to his back pain medications. No bowel movement, recent food consumption or physical therapy prior to episode today. He reports no problems with physical therapy earlier. He is known to cardiology Dr Contreras with a triple bypass in 2012. Review of Systems Review of Systems: All systems reviewed & are unremarkable except as noted in HPI & below Physical Exam Constitutional: well developed; + not well nourished and no acute distress drowsy when first seen and hypotensive, falling asleep easily when examined Eyes: + anicteric sclerae; normal pupil size ENMT: external ear and nose normal, oropharynx normal Neck: trachea midline Respiratory: normal respiratory effort; no respiratory distress, no labored breathing, no retractions and does not use accessory muscles Auscultation: lungs clear to auscultation bilaterally; no diminished lung sounds, no crackles, no rales and no rhonchi Cardiovascular: Rate/Rhythm: + irregularly irregular (occasional regular patterns) Heart Sounds: no murmur Vessels: posterior tibial pulses present, dorsalis pedis pulses present and radial pulses present; no JVD Extremities: normal capillary refill and + pedal edema (1+ to knees) Gastrointestinal (Abdomen): normal bowel sounds, soft, nontender, no hepatosplenomegaly Musculoskeletal: no cyanosis or clubbing, extremities motor strength 5/5 Skin: no rashes, warm and dry + ulcer (overlying escar on left lateral ankle, appears to be healing without cellul) Neurologic: moves all extremities (b/l weakness in lower extremities) and awake; no focal motor deficits Motor/Sensory: + sensory deficit (stocking distribution numbness in feet b/l) Psychiatric: A+Ox3, euthymic affect Results & Data Vital Signs (Past 12 Hours) Vital Signs Temp Pulse Resp BP BP Pulse Ox 05/11/19 15:20 97.3 F L 69 18 129/73 96 05/11/19 14:37 68 125/91 05/11/19 13:36 70 84/47 L 05/11/19 13:13 67/46 L 05/11/19 08:00 97.3 F L 74 18 109/74 91 PG Care Time/CCT Total # of Minutes Spent Total Time Spent with Patient: Total time spent is greater than 50% in coordination of care (as documented) at patient's floor/unit and/or counseling patient: (1) Hypotension Hypotension type: hypotension due to hypovolemia Qualified Code(s): I95.89 - Other hypotension; E86.1 - Hypovolemia (2) Cellulitis Site of cellulitis: unspecified site Qualified Code(s): L03.90 - Cellulitis, unspecified (3) Depression Depression Type: major depressive disorder Major depression recurrence: unspecified whether recurrent Active/Remission status: remission status unspecified Qualified Code(s): F32.9 - Major depressive disorder, single episode, unspecified (4) Hypothyroidism Hypothyroidism type: unspecified Qualified Code(s): E03.9 - Hypothyroidism, unspecified (5) Coronary artery disease Coronary Disease-Associated Artery/Lesion type: [place] artery [place] vs. transplanted heart: [place] heart Associated angina: without angina Qualified Code(s): I25.10 - Atherosclerotic heart disease of [place] coronary artery without angina pectoris (6) Hypertension Hypertension type: essential hypertension Qualified Code(s): I10 - Essential (primary) hypertension (7) T2DM (type 2 diabetes mellitus) Diabetes mellitus prison insulin use: with intermodal customer service use Diabetes mellitus complication status: without complication Qualified Code(s): E11.9 - Type 2 diabetes mellitus without complications; Z79.4 - salvage determiner (current) use of insulin (8) Anemia Anemia type: unspecified type Qualified Code(s): D64.9 - Anemia, unspecified
[2019-05-11] MEDS: POLYETHYLENE (MIRALAX) 17 GM PACK PO PRN (19:32)
[2019-05-11] MEDS: TRAZODONE HCL 100 MG TAB PO SCH (20:53)
[2019-05-11] MEDS: LIDOCAINE 5% 1 PATCH TD SCH (20:55)
[2019-05-11] MEDS: ATORVASTATIN 20 MG TAB PO SCH (20:56)
[2019-05-11] MEDS: LEVOTHYROXINE SODIUM 75 MCG TABLET PO SCH (20:56)
[2019-05-11] MEDS: INSULIN GLARGINE SOLOSTAR 100 UNITS/ML 3 ML PEN SC SCH (20:59)
[2019-05-12 07:16] LABS: Calcium 8.7 mg/dl (8.5-10.1); Creatinine Clr Calc Pharmacy 99.8 ml/min; Est GFR (African American) 99.3; Est GFR (Non-African American) 85.7
[2019-05-12] MEDS: METFORMIN HCL 500 MG TAB PO SCH ×2 (08:26→17:12)
[2019-05-12] MEDS: APIXABAN 5 MG TABLET PO SCH ×2 (08:26→20:31)
[2019-05-12] MEDS: POLYETHYLENE (MIRALAX) 17 GM PACK PO PRN (08:27)
[2019-05-12] MEDS: LIRAGLUTIDE PEN SQ SCH (08:27)
[2019-05-12] MEDS: TIZANIDINE HCL 4 MG TABLET PO SCH (08:27)
[2019-05-12] MEDS: GABAPENTIN 600 MG TAB PO SCH ×2 (08:27→20:30)
[2019-05-12] MEDS: BuPROPion XL 150 MG TABCR PO SCH (08:27)
[2019-05-12] MEDS: METHENAMINE HIPPURATE 1 GM TAB PO SCH ×2 (08:27→20:32)
[2019-05-12] MEDS: INSULIN ASPART 100 UNITS/ML 3 ML PEN SC SCH ×4 (08:28→20:32)
[2019-05-12 09:21] LABS: Estimated Average Glucose 117 mg/dl; Hemoglobin A1C 5.7 % (4.5-5.6)
[2019-05-12] MEDS ORDERED: MICONAZOLE NITRATE POWDER 43 GM EXT PRN (10:26)
--- NOTE | 2019-05-12 17:13 | Hospitalist Progress Note ---
Date of Service May 12, 2019 Assessment & Plan (1) Hypotension: x2 episodes. Associated rise in Cr. Patient to remain on telemetry as possible cardiac arrhythmia however no rapid resolution of hypotension outside of any arrhythmia therefore with additional information given today suspect tizanidine is the culprit in the setting of physical therapy. He continues to run a low BP without any AV block on telemetry therefore suspect this is the sole cause along with lisinopril use (also discontinued). Will reduce tizanidine dose and change to PRN and reassess BP tomorrow. Continue on telemetry in case he has another event. Plan to keep on telemetry overnight to see if another event can be captured. (2) Weakness: Patient with 1 month of bilateral progressive weakness acutely worsening over the last week. No fall/trauma/point tenderness. Appreciate orthopedic consultation - suspected longstanding weakness from thoracic cord compression 2 years ago, acutely worsened after stopping therapy. (3) Cellulitis: No cellulitis present on exam today. Doxycycline now discontinued. Patient reports redness has improved. (4) Urinary retention: Chronically straight caths to avoid overflow incontinence. 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 Continue Vesicare and methenamine at home dosages. No recent change in urine as per patient to account for symptoms. UA on admission surprisingly clean with only trace LE and 10-20 epithelial cells. No culture taken. (5) Depression: Chronic. Stable. Continue bupropion 150 mg p.o. daily (6) Hypothyroidism: Chronic. TSH 3.31 Continue Synthroid 75 mcg p.o. 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 Strong family history of hypercoagulability. Continue home medication, apixaban 5 mg p.o. twice daily (8) Dyslipidemia: Chronic. Continue atorvastatin 20 mg p.o. daily (9) Coronary artery disease: Chronic. Stable. Patient without chest pain. EKG with no acute ischemic changes Continue home medications (10) Hypertension: as above for hypotension. Discontinued lisinopril and changed tizanidine to reduced dose and PRN (11) T2DM (type 2 diabetes mellitus): HbA1C Continue insulin glargine 20 units every afternoon Insulin sliding scale for correction only. Restarted on metformin -Continue liraglutide (12) Anemia: Chronic. Mild normocytic anemia. No further inpatient required for this. (13) History of thoracic spinal fusion: Patient with extensive history of spinal surgery as above. Has had progressive loss of function as well as increased spasm. Continue home pain management with Percocet and Tylenol. no acute pathology as per imaging and ortho spine review (14) DVT prophylaxis: Eliquis 5mg BID (15) Discharge planning issues: Patient needing placement on discharge as per PT/OT recommendations Subjective No recurrence in his presyncopal episode since yesterday. In hindsight he feels this was related to his activity with physical therapy as it started half an claudia r of this and he is not used to sitting up. He now tells me the tizanidine was started approximately 1 month ago by his primary care provider. This was confirmed on chart review and appears to be been started April 21 as a PRN dose. It also appears he was switched from Lexapro to Cymbalta at this time. I am unclear who or why then switched Cymbalta to Wellbutrin but this also appears to been recently started between primary care visits in April. His reports an episode while in the shower where his legs went purple and he felt dizzy until lying down. This was prior to tizanidine use. He also reports similar episodes after his back surgery which resolved after discontinuing his antihypertensives. Review of Systems Review of Systems: All systems reviewed & are unremarkable except as noted in HPI & below Physical Exam Constitutional: well developed; + not well nourished and no acute distress Eyes: + anicteric sclerae; normal pupil size ENMT: external ear and nose normal, oropharynx normal Neck: trachea midline Respiratory: normal respiratory effort; no respiratory distress, no labored breathing, no retractions and does not use accessory muscles Auscultation: lungs clear to auscultation bilaterally; no diminished lung sounds, no crackles, no rales and no rhonchi Cardiovascular: Rate/Rhythm: regular rate and regular rhythm Heart Sounds: no murmur Vessels: radial pulses present; no JVD Extremities: normal capillary refill and + pedal edema (1+ to knees) Gastrointestinal (Abdomen): normal bowel sounds, soft, nontender, no hepatosplenomegaly Musculoskeletal: no cyanosis or clubbing, extremities motor strength 5/5 Skin: no rashes, warm and dry + ulcer (overlying escar on left lateral ankle, appears to be healing without cellul) Neurologic: moves all extremities (b/l weakness in lower extremities) and awake; no focal motor deficits Motor/Sensory: + sensory deficit (stocking distribution numbness in feet b/l) Psychiatric: A+Ox3, euthymic affect Results & Data Vital Signs (Past 12 Hours) Vital Signs Temp Pulse Pulse Resp BP Pulse Ox 05/12/19 15:38 86 05/12/19 15:00 97.9 F 78 18 93/59 L 96 05/12/19 11:00 97.3 F L 74 20 99/68 L 96 05/12/19 09:00 59 L 05/12/19 07:23 97.5 F L 73 18 137/71 97 PG Care Time/CCT Total # of Minutes Spent Total Time Spent with Patient: Total time spent is greater than 50% in coordination of care (as documented) at patient's floor/unit and/or counseling patient: (1) T2DM (type 2 diabetes mellitus) Diabetes mellitus complication status: without complication Diabetes mellitus senior care insulin use: with senior care use Qualified Code(s): E11.9 - Type 2 diabetes mellitus without complications; Z79.4 - meterman (current) use of insulin (2) Coronary artery disease Associated angina: without angina Coronary Disease-Associated Artery/Lesion type: [place] artery [place] vs. transplanted heart: [place] heart Qualified Code(s): I25.10 - Atherosclerotic heart disease of [place] coronary artery without angina pectoris (3) Anemia Anemia type: unspecified type Qualified Code(s): D64.9 - Anemia, unspecified (4) Cellulitis Site of cellulitis: unspecified site Qualified Code(s): L03.90 - Cellulitis, unspecified (5) Depression Active/Remission status: remission status unspecified Depression Type: major depressive disorder Major depression recurrence: unspecified whether recurrent Qualified Code(s): F32.9 - Major depressive disorder, single episode, unspecified (6) Hypothyroidism Hypothyroidism type: unspecified Qualified Code(s): E03.9 - Hypothyroidism, unspecified (7) Hypertension Hypertension type: essential hypertension Qualified Code(s): I10 - Essential (primary) hypertension (8) Hypotension Hypotension type: hypotension due to hypovolemia Qualified Code(s): I95.89 - Other hypotension; E86.1 - Hypovolemia
[2019-05-12] MEDS ORDERED: TIZANIDINE HCL 4 MG TABLET PO PRN (17:34)
[2019-05-12] MEDS: LEVOTHYROXINE SODIUM 75 MCG TABLET PO SCH (20:30)
[2019-05-12] MEDS: TRAZODONE HCL 100 MG TAB PO SCH (20:31)
[2019-05-12] MEDS: LIDOCAINE 5% 1 PATCH TD SCH (20:32)
[2019-05-12] MEDS ORDERED: TIZANIDINE HCL 4 MG TABLET PO SCH (21:00)
[2019-05-12] MEDS ORDERED: INSULIN GLARGINE SOLOSTAR 100 UNITS/ML 3 ML PEN SC SCH (21:00)
[2019-05-13] MEDS: GABAPENTIN 600 MG TAB PO SCH (08:09)
[2019-05-13] MEDS: INSULIN ASPART 100 UNITS/ML 3 ML PEN SC SCH ×2 (08:09→12:22)
[2019-05-13] MEDS: METFORMIN HCL 500 MG TAB PO SCH (08:09)
[2019-05-13] MEDS: APIXABAN 5 MG TABLET PO SCH (08:09)
[2019-05-13] MEDS: LIRAGLUTIDE PEN SQ SCH (08:10)
[2019-05-13] MEDS: METHENAMINE HIPPURATE 1 GM TAB PO SCH (08:10)
[2019-05-13] MEDS: BuPROPion XL 150 MG TABCR PO SCH (08:11)
--- NOTE | 2019-05-13 14:29 | Discharge Summary ---
Date of Service May 13, 2019 Admission HPI Per Admitting Provider James Balderas is an unfortunate 69-year-old male with complex medical history. He is sent today from his PCPs office with complaint of 1 month of progressive weakness/fatigue as well as hypotension in the office with blood pressure 75/48. He is currently being treated for a left ankle cellulitis with doxycycline 100 mg p.o. twice daily. Patient has remote history of bacterial meningitis and Guillain-Luong syndrome diagnosed in 1999. History of thoracic spinal stenosis involving T10-T11 status post decompression and fusion performed on 06/21/2017. He was readmitted on 07/01/2017 with increase in back pain and bilateral leg weakness. He was found to have a thoracic epidural hematoma extending to T7 status post evacuation on 07/02/2017. Patient with history of prior DVT during his episode with Guillain- Luong as well as a strong family history of hypercoagulability, including his mother dying at age 38 most likely secondary to massive PE. He was being treated with Coumadin during the time of the hematoma which was held for the surgery and after discharge. Patient returned to the ER on 07/09/2017 with bilateral pulmonary emboli and DVT. He was temporarily anticoagulated with heparin and had an IVC filter placed on 07/10/2017 and removed on 10/11/2017. Patient had another spinal surgery in [place]. Patient with chronic back pain and spasms as well as limited mobility. He reports that after his Karen-Luong he recovered a lot of function. With his subsequent back surgeries patient has become progressively less mobile. He reports that last spring he was moving through his home holding onto furniture and balancing himself with the wall. In late summer he was ambulating with a walker and harness. Since about January, he is unable to stand up on his own or walk. He is essentially bedbound. He has decreased urinary sensation and chronic constipation. Also with development of a small bedsore. He had PT home services but not recently. He denies falls, trauma, fever/chills. He reports his back pain is constant and stable but he has been experiencing some worsening leg spasms as well as progressive weakness and fatigue over the last month, acutely worsening over the last week. He describes the weakness is diffuse but mostly involving his legs. ER course: Benadryl, Levaquin, Zosyn, normal saline x2-1/2 L Discharge Data Allergies Allergy/AdvReac Type Severity Reaction Status Date / Time No Known Drug Allergies Allergy Verified 05/05/19 13:42 Consultations 05/05/19 18:33 ED Decision to Admit Stat 05/05/19 20:36 Consult Case Management - Discharge Planning Routine 05/05/19 20:58 Consult Orthopedic Surgery Routine Ordered Studies 05/05/19 20:36 MR lumbar spine wo con Urgent MR thoracic spine wo con Urgent Hospital Course (1) Hypotension: x2 episodes. Associated rise in Cr. Patient to remain on telemetry as possible cardiac arrhythmia however no rapid resolution of hypotension outside of any arrhythmia therefore with additional information given today suspect tizanidine is the culprit in the setting of physical therapy. He continues to run a low BP without any AV block on telemetry therefore suspect this is the sole cause along with lisinopril use (also discontinued). Will reduce tizanidine dose and change to PRN and reassess BP tomorrow. Continue on telemetry in case he has another event. Plan to keep on telemetry overnight to see if another event can be captured. (2) Weakness: Patient with 1 month of bilateral progressive weakness acutely worsening over the last week. No fall/trauma/point tenderness. Appreciate orthopedic consultation - suspected longstanding weakness from thoracic cord compression 2 years ago, acutely worsened after stopping therapy. (3) Cellulitis: No cellulitis present on exam today. Doxycycline now discontinued. Patient reports redness has improved. (4) Urinary retention: Chronically straight caths to avoid overflow incontinence. Patient reports secondary to Guillain-Pike but worsened after back surgery 2 years ago. Continue Vesicare and methenamine at home dosages. No recent change in urine as per patient to account for symptoms. UA on admission surprisingly clean with only trace LE and 10-20 epithelial cells. No culture taken. (5) Depression: Chronic. Stable. Continue bupropion 150 mg p.o. daily (6) Hypothyroidism: Chronic. TSH 3.31 Continue Synthroid 75 mcg p.o. 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 Strong family history of hypercoagulability. Continue home medication, apixaban 5 mg p.o. twice daily (8) Dyslipidemia: Chronic. Continue atorvastatin 20 mg p.o. daily (9) Coronary artery disease: Chronic. Stable. Patient without chest pain. EKG with no acute ischemic changes Continue home medications (10) Hypertension: as above for hypotension. Discontinued lisinopril and changed tizanidine to reduced dose and PRN (11) T2DM (type 2 diabetes mellitus): HbA1C Continue insulin glargine 20 units every afternoon Insulin sliding scale for correction only. Restarted on metformin -Continue liraglutide (12) Anemia: Chronic. Mild normocytic anemia. No further inpatient required for this. (13) History of thoracic spinal fusion: Patient with extensive history of spinal surgery as above. Has had progressive loss of function as well as increased spasm. Continue home pain management with Percocet and Tylenol. no acute pathology as per imaging and ortho spine review (14) DVT prophylaxis: Eliquis 5mg BID (15) Discharge planning issues: Patient needing placement on discharge as per PT/OT recommendations Discharge Plan Discharge Items Patient Disposition: Transfer Long-Term Fac Reason For Visit: WEAKNESS, FATIGUE Discharge Diagnosis: Weakness, hypotension Activity: Resume your previous activity Non-emergency contact: Primary Care Provider Call non-emergency contact if: you have any medication questions Follow-up/Referrals: Kirstin Sims DO [Primary Care Provider] - Diet: Carb Consistent or DM2 and Heart Healthy Addtl Attending Provider Instructions: You were admitted to [facility] from May 05 to 2018 due to progressive lower extremity weakness and hypotension. Thoracic and lumbar spine MRIs showed no new process to explain the progression of your symptoms and review by orthopedics felt this was an overall progression due to lack of physical therapy and you are now medically cleared to be discharged to [facility] for further physical rehabilitation. With regards to you hypotension this is likely due to the cross reactivity of tizanidine (recently prescribed for muscle spasms) and famotidine. This appeared to improve once discontinued. In addition your lisinopril has been discontinued. You are also taking over the recommended maximum dose of famotidine. You do not appear to have required this while admitted therefore will reduce the dose to a usual maintenance dose on discharge. With regards to your diabetes it appears you may be over treating this with your current doses of insulin and recommend reducing this as prescribed. Your HbA1C is 5.7. Followup with PCP in 1-2 weeks with regards to these. Pending Studies at Discharge: No Stand-Alone Forms: My [facility], Smoking Cessation Skilled Items Patient informed of condition?: Yes DNR: No Discharge Level of Care: Acute rehab Communicable Disease: No Discharge Prognosis: Stable Lines: None Urinary Catheter: No Medications and DC Order Prescriptions: New orphenadrine citrate 100 mg tablet extended release 100 mg PO BID PRN (Reason: Muscle spacicity) Qty: 14 RF: 0 Continued bupropion HCl [Wellbutrin XL] 150 mg tablet extended release 24 hr 150 mg PO QAM Qty: 30 RF: 2 Eliquis 5 mg tablet 5 mg PO BID RF: 0 Victoza 2-Brennon 0.6 mg/0.1 mL (18 mg/3 mL) pen injector 1.2 mg SQ DAILY RF: 0 levothyroxine [Synthroid] 75 mcg tablet 75 mcg PO QPM RF: 0 atorvastatin [Lipitor] 20 mg tablet 20 mg PO .COMPLEX RF: 0 trazodone 100 mg tablet 100 mg PO HS RF: 0 metformin 1,000 mg tablet 1,000 mg PO BID RF: 0 gabapentin 300 mg capsule 600 mg PO BID RF: 0 methenamine hippurate 1 gram tablet 1 gm PO Q12H RF: 0 polyethylene glycol 3350 [Miralax] 17 gram/dose powder 17 gm PO DAILY PRN (Reason: Constipation) RF: 0 multivitamin tablet 1 tab PO DAILY RF: 0 acetaminophen [Tylenol Extra Strength] 500 mg Tablet 100 mg PO Q6H PRN (Reason: Pain) RF: 0 oxycodone-acetaminophen [Percocet] 5-325 mg tablet 1 tab PO Q8 PRN (Reason: Pain) RF: 0 coenzyme Q10 100 mg Capsule 100 mg PO DAILY RF: 0 solifenacin [Vesicare] 10 mg tablet 10 mg PO QPM RF: 0 Changed Lantus U-100 Insulin 100 unit/mL solution 14 units SQ QPM Qty: 0 RF: 0 famotidine [Pepcid] 40 mg tablet 20 mg PO DAILY Qty: 0 RF: 0 Discontinued lisinopril 2.5 mg tablet 2.5 mg PO DAILY RF: 0 tizanidine 4 mg tablet 4 mg PO BID RF: 0 Discharge Orders: Discharge Order (Routine); Ordered 05/13/19 Ordered By: Gui Bhat Admission Data Admit Date/Time: 05/06/19 22:29 Attending Provider: Gui Bhat Admit Provider: Alka Maldonado Primary Care Provider: Kirstin Sims. Other Providers: [facility] ; Alka Maldonado ; Ramiro Yepez Other Interventions: Discharge Summary Assessment (RN) Last Done: 05/13/19 12:07
== END 2019-05-13 15:00 | DRG 603 ==
LOC: 2N 15:09 → ED 15:09 → SUATTDRO 19:28 → 2N 20:16 → SUATTDRO 05-06 22:29